=== PATIENT | female | born 1945 | race Caucasian/White ===

== ENCOUNTER → 2018-02-04 13:34 | Outpatient (CLI) | payer MEDICARE, SELFPAY ==
--- NOTE | 2018-02-04 13:30 | RAD_ITS ---
STUDY: X-RAY - LUMBAR SPINE REASON FOR EXAM: Female, 72 years old. Recent fall. Back and right hip pain. TECHNIQUE: 3 view(s) of the lumbar spine were obtained. COMPARISON: CT of the lumbar spine dated February 14, 2014. FINDINGS: There is generalized osteopenia. Normal lumbar lordosis. There is rotatory levoscoliosis of the mid lumbar spine. There is anterolisthesis of L3 on L2 of approximately 7 mm. There is posterior fusion at L4-5 unchanged from the prior comparison study. No complications are noted. There is substantial disc degeneration at L2-3 and L3-4 relatively unchanged from the prior study. There is diffuse facet sclerosis. The soft tissue structures are unremarkable. RAD/Lumbar Spine 2 or 3 Views IMPRESSION: Generalized osteopenia with lumbar spondylosis, relatively unchanged since the prior comparison CT study of February 14, 2014. Moderate lumbar spondylosis most marked at L2-3 and L3-4. Electronically Signed: Ga Valdez MD at 17:30 EDT , Service support ,
--- NOTE | 2018-02-04 13:34 | DT_ITS ---
This patient was seen during an EMR downtime February 04, 2018 - February 11, 2018. This patient may have a combination of paper and electronic documentation or all paper documentation. All documentation is viewable within the e-chart portion of [facility] for each patient visit.
== END ==
PROVIDERS: Family Provider Nurse Practitioner; PCP Nurse Practitioner; Visit Provider Anesthesiology Pain Medicine
DX: M85.80 Other specified disorders of bone density and structure, unspecified site (principal); M47.896 Other spondylosis, lumbar region; W19.XXXA Unspecified fall, initial encounter
CPT/HCPCS: 72100

== ENCOUNTER → 2018-03-05 09:33 | Outpatient (CLI) | payer MEDICARE, SELFPAY ==
--- NOTE | 2018-03-05 09:50 | RAD_ITS ---
STUDY: X-RAY - PELVIS AND RIGHT HIP REASON FOR EXAM: Female, 72 years old. Pain weeks after fall onto right hip. TECHNIQUE: Radiological exam, hip, unilateral, with pelvis when performed; 2 or 3 views. COMPARISON: None. FINDINGS: There is a non-specific bowel gas pattern. Normal visualized soft tissue structures. There are multilevel degenerative changes of the lumbar spine and a moderate levoscoliosis centered near L3. The patient has undergone prior bilateral posterior L4-5 fixation with bilateral transpedicular screws at those levels, connected on either side the longitudinal metal rods There is mild narrowing and/or cortical sclerosis of the lateral sacroiliac joints, consistent with degenerative osteoarthritic changes. Normal iliac wings and visualized sacrum. Normal bilateral superior and inferior pubic rami. There are degenerative changes of the pubic symphysis with articular narrowing and sclerosis. Normal bilateral ischial tuberosities. Normal visualized femoral head. Normal acetabulum. Normal hip joint. There is no demonstrated osseous destructive lesion or fracture. RAD/Hip 2-3 Views with Pelvis IMPRESSION: Degenerative changes of the spine and pelvis, as described. Unremarkable right hip. Electronically Signed: Nii Bower MD at 19:16 EDT , Service support ,
== END ==
PROVIDERS: Family Provider Nurse Practitioner; PCP Nurse Practitioner; Visit Provider Anesthesiology Pain Medicine
DX: M25.559 Pain in unspecified hip (principal)
CPT/HCPCS: 73502

== ENCOUNTER → 2018-04-30 15:57 | Outpatient (CLI) | payer MEDICARE, SELFPAY ==
[2018-04-30 17:18] LABS: Amphetamine Urine VISTA NEGATIVE (<1000 ng/mL); Barbiturate Urine VISTA NEGATIVE (< 200 ng/mL); Benzodiazepine Urine VISTA NEGATIVE (< 200 ng/mL); Cocaine Urine VISTA NEGATIVE (< 300 ng/mL); Ecstacy Urine VISTA NEGATIVE (< 500 ng/mL); Methadone Urine VISTA NEGATIVE (< 300 ng/mL); PCP Urine VISTA NEGATIVE (< 25 ng/mL); THC Urine VISTA NEGATIVE (< 50 ng/mL); Vista UDS pH Range 6
== END ==
PROVIDERS: Family Provider Nurse Practitioner; PCP Nurse Practitioner; Visit Provider Anesthesiology Pain Medicine
DX: F11.20 Opioid dependence, uncomplicated (principal)
CPT/HCPCS: 80307

== ENCOUNTER → 2018-10-04 11:44 | Outpatient (CLI) | payer MEDICARE, SELFPAY ==
[2018-08-23 08:24] VITALS: BMI 40.4
[2018-10-04 14:47] LABS: Erythrocyte Sedimentation Rate 21 mm/hr (0-30)
[2018-10-04 14:56] LABS: Absolute Lymphocyte Count 1.18 X10^3/ul (0.83-4.51); Absolute Neutrophil Count 3.9 X10^3/uL (2.0-7.7); Basophil# 0.04 X10^3/uL; Basophil% 0.7 % (0-1); Eosinophil# 0.12 X10^3/uL; Eosinophils% 2.2 % (0-5); Hematocrit 43.9 % (37-47); Lymphocyte # 1.18 X10^3/ul (4.0); Lymphocyte % 21.3 % (19-41); Mean Corp Hgb Conc 31.9 g/gl (32-36); Mean Corpuscular Hgb 29.5 pg (27.0-32.0); Mean Corpuscular Volume 92.4 fL (81-99); Mean Platelet Vol. 10.4 fl (6.2-12.0); Monocyte# 0.35 X10^3/uL; Monocyte% 6.3 % (0-10); Neutrophil # 3.85 X10^3/uL (2.7-7.7); Neutrophil % 69.3 % (47-70); POSITIVE COUNT NO; POSITIVE DIFFERENTIAL NO; POSITIVE MORPHOLOGY NO; Platelet Count 299 K/mm3 (150-450); RBC Distribution Width CV 13.8 % (11.6-14.6); RBC Distribution Width SD 46.3 fl (35.1-43.9); Red Blood Count 4.75 M/mm3 (4.2-5.4); White Blood Count 5.6 K/mm3 (4.4-11.0)
== END ==
PROVIDERS: Family Provider Nurse Practitioner; PCP Nurse Practitioner; Referring Provider Physician Assistant; Visit Provider Physician Assistant
DX: Z96.652 Presence of left artificial knee joint (principal)
CPT/HCPCS: 36415; 85025; 85652; 86140

== ENCOUNTER → 2018-10-10 15:44 | Outpatient (CLI) | payer MEDICARE, SELFPAY ==
[2018-08-23 08:24] VITALS: BMI 40.4
[2018-10-10 16:42] LABS: RBC /Synovial Fluid 0.039 10^6/uL (0); Synovial Fld Mononuclear WBC % 38.6 %; Synovial Fld Polynuclear WBC # 0.508 10^3/ul; Synovial Fld Polynuclear WBC % 61.4 %
[2018-10-10 19:32] LABS: AUTO B FLUID DILUENT BKGD CT WBC <0.1 RBC <0.01 (W<.1,R<.01); Appearance /Synovial Fluid Cloudy (CLEAR); Color / Synovial Fluid Red (Pale Yellow); Lymph 57 %; Monocyte /Synovial Fluid 10 %; Neutrophil 14 % (0-25)
[2018-10-10 19:33] LABS: Body Fluid QC Type(s) BF1; Other Cell /Synovial Fluid 18 %
[2018-10-11 13:40] LABS: Pathologist Comment Reviewed
== END ==
PROVIDERS: Family Provider Nurse Practitioner; PCP Nurse Practitioner; Referring Provider Specialist; Visit Provider Specialist
DX: Z96.652 Presence of left artificial knee joint (principal)
CPT/HCPCS: 87015; 87070; 87075; 87101; 87116; 87205; 87206; 89050; 89051

== ENCOUNTER → 2018-11-08 09:25 | Outpatient (CLI) | payer MEDICARE, SELFPAY ==
[2018-08-23 08:24] VITALS: BMI 40.4
--- NOTE | 2018-11-08 09:29 | US_ITS ---
STUDY: THYROID ULTRASOUND REASON FOR EXAM: Female, 73 years old. Abnormal TSH TECHNIQUE: Ultrasound evaluation of the thyroid was performed with real-time and static caban-scale imaging. COMPARISON: None. FINDINGS: RIGHT LOBE: The right lobe of the thyroid gland measures 4.2 x 1.5 x 1.9 cm. There is a homogeneous echotexture. There are 2 slightly complex cystic nodules are noted in the upper pole measuring up to 7 mm. LEFT LOBE: The left lobe of the thyroid gland measures 3.2 x 1.4 x 1.5 cm. There is a homogeneous echotexture. Complex cystic left thyroid nodule measuring 7 mm. ISTHMUS: The isthmus measures 3 mm . The regional lymph nodes are normal. US/Thyroid IMPRESSION: Complex cystic thyroid nodules are noted bilaterally. Electronically Signed: Rodolfo Cameron DO at 10:38 EST Tel [phone], Service support ,
== END ==
PROVIDERS: Family Provider Nurse Practitioner; PCP Nurse Practitioner; Referring Provider Nurse Practitioner; Visit Provider Nurse Practitioner
DX: R79.89 Other specified abnormal findings of blood chemistry (principal)
CPT/HCPCS: 76536

== ENCOUNTER 2018-11-13 10:00 | Outpatient (RCR) | payer MEDICARE, SELFPAY ==
[2018-08-23 08:24] VITALS: BMI 40.4
--- NOTE | 2018-10-15 11:04 | HP.PTEVAL_ITS ---
Patient's Visit Information DEON SAMAYOA is a 73 year old F referred to Physical Therapy by Glenroy Sol MD with a diagnosis of LBP, Artificial knee.. Date of Evaluation: 10/15/18 Physical Therapist: CONSTANCE Rodriguez - Visit Plan Frequency: 2x /Week Duration: 4 Weeks Plan: 2X/ week for 4 weeks for L knee strengthening exercises, gait training, functional activities with HEP - Subjective Findings: Pt reports that she turned 73 (Sep 30) and then next morning it hurt from her back to her toes (sharp pain from back to the toes). The pain stayed for about 2 days. She was in a knee brace and walker for 1.5 weeks. He took fluid from her knee and it was negative for infection. She has had 2 TKR and 3 revisions and has had spinal surgery on L3, 4 and 5 (fusion) as well. Pt reports that she wants water therapy. She has no N&T except for B feet numbess due to neuropathy. She has had no falls connected to this. She has a balance issue and poor vision. She uses a cane out in public. Pt reports that walking occ she feels that her knee will lock and not bend. They did an x-ray and an MRI. - Pain back pain Pain Intensity (Out of 10): 2 L knee Pain Intensity (Out of 10): 3 - Objective L AROM: 0 degrees extension and 100degrees L knee flexion. R knee AROM: 0 degrees and 112 degrees R knee flexion. L knee MMT: knee ext 2-/5, knee flexion 3+/5, hip abd 2- ( hard to lift due to heaviness of the lower 1/2 of the leg), L ankle DF 4-/5. R knee MMT: knee flex, knee ext, hip abd all 4/5. Unable to LAQ into extension on the L knee ( able to move approx 1/4 normal ROM from a sitting position). Therapist is able to PROM L knee into LAQ position but increase pain along the medial and inferior knee when passivly going back to 90 degrees flexion sitting on the edge of the mat table. Pt is not able to extend her knee in trying to do a SLR. Palpation: tenderness along the medial joint line L knee and infrapatella L knee. - Goals Goal 1:: I HEP Goal Time Frame: 2-4 Weeks Goal 2:: Increase L knee strength to be able to do a full L knee LAQ ROM Goal Time Frame: 2-4 Weeks Goal 3:: Decrease pain 2/10 L knee Goal Time Frame: 2-4 Weeks - Rehabilitation Potential Rehabilitation Potential: Good - Anticipated Interventions Patient/Client Instruction: Educate patient on: Condition, Plan of Care For the Purpose of:: To decrease pain, To improve nutrient delivery to tissue, To improve muscle performance and motor function, To improve ability to perform ADL's, To increase tolerance to activity/condition/position, To improve performance and independence with ADL's, To decrease level of supervision to perform tasks, To improve gait and locomotor functions, To improve health of tissue, To improve safety with gait Therapeutic Exercise to Include: Strength training, Passive ROM, Active ROM For the Purpose of:: To decrease pain, To increase ROM, To improve nutrient delivery to tissue, To improve muscle performance and motor function, To improve ability to perform ADL's, To increase tolerance to activity/condition/position, To improve performance and independence with ADL's, To improve gait and locomotor functions Thank you for the opportunity to evaluate your patient. For Medicare and Medicare HMO plans, please review the plan of care and approve it. It will need to be FAXED BACK to us at [phone] for Medicare purposes. For Medicare only, by signing this I certify the plan of care. Please let me know if there are questions or concerns regarding this plan of care. Physician Signature: Date:
--- NOTE | 2018-11-13 10:33 | HP.PTREVAL ---
Glenroy Sol MD, It has been my pleasure to treat DEON SAMAYOA over the last 9 visits for LBP, Artificial knee.. Please see the progress note below for an update on the physical therapy plan of care! Subjective: Pt feels that her back feels better but her L knee is not much better. She reports that she still can not lift her leg. The Dr thinks that her knee problem is a tendon and told her that it would be a year recovery. She is going to [place] the week after next for a test. SHe reports that her knee is no better. If it is not here knee then he will move up to her back. 70% improvement in back and 0% improvement in knee. Objective/Function: Pt is still unable to do a LAQ. Pt walks with cane with decreased stance time on the L and slightly increased L circumduction to get leg to clear floor. Plan Plan: Hold PT at this time until the Pt has this additional testing. Pt will call in a re-schedule to continue to increase strength. Goals Goal 1:: I HEP Goal Time Frame: 2-4 Weeks Goal Progress: Goal Met Goal 2:: Increase L knee strength to be able to do a full L knee LAQ ROM Goal Time Frame: 2-4 Weeks Goal Progress: Not Progressing Goal 3:: Decrease pain 2/10 L knee Goal Time Frame: 2-4 Weeks Goal Progress: Not Progressing Anticipated Interventions Patient/Client Instruction: Educate patient on: Condition, Plan of Care For the Purpose of:: To decrease pain, To improve nutrient delivery to tissue, To improve muscle performance and motor function, To improve ability to perform ADL's, To increase tolerance to activity/condition/position, To improve performance and independence with ADL's, To decrease level of supervision to perform tasks, To improve gait and locomotor functions, To improve health of tissue, To improve safety with gait Therapeutic Exercise to Include: Strength training, Passive ROM, Active ROM For the Purpose of:: To decrease pain, To increase ROM, To improve nutrient delivery to tissue, To improve muscle performance and motor function, To improve ability to perform ADL's, To increase tolerance to activity/condition/position, To improve performance and independence with ADL's, To improve gait and locomotor functions Please do not hesitate to contact me at [phone] by phone or if you have questions or concerns regarding this new plan of care! Sincerely, Nikia Noble, MPT
--- NOTE | 2019-03-11 15:03 | HP.PT.NRP ---
HP - Discharge Summary (1) - Patient Information DEON SAAMYOA was seen in my office for initial evaluation on 10/15/18. The following Plan of Care was established for this patient: Initial Frequency: 2x /Week Initial Duration: 4 Weeks - Anticipated Interventions Patient/Client Instruction: Educate patient on: Condition, Plan of Care For the Purpose of:: To decrease pain, To improve nutrient delivery to tissue, To improve muscle performance and motor function, To improve ability to perform ADL's, To increase tolerance to activity/condition/position, To improve performance and independence with ADL's, To decrease level of supervision to perform tasks, To improve gait and locomotor functions, To improve health of tissue, To improve safety with gait Therapeutic Exercise to Include: Strength training, Passive ROM, Active ROM For the Purpose of:: To decrease pain, To increase ROM, To improve nutrient delivery to tissue, To improve muscle performance and motor function, To improve ability to perform ADL's, To increase tolerance to activity/condition/position, To improve performance and independence with ADL's, To improve gait and locomotor functions This patient was last seen in our office 11/13/18. Pertinent comments regarding their Physical therapy will appear below: [facility] PT At this point I will be discontinuing this patient from physical therapy. I would be happy to see this patient again in the future if found appropriate by the physician. Thank you! Nikia Noble, CONSTANCE
== END 2018-11-13 19:00 | disposition home or self-care (01) ==
LOC: PT 10:00
PROVIDERS: Family Provider Nurse Practitioner; PCP Nurse Practitioner; Referring Provider Specialist; Visit Provider Specialist
DX: T84.84XD Pain due to internal orthopedic prosthetic devices, implants and grafts, subsequent encounter (principal); M54.5 Low back pain; Z96.652 Presence of left artificial knee joint
CPT/HCPCS: 97113; 97162; 97530

== ENCOUNTER → 2019-03-07 07:52 | Outpatient (CLI) | payer MEDICARE, SELFPAY ==
[2019-02-24 10:10] VITALS: BMI 37.7
--- NOTE | 2019-03-07 07:55 | CDU_ITS ---
Reason For Study: Vertigo Rt. Velocities/BP Lt. Velocities/BP Prox CCA 72.1/22.6 cm/sec. Prox CCA 109.7/22.5 cm/sec. Mid CCA 82.6/18.6 cm/sec. Mid CCA 81.4/20 cm/sec. Dist CCA 66.9/20 cm/sec. Dist CCA 79/16.3 cm/sec. Prox ICA 64.3/20 cm/sec. Prox ICA 67.9/15.1 cm/sec. Mid ICA 98.2/38.2 cm/sec. Mid ICA 82.7/33.5 cm/sec. Dist ICA 96.9/38.2 cm/sec. Dist ICA 108.4/42.1 cm/sec. Rt. ICA/CCA = 1.4. Lt. ICA/CCA = 1.3. Prox ECA 100.8/54.2 cm/sec. Prox ECA 79/10.2 cm/sec. Rt. Vert. 54.2/17.9 cm/sec. Lt. Vert. 43.9/18.6 cm/sec. Right Extracranial There is homogeneous, smooth atherosclerotic plaque noted in the right common carotid artery. There is homogeneous, irregular atherosclerotic plaque noted in the right internal carotid artery. There is intimal thickening but no significant atherosclerotic plaque noted in the right external carotid artery. Antegrade flow is noted in the right vertebral artery. Left Extracranial There is homogeneous, smooth atherosclerotic plaque noted in the left common carotid artery. There is heterogeneous, irregular atherosclerotic plaque noted in the left internal carotid artery. There is intimal thickening but no significant atherosclerotic plaque noted in the left external carotid artery. Antegrade flow is noted in the left vertebral artery. Procedure Carotid Duplex [id number]. Exam performed in department. Interpretation Summary Minimal plague at the proximal bilateral internal carotids with <50% stenosis bilaterally <50% stenosis bilateral external carotids Patent and antegrade vertebrals bilaterally Ordering Physician: Stephen Leiva Referring Physician: Niki Nayak Performed By: Katie Marshall RVT
== END ==
PROVIDERS: Family Provider Nurse Practitioner; PCP Nurse Practitioner; Referring Provider Nurse Practitioner Family; Visit Provider Nurse Practitioner Family
DX: I65.22 Occlusion and stenosis of left carotid artery (principal); R42 Dizziness and giddiness
CPT/HCPCS: 93880

== ENCOUNTER → 2019-03-31 11:04 | Outpatient (CLI) | payer MEDICARE, SELFPAY ==
[2019-02-24 10:10] VITALS: BMI 37.7
--- NOTE | 2019-03-31 11:09 | RAD_ITS ---
STUDY: X-RAY - RIGHT HAND REASON FOR EXAM: Female, 73 years old. Nontraumatic pain in the third digit. TECHNIQUE: 3 view(s) of the hand. COMPARISON: None. FINDINGS: There is generalized osteopenia. There is joint space narrowing of the radiocarpal articulation consistent with degenerative arthrosis. Normal distal radioulnar joint. Normal visualized carpal bones. Normal carpal articulations Normal carpometacarpal articulation of the thumb. Normal second through fifth carpometacarpal joints. Normal metacarpi. Normal metacarpophalangeal joint of the thumb. Normal interphalangeal joint of the thumb. Normal proximal and distal phalanges of the thumb. Normal metacarpophalangeal joints of the second through fifth fingers. Normal proximal and distal interphalangeal joints of the second through fifth fingers. Normal phalanges of the second through fifth fingers. The soft tissue structures are unremarkable. RAD/Hand Min 3 Views IMPRESSION: Osteopenia of the hand without fracture or dislocation. Electronically Signed: Jef Enriquez DO at 17:03 EDT Tel [phone], Service support ,
== END ==
PROVIDERS: Family Provider Nurse Practitioner; PCP Nurse Practitioner; Referring Provider Nurse Practitioner; Visit Provider Nurse Practitioner
DX: M79.646 Pain in unspecified finger(s) (principal)
CPT/HCPCS: 73130

== ENCOUNTER 2019-04-07 10:23 | Inpatient (IN) | payer MEDICARE, SELFPAY ==
[2019-02-24 10:10] VITALS: BMI 37.7
[2019-04-07] VITALS (17 sets, daily range): BP systolic 108–159; BP diastolic 68–107; PULSE 55–108; RESP 15–26; TEMP 36.6–37; O2SAT 93–97; BMI 37.5; BMI 40.6; BMI 40.7
--- NOTE | 2019-04-07 10:34 | EKG12_ITS ---
Test Reason : CP Blood Pressure : / mmHG Vent. Rate : 164 BPM Atrial Rate : 105 BPM P-R Int : 000 ms QRS Dur : 144 ms QT Int : 272 ms P-R-T Axes : 000 -53 147 degrees QTc Int : 449 ms Atrial fibrillation with rapid ventricular response Left bundle branch block Abnormal ECG Confirmed by YONNY GARCIA ([id number]), editorial clerk STANLEY ELLIS ([id number]) on 04/09/2019 3:25:39 PM Referred By: Niki Nayak Confirmed By:YONNY GARCIA
--- NOTE | 2019-04-07 10:38 | RAD_ITS ---
STUDY: X-RAY CHEST REASON FOR EXAM: Female, 73 years old. Chest pain. Shortness of breath. TECHNIQUE: Single AP portable view of the chest. COMPARISON: None. FINDINGS: EKG electrodes are seen. Scattered calcified granulomas. There is no demonstrated pleural abnormality. There is borderline cardiomegaly. Normal mediastinum and savage. Normal visualized pulmonary arteries. There is atherosclerotic tortuosity of the aortic arch and descending thoracic aorta. There are diffuse degenerative changes of the visualized thoracic spine. Normal visualized ribs, clavicles, and shoulders. There is no demonstrated abnormality of the visualized soft tissue structures of the upper abdomen. RAD/Chest 1 View (Portable) IMPRESSION: No acute abnormality is seen. Electronically Signed: Julio Rubio, at 11:22 EDT , Service support ,
[2019-04-07] MEDS: dilTIAZem 25 MG/5 ML Vial 20 MG IV BOLUS (10:42)
[2019-04-07] MEDS: Heparin Injection (Vial) 5,000 UNIT/ML VIAL 6000 UNIT IV (10:52)
[2019-04-07] MEDS: Nitroglycerin (INPATIENT USE) 0.4 MG TAB.SUBL SUBLINGUAL (10:52)
--- NOTE | 2019-04-07 10:53 | ED.VISSUMM ---
- ER Visit Summary Date of Service: 04/07/19 Chief Complaint: [Chest pain and shortness of breath] History of Present Illness: The patient is a 73 F [presents with symptoms for about 3 days. Patient describes exertional tightness in her chest and shortness of breath associated with diaphoresis. Patient states that if she feels like her heart's at times racing but does not feel like it skipping beats. Currently rates her discomfort as a 7 out of 10. Patient states that her symptoms tend to improve with rest. She denies recent travel or surgery. She has no heart history. She has had history of TIAs and history of hypertension. Recent illness. She denies recent travel or surgery.] Physical Examination: [HEENT-PERRLA, EOMI. Cranial nerves II through XII grossly intact. TMs clear. Mucous membranes moist. No adenopathy. Cardiovascular-irregularly irregular and tachycardic. No murmurs auscultated. Lungs-clear to auscultation, chest wall stable without crepitus or subcu emphysema Abdomen-normoactive bowel sounds, soft, nontender, no rebound or rigidity, no peritoneal signs. Extremities-intact ?4, normal range of motion, normal pulses, atraumatic. No edema.] Test Results: [EKG obtained on arrival showed atrial fibrillation with a rapid ventricular response with a heart rate of 164. Patient had left bundle branch block associated. CBC with differential 13.8, hemoglobin 13.7, hematocrit 42, placed 307. Chemistries unremarkable. BUN was 30 and creatinine 1.11. Troponin is less than 0.15. BNP was 495. Chest x-ray showed small granuloma in the right lower lobe otherwise nothing acute.] Emergency Department Course and Treatment: [Patient case was discussed with hardware developer on-call given the symptomatology the patient and the new left bundle branch block. I was asked to start patient on heparin. Patient already took Plavix today. Patient was given Cardizem 20 mg IV bolus which slowed her heart rate down into to the 90s however she started elevate again into the low 100s and was given another 25 mg bolus of Cardizem and started on a Cardizem drip and heart rate now in the 70s to 80s. Patient started on heparin drip.] Treatment Plan: [Admit for further treatment and evaluation of her chest pain as well as management of her A. fib RVR] Disposition: [Admit] Impression: [A. fib RVR Chest pain-rule out acute coronary syndrome] This note was generated with [employer] dictation software. It may contain incorrect words, spelling, and punctuation that were not noted in review of the chart prior to signing ED Disposition - Plan for ED Patient: Referrals: Niki Nayak, [facility] [Primary Care Provider] -
[2019-04-07 10:54] LABS: Absolute Lymphocyte Count 1.63 X10^3/uL (0.83-4.51); Absolute Neutrophil Count 11.1 X10^3/uL (2.0-7.7); Basophil# 0.09 X10^3/uL; Basophil% 0.7 % (0-1); Eosinophil# 0.24 X10^3/uL; Eosinophils% 1.7 % (0-5); Hematocrit 42.5 % (37-47); Hemoglobin 13.7 g/dL (12.0-15.0); Lymphocyte # 1.63 X10^3/ul (4.0); Lymphocyte % 11.8 % (19-41); Mean Corp Hgb Conc 32.2 g/dL (32-36); Mean Corpuscular Hgb 30.6 pg (27.0-32.0); Mean Corpuscular Volume 95.1 fL (81-99); Mean Platelet Vol. 9.9 fl (6.2-12.0); Monocyte# 0.69 X10^3/uL; NRBC Flagged by Analyzer 0 % (0-5); Neutrophil # 11.09 X10^3/uL (2.7-7.7); Neutrophil % 80.1 % (47-70); Platelet Count 307 K/mm3 (150-450); RBC Distribution Width CV 14.6 % (11.6-14.6); RBC Distribution Width SD 50.6 fl (35.1-43.9); Red Blood Count 4.47 M/mm3 (4.2-5.4); White Blood Count 13.8 K/mm3 (4.4-11.0)
[2019-04-07] MEDS: 0.9% Normal Saline 1,000 ML 150 ML IV (10:55)
[2019-04-07 11:18] LABS: Anion Gap 9 (5-15); BUN 30 mg/dL (7-18); Calcium,Total 9.2 mg/dL (8.5-10.1); Chloride 110 mmol/L (98-107); Creatinine, Serum 1.11 mg/dL (0.55-1.02); EST Glomerular Filtration Rate 51 mL/min (>60); Est Glom Filt Rate - Afr Amer 62 mL/min (>60); Estimated Creatinine Clearance 43.24 ml/min; Glucose 108 mg/dL (74-106); Potassium 4.4 mmol/L (3.5-5.1); Sodium Level 143 mmol/L (136-145)
[2019-04-07] MEDS: dilTIAZem 25 MG/5 ML Vial IV BOLUS (11:18)
[2019-04-07 11:24] LABS: BNP,B-Type NATRIURETIC PEPTIDE 495.9 pg/mL (0-100)
--- NOTE | 2019-04-07 12:47 | ECHOCS_ITS ---
Reason For Study: AFIB/FLUTTER Procedure This was a 2D Doppler, Color Flow transthoracic echocardiogram. The study was technically difficult. Contrast injection was performed. Exam performed portable in patient room. Left Ventricle Severely dilated left ventricle. The estimated ejection fraction is 15 %. Septal motion consistent with IVCD. There is severe global hypokinesis of the left ventricle. Right Ventricle Moderately dilated right ventricle. Mild global right ventricular systolic dysfunction. Atria The left atrium is moderately enlarged. The right atrium is moderately enlarged. Normal atrial septum. Mitral Valve Mild diffuse mitral valve thickening. Moderately severe (3+) mitral valve insufficiency. Tricuspid Valve Normal tricuspid valve. Moderate (2+) tricuspid valve insufficiency. Right ventricular systolic pressure estimated to be 53 mmHg. Moderate pulmonary hypertension. Aortic Valve Trisinus/trileaflet aortic valve. Pulmonic Valve Normal pulmonic valve. Mild (1+) pulmonic valve insufficiency. Great Vessels Normal aortic root. Normal arch. The inferior vena cava is dilated. Inferior vena cava collapse with sniff. Pericardium/Pleural No pericardial effusion. Medication Diluted definity 4ml given slow IV push to enhance endocardial definition. MMode/2D Measurements & Calculations LVIDd: 5.7 cm IVSd: 0.96 cm Ao root diam: 3.9 cm LVIDs: 5.0 cm LVPWd: 1.1 cm RVDd: 4.2 cm FS: 12.9 % LAV(MOD-bp): 80.7 ml EDV(MOD-sp4): 156.0 ml EDV(MOD-sp2): 181.5 ml LAV(MOD-bp) Indexed: 36.2 ml/m2 ESV(MOD-sp4): 126.5 ml EF(MOD-sp2): 37.9 % LAV(MOD-sp2): 85.4 ml EF(MOD-sp4): 18.9 % LAV(MOD-sp4): 76.5 ml SV(MOD-sp4): 29.5 ml SV(MOD-sp2): 68.7 ml LA A4 area: 23.9 cm2 LA dimension(2D): 3.9 cm RA A4 area: 24.9 cm2 Doppler Measurements & Calculations Ao V2 max: 108.9 cm/sec LV V1 max: 97.4 cm/sec PA V2 max: 78.1 cm/sec Ao max P.7 mmHg LV V1 max P.8 mmHg PI end-d edgar: 140.2 cm/sec TR max edgar: 294.4 cm/sec TR max P.7 mmHg Interpretation Summary The estimated ejection fraction is 15 %. There is severe global hypokinesis of the left ventricle. Septal motion consistent with IVCD. Moderately dilated right ventricle. The left atrium is moderately enlarged. The right atrium is moderately enlarged. Moderately severe (3+) mitral valve insufficiency. Moderate (2+) tricuspid valve insufficiency. Right ventricular systolic pressure estimated to be 53 mmHg. Moderate pulmonary hypertension. Mild (1+) pulmonic valve insufficiency. The inferior vena cava is dilated Compared with echo report dated 06/22/2017, LV function has worsened from 60% to 15%. Pt now appears to be in atrial fibrillation. MR has gone from mild to moderately/severe. Ordering Physician: Anthony Bonilla Referring Physician: MEG FITZPATRICK Performed By: Tiffanie Garcia RDCS, RVT
[2019-04-07 14:00] LABS: International Normalized Ratio 1.1; Prothrombin Time (Protime)PT. 13.9 SECONDS (11.7-14.9)
[2019-04-07 14:01] LABS: Partial Thromboplast Time 45.7 Seconds (24.1-36.2)
[2019-04-07] MEDS: HEPARIN/D5w 25,000 UNITS 25,000 UNITS/250 ML IV.SOLN. 15 UNITS IV (14:36)
--- NOTE | 2019-04-07 14:45 | HP.PCM_ITS ---
Problem List (1) Rheumatic tricuspid insufficiency Status: Chronic (2) Rheumatic mitral insufficiency Status: Chronic (3) Hypertension Status: Chronic Qualifiers: (4) Occlusion and stenosis of unspecified carotid artery Status: Chronic (5) Transient cerebral ischemic attack, unspecified Status: Chronic (6) Other secondary pulmonary hypertension Status: Chronic History of Present Illness Date of Admission: 04/07/19 Chief Complaint: Chest pain, shortness of breath. The patient is a 73 year old F who presents the emergency room due to shortness of breath and chest tightness. Patient reports she has had this intermittently since last Sunday. She states she thought she was out of shape and combined with the humidity, that the symptoms were not significant. She states that her symptoms improved with rest. She denies palpitations, dizziness or lightheadedness. She denies history of atrial fibrillation. She denies increased lower extremity swelling although reports she has a history of intermittent ankle swelling. Patient follows with Dr. Dorsey due to hypertension and monitoring of valvular disease. Her other past medical history includes TIA, pulmonary hypertension, hyperlipidemia, chronic back pain and obesity. Past Medical History Past Medical History (Chronic Problems): Chronic Problems (Last Reviewed 02/24/19 @ 10:09 by Payton Hamlin) Rheumatic tricuspid insufficiency (Chronic) Rheumatic mitral insufficiency (Chronic) Hypertension (Chronic) Occlusion and stenosis of unspecified carotid artery (Chronic) Transient cerebral ischemic attack, unspecified (Chronic) Other secondary pulmonary hypertension (Chronic) Medical History: Medical History (Last Reviewed 02/24/19 @ 10:09 by Payton Hamlin) Hypertension (Chronic) I10 Occlusion and stenosis of unspecified carotid artery (Chronic) I65.29 Glaucoma H40.9 History of hysterectomy Z98.890, Z90.710 Allergies iodine Allergy (Verified 04/07/19 10:23) Shortness of breath Penicillins Allergy (Verified 04/07/19 10:23) Diarrhea Sulfa (Sulfonamide Antibiotics) Adverse Reaction (Verified 04/07/19 10:23) Diarrhea SEAFOOD Allergy (Uncoded 04/07/19 10:23) Shortness of breath Home Medications: Ambulatory Orders Medication Instructions Recorded Clopidogrel Bisulfate [Plavix] 75 mg PO DAILY 06/16/14 Vits A,C,E/Lutein/Minerals 1 ea PO DAILY 06/16/14 [Ocuvite with Lutein Tablet] lisinopril 20 mg tablet 20 mg PO QDAY 09/26/17 furosemide 20 mg tablet 20 mg PO DAILY tab 08/23/18 Ergocalciferol [Vitamin D] 1 cap PO DAILY 04/07/19 Oxycodone HCl 1 tab PO PRN PRN 04/07/19 Oxycodone HCl 5 mg PO PRN PRN 04/07/19 Rosuvastatin Calcium 5 mg PO QHS 04/07/19 Tafluprost/Pf [Zioptan 0.0015% Eye 1 ea OP DAILY 04/07/19 Drops] Surgical History: Surgical History (Last Reviewed 04/07/19 @ 14:53 by TY Cortez) History of appendectomy Z98.890, Z90.49 History of bilateral knee replacement Z98.890, Z96.653 History of parathyroidectomy Z98.890 H/O foot surgery Z98.890 x4 Psychiatric History: No pertinent psych hx PHARMACOLOGY ASSOCIATE History: No pertinent PHARMACOLOGY ASSOCIATE history Lives: Spouse/ Significant Other Smoking Status: Never smoker Tobacco Use: Non-smoker Alcohol: Rare Drugs: None - *Family History Maternal Family History: Family History (Last Reviewed 04/07/19 @ 14:53 by TY Cortez) Father CVA (cerebral vascular accident) Brother CAD (coronary artery disease) CVA (cerebral vascular accident) Diabetes History Items: Hypertension, - - Brain tumor. Paternal Family History: Family History (Last Reviewed 04/07/19 @ 14:53 by TY Cortez) Father CVA (cerebral vascular accident) Brother CAD (coronary artery disease) CVA (cerebral vascular accident) Diabetes History Items: Diabetes, Hypertension Review of Systems Constitutional: Denies: Chills, Fever, Weight Change HEENT: Denies: Head Aches, Sinus Congestion, Sinus Drainage Cardiovascular: Reports: Chest Pressure. Denies: Edema, Light Headedness, Palpitations, Syncope Respiratory: Reports: Shortness of breath upon exertion. Denies: Cough, Shortness of breath at rest, Sputum production Gastrointestinal: Denies: Abdominal Pain, Nausea, Vomiting Genitourinary: Denies: Dysuria Musculoskeletal: Reports: Back Pain - Chronic. Denies: Joint Pain, Joint Tenderness Skin: Denies: Rash, Wounds Neurological: Denies: Numbness, Tingling, Focal weakness Psychiatric: Denies: Anxiety, Depression, Homicidal Ideations, Suicidal Ideations Hematologic/ Lymphatic: Denies: Easy Bruising, Easy Bleeding VTE Information - Inpt Only VTE Present on Admission: No VTE Mechan Device Prophylaxis: None VTE Pharm Prophylaxis ordered?: Yes - Physical Exam General: Alert, Oriented x3, Cooperative HEENT: Atraumatic, PERRLA, EOMI, Normocephalic Neck: Supple, No JVD, Negative Carotid Bruits Lungs: Clear to auscultation, Diminished Cardiovascular: - - Atrial fibrillation, rate controlled. No murmur. Abdomen: Bowel Sounds Present, Soft, Non Tender, Non-Distended, Obese Extremities: No clubbing, No cyanosis, No edema, Capillary Refill Less than 3 Seconds Skin: No rashes, No breakdown Musculoskeletal: No Tenderness to Palpation of Joints or Extremities Neurological: Cranial nerves II-XII grossly intact, Neuro grossly intact Psych/Mental Status: Normal Affect, Appropriate Vital Signs Temp Pulse Resp BP Pulse Ox 97.8 F 97 16 114/89 H 96 04/07/19 13:00 04/07/19 13:00 04/07/19 13:00 04/07/19 13:00 04/07/19 13:00 Oxygen Flow Rate (L/min) 2 Oxygen Delivery Method Room Air Weight: 252 lb Body Mass Index (BMI) 40.6 Laboratory Tests Past 24 Hrs 04/07/19 04/07/19 04/07/19 10:45 10:45 10:45 WBC 13.8 H RBC 4.47 Hgb 13.7 Hct 42.5 MCV 95.1 MCH 30.6 MCHC 32.2 RDW Std Deviation 50.6 H RDW Coeff of [place] 14.6 Plt Count 307 MPV 9.9 Immature Gran % (Auto) 0.700 Neut % (Auto) 80.1 H Lymph % (Auto) 11.8 L [place] % (Auto) 5.0 Eos % (Auto) 1.7 Baso % (Auto) 0.7 Absolute Neuts (auto) 11.1 H Absolute Lymphs (auto) 1.63 Nucleated RBC % 0 PT INR APTT Sodium 143 Potassium 4.4 Chloride 110 H Carbon Dioxide 24.0 Anion Gap 9 BUN 30 H Creatinine 1.11 H Estim Creat Clear Calc 43.24 Est GFR (MDRD) Af Amer 62 Est GFR (MDRD) Non-Af 51 L BUN/Creatinine Ratio 27.0 H Glucose 108 H Calcium 9.2 Troponin I < 0.015 B-Natriuretic Peptide 495.9 H 04/07/19 13:40 WBC RBC Hgb Hct MCV MCH MCHC RDW Std Deviation RDW Coeff of [place] Plt Count MPV Immature Gran % (Auto) Neut % (Auto) Lymph % (Auto) [place] % (Auto) Eos % (Auto) Baso % (Auto) Absolute Neuts (auto) Absolute Lymphs (auto) Nucleated RBC % PT 13.9 INR 1.1 APTT 45.7 H Sodium Potassium Chloride Carbon Dioxide Anion Gap BUN Creatinine Estim Creat Clear Calc Est GFR (MDRD) Af Amer Est GFR (MDRD) Non-Af BUN/Creatinine Ratio Glucose Calcium Troponin I B-Natriuretic Peptide Assessment/Plan 1. New onset atrial fibrillation with RVR-Cardizem drip initiated in ER. Rate controlled. Check a TSH, mag. Dr. Bonilla, cardiology consulted. Plan for heart cath. Heparin drip. PANCHO ordered. 2. New left bundle branch block-cardiology following as noted above. 3. Valvular heart disease-echocardiogram April 2015 demonstrated an EF of 60%, mild mitral valve insufficiency, mild to moderate tricuspid valve insufficiency, pulmonary artery systolic pressure 41 mmHg. Repeat echocardiogram as noted above. 4. Hypertension-stable, continue home Lasix, lisinopril regimen. 5. Hyperlipidemia-continue statin regimen. Lipid panel in a.m. 6. Obesity-encouraged diet lifestyle modifications. Nutrition consult. 7. Chronic back pain-follows with pain management, Dr. Madrid. Continue home PRN pain regimen. 8. Suspected chronic kidney disease stage [id number] appears at baseline. Trend BMP. DVT prophylaxis-heparin drip This patient was seen by Joyce Davis NP-C under the supervision of Dr. Smith.
--- NOTE | 2019-04-07 15:27 | CASEMGMT ---
According to the [facility] website, the following are in-network tertiary facilities: [facility], [place], [facility], [facility], [facility], [facility], and . Jeremy BISWAS CM
--- NOTE | 2019-04-07 16:25 | PCM.CONS.C ---
Problem List (1) Rheumatic mitral insufficiency Status: Chronic (2) Hypertension Status: Chronic Qualifiers: (3) Other secondary pulmonary hypertension Status: Chronic Reason for Consult Date of Consultation: 04/07/19 Reason for Consultation: Atrial fibrillation, pulmonary hypertension, mitral regurgitation, LV dysfunction History of Present Illness: The patient is a 73 year old F, borderline diabetic, morbidly obese female, previous TIA several years ago, with paroxysmal atrial fibrillation. Apparently her TIA was thought to be ischemic from carotid stenosis, and she has been on Plavix ever since. She is a patient of Dr. Abdi, and has been seen for mitral regurgitation and paroxysmal atrial fibrillation. Patient was doing well up until the last several weeks, culminating and dyspnea on exertion, palpitations, and fatigue noted on Sunday of last week. She denied any exertional chest pain or angina but did report feeling fatigued and tired. She denies any presyncope or syncope. When her symptoms did not improve, she sought medical attention at [facility] ER where she was found to be in rapid atrial fibrillation with a newly discovered left bundle branch block. Her previous EKG in December 19, 2010 showed normal sinus rhythm with PAC and narrow complex QRS. Her EKG this morning showed atrial fibrillation with rapid ventricular response and a left bundle branch block. Patient was treated with IV heparin and IV Cardizem drip, and her heart rate is been controlled. She has never been on anticoagulation therapy per the patient. Her most recent echocardiogram was in 2016 which reportedly showed an EF of 60%, and mild tricuspid regurgitation. Echocardiogram done today after admission showed severe LV dysfunction with an EF around 10 to 15%, with global hypokinesis, intraventricular conduction delay, severe biatrial enlargement, and an RVSP of at least 53 mmHg, and moderate to severe centrally directed mitral regurgitation. Her first troponin is negative, second 1 is pending, TSH is pending. [] Past Medical History Allergies/Adverse Reactions: Allergies iodine Allergy (Verified 04/07/19 10:23) Shortness of breath Penicillins Allergy (Verified 04/07/19 10:23) Diarrhea Sulfa (Sulfonamide Antibiotics) Adverse Reaction (Verified 04/07/19 10:23) Diarrhea SEAFOOD Allergy (Uncoded 04/07/19 10:23) Shortness of breath Home Medications: Ambulatory Orders Medication Instructions Recorded Clopidogrel Bisulfate [Plavix] 75 mg PO DAILY 06/16/14 Vits A,C,E/Lutein/Minerals 1 ea PO DAILY 06/16/14 [Ocuvite with Lutein Tablet] lisinopril 20 mg tablet 20 mg PO QDAY 09/26/17 furosemide 20 mg tablet 20 mg PO DAILY tab 08/23/18 Ergocalciferol [Vitamin D] 1 cap PO DAILY 04/07/19 Oxycodone HCl 1 tab PO PRN PRN 04/07/19 Oxycodone HCl 5 mg PO PRN PRN 04/07/19 Rosuvastatin Calcium 5 mg PO QHS 04/07/19 Tafluprost/Pf [Zioptan 0.0015% Eye 1 ea OP DAILY 04/07/19 Drops] Past Medical History (Chronic Problems): Chronic Problems (Last Reviewed 02/24/19 @ 10:09 by Payton Hamlin) Rheumatic tricuspid insufficiency (Chronic) Rheumatic mitral insufficiency (Chronic) Hypertension (Chronic) Occlusion and stenosis of unspecified carotid artery (Chronic) Transient cerebral ischemic attack, unspecified (Chronic) Other secondary pulmonary hypertension (Chronic) Psychiatric History: No pertinent psych hx VIDEO EDITING INTERN History: No pertinent VIDEO EDITING INTERN history - *Family History Maternal Family History: Family History (Last Reviewed 04/07/19 @ 14:53 by TY Cortez) Father CVA (cerebral vascular accident) Brother CAD (coronary artery disease) CVA (cerebral vascular accident) Diabetes History Items: Hypertension, - - Brain tumor. Paternal Family History: Family History (Last Reviewed 04/07/19 @ 14:53 by TY Cortez) Father CVA (cerebral vascular accident) Brother CAD (coronary artery disease) CVA (cerebral vascular accident) Diabetes History Items: Diabetes, Hypertension Lives: Spouse/ Significant Other Smoking Status: Never smoker Tobacco Use: Non-smoker Alcohol: Rare Drugs: None Review of Systems - Review of Systems General: Denies: Fever, Night Sweats, Fatigue Cardiovascular: Reports: Shortness of Breath, Shortness of Breath at Rest, Shortness of Breath with Exertion, Palpitations. Denies: Chest Discomfort, Orthopnea, PND, Peripheral Edema, Lightheadedness, Dizziness, Near Syncope, Syncope Respiratory: Denies: Cough, Sputum Production, Hemoptysis Gastrointestinal: Denies: Hematemesis, Hematochezia, Melena Genitourinary: Denies: Dysuria, Hematuria Skin: Denies: Rash Subjectve: Patient resting comfortably, Cardizem drip and heparin drip infusing. No acute distress. Objective: Vital Signs Temp Pulse Resp BP Pulse Ox 97.8 F 97 15 108/90 H 95 04/07/19 13:00 04/07/19 15:00 04/07/19 15:00 04/07/19 15:00 04/07/19 15:00 Oxygen Flow Rate (L/min) 2 Oxygen Delivery Method Room Air Weight: 252 lb Body Mass Index (BMI) 40.6 General: Awake, Alert, Oriented x 3 HEENT: PERRL, EOMI, Sclera Non Icteric Neck: Supple, Good ROM, No Lymph Node Enlargement Lungs: Clear to auscultation Cardiovascular: Irregular Rhythm, Normal S2, No Rubs, No Gallops Murmur Murmur: Grade 3/6, Holosystolic Vascular: No Carotid Bruits, Normal Femoral Pulses, Normal Radial Pulses, Normal Dorsalis Pedal Pulse, Normal Posterior Tibial Pulses Abdomen: Bowel Sounds Present, Soft, Non Tender, No HSM, No Organomegaly Extremities: No Cyanosis, No Clubbing, No edema Neurological: No Focal Motor or Sensory Deficit 04/07/19 10:45: WBC 13.8 H, RBC 4.47, Hgb 13.7, Hct 42.5, MCV 95.1, MCH 30.6, MCHC 32.2, Plt Count 307, MPV 9.9, Immature Gran % (Auto) 0.700, Neut % (Auto) 80.1 H, Lymph % (Auto) 11.8 L, [place] % (Auto) 5.0, Eos % (Auto) 1.7, Baso % (Auto) 0.7, Absolute Neuts (auto) 11.1 H, Nucleated RBC % 0 04/07/19 10:45: Sodium 143, Potassium 4.4, Chloride 110 H, Carbon Dioxide 24.0, Anion Gap 9, BUN 30 H, Creatinine 1.11 H, Est GFR (MDRD) Af Amer 62, Est GFR (MDRD) Non-Af 51 L, BUN/Creatinine Ratio 27.0 H, Glucose 108 H, Calcium 9.2, Troponin I < 0.015 04/07/19 10:45: B-Natriuretic Peptide 495.9 H 04/07/19 13:40: PT 13.9, INR 1.1, APTT 45.7 H Rhythm: EKG: As above ECHO: As above Stress Test: Cardiac Cath: PCI: CT Surgery: Holter monitor: EPS: PPM: CXR: Chest CT Scan: Assessment/Plan 1. Atrial fibrillation: The patient presents with recurrent atrial fibrillation with rapid ventricular response, new left bundle branch block, and no severe progression of her LV function from 60% to around 10 to 15%. In addition she appears to have moderate to severe central directed mitral regurgitation with severe biatrial enlargement, and at least moderate pulmonary hypertension by echocardiogram. At this point I recommend continuing IV heparin to keep her PTT between 50?70, and continuing her Cardizem drip to maintain her heart rate below 100. At some point I believe we can transition her from Cardizem drip to Coreg after we have completed her transesophageal echocardiogram, as well as her left and right heart catheterization to assess whether she requires mitral repair surgery and possibly tricuspid repair surgery as well. At this point I would start Lasix 40 mg IV daily in an attempt to unload her lungs, and improve her pulmonary hypertension, continue this until she reaches her dry weight. The patient may have preload dependency given her severe LV dysfunction. Depending upon the outcome of her PANCHO and left and right heart catheterization will determine what next steps we have going forward. If she has no significant coronary disease she may benefit from either mitral and/or tricuspid valve repair. In addition I recommend obtaining a TSH and T4 to determine if she has hypothyroidism and that may be contributing to her atrial fibrillation and LV dysfunction. Patient does not appear to be cortisone deficient at this time. In addition I believe the patient will require lifelong anticoagulation. If she requires surgery, we will need to discontinue her Plavix 5 days prior to her surgery. 2. LV dysfunction: The patient has newly diagnosed severe LV dysfunction. Recommend a 1500 cc fluid restriction. Again we will start Lasix 40 mg p.o. daily once she is achieved her dry weight. Would also recommend continuing her lisinopril at 20 mg p.o. daily as well as starting Coreg 3.125 mg p.o. twice daily and attempt to get her off her Cardizem drip. We will do this after she is completed her transesophageal echocardiogram and left and right heart catheterization. 3. Hyperlipidemia: Recommend obtaining a fasting lipid profile. Given her history of CVA/TIAs, she requires aggressive LDL reduction. 4. Thank you very much for the opportunity to participate in the cardiac care of your patient. Consultation time took place between 3 PM and 3:30 PM. This note was generated using a voice recognition system and there may be incorrect words, spelling or punctuation that were not noted when reviewing the office note prior to saving. Code Visit Inpatient E&M: 98715 Init Hosp L2
[2019-04-07 17:08] LABS: Cholesterol 173 mg/dL (200); High Density Lipoprotein 62 mg/dL; Magnesium 2.2 mg/dL (1.6-2.6); T4 Free Direct 1.19 ng/dL (0.76-1.46); Thyroid Stim Hormone (TSH) 0.43 uIU/mL (0.358-3.74); Triglycerides 96 mg/dL; Very Low Density Lipoprotein 19 mg/dL (5-40)
[2019-04-07] MEDS: oxyCODONE 5 MG Tablet PO ×2 (18:05→18:21)
[2019-04-07 21:05] LABS: Partial Thromboplast Time 68.6 Seconds (24.1-36.2)
[2019-04-07] MEDS: MELATONIN 3 MG TABLET PO (21:56)
[2019-04-07] MEDS: Atorvastatin Calcium 10 MG Tablet PO (21:56)
[2019-04-08] VITALS (38 sets, daily range): BP systolic 95–139; BP diastolic 58–103; PULSE 25–145; RESP 15–108; TEMP 36.5–37.2; O2SAT 91–100
[2019-04-08 03:38] LABS: Absolute Lymphocyte Count 1.47 X10^3/uL (0.83-4.51); Absolute Neutrophil Count 8.1 X10^3/uL (2.0-7.7); Basophil# 0.09 X10^3/uL; Basophil% 0.9 % (0-1); Eosinophil# 0.24 X10^3/uL; Eosinophils% 2.3 % (0-5); Hematocrit 40.9 % (37-47); Lymphocyte # 1.47 X10^3/ul (4.0); Lymphocyte % 14.1 % (19-41); Mean Corp Hgb Conc 31.8 g/dL (32-36); Mean Corpuscular Volume 94.5 fL (81-99); Mean Platelet Vol. 9.7 fl (6.2-12.0); Monocyte# 0.52 X10^3/uL; NRBC Flagged by Analyzer 0 % (0-5); Neutrophil # 8.08 X10^3/uL (2.7-7.7); Neutrophil % 77.3 % (47-70); Platelet Count 226 K/mm3 (150-450); RBC Distribution Width CV 14.5 % (11.6-14.6); RBC Distribution Width SD 50.4 fl (35.1-43.9); Red Blood Count 4.33 M/mm3 (4.2-5.4); White Blood Count 10.4 K/mm3 (4.4-11.0)
[2019-04-08 04:14] LABS: Anion Gap 8 (5-15); BUN 23 mg/dL (7-18); BUN/Creat Ratio 25.7 RATIO (10-20); Calcium,Total 8.3 mg/dL (8.5-10.1); Chloride 108 mmol/L (98-107); Cholesterol 154 mg/dL (200); EST Glomerular Filtration Rate 65 mL/min (>60); Est Glom Filt Rate - Afr Amer 79 mL/min (>60); Estimated Creatinine Clearance 51.34 ml/min; Glucose 106 mg/dL (74-106); High Density Lipoprotein 50 mg/dL; Sodium Level 139 mmol/L (136-145); Triglycerides 199 mg/dL; Very Low Density Lipoprotein 40 mg/dL (5-40)
[2019-04-08 04:31] LABS: Partial Thromboplast Time 44.1 Seconds (24.1-36.2)
--- NOTE | 2019-04-08 05:55 | EKG12_ITS ---
Test Reason : CP Blood Pressure : / mmHG Vent. Rate : 133 BPM Atrial Rate : 144 BPM P-R Int : 000 ms QRS Dur : 148 ms QT Int : 364 ms P-R-T Axes : 000 -44 112 degrees QTc Int : 541 ms Wide QRS tachycardia : consider sinus tachycardia Left axis deviation Left bundle branch block Abnormal ECG Confirmed by DARWIN AVILES, LUCINDA ([id number]), commissioning editor STANLEY ELLIS ([id number]) on 04/11/2019 9:16:34 AM Referred By: Niki Nayak Confirmed By:LUCINDA GRANADOS MD
[2019-04-08] MEDS: Clopidogrel Bisulfate 75 MG Tablet PO (05:56)
[2019-04-08] MEDS: Lisinopril 20 MG Tablet PO (05:57)
[2019-04-08] MEDS: oxyCODONE 5 MG Tablet PO ×3 (06:00→21:17)
[2019-04-08] MEDS: DiphenhydrAMINE 25 MG Capsule 50 MG PO (07:35)
--- NOTE | 2019-04-08 08:00 | NURSING ---
unable to complete VSA on time due to patient being off floor at procedure
[2019-04-08 08:04] LABS: Hemoglobin A1c 5.8 % (4.2-6.3)
[2019-04-08] MEDS: Famotidine 20mg IV Push Syringe Q24 300 MG IV (09:31)
--- NOTE | 2019-04-08 10:14 | CL.D_ITS ---
Patient Name: DEON SAMAYOA Study Date: 04/08/2019 Performing: Anthony Bonilla MD Ht: 66.14 inches 168 cm : 1945 Wt: 251.33 lbs 114 kg Age: 73 Gender: female BSA: 2.21 PROCEDURE(S) PERFORMED OB99-CTV/LHC/COR/LV CLINICAL PROFILE AND INDICATIONS Indications: Suspected CAD, Valvular Disease, Cardiac Arrythmia, LV Dysfunction Heart Failure: NYHA Class: 3, Newly Diagnosed: Yes, Heart Failure Type: Systolic Stress/Imaging Stress/Image Study Performed: No Angina Classification Anginal Classification w/in 2 Weeks: No symptoms CAD Presentations: Other: Severe dyspnea on exertion Comorbidities/Risk Factors: Hypertension Dyslipidemia CONCLUSIONS Triple vessel CAD of the LAD, DIAG and LCX Non obstructive coronary arteries Right heart pressures - mildly to moderately elevated Mitral Valve Insufficiency Moderate to severe RECOMMENDATIONS Risk factor modification ASA Indefinitely Management as per referring Reception Manager Surgery consult for coronary revascularization Surgery consult for valvular disease Manual sheath removal No evidence of IV contrast dye reaction Start IV amiodarone, po coreg. Start anti-coagulation on 04/09/19. D/c plavix D/w Dr Smith. DESCRIPTION OF PROCEDURE The patient arrived to the procedure lab. The risks and benefits of the procedure as well as a full d escription of our services here and current unavailability of surgical backup were fully explained to the patient and/or their significant other prior to the catheterization. The Timeout was completed, verifying the correct patient and procedure. The patient's procedural site was prepped and draped in the usual fashion. Local anesthetic was given subcutaneously to right groin region with Lidocaine 2%. Using a modified Seldinger technique, arterial access was obtained via the right femoral artery, a 4 Fr sheath was inserted Venous access was obtained via the right femoral vein, a 7Fr sheath was insert ed. A 7Fr thermal dilution catheter was inserted and right heart pressures were recorded, it was then advanced to PA position for cardiac outputs. O2 saturations were then obtained. Thermal dilution car diac outputs were then recorded. Left Ventriculography was performed in FORTE projection using a 4 Fr. Pigtail catheter. LV to AO pullback pressures were then recorded. Simultaneous pressure s were then recorded. The Thermal dilution catheter was then removed. Left Coronary Artery selective angiography was performed in multiple views using a 4 Fr. JL5 catheter. Right Coronary Artery selecti ve angiography was then performed in multiple views using a 4 Fr. 3DRC catheter.The arterial sheath w as pulled and manual compression applied until hemostasis is achieved. CORONARY ANGIOGRAPHY DOMINANCE: Right Dominant LEFT HEART ASSESSMENT Left Ventricular Ejection Fraction: by LV Gram 15-20 % Global Hypokinesis - Severe Depressed Left Ventricular systolic function LVEDP: 19 mmHg Elevated Left Ventricular End Diastolic Pressure RIGHT HEART ASSESSMENT Thermal CO: 4.99 Thermal CI: 2.26 Gennaro CO: 3.96 Gennaro CI: 1.79 PW: /37 27 PA: 47/21 31 RV: 40/1 9 RA: / 11 PVR: 64 Mitral Valve Area: 1.66 Mitral Valve index: 0.75 Mitral Valve Mean Gradient: 12.8 Right Heart pressures - elevated Pulmonary Hypertension Moderate LEFT MAIN: Angiographically normal LEFT ANTERIOR DESCENDING ARTERY: MID LAD: 75 % Stenosis DIAGONAL 1: Ostial - 75 % Stenosis, Proximal - 75 % Stenosis CIRCUMFLEX ARTERY: OSTIAL CIRC: 60 % Stenosis MID CIRC: 75 % Stenosis RIGHT CORONARY ARTERY: MID RCA: Mild luminal irregularities less than 30% COMPLICATIONS No Complications PROCEDURE MEDICATIONS Fentanyl 25 mcg IV Oxygen: 2 L/min via nasal cannula Oxygen: Off L/min via nasal cannula Oxygen: 2 L/min via nasal cannula Benadryl 50 mg IV, given in CVS during PANCHO 04/08/2019 09:09:56 Amiodarone 150mg / 100ml D5W @ 103 ml/hr IV started @ 04/08/2019 09:55:04 Cardizem 125mg / 100ml D5W @ 10 mg/hr, on arrival to [facility] 04/08/2019 09:08:54 Pepcid 20 mg IV, given in CVS during PANCHO 04/08/2019 09:31:06 Solu-cortef 100 mg IV, given in CVS during PANCHO 04/08/2019 09:10:08 SUMMARY OF HEMODYNAMIC DATA Time AIR REST ECG 09:04:30 RA / (11) SV 09:39:34 RV 40/1, 9 09:40:14 PA 47/21 (31) PA 09:41:07 PW /37 (27) PV 09:42:45 LV 121/0, 20 09:48:33 LV 122/1, 21 09:48:40 LV 114/0, 11 09:49:10 PW /26 (21) 09:49:10 LV 121/0, 14 09:49:16 PW /29 (22) 09:49:16 LV 118/1, 19 09:49:37 RV 45/2, 4 09:49:37 LV 105/2, 16 09:51:23 LVp 101/0, 17 09:51:28 AOp 106/73 (85) 09:51:33 Valve Area (c P-P/ms Time AIR REST Mitral 1.66 12.8 mn/225 ms10.0 pk/225 ms 09:49:10 Type SV CO (l/m) CI (l/m/ HR Time AIR REST Thermal 54.20 4.99 2.26 92 09:04:30 Gennaro 43.00 3.96 1.79 92 09:04:30 Label % O2 Pres/Loc Time AIR REST PA 49 PA 09:56:04 AO 91 PV 09:56:07 Signed By Anthony Bonilla MD On 04/08/2019 10:13:37 Anthony Bonilla MD
[2019-04-08 10:21] LABS: Blood Gas Specimen Type VEN; VBG BASE EXCESS 1 mmol/L (-1.0-3.5); VBG Bicarbonate 25 mmol/L (22-26); VBG Oxygen Content 26 mmol/L (23-33); VBG PO2 26 mmHg (25-40); VBG SO2 49 % (50-70); VBG pCO2 40.4 mmHg (41-51)
[2019-04-08 10:21] LABS: Base Excess -6 mmol/L (-2 to +2); Bicarbonate 20.1 mmol/L (22-26); Blood Gas Specimen Type ART; PO2 64 mmHG (75-100); SO2 91 % (95-99); Total Carbon Dioxide 21 mmol/L; pCO2 37.8 mmHg (35-45); pH 7.34 (7.35-7.45)
[2019-04-08 10:21] LABS: Blood Gas Specimen Type VEN; VBG BASE EXCESS -1 mmol/L (-1.0-3.5); VBG Bicarbonate 24 mmol/L (22-26); VBG Oxygen Content 25 mmol/L (23-33); VBG PO2 27 mmHg (25-40); VBG SO2 51 % (50-70); VBG pCO2 38.7 mmHg (41-51)
--- NOTE | 2019-04-08 11:31 | CASEMGMT ---
[place] assessment: Face to Face with patient for initial transition planning/care coordination assessment. [place] introduced self and role at [facility], pt voices understanding and consents to assessment at this time. Pt is sitting up in bed in no distress at this time. Pt is A/Ox4 at this time and answers all questions appropriately at this time. Care providers, pharmacy, and demographics verified at this time. PCP: Malini Specialists: Sunita, cardio; Glaucoma digital asset specialist in [place] Preferred Pharmacy: [facility] Insurance: [facility] Prescription Benefit: [employer] Living Will/HPOA: Pt states has a LW but not HPOA and is aware that the LW is not on file at [facility] at this time. LNOK: Juan Hunt, ; Kisha Thakkar, daughter Living Arrangements: Pt states lives with in 1 story home and states no concerns at home at this time. Pt states that there are steps to basement but pt states does not go down there. Pt states is independent with ADL's. Transportation: Pt states drives self(but not at nighttime) and states no transportation concerns at this time. DME/HHC: Pt states has a cane at home and states no need for any further DME. Pt states no hx of HHC but has been to [facility] in the past s/p bilat knee replacement. Pt states no concerns with going home at time of discharge. Pt is retired. Pt states does not smoke but does drink ETOH occasionally. Pt states no further concerns/needs at this time. CM to follow for any further discharge planning/needs. Advised pt to ask for CM if any further questions/concerns/needs arise, voices understanding. Pt Goal: Home Plan[place]
[2019-04-08] MEDS: Carvedilol 3.125 MG TABLET PO ×2 (11:35→21:17)
[2019-04-08] MEDS: Digoxin 250 MCG/ML Ampul IV ×2 (12:13→18:46)
[2019-04-08] MEDS: 0.9% NaCl Peripheral Flush Adult/Peds IV ×4 (12:15→18:47)
--- NOTE | 2019-04-08 14:27 | PCM.PROGNOTE ---
Patient Problems: Active and Suspected Problems (Last Updated 04/08/19 @ 14:15 by Rosita Hagan) Acute systolic (congestive) heart failure (Acute) Subjective: Patient seen and examined. Shortness of breath somewhat improved. Denies chest pain. Underwent cardiac catheterization this morning and was noted to have triple-vessel disease, moderate to severe mitral valve insufficiency. - Physical Exam General: Alert, Oriented x3, Cooperative HEENT: Atraumatic, PERRLA, EOMI, Normocephalic Neck: Supple, No JVD, Negative Carotid Bruits Lungs: Clear to auscultation, Diminished Cardiovascular: Murmur, - - Atrial fibrillation, tachycardic Abdomen: Bowel Sounds Present, Soft, Non Tender, Non-Distended, Obese Extremities: No clubbing, No cyanosis, No edema, Capillary Refill Less than 3 Seconds Skin: No rashes, No breakdown Musculoskeletal: No Tenderness to Palpation of Joints or Extremities Neurological: Cranial nerves II-XII grossly intact, Neuro grossly intact Psych/Mental Status: Normal Affect, Appropriate Vital Signs Temp Pulse Resp BP Pulse Ox 97.7 F L 95 22 H 134/70 H 93 04/08/19 10:40 04/08/19 14:00 04/08/19 14:00 04/08/19 14:00 04/08/19 14:00 Oxygen Flow Rate (L/min) 2 Oxygen Delivery Method Room Air Weight: 252 lb Body Mass Index (BMI) 40.6 Intake and Output for Last 24 Hours 04/06/19 04/07/19 04/08/19 23:59 23:59 23:59 Intake Total 822.3 / 822.3 444.3 / 444.3 Output Total 350 / 350 Balance 822.3 / 822.3 94.3 / 94.3 Laboratory Tests Past 24 Hrs 04/07/19 04/07/19 04/07/19 16:00 16:00 16:00 WBC RBC Hgb Hct MCV MCH MCHC RDW Std Deviation RDW Coeff of Jackson Plt Count MPV Immature Gran % (Auto) Neut % (Auto) Lymph % (Auto) [place] % (Auto) Eos % (Auto) Baso % (Auto) Absolute Neuts (auto) Absolute Lymphs (auto) Nucleated RBC % APTT Specimen Type pH Bicarbonate Actual POC Total CO2 Base Excess O2 Saturation ABG pCO2 ABG pO2 VBG pH VBG pO2 VBG O2 Sat (Calc) VBG O2 Content VBG Base Excess POC Mix VBG pCO2 Pt Tmp Sodium Potassium Chloride Carbon Dioxide Anion Gap BUN Creatinine Estim Creat Clear Calc Est GFR (MDRD) Af Amer Est GFR (MDRD) Non-Af BUN/Creatinine Ratio Glucose Hemoglobin A1c Calcium Magnesium 2.2 Troponin I 0.029 Triglycerides 96 Cholesterol 173 LDL Cholesterol 92 VLDL Cholesterol 19 HDL Cholesterol 62 TSH 0.43 Free T4 1.19 04/07/19 04/07/19 04/08/19 18:35 20:40 03:28 WBC RBC Hgb Hct MCV MCH MCHC RDW Std Deviation RDW Coeff of Jackson Plt Count MPV Immature Gran % (Auto) Neut % (Auto) Lymph % (Auto) [place] % (Auto) Eos % (Auto) Baso % (Auto) Absolute Neuts (auto) Absolute Lymphs (auto) Nucleated RBC % APTT 68.6 H Specimen Type pH Bicarbonate Actual POC Total CO2 Base Excess O2 Saturation ABG pCO2 ABG pO2 VBG pH VBG pO2 VBG O2 Sat (Calc) VBG O2 Content VBG Base Excess POC Mix VBG pCO2 Pt Tmp Sodium 139 Potassium 4.0 Chloride 108 H Carbon Dioxide 23.0 Anion Gap 8 BUN 23 H Creatinine 0.90 Estim Creat Clear Calc 51.34 Est GFR (MDRD) Af Amer 79 Est GFR (MDRD) Non-Af 65 BUN/Creatinine Ratio 25.7 H Glucose 106 Hemoglobin A1c Calcium 8.3 L Magnesium Troponin I 0.021 Triglycerides 199 Cholesterol 154 LDL Cholesterol 64 VLDL Cholesterol 40 HDL Cholesterol 50 TSH Free T4 04/08/19 04/08/19 04/08/19 03:28 03:28 07:35 WBC 10.4 RBC 4.33 Hgb 13.0 Hct 40.9 MCV 94.5 MCH 30.0 MCHC 31.8 L RDW Std Deviation 50.4 H RDW Coeff of Jackson 14.5 Plt Count 226 MPV 9.7 Immature Gran % (Auto) 0.400 Neut % (Auto) 77.3 H Lymph % (Auto) 14.1 L [place] % (Auto) 5.0 Eos % (Auto) 2.3 Baso % (Auto) 0.9 Absolute Neuts (auto) 8.1 H Absolute Lymphs (auto) 1.47 Nucleated RBC % 0 APTT 44.1 H Specimen Type pH Bicarbonate Actual POC Total CO2 Base Excess O2 Saturation ABG pCO2 ABG pO2 VBG pH VBG pO2 VBG O2 Sat (Calc) VBG O2 Content VBG Base Excess POC Mix VBG pCO2 Pt Tmp Sodium Potassium Chloride Carbon Dioxide Anion Gap BUN Creatinine Estim Creat Clear Calc Est GFR (MDRD) Af Amer Est GFR (MDRD) Non-Af BUN/Creatinine Ratio Glucose Hemoglobin A1c 5.8 Calcium Magnesium Troponin I Triglycerides Cholesterol LDL Cholesterol VLDL Cholesterol HDL Cholesterol TSH Free T4 04/08/19 04/08/19 04/08/19 09:45 09:48 09:54 WBC RBC Hgb Hct MCV MCH MCHC RDW Std Deviation RDW Coeff of Jackson Plt Count MPV Immature Gran % (Auto) Neut % (Auto) Lymph % (Auto) [place] % (Auto) Eos % (Auto) Baso % (Auto) Absolute Neuts (auto) Absolute Lymphs (auto) Nucleated RBC % APTT Specimen Type DENNYS DENNYS ART pH 7.34 L Bicarbonate Actual 20.1 L POC Total CO2 21 Base Excess -6 L O2 Saturation 91 L ABG pCO2 37.8 ABG pO2 64 L VBG pH 7.40 7.40 VBG pO2 27 26 VBG O2 Sat (Calc) 51 49 L VBG O2 Content 25 26 VBG Base Excess -1 1 POC Mix VBG pCO2 Pt Tmp 38.7 L 40.4 L Sodium Potassium Chloride Carbon Dioxide Anion Gap BUN Creatinine Estim Creat Clear Calc Est GFR (MDRD) Af Amer Est GFR (MDRD) Non-Af BUN/Creatinine Ratio Glucose Hemoglobin A1c Calcium Magnesium Troponin I Triglycerides Cholesterol LDL Cholesterol VLDL Cholesterol HDL Cholesterol TSH Free T4 Medical Necessity - Tobacco Use Smoking Status: Never smoker Tobacco Use: Non-smoker Assessment/Plan All Active Problems (Last Updated 04/08/19 @ 14:15 by Rosita Hagan) Acute systolic (congestive) heart failure (Acute) 1. New onset atrial fibrillation with RVR- Dr. Bonilla, cardiology consulted. PANCHO without thrombus. DC Cardizem drip. Begin amiodarone drip. Patient given x1 dose of digoxin with improvement in heart rate. Heparin drip 8 hours post hemostasis. Begin oral anticoagulation tomorrow. 2. New left bundle branch block-cardiology following as noted above. 3. Severe mitral valve insufficiency-echocardiogram April 2015 demonstrated an EF of 60%, mild mitral valve insufficiency, mild to moderate tricuspid valve insufficiency, pulmonary artery systolic pressure 41 mmHg. Repeat echocardiogram demonstrates an EF of 15%, moderately severe mitral valve insufficiency, moderate tricuspid valve insufficiency, RVSP estimated to be 53 mmHg, mild pulmonic valve insufficiency. Refer to surgery for valve replacement. 4. Severe ischemic cardiomyopathy-cardiac catheterization demonstrated triple-vessel CAD of the LAD, diagonal and LCx, nonobstructive coronary arteries. Plan to stabilize #1 and refer for surgery consult for coronary revascularization and valvular disease. Continue aspirin, statin, carvedilol, Lasix, lisinopril. 5. Hypertension-stable, continue home Lasix, lisinopril regimen. 6. Hyperlipidemia-continue statin regimen. 7. Obesity-encouraged diet lifestyle modifications. Nutrition consult. 8. Chronic back pain-follows with pain management, Dr. Madrid. Continue home PRN pain regimen. 9. Suspected chronic kidney disease stage [id number] appears at baseline. Trend BMP. DVT prophylaxis-heparin drip This patient was seen by TY Cortez under the supervision of Dr. Smith.
[2019-04-08] MEDS: Furosemide 40 MG/4 ML Vial IV (14:47)
[2019-04-08] MEDS: Nitroglycerin (INPATIENT USE) 0.4 MG TAB.SUBL SUBLINGUAL (15:57)
--- NOTE | 2019-04-08 15:59 | EKG12_ITS ---
Test Reason : AM Blood Pressure : / mmHG Vent. Rate : 098 BPM Atrial Rate : 110 BPM P-R Int : 000 ms QRS Dur : 146 ms QT Int : 400 ms P-R-T Axes : 000 -34 139 degrees QTc Int : 510 ms Atrial fibrillation with premature ventricular or aberrantly conducted complexes Left axis deviation Left bundle branch block Abnormal ECG Confirmed by DARWIN AVILES, LUCINDA ([id number]), editorial director STANLEY ELLIS ([id number]) on 04/11/2019 9:17:33 AM Referred By: Niki Nayak Confirmed By:LUCINDA GRANADOS MD
[2019-04-08] MEDS: HEPARIN/D5w 25,000 UNITS 25,000 UNITS/250 ML IV.SOLN. 15 UNITS IV (18:53)
[2019-04-08] MEDS: Acetaminophen 325 MG Tablet 650 MG PO (19:53)
--- NOTE | 2019-04-08 20:21 | EKG12_ITS ---
Test Reason : RHYTHM CHANGE Blood Pressure : / mmHG Vent. Rate : 070 BPM Atrial Rate : 070 BPM P-R Int : 176 ms QRS Dur : 160 ms QT Int : 452 ms P-R-T Axes : 070 -34 128 degrees QTc Int : 488 ms Normal sinus rhythm Left axis deviation Left bundle branch block Abnormal ECG Confirmed by DARWIN AVILES, LUCINDA ([id number]), features editor STANLEY ELLIS ([id number]) on 04/11/2019 9:15:08 AM Referred By: GARY Confirmed By:LUCINDA GRANADOS MD
[2019-04-08] MEDS: MELATONIN 3 MG TABLET PO (21:17)
[2019-04-08] MEDS: Atorvastatin Calcium 10 MG Tablet PO (21:17)
[2019-04-09] VITALS (22 sets, daily range): BP systolic 95–133; BP diastolic 50–83; PULSE 59–81; RESP 14–22; TEMP 36.6–37.1; O2SAT 92–97
[2019-04-09] MEDS: oxyCODONE 5 MG Tablet PO ×2 (09:03→16:17)
[2019-04-09] MEDS: 0.9% NaCl Peripheral Flush Adult/Peds IV ×2 (09:04→10:27)
[2019-04-09] MEDS: Furosemide 40 MG/4 ML Vial IV (09:04)
[2019-04-09] MEDS: Aspirin 81 MG TAB.CHEW PO (09:05)
[2019-04-09] MEDS: Carvedilol 3.125 MG TABLET PO ×2 (09:05→21:39)
[2019-04-09] MEDS: Lisinopril 20 MG Tablet PO (09:05)
[2019-04-09 09:15] LABS: Partial Thromboplast Time 80.7 Seconds (24.1-36.2)
--- NOTE | 2019-04-09 09:29 | PCM.PN.CARD ---
Subjectve: Patient doing very well this morning. Telemetry identified that she converted from atrial fibrillation with RVR to normal sinus rhythm. This occurred while on IV heparin, and IV amiodarone and switching to Coreg. IV amiodarone in place. Right groin is clean/dry/intact. No thrills or bruits. Objective: Vital Signs Temp Pulse Resp BP Pulse Ox 97.9 F 63 19 H 130/77 H 95 04/09/19 08:00 04/09/19 08:00 04/09/19 08:00 04/09/19 08:00 04/09/19 08:00 Oxygen Flow Rate (L/min) 2 Oxygen Delivery Method Room Air Weight: 252 lb Body Mass Index (BMI) 40.6 Intake and Output for Last 24 Hours 04/07/19 04/08/19 04/09/19 23:59 23:59 23:59 Intake Total 822.3 / 822.3 1175.3 / 1536.0 537.2 / 537.2 Output Total 2725 / 3025 300 / 300 Balance 822.3 / 822.3 -1549.7 / -1489.0 237.2 / 237.2 General: Awake, Alert, Oriented x 3 HEENT: PERRL, EOMI, Sclera Non Icteric Neck: Supple, Good ROM, No Lymph Node Enlargement Lungs: Clear to auscultation Cardiovascular: Regular Rhythm, Normal S2, No Rubs, No Gallops Murmur Murmur: Grade 3/6, Holosystolic Vascular: No Carotid Bruits, Normal Femoral Pulses, Normal Radial Pulses, Normal Dorsalis Pedal Pulse, Normal Posterior Tibial Pulses Abdomen: Bowel Sounds Present, Soft, Non Tender, No HSM, No Organomegaly Extremities: No Cyanosis, No Clubbing, No edema Neurological: No Focal Motor or Sensory Deficit 04/08/19 09:45: VBG pH 7.40, VBG pO2 27, VBG O2 Sat (Calc) 51, VBG O2 Content 25, VBG Base Excess -1 04/08/19 09:48: VBG pH 7.40, VBG pO2 26, VBG O2 Sat (Calc) 49 L, VBG O2 Content 26, VBG Base Excess 1 04/08/19 09:54: pH 7.34 L, Bicarbonate Actual 20.1 L, POC Total CO2 21, Base Excess -6 L, O2 Saturation 91 L, ABG pCO2 37.8, ABG pO2 64 L 04/09/19 01:00: APTT 83.0 H 04/09/19 08:08: APTT 80.7 H Rhythm: EKG: ECHO: Stress Test: Cardiac Cath: PCI: CT Surgery: Holter monitor: EPS: PPM: CXR: Chest CT Scan: Medical Necessity - Tobacco Use Smoking Status: Never smoker Tobacco Use: Non-smoker Assessment/Plan 1. Atrial fibrillation: The patient presents with recurrent atrial fibrillation with rapid ventricular response, new left bundle branch block, and severe progression of her LV function from 60% to around 10 to 15%. In addition she appears to have moderate to severe posteriorly directed mitral regurgitation with severe biatrial enlargement, and at least moderate pulmonary hypertension by echocardiogram. Patient underwent transesophageal echocardiogram which demonstrated moderate to severe posterior directed mitral regurgitation with severe left atrial enlargement and severe left ventricular enlargement and left ventricular dysfunction. She underwent left and right heart catheterization which demonstrated mild pulmonary hypertension, with 3-vessel coronary disease of her left circumflex, LAD and diagonal. Overnight the patient converted to normal sinus rhythm with the assistance of IV amiodarone and Coreg. Her Cardizem drip has been discontinued. At this point I would recommend switching her to p.o. amiodarone 400 mg p.o. twice daily for 5 days followed by 200 mg a day. In addition she will continue her Coreg. We will discontinue her heparin, and start her on Eliquis 5 mg p.o. twice daily for her paroxysmal atrial fibrillation and LV dysfunction. In addition we will discontinue her IV Lasix and switch her to Lasix 40 mill grams p.o. daily. We are awaiting the arrival of the patient's to determine which cardiovascular surgeon they would like to proceed with for mitral valve repair and multivessel bypass surgery. We will make arrangements with that surgeon at the [facility] once we get his name and contact number. The patient unfortunately cannot recall his name. I had a long thorough discussion yesterday with the patient's on the phone regarding the options for the patient including Medical management, PCI, mitral valve clip. We will defer to the surgeon for consultation to determine which direction to correct her coronary and mitral valve abnormalities. 2. LV dysfunction: The patient has newly diagnosed severe LV dysfunction. Recommend a 1500 cc fluid restriction. Again we will start Lasix 40 mg p.o. daily once she is achieved her dry weight. Recommend continuing her lisinopril. One option would be for the patient to be medically managed for some months to determine if her LV function improves prior to mitral valve repair surgery however it appears the mitral regurgitation has been going on for some time, and I doubt her LV function will improve much. 3. Hyperlipidemia: Recommend obtaining a fasting lipid profile. Given her history of CVA/TIAs, she requires aggressive LDL reduction. 4. Thank you very much for the opportunity to participate in the cardiac care of your patient. Would ambulate patient today, and if by tomorrow her rhythm has remained in sinus rhythm and she is tolerating medicines well, she may be considered for discharge home. Code Visit Inpatient E&M: 79213 Subs Hosp L2
[2019-04-09] MEDS: Amiodarone 200 MG Tablet 400 MG PO ×2 (10:26→21:39)
[2019-04-09] MEDS: APIXABAN 5 MG TABLET PO ×2 (10:27→21:39)
--- NOTE | 2019-04-09 13:08 | PN_ITS ---
<Jacek Davisssica - Last Filed: 04/09/19 13:21> Patient Problems: Active and Suspected Problems (Last Updated 04/08/19 @ 14:15 by Rosita Hagan) Acute systolic (congestive) heart failure (Acute) Subjective: Patient seen and examined. Feels well. Converted to sinus rhythm overnight. Patient's follows with [facility] senior hardware design engineer/surgeon and has been will provide that name to Dr. Bonilla so they can discuss outpatient follow-up. - Physical Exam General: Alert, Oriented x3, Cooperative HEENT: Atraumatic, PERRLA, EOMI, Normocephalic Neck: Supple, No JVD, Negative Carotid Bruits Lungs: Clear to auscultation, Normal air movement Cardiovascular: Regular rate, Regular Rhythm, Normal S1, Normal S2, No murmurs Abdomen: Bowel Sounds Present, Soft, Non Tender, Non-Distended, Obese Extremities: No clubbing, No cyanosis, No edema, Capillary Refill Less than 3 Seconds Skin: No rashes, No breakdown Musculoskeletal: No Tenderness to Palpation of Joints or Extremities Neurological: Cranial nerves II-XII grossly intact, Neuro grossly intact Psych/Mental Status: Normal Affect, Appropriate Vital Signs Temp Pulse Resp BP Pulse Ox 97.9 F 64 17 116/65 94 04/09/19 08:00 04/09/19 12:00 04/09/19 12:00 04/09/19 12:00 04/09/19 12:00 Oxygen Flow Rate (L/min) 2 Oxygen Delivery Method Room Air Weight: 251 lb 15.99 oz Body Mass Index (BMI) 40.6 Intake and Output for Last 24 Hours 04/07/19 04/08/19 04/09/19 23:59 23:59 23:59 Intake Total 822.3 / 822.3 1175.3 / 1536.0 1087.2 / 1087.2 Output Total 2725 / 3025 300 / 300 Balance 822.3 / 822.3 -1549.7 / -1489.0 787.2 / 787.2 Laboratory Tests Past 24 Hrs 04/09/19 04/09/19 01:00 08:08 APTT 83.0 H 80.7 H Medical Necessity - Tobacco Use Smoking Status: Never smoker Tobacco Use: Non-smoker Assessment/Plan All Active Problems (Last Updated 04/08/19 @ 14:15 by Rosita Hagan) Acute systolic (congestive) heart failure (Acute) 1. New onset atrial fibrillation with RVR- Dr. Bonilla, cardiology consulted. PANCHO without thrombus. Converted to sinus rhythm overnight. Amiodarone drip discontinued. Continue p.o. amiodarone 400 mg twice daily for 5 days and then 200 mg daily. Initiated on Eliquis 5 mg twice daily. 2. New left bundle branch block-cardiology following as noted above. 3. Severe mitral valve insufficiency-echocardiogram April 2015 demonstrated an EF of 60%, mild mitral valve insufficiency, mild to moderate tricuspid valve insufficiency, pulmonary artery systolic pressure 41 mmHg. Repeat echocardiogram demonstrates an EF of 15%, moderately severe mitral valve insufficiency, moderate tricuspid valve insufficiency, RVSP estimated to be 53 mmHg, mild pulmonic valve insufficiency. Refer to surgery for valve replacement. 4. Severe ischemic cardiomyopathy-cardiac catheterization demonstrated triple- vessel CAD of the LAD, diagonal and LCx, nonobstructive coronary arteries. Plan to refer for surgery consult for coronary revascularization and valvular disease. Continue aspirin, statin, carvedilol, Lasix, lisinopril. Patient did receive IV Lasix due to cardiomyopathy which has since been discontinued. She was not noted to be in acute CHF. Continue PO Lasix 40 mg daily. 5. Hypertension-stable, continue home Lasix, lisinopril regimen. 6. Hyperlipidemia-continue statin regimen. 7. Obesity-encouraged diet lifestyle modifications. Nutrition consult. 8. Chronic back pain-follows with pain management, Dr. Madrid. Continue home PRN pain regimen. 9. Suspected chronic kidney disease stage [id number] appears at baseline. Trend BMP. DVT prophylaxis-Eliquis Discharge planning: Anticipate discharge home tomorrow with medical management as noted above and close outpatient follow-up with cardiothoracic surgeon at [facility]. This patient was seen by TY Cortez under the supervision of Dr. Costa. <Marky Costa - Last Filed: 04/09/19 17:04> Subjective: Seen and examined. Patient converted to normal sinus rhythm. Patient on amiodarone drip. On anticoagulation. - Physical Exam General: Alert, Oriented x3, Cooperative HEENT: Atraumatic, PERRLA, EOMI, Normocephalic Neck: Supple, No JVD, Negative Carotid Bruits Lungs: Clear to auscultation, Normal air movement, No rhonchi, No wheeze, No rales Cardiovascular: Regular rate, Normal S2, Murmur - Systolic murmur present over mitral area and left lower sternal border Abdomen: Bowel Sounds Present, Soft, Non Tender, No Hepato-splenomegaly, Obese Extremities: Capillary Refill Less than 3 Seconds, Edema Skin: No rashes, No breakdown Musculoskeletal: No Tenderness to Palpation of Joints or Extremities, Arthritic Changes Neurological: Cranial nerves II-XII grossly intact Psych/Mental Status: Normal Affect, Appropriate Vital Signs Temp Pulse Resp BP Pulse Ox 98.2 F 67 20 H 97/50 L 93 04/09/19 14:00 04/09/19 16:00 04/09/19 14:00 04/09/19 14:00 04/09/19 14:00 Oxygen Flow Rate (L/min) 2 Oxygen Delivery Method Room Air Weight: 251 lb 15.99 oz Body Mass Index (BMI) 40.6 Intake and Output for Last 24 Hours 04/07/19 04/08/19 04/09/19 23:59 23:59 23:59 Intake Total 822.3 / 822.3 1175.3 / 1536.0 1087.2 / 1087.2 Output Total 2725 / 3025 300 / 300 Balance 822.3 / 822.3 -1549.7 / -1489.0 787.2 / 787.2 Laboratory Tests Past 24 Hrs 04/09/19 04/09/19 01:00 08:08 APTT 83.0 H 80.7 H Assessment/Plan This patient was seen in conjunction with QUILL PICKING MACHINE OPERATORJoyce. I have independently interviewed and examined the patient and reviewed pertinent history, examination findings, laboratory and plan of management. I have reviewed the note and agree with the documented findings with the few additional points. In brief, patient is admitted for new onset A. fib with RVR: Patient on amiodarone drip which is converted to amiodarone oral. On Eliquis 5 mg twice daily. Patient converted to normal sinus rhythm. T did not show any thrombus. Patient has significant valvular heart disease, severe mitral valve insufficiency, severe TR. Has multivessel coronary artery disease as per the cardiac cath with severe ischemic cardiomyopathy. Overall patient advised to follow-up with Dr. Bonilla in office and will be planned for referral to tertiary care for bypass surgery along with valve replacement surgery. Repeat echo shows EF 15%, moderately severe MR, moderately severe TR, RVSP 53 mmHg. Other comorbidities as mentioned above I have discussed my assessment with QUILL PICKING MACHINE OPERATORJoyce and orders have been reviewed. Code Visit Inpatient E&M: 98398 Subs Hosp L3
[2019-04-09] MEDS: MELATONIN 3 MG TABLET PO (21:39)
[2019-04-09] MEDS: Atorvastatin Calcium 10 MG Tablet PO (21:39)
[2019-04-09] MEDS: Acetaminophen 325 MG Tablet 650 MG PO (21:43)
[2019-04-10 02:18] VITALS: BP 141/79; PULSE 59; RESP 16; TEMP 36.6; O2SAT 94
[2019-04-10] MEDS: oxyCODONE 5 MG Tablet PO ×3 (02:19→08:45)
--- NOTE | 2019-04-10 02:24 | NURSING ---
PASSED 5 MG PO OXYIR FOR PATIENT BACK PAIN 03/12, WHILE TAKING PATIENT ASKED FOR FULL 10 MG DOSE, SO THIS RN PULLED A SECOND PILL
[2019-04-10 02:59] VITALS: PULSE 58
[2019-04-10 06:26] VITALS: BP 146/79; PULSE 62; RESP 18; TEMP 36.6; O2SAT 97
[2019-04-10 07:09] VITALS: PULSE 61
[2019-04-10] MEDS: Amiodarone 200 MG Tablet 400 MG PO (08:45)
[2019-04-10] MEDS: Aspirin 81 MG TAB.CHEW PO (08:45)
[2019-04-10] MEDS: Carvedilol 3.125 MG TABLET PO (08:45)
[2019-04-10] MEDS: Lisinopril 40 MG Tablet PO (08:45)
[2019-04-10] MEDS: Furosemide 40 MG Tablet PO (08:45)
[2019-04-10] MEDS: APIXABAN 5 MG TABLET PO (08:45)
--- NOTE | 2019-04-10 08:58 | PCM.PN.CARD ---
Subjectve: Patient feeling much better this morning. Telemetry showed normal sinus rhythm with left bundle branch block. No ventricular tachycardia. Objective: Vital Signs Temp Pulse Resp BP Pulse Ox 97.8 F 61 18 146/79 H 97 04/10/19 06:26 04/10/19 07:09 04/10/19 06:26 04/10/19 06:26 04/10/19 06:26 Oxygen Flow Rate (L/min) 2 Oxygen Delivery Method Room Air Weight: 251 lb 15.99 oz Body Mass Index (BMI) 40.6 Intake and Output for Last 24 Hours 04/08/19 04/09/19 04/10/19 23:59 23:59 23:59 Intake Total 1175.3 / 1536.0 1567.2 / 1567.2 Output Total 2725 / 3025 300 / 300 Balance -1549.7 / -1489.0 1267.2 / 1267.2 General: Awake, Alert, Oriented x 3 HEENT: PERRL, EOMI, Sclera Non Icteric Neck: Supple, Good ROM, No Lymph Node Enlargement Lungs: Clear to auscultation Cardiovascular: Regular Rhythm, Normal S1, Normal S2, No Murmurs, No Rubs, No Gallops Vascular: No Carotid Bruits, Normal Femoral Pulses, Normal Radial Pulses, Normal Dorsalis Pedal Pulse, Normal Posterior Tibial Pulses Abdomen: Bowel Sounds Present, Soft, Non Tender, No HSM, No Organomegaly Extremities: No Cyanosis, No Clubbing, No edema Neurological: No Focal Motor or Sensory Deficit 04/09/19 08:08: APTT 80.7 H Rhythm: EKG: ECHO: Stress Test: Cardiac Cath: PCI: CT Surgery: Holter monitor: EPS: PPM: CXR: Chest CT Scan: Medical Necessity - Tobacco Use Smoking Status: Never smoker Tobacco Use: Non-smoker Assessment/Plan 1. Atrial fibrillation: The patient presents with recurrent atrial fibrillation with rapid ventricular response, new left bundle branch block, and severe progression of her LV function from 60% to around 10 to 15%. In addition she appears to have moderate to severe posteriorly directed mitral regurgitation with severe biatrial enlargement, and at least moderate pulmonary hypertension by echocardiogram. Patient underwent transesophageal echocardiogram which demonstrated moderate to severe posterior directed mitral regurgitation with severe left atrial enlargement and severe left ventricular enlargement and left ventricular dysfunction. She underwent left and right heart catheterization which demonstrated mild pulmonary hypertension, with 3-vessel coronary disease of her left circumflex, LAD and diagonal. Overnight the patient converted to normal sinus rhythm with the assistance of IV amiodarone and Coreg. Her Cardizem drip has been discontinued. At this point I would recommend switching her to p.o. amiodarone 400 mg p.o. twice daily for 5 days followed by 200 mg a day. In addition she will continue her Coreg. We will discontinue her heparin, and start her on Eliquis 5 mg p.o. twice daily for her paroxysmal atrial fibrillation and LV dysfunction. In addition we will discontinue her IV Lasix and switch her to Lasix 40 mill grams p.o. daily. Patient's request consultation with Dr. Acevedo of the [facility] to coordinate surgical evaluation for mitral valve repair and multivessel bypass surgery. We will make arrangements with that surgeon at the [facility] downtown once we get his name and contact number. I had a long thorough discussion yesterday with the patient's on the phone regarding the options for the patient including Medical management, PCI, mitral valve clip. We will defer to the surgeon for consultation to determine which direction to correct her coronary and mitral valve abnormalities. 2. LV dysfunction: The patient has newly diagnosed severe LV dysfunction. Recommend a 1500 cc fluid restriction. Again we will start Lasix 40 mg p.o. daily once she is achieved her dry weight. Recommend continuing her lisinopril. One option would be for the patient to be medically managed for some months to determine if her LV function improves prior to mitral valve repair surgery however it appears the mitral regurgitation has been going on for some time, and I doubt her LV function will improve much. 3. Hyperlipidemia: Recommend obtaining a fasting lipid profile. Given her history of CVA/TIAs, she requires aggressive LDL reduction. 4. Thank you very much for the opportunity to participate in the cardiac care of your patient. Would ambulate patient today, and patient may be discharged home.
--- NOTE | 2019-04-10 10:47 | CASEMGMT ---
Pt does not have POA, as per CM, pt is aware that LW is not on file at the hospital. SAIDA Waller
--- NOTE | 2019-04-10 11:03 | PCM.DC ---
- Discharge Diagnoses Current Active Problems: Current Active and Chronic Problems (Last Updated 04/08/19 @ 14:15 by Rosita Hagan) Acute systolic (congestive) heart failure (Acute) Secondary pulmonary arterial hypertension (Chronic) Paroxysmal atrial fibrillation (Chronic) Atherosclerosis of coronary artery of [place] heart without angina pectoris (Chronic) Ischemic cardiomyopathy (Chronic) Essential (primary) hypertension (Chronic) You will use the following diet at home:: Cardiac Your food should be the consistency of: Regular Discharge Activity: May Not Drive Call your doctor if you observe: Fever of 101 or Higher, Change in Color, Inability to urinate, Inability to have a bowel movement, Shortness of breath, Dizziness, Fainting spells, Swelling in the ankles, Chest pain, Increased palpitations (irregular heartbeat) Allergies/Adverse Reactions: Allergies iodine Allergy (Verified 04/07/19 10:23) Shortness of breath Penicillins Allergy (Verified 04/07/19 10:23) Diarrhea Sulfa (Sulfonamide Antibiotics) Adverse Reaction (Verified 04/07/19 10:23) Diarrhea SEAFOOD Allergy (Uncoded 04/07/19 10:23) Shortness of breath Medications to take at Discharge Clopidogrel Bisulfate [Plavix] 75 mg PO DAILY 06/16/14 Vits A,C,E/Lutein/Minerals [Ocuvite with Lutein Tablet] 1 ea PO DAILY 06/16/14 Ergocalciferol [Vitamin D] 1 cap PO DAILY 04/07/19 Oxycodone HCl 1 tab PO PRN PRN 04/07/19 Oxycodone HCl 5 mg PO PRN PRN 04/07/19 Tafluprost/Pf [Zioptan 0.0015% Eye Drops] 1 ea OP DAILY 04/07/19 Amiodarone HCl [Cordarone] 400 mg PO DAILY #60 tab 04/10/19 Apixaban [Eliquis] 5 mg PO BID #60 tab 04/10/19 Aspirin [Aspirin, Baby] 81 mg PO DAILY@0800 #30 tab.chew 04/10/19 Carvedilol [Coreg (Beta Karla)] 3.125 mg PO BID #60 tab 04/10/19 Furosemide [Lasix] 40 mg PO DAILY #30 tab 04/10/19 Lisinopril [Zestril] 40 mg PO DAILY #30 tab 08/08/19 Nitroglycerin (INPATIENT USE) [Nitrostat] 0.4 mg SUBLINGUAL Q5M PRN #30 tab.subl 04/10/19 Rosuvastatin Calcium 10 mg PO QHS #30 tab 04/10/19 The following prescriptions were given: Aspirin [Aspirin, Baby] 81 mg PO DAILY@0800 #30 tab.chew Transmission Status: Pending to [facility] Amiodarone HCl [Cordarone] 400 mg PO DAILY #60 tab Transmission Status: Pending to [facility] Carvedilol [Coreg (Beta Karla)] 3.125 mg PO BID #60 tab Transmission Status: Pending to [facility] Apixaban [Eliquis] 5 mg PO BID #60 tab Transmission Status: Pending to [facility] Furosemide [Lasix] 40 mg PO DAILY #30 tab Transmission Status: Pending to [facility] Nitroglycerin (INPATIENT USE) [Nitrostat] 0.4 mg SUBLINGUAL Q5M PRN #30 tab.subl PRN Reason: Cardiac/Chest Pain Transmission Status: Pending to [facility] Rosuvastatin Calcium 10 mg PO QHS #30 tab Transmission Status: Pending to [facility] Lisinopril [Zestril] 40 mg PO DAILY #30 tab Transmission Status: Pending to [facility] Primary Care Physician: Niki Nayak NP-C [Primary Care Provider] - Please follow up with your Primary Care Physician in: in 2 weeks Test Results: Test results from this visit will be discussed in further detail at your follow-up appointment, if applicable. Please Follow Up With: Anthony Bonilla MD When: in 2-3 weeks for referral to CTS surgeon, [facility]
--- NOTE | 2019-04-10 11:04 | DS.PCM_ITS ---
Discharge Date and Diagnosis - Problem List Patient Problems: Active and Suspected Problems (Last Updated 04/08/19 @ 14:15 by Rosita Hagan) Acute systolic (congestive) heart failure (Acute) Date of Admission: 04/07/19 Date of Discharge: 04/10/19 - Primary Discharge Diagnosis Active and Suspected Problems (Last Updated 04/08/19 @ 14:15 by Rosita Hagan) Acute systolic (congestive) heart failure (Acute) - Secondary Discharge Diagnosis Chronic Problems (Last Updated 04/08/19 @ 14:15 by Rosita Hagan) Secondary pulmonary arterial hypertension (Chronic) Paroxysmal atrial fibrillation (Chronic) Atherosclerosis of coronary artery of [place] heart without angina pectoris (Chronic) Ischemic cardiomyopathy (Chronic) Essential (primary) hypertension (Chronic) 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 fib with RVR. She was admitted on PCU. Cyber Systems Administrator Dr. Bonilla consulted. Patient had PANCHO which reported no thrombus. Patient on amiodarone drip which is converted to amiodarone oral. On Eliquis 5 mg twice daily. Patient converted to normal sinus rhythm. Patient has significant valvular heart disease, severe mitral valve insufficiency, severe TR. Has multivessel coronary artery disease as per the cardiac cath with severe ischemic cardiomyopathy. Overall patient advised to follow-up with Dr. Bonilla in office and will be planned for referral to tertiary care for bypass surgery along with valve replacement surgery to [facility]. Patient's requested consultation with Dr. Acevedo of [facility]. Repeat echo shows EF 15%, moderately severe MR, moderately severe TR, RVSP 53 mmHg. Further hospital course in detail as mentioned below 1. New onset atrial fibrillation with RVR-patient was transitioned from amiodarone IV drip to amiodarone oral 400 mg twice daily which is changed on discharge to 40 mg once daily for 5 days and then 200 mg daily. Initiated on Eliquis 5 mg twice daily. 2. New left bundle branch block-cardiology following as noted above. 3. Severe mitral valve insufficiency-echocardiogram April 2015 demonstrated an EF of 60%, mild mitral valve insufficiency, mild to moderate tricuspid valve insufficiency, pulmonary artery systolic pressure 41 mmHg. Repeat echocardiogram demonstrates an EF of 15%, moderately severe mitral valve insufficiency, moderate tricuspid valve insufficiency, RVSP estimated to be 53 mmHg, mild pulmonic valve insufficiency. Refer to surgery for valve replacement. 4. Severe ischemic cardiomyopathy-cardiac catheterization demonstrated triple- vessel CAD of the LAD, diagonal and LCx, nonobstructive coronary arteries. EF 15%. Patient needs bypass surgery along with valve replacement surgery. Continue aspirin, statin, carvedilol, Lasix, lisinopril. Patient did receive IV Lasix due to cardiomyopathy which has since been discontinued. She was not noted to be in acute CHF. Continue PO Lasix 40 mg daily. 5. Hypertension-stable, continue home Lasix, lisinopril regimen. On lisinopril 40 mg daily 6. Hyperlipidemia-continue statin regimen. 7. Obesity-encouraged diet lifestyle modifications. Nutrition consult. 8. Chronic back pain-follows with pain management, Dr. Madrid. Continue home PRN pain regimen. 9. Suspected chronic kidney disease stage ZK-HKV-nzoacazyle appears at baseline. Trend BMP. DVT prophylaxis-Eliquis Discharge medication reconciliation done. Discharge follow-up instructions completed. Discharge process discussed with the patient and all questions were answered to patient's satisfaction. Prescription for baby aspirin, Eliquis, Coreg, amiodarone, Lasix, Crestor, lisinopril and nitro sublingual sent to the pharmacy. Medications discussed with the patient Total time spent, exact 35 minutes on discharge meds reconciliation, examination, review of imaging and blood test and discussion with the patient on follow-up instructions. Patient Problems: Active and Suspected Problems (Last Updated 04/08/19 @ 14:15 by Rosita Hagan) Acute systolic (congestive) heart failure (Acute) Subjective: Patient feels much better and is well diuresed. Toes are well controlled on medications. Heart rate in 60s. Blood pressure average about 130/81. Hypoxia. Leg swellings have much improved. The patient is ready for discharge. - Physical Exam General: Alert, Oriented x3, Cooperative HEENT: Atraumatic, PERRLA, EOMI, Normocephalic Neck: Supple, No JVD, Negative Carotid Bruits Lungs: Clear to auscultation, Normal air movement, No rhonchi, No wheeze, No rales Cardiovascular: Regular rate, Regular Rhythm, Normal S1, Normal S2, Murmur - Systolic murmur, pansystolic in mitral area with radiation to axilla. Pansystolic murmur present over left lower sternal border. Abdomen: Bowel Sounds Present, Soft, Non Tender, Non-Distended Extremities: No edema, Capillary Refill Less than 3 Seconds, Edema Skin: No rashes, No breakdown Musculoskeletal: No Tenderness to Palpation of Joints or Extremities, Arthritic Changes Neurological: Cranial nerves II-XII grossly intact, Deep Tendon Reflexes 2+/4 and Symmetrical, Neuro grossly intact Psych/Mental Status: Normal Affect, Appropriate Vital Signs Temp Pulse Resp BP Pulse Ox 97.8 F 61 18 146/79 H 97 04/10/19 06:26 04/10/19 07:09 04/10/19 06:26 04/10/19 06:26 04/10/19 06:26 Oxygen Flow Rate (L/min) 2 Oxygen Delivery Method Room Air Weight: 251 lb 15.99 oz Body Mass Index (BMI) 40.6 Intake and Output for Last 24 Hours 04/08/19 04/09/19 04/10/19 23:59 23:59 23:59 Intake Total 1175.3 / 1536.0 1567.2 / 1567.2 Output Total 2725 / 3025 300 / 300 Balance -1549.7 / -1489.0 1267.2 / 1267.2 Discharge Activity: May Not Drive Call your doctor if you observe: Fever of 101 or Higher, Change in Color, Inability to urinate, Inability to have a bowel movement, Shortness of breath, Dizziness, Fainting spells, Swelling in the ankles, Chest pain, Increased palpitations (irregular heartbeat) Home Medications: Medications to take at Discharge Clopidogrel Bisulfate [Plavix] 75 mg PO DAILY 06/16/14 Vits A,C,E/Lutein/Minerals [Ocuvite with Lutein Tablet] 1 ea PO DAILY 06/16/14 Ergocalciferol [Vitamin D] 1 cap PO DAILY 04/07/19 Oxycodone HCl 1 tab PO PRN PRN 04/07/19 Oxycodone HCl 5 mg PO PRN PRN 04/07/19 Tafluprost/Pf [Zioptan 0.0015% Eye Drops] 1 ea OP DAILY 04/07/19 Amiodarone HCl [Cordarone] 400 mg PO DAILY #60 tab 04/10/19 Apixaban [Eliquis] 5 mg PO BID #60 tab 04/10/19 Aspirin [Aspirin, Baby] 81 mg PO DAILY@0800 #30 tab.chew 04/10/19 Carvedilol [Coreg (Beta Karla)] 3.125 mg PO BID #60 tab 04/10/19 Furosemide [Lasix] 40 mg PO DAILY #30 tab 04/10/19 Lisinopril [Zestril] 40 mg PO DAILY #30 tab 04/10/19 Nitroglycerin (INPATIENT USE) [Nitrostat] 0.4 mg SUBLINGUAL Q5M PRN #30 tab.subl 04/10/19 Rosuvastatin Calcium 10 mg PO QHS #30 tab 04/10/19 Following Prescrptions Were Given to Patient: Aspirin [Aspirin, Baby] 81 mg PO DAILY@0800 #30 tab.chew Transmission Status: Received by [id number] Amiodarone HCl [Cordarone] 400 mg PO DAILY #60 tab Transmission Status: Received by [id number] Carvedilol [Coreg (Beta Karla)] 3.125 mg PO BID #60 tab Transmission Status: Received by [id number] Apixaban [Eliquis] 5 mg PO BID #60 tab Transmission Status: Received by [id number] Furosemide [Lasix] 40 mg PO DAILY #30 tab Transmission Status: Received by [facility] Nitroglycerin (INPATIENT USE) [Nitrostat] 0.4 mg SUBLINGUAL Q5M PRN #30 tab.subl PRN Reason: Cardiac/Chest Pain Transmission Status: Received by [facility] Rosuvastatin Calcium 10 mg PO QHS #30 tab Transmission Status: Received by [facility] Lisinopril [Zestril] 40 mg PO DAILY #30 tab Transmission Status: Received by [facility] Primary Care Physician: Niki Nayak NP-C [Primary Care Provider] - Please follow up with your Primary Care Physician in: in 2 weeks Please Follow Up With: Anthony Bonilla MD When: in 2-3 weeks for referral to CTS surgeon, [facility] Medical Necessity - Tobacco Use Smoking Status: Never smoker Tobacco Use: Non-smoker Meaningful Use Info Meaningful Use Diagnoses (Choose all that apply): None applicable Code Visit Inpatient E&M: 20624 Disch Hosp
[2019-04-10 11:20] VITALS: BP 146/65; PULSE 60; RESP 16; TEMP 36.8; O2SAT 95
--- NOTE | 2019-04-10 11:57 | CASEMGMT ---
this RN CM to room to discuss discharge plan with pt at this time and pt was up in room finishing getting dressed at this time. Pt states no concerns with going home at time of discharge. Pt states no further concerns/needs at this time. SStaten RN CM
--- NOTE | 2019-04-11 16:02 | CASEMGMT ---
TRUE CM Discharge Follow-up Phone Call: JOHNNY: 12 Strata: 4 Call Date: 04/11/19 Discharge Date: 04/10/19 Time of Call: 1540 Duration: 8 minutes with patient plus call to [facility] ? Admitting Diagnosis: Afib RVR, Severe ischemic cardiomyopathy Discharge follow-up call made to pt. Pt states she is doing ok but states she has been unable to stay up for long periods of time. Described her day as being up for an hour, getting short of breath, lying down for another couple of hours and then repeating this sequence. Pt denies any palpitations or other complaints. Pt states she did not understand her follow-up appointments with cardiology. States she was told to follow-up in a week but her appointment is not until May. Call placed to the [facility]. Appointment times were confirmed as being on 04/25 at 1000 with Stephen Leiva and then on 05/[address] Dorsey. It was relayed that they plan to keep a close eye on her as they attempt to set the pt up for evaluation at the [facility]. Relayed pt's c/o inability to stay up and c/o shortness of breath. Stephen Leiva notified and will contact pt prior to the end of the day to check on her. Relayed all of the above to the pt. Pt states she feels that she may just need to adjust to her to higher dose medications and recover from her inactivity while in the hospital. Pt denied any further questions or concerns.
== END 2019-04-10 12:34 | disposition home or self-care (01) | DRG 287 ==
LOC: ED 10:56 → PCU 12:00
PROVIDERS: Hospitalist; Internal Medicine Cardiovascular Disease; Nurse Practitioner Family; Admitting Provider Internal Medicine; Emergency Provider Emergency Medicine; Family Provider Nurse Practitioner; PCP Nurse Practitioner; Visit Provider Internal Medicine
DX: I48.0 Paroxysmal atrial fibrillation (principal); Z68.41 Body mass index [BMI] 40.0-44.9, adult; I50.22 Chronic systolic (congestive) heart failure; I13.10 Hypertensive heart and chronic kidney disease without heart failure, with stage 1 through stage 4 chronic kidney disease, or unspecified chronic kidney disease; N18.3 Chronic kidney disease, stage 3 (moderate); I44.7 Left bundle-branch block, unspecified; E78.5 Hyperlipidemia, unspecified; I10 Essential (primary) hypertension; E66.01 Morbid (severe) obesity due to excess calories; I25.5 Ischemic cardiomyopathy; I25.10 Atherosclerotic heart disease of native coronary artery without angina pectoris; G89.29 Other chronic pain; M54.9 Dorsalgia, unspecified; I37.1 Nonrheumatic pulmonary valve insufficiency; I08.1 Rheumatic disorders of both mitral and tricuspid valves; I27.21 Secondary pulmonary arterial hypertension; Z86.73 Personal history of transient ischemic attack (TIA), and cerebral infarction without residual deficits
CPT/HCPCS: 36415; 71045; 80048; 80061; 82803; 83036; 83735; 83880; 84439; 84443; 84484; 85025; 85610; 85730; 93005; 93306; 93460; 99152; 99285; J7030; Q9957; Q9967; A4216; C1751; C1769; C1894; C8929; J1940; J3490

== ENCOUNTER 2019-04-16 10:47 | Emergency (ER) | payer MEDICARE, SELFPAY ==
[2019-04-07 12:41] VITALS: BMI 40.6
[2019-04-16 10:49] VITALS: BP 130/104; PULSE 67; RESP 16; TEMP 36.8; O2SAT 97; BMI 36.6
--- NOTE | 2019-04-16 11:00 | EKG12_ITS ---
Test Reason : Blood Pressure : / mmHG Vent. Rate : 070 BPM Atrial Rate : 070 BPM P-R Int : 200 ms QRS Dur : 160 ms QT Int : 456 ms P-R-T Axes : 083 -51 114 degrees QTc Int : 492 ms Normal sinus rhythm Left axis deviation Left bundle branch block Abnormal ECG Confirmed by YONNY GARCIA ([id number]), sound editor REKHA PITT ([id number]) on 04/17/2019 2:22:51 PM Referred By: WESLEY/ANITHA Confirmed By:YONNY GARCIA
[2019-04-16 11:05] VITALS: O2SAT 97
[2019-04-16] MEDS: Aspirin 81 MG TAB.CHEW 324 MG PO (11:08)
--- NOTE | 2019-04-16 11:10 | RAD_ITS ---
STUDY: X-RAY CHEST REASON FOR EXAM: Female, 73 years old. Chest pain. Shortness of breath. TECHNIQUE: Single AP portable view of the chest. COMPARISON: Comparison is made with prior study dated April 07, 2019. FINDINGS: EKG liquids are seen. The lungs are clear and expanded. Scattered calcified granuloma. There is no demonstrated pleural abnormality. Normal size heart. Normal mediastinum and savage. Normal visualized pulmonary arteries. There is atherosclerotic tortuosity of the aortic arch and descending thoracic aorta. There are diffuse degenerative changes of the visualized thoracic spine. Normal visualized ribs, clavicles, and shoulders. There is no demonstrated abnormality of the visualized soft tissue structures of the upper abdomen. RAD/Chest 1 View (Portable) IMPRESSION: No acute abnormality is present. Electronically Signed: Julio Rubio, at 12:09 EDT , Service support ,
[2019-04-16 11:12] LABS: Absolute Lymphocyte Count 1.07 X10^3/uL (0.83-4.51); Absolute Neutrophil Count 4.7 X10^3/uL (2.0-7.7); Basophil# 0.06 X10^3/uL; Basophil% 0.9 % (0-1); Eosinophil# 0.14 X10^3/uL; Eosinophils% 2.2 % (0-5); Hematocrit 44.8 % (37-47); Hemoglobin 14.8 g/dL (12.0-15.0); Lymphocyte # 1.07 X10^3/ul (4.0); Lymphocyte % 16.4 % (19-41); Mean Corpuscular Hgb 30.6 pg (27.0-32.0); Mean Corpuscular Volume 92.6 fL (81-99); Mean Platelet Vol. 9.7 fl (6.2-12.0); Monocyte# 0.52 X10^3/uL; NRBC Flagged by Analyzer 0 % (0-5); Neutrophil # 4.69 X10^3/uL (2.7-7.7); Platelet Count 276 K/mm3 (150-450); RBC Distribution Width CV 13.5 % (11.6-14.6); RBC Distribution Width SD 45.4 fl (35.1-43.9); Red Blood Count 4.84 M/mm3 (4.2-5.4); White Blood Count 6.5 K/mm3 (4.4-11.0)
[2019-04-16 11:21] LABS: International Normalized Ratio 1.6; Prothrombin Time (Protime)PT. 18.6 SECONDS (11.7-14.9)
[2019-04-16 11:22] LABS: Partial Thromboplast Time 36.8 Seconds (24.1-36.2)
[2019-04-16 11:30] LABS: Anion Gap 5 (5-15); BUN 27 mg/dL (7-18); BUN/Creat Ratio 23.1 RATIO (10-20); Calcium,Total 9.5 mg/dL (8.5-10.1); Chloride 101 mmol/L (98-107); Creatinine, Serum 1.17 mg/dL (0.55-1.02); EST Glomerular Filtration Rate 48 mL/min (>60); Est Glom Filt Rate - Afr Amer 58 mL/min (>60); Estimated Creatinine Clearance 44.09 ml/min; Glucose 95 mg/dL (74-106); Potassium 4.3 mmol/L (3.5-5.1); Sodium Level 138 mmol/L (136-145)
[2019-04-16 12:00] VITALS: PULSE 65; RESP 20; O2SAT 94
--- NOTE | 2019-04-16 12:56 | ED.RN ---
PATIENT ACCEPTED AT [facility], WAITING FOR A ROOM.
[2019-04-16 13:10] VITALS: BP 165/36; PULSE 61; RESP 16; O2SAT 97
[2019-04-16 13:45] VITALS: BP 135/83; PULSE 70; RESP 18; O2SAT 95
--- NOTE | 2019-04-26 12:51 | ED.VISSUMM ---
- ER Visit Summary Date of Service: 04/26/19 Chief Complaint: Shortness of breath History of Present Illness: The patient is a 73 F who was recently admitted to this facility for shortness of breath. She has mitral valve disease and multivessel coronary disease. She had outpatient follow up today, and was found to be short of breath, diaphoretic, and she complains of back pain. She was advised to follow up as an outpatient with Dr. Acevedo at the [facility], but her PCPs office referred her to the ED today because of her continued symptoms. Physical Examination: AFVSS. Nontoxic. Alert and oriented. Lungs clear. Heart regular. Skin normal. Test Results: LBBB on EKG, no acute ischemia or infarction. CBC, BMP, Troponin, and CXR unremarkable. Emergency Department Course and Treatment: Patient treated with aspirin. She is stable. She was placed on the monitor. Workup was stable and/or unremarkable. Due to continued symptoms and failed outpatient care, patient will be admitted. Dr. Bonilla was contacted by her PCPs office this morning, and he advised transfer to [facility]. I paged Dr. Bonilla and left a message with his nurse. Will transfer given that the patient will likely need bypass. She and her family requested [facility]. Dr. Franco accepted. Treatment Plan: As above Disposition: Transfer to [facility] Impression: 1. Coronary artery disease This note was generated with [employer] dictation software. It may contain incorrect words, spelling, and punctuation that were not noted in review of the chart prior to signing ED Disposition - Plan for ED Patient: Disposition: [facility] - Main Referrals: Niki Nayak, KIRSTEN-C [Primary Care Provider] -
== END 2019-04-16 14:25 | disposition short-term general hospital (02) ==
LOC: ED 12:05
PROVIDERS: Emergency Provider Emergency Medicine; Family Provider Nurse Practitioner; PCP Nurse Practitioner
DX: I25.10 Atherosclerotic heart disease of native coronary artery without angina pectoris (principal); I44.7 Left bundle-branch block, unspecified; I05.9 Rheumatic mitral valve disease, unspecified; I10 Essential (primary) hypertension; I50.9 Heart failure, unspecified; Z86.73 Personal history of transient ischemic attack (TIA), and cerebral infarction without residual deficits
CPT/HCPCS: 71045; 80048; 84484; 85025; 85610; 85730; 93005; 99285; J7030; A4216

== ENCOUNTER → 2019-05-14 15:25 | Outpatient (CLI) | payer MEDICARE, SELFPAY ==
[2019-04-16 10:49] VITALS: BMI 36.6
--- NOTE | 2019-05-14 15:29 | RAD_ITS ---
STUDY: X-RAY CHEST REASON FOR EXAM: Female, 73 years old. Right-sided pneumothorax. Prior CABG. TECHNIQUE: PA and lateral views of the chest. COMPARISON: Comparison is made with prior study dated April 16, 2019. FINDINGS: Small right apical pneumothorax. Blunting of both costophrenic angles with atelectasis at the lung bases. Sternal cerclage wires are present from a prior sternotomy. Mitral valve replacement. Normal mediastinum and savage. Normal visualized pulmonary arteries. There is atherosclerotic tortuosity of the aortic arch and descending thoracic aorta. There is a dextroscoliosis of the thoracic spine. Normal visualized ribs, clavicles, and shoulders. There is no demonstrated abnormality of the visualized soft tissue structures of the upper abdomen. RAD/Chest PA and Lateral IMPRESSION: Small right apical pneumothorax. Small bilateral effusions with bibasilar atelectasis. The patient is status post mitral valve replacement. Electronically Signed: Julio Rubio, at 15:49 EDT , Service support ,
== END ==
PROVIDERS: Family Provider Nurse Practitioner; PCP Nurse Practitioner; Referring Provider Nurse Practitioner; Visit Provider Nurse Practitioner
DX: J93.9 Pneumothorax, unspecified (principal)
CPT/HCPCS: 71046

== ENCOUNTER → 2019-05-19 15:48 | Outpatient (CLI) | payer MEDICARE, SELFPAY ==
--- NOTE | 2019-05-19 15:50 | RAD_ITS ---
STUDY: X-RAY CHEST REASON FOR EXAM: Female, 73 years old. Recent open heart surgery, difficulty breathing , recent pneumothorax TECHNIQUE: Frontal and lateral views of the chest were performed COMPARISON: None. FINDINGS: Both lungs are fully inflated without pneumothorax. There are no regional opacities. There are no pleural effusions, pulmonary edema cardia megaly. There is a benign appearing dense calcification lower in the right lower lung. Cardiac size is normal. Sternotomy wires are present and mitral annular repair ring. Osseous structures are unremarkable. RAD/Chest PA and Lateral IMPRESSION: 1. No pneumothorax. 2. No acute findings. Electronically Signed: Jasen Day, at 16:36 EDT Tel , Service support ,
== END ==
PROVIDERS: Family Provider Nurse Practitioner; PCP Nurse Practitioner; Referring Provider Nurse Practitioner; Visit Provider Nurse Practitioner
DX: J93.9 Pneumothorax, unspecified (principal)
CPT/HCPCS: 71046

== ENCOUNTER → 2019-06-17 11:49 | Outpatient (CLI) | payer MEDICARE, SELFPAY ==
--- NOTE | 2019-06-17 12:19 | PCM.CR.ITP ---
General Information - General Information Admitting Diagnosis: CABG, VALVE REPAIR ON 05/02/2019 - Education/Goals Barriers to Learning: Vision Impairment Individual Counseling: Initial Assessment: Abnormal Cholesterol Levels, High Blood Pressure, Overweight/Obesity - Cardiac Rehabilitation Goals: 1. Maintain the individual as the primary focus of care. 2. To improve the patient's quality of life. 3. Identification of cardiac risk factors and provide cardiac risk factor management. 4. Enhance the psychosocial status of the patient. 5. Reconditioning enough to allow the patient to resume customary activities. 6. Control symptoms of cardiac disease Scale for measuring improvement of personal goals: Enter appropriate number in Comments. 2 = Unchanged. 3 = Slightly Better. 4 = Moderate Improvement. 5 = Met my Goal Personal Goals: Initial Assessment: Improve energy level, Participate in home exercise program, Get back to work, or to resume activities faster, Improve knowledge of cardiac disease, Improve muscle strength and endurance, Improve diet and eating habits (eat healthier), Control risk factors (learn risk factor modification) Exercise - Initial Assessment - Visit Date of Eval: 06/17/19 Session #:: 0 - EVALUATION & ORIENTATION - Stages of Change Stages of Change:: Action - Physician Prescribed Exercise Modalities: Treadmill - QUESTIONABLE DUE TO BILATERAL KNEE ISSUES, Airdyne, NuStep, SciFit Frequency (days/week): 3x/week for 12 weeks [36 sessions] Duration (Minutes):: 30-45 Intensity: 60-80% age predicted maximum heart rate reserve METs - Progression: 0.5-1.0 MET, RPE 11-14 WEEK: 2.5 Target Heart Rate:: 95-115 - Hypertension Do any of the following apply?: Yes, Medication Resting Blood Pressure:: 110/66 - Intervention Home Exercise/Activity Goal:: Sitting Time <3 hrs/day - Education Goals:: Warm-up, RPE NIMA Scale, S/S, Safe Exercise, Self-Monitoring - Exercise Program Goals Exercise Program Goals: Aerobic Activity >30 min Nutrition - Initial Assessment - Program Goals Nutrition Program Goals: LDL <70. Total Cholesterol <200. HDL >45. Triglycerides <150. HgbA1C <7%. BMI <25 - Visit Date of Assessment:: 06/17/19 - Stages of Change Stages of Change:: Action - Lipids Total Cholesterol (mg/dL) Goal = less than 200 mg/dL: 132 - 05/22/2019 HDL Cholesterol (mg/dL) Goal = less than 45 mg/dL: 47 LDL Cholesterol (mg/dL) Goal = less than 70 mg/dL: 68 Triglycerides (mg/dL) Goal = less than 150 mg/dL: 87 - Diabetes Diabetes:: No Insulin: No Non-Insulin Dependent?: No Do you monitor your blood sugar at home?: No - Weight Management Height: 5 ft 6 in Weight:: 233 lb Body Fat %:: 37.61 - Intervention Referral to dietitian:: Yes - PATIENT COULD BENEFIT FROM CARDIAC DIET AND WHY WEIGHT PROGRAMS Referral to Diabetic Clinic:: No Will attend diet classes:: Yes - Education Gave educational materials for:: Healthy eating Tobacco - Initial Assessment - Program Goals Tobacco Program Goals: Complete smoking cessation. Attend education classes. Improve Knowledge Test score - Stage of Change Stages of Change:: Action - Learning Barriers Learning Barriers: Ready to Learn - Family Support Do you have family support?: Yes - Tobacco Use Tobacco Use: Non-smoker Do you use smokeless tobacco?: No - Intervention Smoking Cessation Referral:: No Individual Education/Counseling:: No Education Schedule Given:: Yes - Education Attended class for:: Treating Heart Disease, How The Heart Works, What it means to have Heart Disease, How Coronary Artery Disease is Diagnosed, Heart Procedures, What Heart Medications Do, Risk Factors & Modifications, Living an Active Life, Nutrition, Emotions & Heart Disease, Stress Management & Relaxation, Sleep Disorders & Heart Disease Psychosocial - Initial Assess - Target Goals Target Goals: Assess presence or absence of depression. Using a valid screening tool, maximizes coping skills. Positive support system - Stages of Change Stages of Change:: Action - Psychosocial Test Tool Used:: HANDS Depression Questionnaire - Intervention PS - Interventions: Yes Attend Stress Management Classes, No Referral to Mental Health, No Referral to [facility] Case Management, No Referral to Physician, No Uses Stress Management Skills - Education Gave educational materials for:: Coping techniques, Signs & symptoms of depression, Stress management, Relaxation techniques - Patient/Program Goal Preventative Medication(s):: Aspirin, HEMANT inhibitor, Clopidogrel, Beta maria isabel, Statin/lipid - Assistive Devices Assistive Devices:: Walker - SPINAL LUMBAR STENOSIS, BILATERAL KNEE REPLACEMENTS, RIGHT FOOT SURGERY Fall Risk Assessed:: Yes Patient Health Questionnaire Initial Assessment 1. Little interest or pleasure in doing things: Several days 2. Feeling down, depressed, or hopeless: Not at all 3. Trouble falling or staying asleep, or sleeping too much: Not at all 4. Feeling tired or having little energy: More than half the days 5. Poor appetite or overeating: Several days 6. Feeling bad about yourself -- or that you are a failure or have let yourself or your family down: Not at all 7. Trouble concentrating on things, such as reading the newspaper or watching television: Not at all 8. Moving or speaking so slowly that other people could have noticed. Or the opposite - being so fidgety or restless that you have been moving around a lot more than usual: Not at all 9. Thoughts that you would be better off , or of hurting yourself in some way: Not at all Total Score: 4 JADE-Q SV Test - Statements CAD is a disease of the arteries in the heart: False Examples of risk factors for heart disease: True Angina is chest pain or discomfort: True The benefits of resistance training include: True Eating more meat and dairy products: I Don't Know Anti-platelet medications such as aspirin are important: True The only effective way to manage stress: I Don't Know An exercise warm-up slowly increases heart rate: True Prepared, processed foods usually have high sodium: True Depression is common after a heart attack: True The statin medications lower cholesterol: True To control blood pressure, lower the amount of sodium: True If someone gets chest discomfort during walking: False Transfats are partially hydrogenated vegetable oils: I Don't Know Sleep apnea that is not treated increases the risk: False To control cholesterol, one should become a vegetarian: True Someone knows if he/she is exercising at the right level: False Diabetes cannot be prevented with exercise & health eating: True Stress is a large risk for heart attack: True A diet that can help lower blood pressure is rich in: True - Total Score Total Correct Responses: 14 Self-Efficacy Initial Assessment We would like to know how confident you are in doing certain activities. Please select your confidence level for:: Select your confidence level for the following using the scale 1-10 where 1 is not at all confident and 10 is totally confident. Your score is the average of all 6 responses. Fatigue: How confident are you that you can keep the fatigue caused by your disease from interfering with the things you want to do? Select Number: 5 Physical Discomfort or Pain: How confident are you that you can keep the physical discomfort or pain of your disease from interfering with the things you want to do? Select Number: 9 Emotional Distress: How confident are you that you can keep the emotional distress caused by your disease from interfering with the things you want to do? Select Number: 9 Other Symptoms or Health Problems: How confident are you that you can keep other symptoms or health problems from interfering with the things you want to do? Select Number: 8 Different Tasks and Activities: How confident are you that you can do the different tasks and activities needed to manage your health condition so as to reduce your need to see a doctor? Select Number: 8 Medication: How confident are you that you can do things other than just taking medication to reduce how much your illness affects your everyday life? Select Number: 8 Total Score:: 7 Nutrition Survey - Nutrition Survey Instructions Scoring Instructions: Scoring is as follows: Yes = 1 points. No = 0 point. Patient score that is >/=12 is considered to be at potential nutritional risk and could benefit from a referral to a registered dietitian. - Nutrition Survey Initial Have you lost >10 lbs over the past 2 months without trying?: Yes Are you following a special diet at home for diabetes, low fat, or low salt?: Yes Are you interested in meeting with a dietitian for help understanding your diet?: Yes Do you eat less than 3 meals a day?: No Do you eat fatty meats (thomas, sausage, ribs, etc), fried foods, desserts, large amounts of salad dressings, margarine, butter, or cheese most days?: No Do you have food allergies? [Enter types in comment field]: Yes - SEAFOOD POULTRY Do you eat in restaurants more than 3 times a week?: No Do you season food with salt, seasoning salt, or garlic salt?: No Do you used canned, boxed, frozen meals, or soups, seasoning packets?: No Total Score:: 4
--- NOTE | 2019-06-17 12:25 | CR.HP_ITS ---
CR - History & Physical - General Arrival date:: 06/17/19 Arrival time:: 11:45 Date of Referral:: 06/05/19 Date of CR Evaluation:: 06/17/19 Referring Physician: DR. TIERRA LOZOYA @ [facility] Primary Diagnosis: CABG MITRAL VALVE REPAIR - History of Present Cardiac Event Onset Date: Enter Onset Date of cardiac illnesses in Comment field below Coronary Artery Bypass Graft:: Yes - 05/02/2019 Heart valve replacement or repair:: Yes - 05/02/2019 Type of Symptoms:: PROGRESSION OF SHORTNESS OF BREATH AD PROFUSELY SWEATING Interventions with present event:: CABG AND MITRAL VALVE REPAIR Were there any complications?: ATRIAL FIBRILLATION, HFrEF<35%, BILATERAL PLEURAL EFFUSION POST OP - Medications Home Medications: Ambulatory Orders Medication Instructions Recorded Clopidogrel Bisulfate [Plavix] 75 mg PO DAILY 06/16/14 Vits A,C,E/Lutein/Minerals 1 ea PO DAILY 06/16/14 [Ocuvite with Lutein Tablet] Ergocalciferol [Vitamin D] 1 cap PO TUTH 04/07/19 Oxycodone HCl 10 mg PO TID 04/07/19 Tafluprost/Pf [Zioptan 0.0015% Eye 1 ea OP DAILY 04/07/19 Drops] Apixaban [Eliquis] 5 mg PO BID #60 tab 04/10/19 Aspirin [Aspirin, Baby] 81 mg PO DAILY@0800 #30 tab.chew 04/10/19 Carvedilol [Coreg (Beta Karla)] 3.125 mg PO BID #60 tab 04/10/19 Furosemide [Lasix] 40 mg PO DAILY #30 tab 04/10/19 Nitroglycerin (INPATIENT USE) 0.4 mg SUBLINGUAL Q5M PRN #30 04/10/19 [Nitrostat] tab.subl Rosuvastatin Calcium 10 mg PO QHS #30 tab 04/10/19 Albuterol Sulfate [Proventil Hfa] 2 puff IH TID PRN PRN 04/16/19 Lisinopril [Zestril] 20 mg PO DAILY 04/16/19 Mometasone/Formoterol [Dulera 100 2 puff IH BID 04/16/19 Mcg/5 Mcg Inhaler] Acetaminophen [Tylenol] 650 mg PO Q4H PRN PRN 06/17/19 Albuterol Sulfate [Albuterol 8.5 gm IH 06/17/19 Sulfate Hfa] Amiodarone HCl [Cordarone] 100 mg PO BID 06/17/19 Fexofenadine HCl [Bethany Allergy] 60 mg PO 06/17/19 Metoprolol(XL)Succ [Toprol Xl 50 mg PO BID 06/17/19 (Beta Karla)] Mometasone Furoate [Asmanex 220 220 mcg INHALATION BID 06/17/19 mcg Twisthaler] Pantoprazole Sodium [Protonix] 20 mg PO DAILY 06/17/19 Triamcinolone Acetonide [Nasacort 1 spray NASAL DAILY 06/17/19 Aq Nasal Strong] - Allergies Allergies/Adverse Reactions: Allergies iodine Allergy (Verified 04/16/19 11:37) Shortness of breath Penicillins Allergy (Verified 04/16/19 11:37) Diarrhea Poultry Allergy (Verified 06/17/19 12:38) Diarrhea Sulfa (Sulfonamide Antibiotics) Adverse Reaction (Verified 04/16/19 11:37) Diarrhea SEAFOOD Allergy (Uncoded 04/16/19 11:37) Shortness of breath - Sleep Disorder Evaluation Hx of Sleep Apnea: Yes Do you snore loudly (louder than talking or can be heard through closed doors)?: Yes - SOMETIMES IF FIND LAYING ON MY BACK Do you often feel tired/ fatigued/ sleepy during daytime?: Yes Has anyone observed you stop breathing during sleep?: No History of Hypertension (for STOP score): Yes STOP Results: Positive Advanced Directives - Advanced Directives Power of Manager Sql: Yes Living Will: Yes Advance Directives Information Provided: No Advance Directives on File: Yes - PATIENT BELIEVES THEY SHOULD BE ON FILE DNR Order?:: No - MOLST See MOLST form: No Past Medical History - Past Medical Illness Medical History: Past Medical History (Last Updated 06/17/19 @ 12:36 by Ramsey Mendoza, QUALITY ASSURANCE PROJECT MANAGER, STEAM CLEAN MACHINE OPERATOR, BS) Acute systolic (congestive) heart failure (Acute) I50.21 Secondary pulmonary arterial hypertension (Chronic) I27.21 Paroxysmal atrial fibrillation (Chronic) I48.0 Atherosclerosis of coronary artery of [place] heart without angina pectoris (Chronic) I25.10 Ischemic cardiomyopathy (Chronic) I25.5 Essential (primary) hypertension (Chronic) I10 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) I05.1 Occlusion and stenosis of unspecified carotid artery (Chronic) I65.29 Transient cerebral ischemic attack, unspecified (Chronic) G45.9 History of revision of total replacement of right knee joint Z96.651 Skin cancer (melanoma) C43.9 Glaucoma H40.9 Obesity E66.9 History of hysterectomy Z98.890, Z90.710 - Past Surgical History Surgical History: Past Surgical History (Last Updated 06/17/19 @ 12:35 by Ramsey Mendoza, QUALITY ASSURANCE PROJECT MANAGER, STEAM CLEAN MACHINE OPERATOR, BS) History of mitral valve repair Z98.890 Hx of CABG Z95.1 H/O foot surgery Z98.890 x4 History of appendectomy Z98.890, Z90.49 History of bilateral knee replacement Z98.890, Z96.653 History of parathyroidectomy Z98.890 - Family History Summary Family History: Family History (Last Reviewed 04/07/19 @ 14:53 by Joyce Davis NP-C) Father CVA (cerebral vascular accident) Brother CAD (coronary artery disease) CVA (cerebral vascular accident) Diabetes Social History - Smoking History Smoking Status: Never smoker Hx Tobacco Use: No Hx Smoking Exposure: No - Alcohol Use Alcohol Usage: No - Substance Abuse Hx Substance Use: No - Occupation 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 Left click = Reports (Walsh) Review of Present Symptoms: Reports: Shortness of Breath with Exertion, Fatigue, Heart Arrhythmia/Irregularities - ATRIAL FIBRILLATION ON AMIODARONE, Appetite - Normal, Appetite - Special Diet - DIET: NO SODIUM, NO FAT, Sleep - Normal. Denies: Operative Discomfort, Angina, Dizziness/Lightheadedness, Sexual Changes - Pain Is Patient Pain Free?: No Pain Location: back Pain Level: 3/10 - CHRONIC LOWER BACK PAIN LUMBAR 3,4 AND 5 STENOSIS. BILATERAL KNEE: HAVE HAD TWO REPLACEMENTS AND 3 REVISIONS. Risk Factor Assessment - Chief Complaint Chief Complaint: PATIENT IS A VERY PLEASANT [address] TIERRA LOZOYA IN [place] WHO WAS REFERRED TO [facility] CARD[facility] FOLLWOING RECENT CABG AND MITRAL VALVE REPAIR AT [facility]. - Vital Signs Temperature: 97.8 F Respiratory Rate: 14 Pulse Ox: 95 Blood Pressure: 110/66 Nailbeds:: PINK - Pulse Pulse Rate: 68 Pulse Rhythm: Regular - Hypertension How long have you been treated?: OVER TWENTY YEARS AND HAVE CHANGED OVER THE TIME Blood Pressure Sitting - Right Arm: 110/66 - Blood Cholesterol/Lipids Total Cholesterol (mg/dL) Goal = less than 200 mg/dL: 132 HDL Cholesterol (mg/dL) Goal = less than 40 mg/dL: 47 LDL Cholesterol (mg/dL) Goal = less than 70 mg/dL: 68 Triglycerides (mg/dL) Goal = less than 150 mg/dL: 87 - Diabetes Nutrition Referral for Diabetes: No - Obesity Height: 5 ft 6 in Weight:: 233 lb Weight in Pounds: 233.0 lbs Weight Source: [facility] Body Mass Index (BMI): 37.5 Nutritional Referral for Obesity: Yes - Patient is very interested in weight loss and healthier eating - Physical Inactivity Physical Inactivity: None - Risk Stratification Risk Guidelines: Lowest Risk: Risk Factor for Smoking, Risk Factor for Dyslipidemia, Risk Factor for Diabetes, Risk Factor for Hypertension, Risk Factor for Depression, Highest Risk: Risk Factor for Obesity, Risk Factor for Sedentary Lifestyle - For Smoking Smoking Risk Guidelines: Smoking Low Risk: None or quit greater than 6 months ago. Smoking Moderate Risk: Smoker or quit 6 months or less ago. Smoking High Risk: Smoker - For Dyslipidemia Dyslipidemia Risk Guidelines: Low Risk: Moderate Risk: High Risk: 15-25% fat 25.1-29% fat >/= 30% fat. <7% sat fat 7-9% sat fat >9% sat fat. <150 mg chol 150-299 mg chol >/= 300 mg chol. LDL <100 LDL 100-129 LDL >/= 130. Chol/HDL ratio <5.0 Chol/HDL ratio 5.0-6.0 Chol/HDL ratio >6.0. Triglycerides <100 Triglycerides 100-149 Triglycerides >/= 150 - For Diabetes Mellitus Diabetes Risk Guidelines: Diabetes Low Risk: HgA1c <6.5% and/or FBG <120. Diabetes Moderate Risk: HgA1c 6.6-7.9% and/or FBG 120-180. Diabetes High Risk: HgA1c >/= 8% and/or FBG >180 - For Obesity/Overweight Obesity/Overweight Risk Guidelines: Obesity Low Risk: BMI <25.0. Obesity Moderate Risk: BMI 25-29.9. Obesity High Risk: BMI >/= 30.0 - For Hypertension Hypertension Risk Guidelines: Hypertension Low Risk: Systolic <120 and Diastolic <80. Hypertension Moderate Risk: Systolic 120-139 and Diastolic 80-89. Hypertension High Risk: Systolic >/= 140 and Diastolic >/= 90 - For Sedentary Lifestyle Sedentary Lifestyle Risk Guidelines: Sedentary Lifestyle Low Risk: >/= 1,500 kcal/week. Sedentary Lifestyle Moderate Risk: 700-1,499 kcal/week. Sedentary Lifestyle High Risk: < 700 kcal/week - For Depression Depression Risk Guidelines: Depression Low Risk: Not clinically depressed. Depression Moderate Risk: Mildly depressed. Depression High Risk: Clinically depressed - Family History Family History: Family History (Last Reviewed 04/07/19 @ 14:53 by TY Cortez) Father CVA (cerebral vascular accident) Brother CAD (coronary artery disease) CVA (cerebral vascular accident) Diabetes Motivation - Motivation to Participate On a scale of 1 to 10, how prepared are you to commit to attending program?: 9 What do you see as barriers to successfully being able to complete the program?: (fatigue) tired, chronic back and knee pain. What do you see as the benefits of succesfully completing the program? In other words, what do you hope to get out of participating in the program?: increased strength , energy and ability to go again. Are there issues you are dealing with that will interfere with completing the program?: none outside of the physical limitations. Do you have a spouse or signficant other, family or friends who will help support you to complete the program?: yes.
[2019-06-17 12:55] VITALS: BP 110/66; PULSE 68; RESP 14; TEMP 36.6; O2SAT 95; BMI 37.5
[2019-06-17 12:56] VITALS: BP 110/66
== END ==
PROVIDERS: Family Provider Nurse Practitioner; PCP Nurse Practitioner
DX: I11.0 Hypertensive heart disease with heart failure (principal); I25.5 Ischemic cardiomyopathy; E66.9 Obesity, unspecified; I27.21 Secondary pulmonary arterial hypertension; I50.21 Acute systolic (congestive) heart failure; I65.29 Occlusion and stenosis of unspecified carotid artery

== ENCOUNTER 2019-07-02 10:15 | Outpatient (RCR) | payer MEDICARE, SELFPAY ==
[2019-06-17 12:55] VITALS: BMI 37.5
== END 2019-07-03 23:59 ==
LOC: CR 10:15
PROVIDERS: Family Provider Nurse Practitioner; PCP Nurse Practitioner
DX: Z95.1 Presence of aortocoronary bypass graft (principal); I25.10 Atherosclerotic heart disease of native coronary artery without angina pectoris
CPT/HCPCS: 93798

== ENCOUNTER → 2019-07-04 11:19 | Outpatient (CLI) | payer MEDICARE, SELFPAY ==
[2019-06-17 12:55] VITALS: BMI 37.5
--- NOTE | 2019-07-04 11:22 | US_ITS ---
STUDY: THYROID ULTRASOUND REASON FOR EXAM: Female, 73 years old. Nodules TECHNIQUE: Ultrasound evaluation of the thyroid was performed with real-time and static caban-scale imaging. COMPARISON: November 18, 2018 thyroid ultrasound FINDINGS: RIGHT LOBE: The right lobe of the thyroid gland measures 2.9 x 1.7 x 2.0 cm. There is a heterogeneous echotexture. There is a 7 x 7 x 5 mm nodule in the upper pole. There is a 8 x 6 x 4 mm nodule in the upper pole. LEFT LOBE: The left lobe of the thyroid gland measures 3.8 x 1.4 x 1.6 cm. There is a heterogeneous echotexture. There is a 9 x 8 x 5 mm nodule. There is a 6 x 6 x 3 mm nodule. The aforementioned areas of nodularity show mixed echogenicity with cystic and solid components stable since the prior studies. ISTHMUS: The isthmus measures 3 mm. . The regional lymph nodes are normal. US/Thyroid IMPRESSION: Stable thyroid ultrasound. Recommend follow-up in 12 months to ensure stability. Electronically Signed: Fina Mendoza MD at 11:27 EST Tel , Service support ,
== END ==
PROVIDERS: Family Provider Nurse Practitioner; PCP Nurse Practitioner; Referring Provider Nurse Practitioner; Visit Provider Nurse Practitioner
DX: E04.2 Nontoxic multinodular goiter (principal)
CPT/HCPCS: 76536; 93798

== ENCOUNTER → 2019-07-29 10:11 | Outpatient (CLI) | payer MEDICARE, SELFPAY ==
[2019-06-17 12:55] VITALS: BMI 37.5
[2019-07-29 11:38] LABS: Amphetamine Urine VISTA NEGATIVE (<1000 ng/mL); Barbiturate Urine VISTA NEGATIVE (< 200 ng/mL); Benzodiazepine Urine VISTA NEGATIVE (< 200 ng/mL); Cocaine Urine VISTA NEGATIVE (< 300 ng/mL); Ecstacy Urine VISTA NEGATIVE (< 500 ng/mL); Methadone Urine VISTA NEGATIVE (< 300 ng/mL); PCP Urine VISTA NEGATIVE (< 25 ng/mL); THC Urine VISTA NEGATIVE (< 50 ng/mL); Vista UDS pH Range 6
== END ==
PROVIDERS: Family Provider Nurse Practitioner; PCP Nurse Practitioner; Referring Provider Anesthesiology Pain Medicine; Visit Provider Anesthesiology Pain Medicine
DX: F11.20 Opioid dependence, uncomplicated (principal)
CPT/HCPCS: 80307

== ENCOUNTER 2019-07-30 10:15 | Outpatient (RCR) | payer MEDICARE, SELFPAY ==
[2019-06-17 12:55] VITALS: BMI 37.5
--- NOTE | 2019-07-16 06:49 | CR.ITP_ITS ---
Exercise - 30-day Assessment - Visit Date of Eval: 07/16/19 Session #:: 9 - PATIENT HAS MISSED ONE SCHEDULED SESSION - Stages of Change Stages of Change:: Action - Physician Prescribed Exercise Modalities: NuStep, SciFit Frequency (days/week): 3 Duration (Minutes):: 30-45 Intensity: 60-80% age predicted maximum heart rate reserve METs - Progression: 0.5-1.0 MET, RPE 11-14 WEEK: 3.5 RPE 12-13 INCREASE FROM 2.5 METs Target Heart Rate:: 95-115 W/MAX HR 92 - Hypertension Resting Blood Pressure:: 110/68 Peak Exercise Blood Pressure:: 122/80 Medication Changes:: No - Intervention Home Exercise/Activity Goal:: Moderate Exercise 30 min/day x 5 days/wk - Education Goals:: Warm-up, RPE NIMA Scale, S/S, Safe Exercise, Self-Monitoring - Exercise Program Goals Exercise Program Goals: Aerobic Activity >30 min Nutrition - Initial Assessment - Program Goals Nutrition Program Goals: LDL <70. Total Cholesterol <200. HDL >45. Triglycerides <150. HgbA1C <7%. BMI <25 - Diabetes Do you monitor your blood sugar at home?: No Nutrition - 30-Day Assessment - Program Goals Nutrition Program Goals: LDL <70. Total Cholesterol <200. HDL >45. Triglycerides <150. HgbA1C <7%. BMI <25 - Visit Date of Eval: 07/16/19 - Stages of Change Stages of Change:: Action - Lipids Has the patient seen the dietitian?: No - PATIENT DECLINED - Diabetes Diabetes:: No - Weight Management Weight:: 225 lb 8 oz - UNCHANGED - Intervention Referral to dietitian:: No Referral to Diabetic Clinic:: No Will attend diet classes:: Yes - Education Attended class for:: Healthy eating Tobacco - Initial Assessment - Program Goals Tobacco Program Goals: Complete smoking cessation. Attend education classes. Improve Knowledge Test score - Learning Barriers Learning Barriers: Ready to Learn Tobacco - 30-Day Assessment - Program Goals Tobacco Program Goals: Complete smoking cessation. Attend education classes. Improve Knowledge Test score - Stage of Change Stages of Change:: Action - Learning Barriers Learning Barriers: Participates in education - Family Support Do you have family support?: No - Tobacco Use Do you use smokeless tobacco?: No - Intervention Smoking Cessation Referral:: No Individual Education/Counseling:: No Education Schedule Given:: Yes - Education Attended class for:: Treating Heart Disease, How The Heart Works, Stress Management & Relaxation, Sleep Disorders & Heart Disease Psychosocial - Initial Assess - Target Goals Target Goals: Assess presence or absence of depression. Using a valid screening tool, maximizes coping skills. Positive support system - Psychosocial Test Tool Used:: HANDS Depression Questionnaire - Assistive Devices Fall Risk Assessed:: Yes Psychosocial - 30-Day Assess - Target Goals Target Goals: Assess presence or absence of depression. Using a valid screening tool, maximizes coping skills. Positive support system - Stages of Change Stages of Change:: Action - Psychosocial Test Tool Used:: HANDS Depression Questionnaire - Intervention PS - Interventions: Yes Attend Stress Management Classes, Yes Uses Stress Management Skills, No Referral to Mental Health, No Referral to [facility] Case Management, No Referral to Physician - Education Attended classes for:: Coping techniques, Signs & symptoms of depression, Stress management, Relaxation techniques - Patient/Program Goal Preventative Medication(s):: Aspirin, HEMANT inhibitor, Clopidogrel, Beta maria isabel, Statin/lipid - Assistive Devices Assistive Devices:: Walker Fall Risk Assessed:: Yes Patient Health Questionnaire 30-Day Re-eval Assessment 1. Little interest or pleasure in doing things: Several days 2. Feeling down, depressed, or hopeless: Not at all 3. Trouble falling or staying asleep, or sleeping too much: Not at all 4. Feeling tired or having little energy: More than half the days 5. Poor appetite or overeating: Several days 6. Feeling bad about yourself -- or that you are a failure or have let yourself or your family down: Not at all 7. Trouble concentrating on things, such as reading the newspaper or watching television: Not at all 8. Moving or speaking so slowly that other people could have noticed. Or the opposite - being so fidgety or restless that you have been moving around a lot more than usual: Not at all 9. Thoughts that you would be better off , or of hurting yourself in some way: Not at all Total Score: 4 Self-Efficacy 30-Day Re-eval Assessment We would like to know how confident you are in doing certain activities. Please select your confidence level for:: Select your confidence level for the following using the scale 1-10 where 1 is not at all confident and 10 is totally confident. Your score is the average of all 6 responses. Fatigue: How confident are you that you can keep the fatigue caused by your disease from interfering with the things you want to do? Select Number: 6 Physical Discomfort or Pain: How confident are you that you can keep the physical discomfort or pain of your disease from interfering with the things you want to do? Select Number: 9 Emotional Distress: How confident are you that you can keep the emotional distress caused by your disease from interfering with the things you want to do? Select Number: 9 Other Symptoms or Health Problems: How confident are you that you can keep other symptoms or health problems from interfering with the things you want to do? Select Number: 8 Different Tasks and Activities: How confident are you that you can do the different tasks and activities needed to manage your health condition so as to reduce your need to see a doctor? Select Number: 8 Medication: How confident are you that you can do things other than just taking medication to reduce how much your illness affects your everyday life? Select Number: 8 Total Score:: 8
[2019-07-16 06:53] VITALS: BP 110/68; BP 122/80
== END 2019-08-02 23:59 ==
LOC: CR 10:15
PROVIDERS: Family Provider Nurse Practitioner; PCP Nurse Practitioner
DX: Z95.1 Presence of aortocoronary bypass graft (principal); I25.10 Atherosclerotic heart disease of native coronary artery without angina pectoris
CPT/HCPCS: 93798

== ENCOUNTER 2019-09-01 10:15 | Outpatient (RCR) | payer MEDICARE, SELFPAY ==
[2019-06-17 12:55] VITALS: BMI 37.5
[2019-08-03 01:04] VITALS: BP 110/68; BP 122/80
--- NOTE | 2019-08-15 08:26 | CR.ITP_ITS ---
General Information - General Information Admitting Diagnosis: S/P valve repair-replacement - Education/Goals Barriers to Learning: None Cardiac Rehabilitation Goals: 1. Maintain the individual as the primary focus of care. 2. To improve the patient's quality of life. 3. Identification of cardiac risk factors and provide cardiac risk factor management. 4. Enhance the psychosocial status of the patient. 5. Reconditioning enough to allow the patient to resume customary activities. 6. Control symptoms of cardiac disease Scale for measuring improvement of personal goals: Enter appropriate number in Comments. 2 = Unchanged. 3 = Slightly Better. 4 = Moderate Improvement. 5 = Met my Goal Exercise - 60-Day Assessment - Visit Date of Eval: 08/15/19 Session #:: 21 - Stages of Change Stages of Change:: Action - Physician Prescribed Exercise Modalities: Treadmill, NuStep Frequency (days/week): 3 Duration (Minutes):: 30-45 Intensity: 60-80% age predicted maximum heart rate reserve METs - Progression: 0.5-1.0 MET, RPE 11-14 WEEK: 3.5 - Hypertension Resting Blood Pressure:: 138/80 Peak Exercise Blood Pressure:: 142/80 - Intervention Home Exercise/Activity Goal:: Moderate Exercise 30 min/day x 5 days/wk - Education Goals:: Warm-up, RPE NIMA Scale, S/S, Safe Exercise, Self-Monitoring - Exercise Program Goals Exercise Program Goals: Aerobic Activity >30 min, B/P <130/80 Nutrition - Initial Assessment - Program Goals Nutrition Program Goals: LDL <70. Total Cholesterol <200. HDL >45. Triglycerides <150. HgbA1C <7%. BMI <25 - Diabetes Do you monitor your blood sugar at home?: No Nutrition - 60-Day Assessment - Program Goals Nutrition Program Goals: LDL <70. Total Cholesterol <200. HDL >45. Triglycerides <150. HgbA1C <7%. BMI <25 - Visit Date of Eval: 08/15/19 - Stages of Change Stages of Change:: Action - Weight Management Weight:: 100.698 kg - Intervention Referral to dietitian:: Yes Referral to Diabetic Clinic:: No Will attend diet classes:: Yes - Education Attended class for:: Signs & symptoms of hypoglycemia, Signs & symptoms of hyperglycemia, Relate diabetes to coronary artery disease, Healthy eating Tobacco - Initial Assessment - Program Goals Tobacco Program Goals: Complete smoking cessation. Attend education classes. Improve Knowledge Test score - Learning Barriers Learning Barriers: Ready to Learn Tobacco - 60-Day Assessment - Program Goals Tobacco Program Goals: Complete smoking cessation. Attend education classes. Improve Knowledge Test score - Stage of Change Stages of Change:: Action - Learning Barriers Learning Barriers: Participates in education - Family Support Do you have family support?: Yes - Tobacco Use Tobacco Use: Non-smoker - Intervention Smoking Cessation Referral:: No Individual Education/Counseling:: No Education Schedule Given:: Yes - Education Attended class for:: Treating Heart Disease, How The Heart Works, What it means to have Heart Disease, How Coronary Artery Disease is Diagnosed Psychosocial - Initial Assess - Target Goals Target Goals: Assess presence or absence of depression. Using a valid screening tool, maximizes coping skills. Positive support system - Psychosocial Test Tool Used:: HANDS Depression Questionnaire - Assistive Devices Fall Risk Assessed:: Yes Psychosocial - 60-Day Assess - Target Goals Target Goals: Assess presence or absence of depression. Using a valid screening tool, maximizes coping skills. Positive support system - Stages of Change Stages of Change:: Action - Psychosocial Test Tool Used:: HANDS Depression Questionnaire - Intervention PS - Interventions: Yes Attend Stress Management Classes, Yes Uses Stress Management Skills, No Referral to Mental Health, No Referral to [facility] Case Management, No Referral to Physician - Education Attended classes for:: Coping techniques, Signs & symptoms of depression, Stress management, Relaxation techniques - Assistive Devices Assistive Devices:: None Fall Risk Assessed:: Yes Patient Health Questionnaire 60-Day Re-eval Assessment 1. Little interest or pleasure in doing things: Several days 2. Feeling down, depressed, or hopeless: Not at all 3. Trouble falling or staying asleep, or sleeping too much: Not at all 4. Feeling tired or having little energy: More than half the days 5. Poor appetite or overeating: Several days 6. Feeling bad about yourself -- or that you are a failure or have let yourself or your family down: Not at all 7. Trouble concentrating on things, such as reading the newspaper or watching television: Not at all 8. Moving or speaking so slowly that other people could have noticed. Or the opposite - being so fidgety or restless that you have been moving around a lot more than usual: Not at all 9. Thoughts that you would be better off , or of hurting yourself in some way: Not at all How difficult have these problems made it for you to do your work, take care of things at home, or get along with other people?: Not difficult at all Total Score: 4 Self-Efficacy 60-Day Re-eval Assessment We would like to know how confident you are in doing certain activities. Please select your confidence level for:: Select your confidence level for the following using the scale 1-10 where 1 is not at all confident and 10 is totally confident. Your score is the average of all 6 responses. Fatigue: How confident are you that you can keep the fatigue caused by your disease from interfering with the things you want to do? Select Number: 9 Physical Discomfort or Pain: How confident are you that you can keep the physical discomfort or pain of your disease from interfering with the things you want to do? Select Number: 9 Emotional Distress: How confident are you that you can keep the emotional distress caused by your disease from interfering with the things you want to do? Select Number: 8 Other Symptoms or Health Problems: How confident are you that you can keep other symptoms or health problems from interfering with the things you want to do? Select Number: 8 Different Tasks and Activities: How confident are you that you can do the different tasks and activities needed to manage your health condition so as to reduce your need to see a doctor? Select Number: 8 Medication: How confident are you that you can do things other than just taking medication to reduce how much your illness affects your everyday life? Select Number: 8 Total Score:: 8
[2019-08-15 08:36] VITALS: BP 138/80; BP 142/80
== END 2019-09-02 23:59 ==
LOC: CR 10:15
PROVIDERS: Family Provider Nurse Practitioner; PCP Nurse Practitioner
DX: I25.10 Atherosclerotic heart disease of native coronary artery without angina pectoris (principal); Z95.1 Presence of aortocoronary bypass graft
CPT/HCPCS: 93798

== ENCOUNTER → 2020-12-09 15:46 | Outpatient (CLI) | payer MEDICARE, SELFPAY ==
[2019-06-17 12:55] VITALS: BMI 37.5
[2020-12-09 18:14] LABS: Amphetamine Urine VISTA NEGATIVE (<1000 ng/mL); Barbiturate Urine VISTA NEGATIVE (< 200 ng/mL); Benzodiazepine Urine VISTA NEGATIVE (< 200 ng/mL); Cocaine Urine VISTA NEGATIVE (< 300 ng/mL); Ecstacy Urine VISTA NEGATIVE (< 500 ng/mL); Methadone Urine VISTA NEGATIVE (< 300 ng/mL); PCP Urine VISTA NEGATIVE (< 25 ng/mL); THC Urine VISTA NEGATIVE (< 50 ng/mL); Vista UDS pH Range 6
== END ==
PROVIDERS: PCP Nurse Practitioner; Referring Provider Anesthesiology Pain Medicine; Visit Provider Anesthesiology Pain Medicine
DX: F11.20 Opioid dependence, uncomplicated (principal)
CPT/HCPCS: 80307

== ENCOUNTER → 2021-01-05 08:48 | Outpatient (CLI) | payer MEDICARE, SELFPAY ==
[2019-06-17 12:55] VITALS: BMI 37.5
--- NOTE | 2021-01-05 08:53 | US_ITS ---
STUDY: ULTRASOUND BREAST - LEFT REASON FOR EXAM: Female, 75 years old. Abnormal screening mammogram. TECHNIQUE: Axial and longitudinal images of the LEFT breast were performed with a high resolution ultrasound transducer. # OF IMAGES: 46 COMPARISON: Comparison is made with prior mammogram done earlier in the day. FINDINGS: LEFT Breast: The upper outer quadrant of the left breast was examined by ultrasound. Dense breast tissue is seen. There is a 1 cm x 0.8 cm x 0.3 cm well-defined hypoechoic nodule at the 1 o''clock position of the breast at 3 cm from the nipple. This may represent a small fibroadenoma. A follow-up sonogram in 4 months is recommended. US/Breast Limited Unilateral IMPRESSION: 1 cm x 0.8 cm x 0.3 cm well-defined hypoechoic nodule at the 1 o''clock position of the breast at 3 cm from the nipple. A 4 month follow-up sonographic evaluation is recommended. ASSESSMENT CATEGORY: BIRADS Category 3: Probably Benign - Short-Interval Follow-up Suggested. A letter regarding these results will be sent to the patient by the facility within 30 days. Electronically Signed: Julio Rubio MD at 10:55 EDT , Service support ,
--- NOTE | 2021-01-05 08:53 | BI_ITS ---
MAMMOGRAPHY - BILATERAL DIAGNOSTIC REASON FOR EXAM: Female, 75 years old. Left breast lump. PERTINENT HISTORY: Non-contributory. TECHNIQUE: Digital bilateral breast jessica (3D mammographic acquisition) in the CC and MLO projections. 2-D mediolateral oblique (MLO) and craniocaudad (CC) views of both breasts were obtained. CAD: Full Field Digital Mammography with Computer Added Detection was performed. COMPARISON: Comparison is made with prior study dated 05/04/2017. FINDINGS: Breast Composition: The breasts are heterogeneously dense, which may obscure small masses. New asymmetrical density in the deep upper lateral portion of the left breast. Correlation with ultrasound is recommended. The battery pack of a pacemaker is seen in the left axilla. No other significant abnormalities are identified. BI/DIAG MAMM W/CAD, BILAT IMPRESSION: New asymmetrical density in the deep upper lateral portion of the left breast. Correlation with ultrasound is recommended. ASSESSMENT CATEGORY: BIRADS Category 0: Incomplete. Need additional imaging evaluation. A letter regarding these results will be sent to the patient by the facility within 30 days. Approximately 10% of breast cancers are not detected by mammography. A normal mammogram should not delay biopsy of a clinically suspicious abnormality. Electronically Signed: Julio Rubio MD at 9:48 EDT , Service support ,
== END ==
PROVIDERS: PCP Nurse Practitioner; Referring Provider Nurse Practitioner; Visit Provider Nurse Practitioner
DX: N64.4 Mastodynia (principal)
CPT/HCPCS: 76642; 77062; 77066; G0279

== ENCOUNTER 2021-02-24 09:30 | Outpatient (RCR) | payer MEDICARE, SELFPAY ==
[2019-06-17 12:55] VITALS: BMI 37.5
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
--- NOTE | 2021-02-24 09:54 | HP.PTDCSUM ---
It has been my pleasure to treat DEON SAMAYOA referred by Dr. Laura Madrid MD, with the diagnosis of IVDD lumbosacral and radiculopathy Lumbar region for a total of 9 visit(s). Discharge Date: 02/24/21 Please see the following information for a summary of their discharge status. Subjective: Pt. reports being 92-95% better. I am walking better, I am much stronger. She reports having na injection last week, which has helped alot. pt. back pain Pain Intensity (Out of 10): 3 % Improvement: 92 Objective/Function: Pt. reports being I with her HEP without issues. She is walking unlimited distances with 0-2/10 pain. Pt. is getting up and down, better. LE MMT: B hip flex 4/5, Knee ext R 4/5 and L 4-/5, Knee flex B 4+/5, B hip abd 4/5. GAIT: Pt. is able to walk without Ad with minimal hip translation. Pt. is overall doing well. Uses cane in community, no issues. ROM: Pt. has good ROM of lumbar spine. Overall she is doing much better. She has an independent home program which she plans to continue with. Goal 1:: I HEP Goal Progress: Goal Met Goal 2:: Decrease LBP to 2/10 with ADL's and walking Goal Progress: Goal Met Goal 3:: Increase LE strength by 1/2 muscle grade (at time of eval: LE MMT: B hip flex 3-/5, Knee ext R 4-/5 and L 3-/5, Knee flex B 4-/5, B hip abd 3-/5) Goal Progress: Goal Met Goal 4:: Increase Core stability to be able to do PT with small hip march without pain Goal Progress: Goal Met Plan: Pt. will be DC to HEP at this point in time. She has met all goals. Discharge Comments: Pt. was seen for her DDD of lumbar spine. pt. was seen in aquatic setting and progressed very well. Pt. has been given HEP to complete on her own. She is walking better, has increased strength and reduced overall pain. Pt. will be DC from PT at this point in time. If there are questions or concerns regarding this patient's physical therapy, please feel free to call me at [phone]. Thank you for the referral of this patient. Sincerely, Dario Rose DPT
== END 2021-02-24 19:00 | disposition home or self-care (01) ==
LOC: PT 09:30
PROVIDERS: PCP Nurse Practitioner; Referring Provider Anesthesiology Pain Medicine; Visit Provider Anesthesiology Pain Medicine
DX: M51.37 Other intervertebral disc degeneration, lumbosacral region (principal); M54.16 Radiculopathy, lumbar region
CPT/HCPCS: 97113; 97161; 97164

== ENCOUNTER → 2021-06-01 14:51 | Outpatient (CLI) | payer MEDICARE, SELFPAY ==
--- NOTE | 2021-06-01 15:02 | RAD_ITS ---
STUDY: X-RAY - LEFT WRIST REASON FOR EXAM: Female, 75 years old. woke up with pain in the anterior wrist up to the thumb, no injury TECHNIQUE: 3 view(s) of the wrist were obtained. COMPARISON: None. FINDINGS: Normal visualized distal radius and ulna. There is degenerative arthrosis of the radiocarpal articulation. Normal distal radioulnar articulation. Normal carpal bones. There is degenerative arthrosis of the carpal articulations. There is degenerative arthrosis of the carpometacarpal articulation of the thumb. Normal second through fifth carpometacarpal articulations. Normal visualized metacarpal bones. The soft tissue structures are unremarkable. RAD/Wrist min 3 Views IMPRESSION: No demonstrated fracture or malalignment. Degenerative arthrosis. Electronically Signed: Stew Blackmon MD ([place]) at 15:20 EDT , Service support ,
== END ==
PROVIDERS: PCP Nurse Practitioner; Referring Provider Nurse Practitioner; Visit Provider Nurse Practitioner
DX: M25.532 Pain in left wrist (principal)
CPT/HCPCS: 73110

== ENCOUNTER → 2021-07-21 15:10 | Outpatient (CLI) | payer MEDICARE, SELFPAY ==
[2021-07-21 16:06] LABS: Amphetamine Urine VISTA NEGATIVE (<1000 ng/mL); Barbiturate Urine VISTA NEGATIVE (< 200 ng/mL); Benzodiazepine Urine VISTA NEGATIVE (< 200 ng/mL); Cocaine Urine VISTA NEGATIVE (< 300 ng/mL); Ecstacy Urine VISTA NEGATIVE (< 500 ng/mL); Methadone Urine VISTA NEGATIVE (< 300 ng/mL); PCP Urine VISTA NEGATIVE (< 25 ng/mL); THC Urine VISTA NEGATIVE (< 50 ng/mL); Vista UDS pH Range 6
== END ==
PROVIDERS: PCP Nurse Practitioner; Visit Provider Anesthesiology Pain Medicine
DX: F11.20 Opioid dependence, uncomplicated (principal)
CPT/HCPCS: 36415; 80307

== ENCOUNTER 2021-11-22 10:48 | Outpatient (CLI) | payer MEDICARE, SELFPAY ==
--- NOTE | 2021-11-22 10:52 | RAD_ITS ---
STUDY: X-RAY - LUMBAR SPINE REASON FOR EXAM: Female, 76 years old. PAIN TECHNIQUE: 5 view(s) of the lumbar spine were obtained. COMPARISON: 02/04/2018 FINDINGS: Normal lumbar lordosis. Moderate levoscoliosis centered at L3. Status post transpedicular fixation at L4/L5 with anatomic alignment. There is multilevel endplate spondylosis of the lumbar vertebrae. There is multi-level degenerative disc disease with multi-level disc space narrowing. The soft tissue structures are unremarkable. RAD/L/S Spine Min 4 Views IMPRESSION: Moderate levoscoliosis with degenerative disc disease. Transpedicular fixation at L4/L5. MRI may be useful. Electronically Signed: Juan Delong MD at 11:43 EDT ,
== END 2021-11-22 23:59 | disposition home or self-care (01) ==
LOC: MTRAD 10:50
PROVIDERS: PCP Nurse Practitioner; Referring Provider Nurse Practitioner Family; Visit Provider Nurse Practitioner Family
DX: M96.1 Postlaminectomy syndrome, not elsewhere classified (principal)
CPT/HCPCS: 72110

== ENCOUNTER 2021-12-09 14:26 | Outpatient (CLI) | payer MEDICARE, SELFPAY ==
--- NOTE | 2021-12-09 14:29 | RAD_ITS ---
STUDY: X-RAY - CERVICAL SPINE REASON FOR EXAM: Female, 76 years old. CERVICAL PAIN TECHNIQUE: 5 view(s) of the cervical spine were obtained. COMPARISON: None FINDINGS: Normal anterior atlantoaxial articulation. Normal odontoid process. Normal cervical lordosis. There is multi-level endplate spondylosis. There is multi-level degenerative disc disease with multilevel disc space narrowing. Facet arthropathy multiple levels. Slight anterolisthesis of C4-C5 measuring 2 mm. There is foraminal narrowing of left C4-C5 and C5-C6. The soft tissue structures are unremarkable. RAD/Cerv Spine 4 or 5 Views IMPRESSION: 1. Degenerative disc disease and facet arthropathy with left-sided foraminal narrowing. Electronically Signed: Stew Blackmon MD ([place]) at 17:58 EDT ,
== END 2021-12-09 23:59 | disposition home or self-care (01) ==
LOC: MTRAD 14:27
PROVIDERS: PCP Nurse Practitioner; Referring Provider Nurse Practitioner Family; Visit Provider Nurse Practitioner Family
DX: M54.2 Cervicalgia (principal)
CPT/HCPCS: 72050

== ENCOUNTER → 2022-03-31 | Outpatient (CLI) | payer MEDICARE, SELFPAY ==
--- NOTE | 2022-03-31 12:53 | BI_ITS ---
MAMMOGRAPHY - BILATERAL SCREENING REASON FOR EXAM: Female, 76 years old. Routine annual screening examination. PERTINENT HISTORY: Grandmother with breast cancer. TECHNIQUE: Digital bilateral breast anisa (3D mammographic acquisition) in the CC and MLO projections. 2-D mediolateral oblique (MLO) and craniocaudad (CC) views of both breasts were obtained. CAD: Full Field Digital Mammography with Computer Added Detection was performed. COMPARISON: Comparison is made with prior study dated 05/04/2017 and 01/05/2021. FINDINGS: Breast Composition: The breasts are heterogeneously dense, which may obscure small masses. There are no dominant masses or suspicious calcifications. Stable small benign-appearing bilateral axillary lymph nodes. A battery pack is seen in the left axilla. No other significant abnormalities are identified. There has been no significant change since the prior study. BI/SCRN MAMM (CAD)W/ANISA BILAT IMPRESSION: Stable bilateral screening mammogram. Yearly follow-up mammogram recommended. (A) ASSESSMENT CATEGORY: BIRADS Category 2: Benign. A letter regarding these results will be sent to the patient by the facility within 30 days. Approximately 10% of breast cancers are not detected by mammography. A normal mammogram should not delay biopsy of a clinically suspicious abnormality. [id number] Electronically Signed: Julio Rubio MD at 13:56 EDT ,
== END | disposition home or self-care (01) ==
LOC: OPBI 12:51
PROVIDERS: PCP Nurse Practitioner; Visit Provider Nurse Practitioner Family
DX: Z12.31 Encounter for screening mammogram for malignant neoplasm of breast (principal)
CPT/HCPCS: 77063; 77067

== ENCOUNTER 2022-05-26 17:41 | Inpatient (IN) | payer MEDICARE, SELFPAY ==
[2022-05-26] VITALS (11 sets, daily range): BP systolic 109–135; BP diastolic 70–107; PULSE 63–82; RESP 12–20; TEMP 36.6–36.7; O2SAT 91–98; BMI 33.4; BMI 36.7
--- NOTE | 2022-05-26 17:47 | EKG12_ITS ---
Test Reason : CP Blood Pressure : / mmHG Vent. Rate : 064 BPM Atrial Rate : 214 BPM P-R Int : 000 ms QRS Dur : 138 ms QT Int : 512 ms P-R-T Axes : 085 113 098 degrees QTc Int : 528 ms Ventricular-paced rhythm Abnormal ECG Confirmed by MARIA VICTORIA AVILES, MARY ELLEN ([id number]), deputy editor in chief REKHA PITT ([id number]) on 05/29/2022 9:36:15 AM Referred By: MAURISIO/SHAUNA Confirmed By:MARY ELLEN IRENE MD
[2022-05-26 18:01] LABS: Absolute Lymphocyte Count 1.11 X10^3/uL (0.83-4.51); Basophil# 0.04 X10^3/uL; Basophil% 0.5 % (0-1); Eosinophils% 1.3 % (0-5); Hematocrit 39.2 % (37-47); Hemoglobin 12.6 g/dL (12.0-15.0); Lymphocyte # 1.11 X10^3/ul (0.83-4.51); Lymphocyte % 14.6 % (19-41); Mean Corp Hgb Conc 32.1 g/dL (32-36); Mean Corpuscular Hgb 30.3 pg (27.0-32.0); Mean Corpuscular Volume 94.2 fL (81-99); Mean Platelet Vol. 9.3 fl (6.2-12.0); Monocyte# 0.29 X10^3/uL; Monocyte% 3.8 % (0-10); NRBC Flagged by Analyzer 0 % (0-5); Neutrophil # 6.02 X10^3/uL (2.7-7.7); Neutrophil % 79.5 % (47-70); Platelet Count 266 K/mm3 (150-450); RBC Distribution Width CV 14.2 % (11.6-14.6); RBC Distribution Width SD 49.1 fl (35.1-43.9); Red Blood Count 4.16 M/mm3 (4.2-5.4); White Blood Count 7.6 K/mm3 (4.4-11.0)
[2022-05-26 18:04] LABS: International Normalized Ratio 1.5; Prothrombin Time (Protime)PT. 17.7 SECONDS (11.7-14.9)
--- NOTE | 2022-05-26 18:06 | RAD_ITS ---
STUDY: X-RAY CHEST REASON FOR EXAM: Female, 76 years old. chest pain TECHNIQUE: Single AP portable view of the chest. COMPARISON: 05/19/2019 FINDINGS: Interval placement off a multilead left subclavian approached pacer. Stable calcified nodule right base. Stable areas of hyperinflation. There is no demonstrated pleural abnormality. Sternal cerclage wires are present from a prior sternotomy and valve replacement. Normal mediastinum and savage. Normal visualized pulmonary arteries. Normal visualized aortic arch and descending thoracic aorta. Normal visualized thoracic spine. Normal visualized ribs, clavicles, and shoulders. There is no demonstrated abnormality of the visualized soft tissue structures of the upper abdomen. RAD/Chest 1 View (Portable) IMPRESSION: Findings as above. No acute cardiopulmonary disease. No significant interval change. Electronically Signed: Soumya Douglas MD at 18:22 EDT Reading Location ID and State: , Service support ,
[2022-05-26 18:14] LABS: Anion Gap 8 (5-15); BUN 19 mg/dL (7-18); BUN/Creat Ratio 17.1 RATIO (10-20); Chloride 101 mmol/L (98-107); Creatinine, Serum 1.11 mg/dL (0.55-1.02); EST Glomerular Filtration Rate 51 mL/min (>60); Est Glom Filt Rate - Afr Amer 61 mL/min (>60); Estimated Creatinine Clearance 42.82 ml/min; Glucose 126 mg/dL (74-106); Potassium 3.1 mmol/L (3.5-5.1); Sodium Level 142 mmol/L (136-145); Troponin-I HS 7 pg/mL (3.0-54.0)
--- NOTE | 2022-05-26 18:16 | EDS_ITS ---
HPI History of Present Illness Chief Complaint: Chest Pain Informant: patient Onset/Context/Timing Onset: Hours (1, prior to arrival) Activity at onset: sudden, activity on onset and rest (Sitting at a table and playing a game) Timing: Continuous Quality: Positive for Pain and Pressure Location: Substernal (Some radiation straight through to back, nonpleuritic) Current Severity: 8/10 Maximum Severity: 10/10 Worsened By: Nothing Relieved By: NTG (May be after the second 1 she took but it was old) Associated Symptoms: Positive for Nausea, Diaphoresis and Dyspnea; Negative for Vomiting, Cough, Fever, Lightheadedness or Palpitations Narrative Narrative: Patient has a history of heart disease she had a CABG 3 years ago as well as a valve replacement, she has a defibrillator/pacemaker, which has not fired today but she was at rest and started developing chest discomfort that has been persistent. She is anticoagulated for paroxysmal atrial fibrillation. She does have a history of heart failure but is not felt orthopnea or peripheral edema lately although she states for the past 3 years she has had dyspnea with exertion along with diaphoresis, she saw her high lift mule operator recently and has an outpatient echocardiogram coming up. 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 Secondary pulmonary arterial hypertension Skin cancer (melanoma) Transient cerebral ischemic attack, unspecified Home Medications clopidogrel 75 mg tablet 75 mg PO DAILY anti platelet 06/16/14 [History Last Taken Unknown] vit A 300 mcg-C 200 mg-E 27 mg-lutein 2 mg and minerals tablet 1 ea PO DAILY vitamin 06/16/14 [History Last Taken Unknown] oxycodone 5 mg tablet 10 mg PO TID PRN breakthru pain 04/07/19 [History Last Taken Unknown] carvedilol 3.125 mg tablet 3.125 mg PO BID #60 tabs 04/10/19 [Rx Last Taken Unknown] furosemide 20 mg tablet 40 mg PO DAILY Check with primary doctor #30 tabs 04/10/19 [Rx Last Taken Unknown] nitroglycerin 0.4 mg sublingual tablet 0.4 mg sublingual Q5M PRN Cardiac/Chest Pain ##30 04/10/19 [Rx Last Taken Unknown] lisinopril 40 mg tablet 20 mg PO DAILY 04/16/19 [History Last Taken Unknown] acetaminophen 325 mg capsule 650 mg PO Q4H PRN PRN Pain Score 1-06/1206/17/19 [History Last Taken Unknown] amiodarone 200 mg tablet 100 mg PO BID 06/17/19 [History Last Taken Unknown] metoprolol succinate 50 mg tablet,extended release 24 hr 100 mg PO DAILY 06/17/19 [History Last Taken Unknown] pantoprazole 20 mg tablet,delayed release 20 mg PO DAILY 06/17/19 [History Last Taken Unknown] aspirin 81 mg chewable tablet 162 mg PO QHS 05/26/22 [History Last Taken Unknown] atorvastatin 40 mg tablet 40 mg PO QHS 05/26/22 [History Last Taken Unknown] oxycodone myristate 9 mg capsule sprinkle extended release 12 hr(DON'T CRUSH) (Xtampza ER) 9 mg PO BID 05/26/22 [History Last Taken Unknown] sacubitril 49 mg-valsartan 51 mg tablet (Entresto) 1 tab PO BID 05/26/22 [History Last Taken Unknown] Allergy/AdvReac Type Severity Reaction Status Date / Time iodine Allergy Shortness Verified 05/26/22 17:42 of breath Penicillins Allergy Diarrhea Verified 05/26/22 17:42 Poultry Allergy Diarrhea Verified 05/26/22 17:42 Sulfa (Sulfonamide AdvReac Diarrhea Verified 05/26/22 17:42 Antibiotics) SEAFOOD Allergy Shortness Uncoded 05/26/22 17:42 of breath Family History Father CVA (cerebral vascular accident) Brother CAD (coronary artery disease) CVA (cerebral vascular accident) Diabetes Surgical History (Updated 06/17/19 @ 12:35 by Ramsey Mendoza, ASSET AVAILABILITY LEADER, WINE CONSULTANT, BS) H/O foot surgery History of appendectomy History of bilateral knee replacement History of hysterectomy History of mitral valve repair History of parathyroidectomy Hx of CABG Social History Smoking Status: Never smoker alcohol intake: never substance use type: does not use caffeine: Yes Type: carbonated beverages Number of servings: 3 what type of physical activity do you participate in: walking frequency: daily duration: 60-90 minutes/day seatbelt use: always do you feel safe at home: Yes ROS ROS ED Constitutional Constitutional ED: Reports sweats; Denies chills or fever(s) Eyes Eyes: Denies change in vision or diplopia ENT ENT ED: Denies rhinorrhea or sore throat Cardiovascular Cardiovascular: Reports chest pain; Denies palpitations Respiratory/Chest Respiratory/Chest: Reports dyspnea and dyspnea on exertion; Denies cough Gastrointestinal Gastrointestinal: Denies abdominal pain, diarrhea, nausea or vomiting Genitourinary Genitourinary ED: Denies dysuria or hematuria Musculoskeletal Musculoskeletal: Reports back pain; Denies neck pain Integumentary Denies abscess or rash Neurologic Neurologic: Denies headache(s), paresthesias or weakness Psychiatric Psychiatric: Denies anxiety or suicidal thoughts EXAM Physical Exam Const Vital Signs: 05/26/22 17:43 05/26/22 17:48 05/26/22 18:00 Temperature 97.8 F Temperature Source Temporal Pulse Rate 63 Respiratory Rate 14 Respiratory Effort Normal Non-Labored Blood Pressure 135/85 H Blood Pressure Mean 101 Pulse Ox 98 Oxygen Delivery Method Room Air Room Air 05/26/22 18:30 05/26/22 18:42 05/26/22 20:00 Temperature Temperature Source Pulse Rate 70 64 75 Respiratory Rate 16 17 Respiratory Effort Blood Pressure 134/88 H 134/88 H 109/76 Blood Pressure Mean 103 87 Pulse Ox 95 96 Oxygen Delivery Method Room Air Room Air 05/26/22 20:58 Temperature Temperature Source Pulse Rate 79 Respiratory Rate 20 H Respiratory Effort Blood Pressure 109/76 Blood Pressure Mean 87 Pulse Ox 91 Oxygen Delivery Method Room Air Positive well nourished, well developed and obese General Appearance ED: well developed and NAD Nutritional Appearance: obese HEENT Reports moist mucous membranes normocephalic and atraumatic Eyes PERRL and EOMs intact bilaterally Neck full ROM and supple Resp normal respiratory effort and clear to auscultation bilaterally Cardio regular rate, regular rhythm and no murmurs GI non-distended GI Narrative: Tender epigastrium. No guarding or rebound. No other areas of tenderness. No pulsatile mass. Auscultation: normoactive bowel sounds Palpation: soft Back/Spine no CVA tenderness General Back: other FROM Extremity normal to inspection Extremity Narrative: No calf tenderness bilaterally. General Extremety ED: Negative for edema, pulses abnormal or tenderness General Extremity: Negative for edema or pulses abnormal Neuro oriented x3, CN's II-XII intact bilaterally and no sensory deficits noted Sensorium / Orientation: awake and alert Motor Exam: strength 5/5 throughout Skin no rashes or lesions noted and no wounds Heart Score History: Highly Suspicious ECG: Nonspecific Repolarization Age: >/= 65 years Risk Factors: >/= 3 Risk Factors or History of CAD Score: 7 MDM MDM MDM Narrative Medical decision making narrative: EKG shows repolarization abnormalities, but serial troponins are negative. She continues after nitroglycerin because it is taking her pain away. Given her cardiac history, I think she should be admitted for observation and further bryant luation. Her 1 view chest x-ray is negative on my interpretation for any acute, radiology in agreement. Lab Data Attestation: I reviewed the patient's lab results. Labs: Laboratory Results - last 24 hr 05/26/22 05/26/22 05/26/22 17:44 17:44 17:44 WBC 7.6 RBC 4.16 L Hgb 12.6 Hct 39.2 MCV 94.2 MCH 30.3 MCHC 32.1 RDW Std Deviation 49.1 H RDW Coeff of Jackson 14.2 Plt Count 266 MPV 9.3 Immature Gran % (Auto) 0.300 Neut % (Auto) 79.5 H Lymph % (Auto) 14.6 L Gregory % (Auto) 3.8 Eos % (Auto) 1.3 Baso % (Auto) 0.5 Absolute Neuts (auto) 6.0 Absolute Lymphs (auto) 1.11 Nucleated RBC % 0 PT 17.7 H INR 1.5 Sodium 142 Potassium 3.1 L Chloride 101 Carbon Dioxide 33.0 H Anion Gap 8 BUN 19 H Creatinine 1.11 H Estim Creat Clear Calc 42.82 Est GFR (MDRD) Af Amer 61 Est GFR (MDRD) Non-Af 51 L BUN/Creatinine Ratio 17.1 Glucose 126 H Calcium 9.0 Troponin I High Sens 7 05/26/22 20:01 WBC RBC Hgb Hct MCV MCH MCHC RDW Std Deviation RDW Coeff of Jackson Plt Count MPV Immature Gran % (Auto) Neut % (Auto) Lymph % (Auto) Gregory % (Auto) Eos % (Auto) Baso % (Auto) Absolute Neuts (auto) Absolute Lymphs (auto) Nucleated RBC % PT INR Sodium Potassium Chloride Carbon Dioxide Anion Gap BUN Creatinine Estim Creat Clear Calc Est GFR (MDRD) Af Amer Est GFR (MDRD) Non-Af BUN/Creatinine Ratio Glucose Calcium Troponin I High Sens 5 Radiography Diagnostic Testing: Clinical Impression(s) from Imaging Studies Chest X-Ray 05/26/22 18:06 IMPRESSION: Findings as above. No acute cardiopulmonary disease. No significant interval change. Electronically Signed: Soumya Douglas MD at 18:22 EDT Reading Location ID and State: , Service support , Rhythm Strip Rhythm Strip: paced Rate: 65 Ectopy: None EKG Initial EKG: Attestation: I personally reviewed and interpreted this EKG as follows: Interpretation: No Acute Injury Pattern, Paced and Inverted T-Waves (Anteroseptal) Prior EKG tracings: available for review Prior: Changed Discharge Plan Dx/Rx/DC Orders Clinical Impression: Chest pain, Acute electrocardiogram changes, History of coronary artery disease Disposition Disposition: Acute Care Hospital [facility]
[2022-05-26] MEDS: Aspirin 81 MG TAB.CHEW 162 MG PO (18:25)
[2022-05-26] MEDS: Ondansetron 4 MG/2 ML Vial IV (18:25)
[2022-05-26] MEDS: Nitroglycerin SL (ED/IMG/CATH) 0.4 MG TABLET SL (18:30)
[2022-05-26 20:29] LABS: Troponin-I HS 5 pg/mL (3.0-54.0)
--- NOTE | 2022-05-26 22:22 | PCM.HP.STD ---
HPI - General General Date of Admission: 05/26/22 Date of Service: 05/26/22 Chief Complaint: Chest pain HPI Narrative The patient is a 76 y/o F w/ PMHx: Obesity, CKD stage III unclear subtype, Systolic CHF/Ischemic cardiomyopathy, Carotid disease, CAD s/p CABG, HTN, HLD, PAF on coumadin, Valvular heart disease s/p MV repair, Hx TIA, Asthma w/ Allergic rhinitis, Chronic pain syndrome w/ chronic back pain on chronic longacting and shortacting narcotic therapies with routine back injections x ~ 11 years reporting that she recently had her plavix as well as coumadin held for planned injection this upcoming Sunday with continued ASA only of which her Office Support Clerk is aware who presents to the [facility] ED on 05/26/22 with history of onset while sitting at a table playing a game approximately 1 hour prior to arrival of chest discomfort initially starting in the sternal region with radiation into her shoulder blades and into the back with self administration of nitroglycerin without improvement described as a tightness, pressure and pain reported initially 10 out of 10 in severity and 8 out of 10 upon initial ED presentation with associated nausea, diaphoresis and dyspnea ongoing since its onset prompting ED evaluation. Patient does report that she does have chronic exertional dyspnea for the last 3 years. She recently saw a ski patrol officer and there was a plan to have an outpatient echocardiogram of note. Upon evaluation for admission she notes continued improvement of her chest discomfort to 4/10 in severity. She notes the pain is still in her sternal region with radiation to between her shoulder blades and also into her RUE but more mild with currently no dyspnea, diaphoresis or nausea associated. She has NG paste now in place. Work-up in the ED included T97.8, heart rate 63, BP 135/85, respiratory rate 14, 98% on room air, CBC with WC 7.6, hemoglobin 12.6, platelet 266 without marked shift, coags with INR 1.5, PT 17.7, BMP with potassium 3.1, carbon dioxide 33, BUN/creatinine 19/1.11, glucose 126, troponin 7 with repeat delta 5, chest x-ray with no acute cardiopulmonary findings, EKG paced with T wave inversions which were new from prior. In the ED patient ministered Zofran, SL nitroglycerin as well as aspirin 162 mg p.o. x1 followed by GI cocktail, lidocaine, Mylanta and eventual NG paste placement. [facility] Medical History (Updated 05/27/22 @ 00:[address] 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 Secondary pulmonary arterial hypertension Skin cancer (melanoma) Systolic CHF Transient cerebral ischemic attack, unspecified Home Medications clopidogrel 75 mg tablet 75 mg PO DAILY anti platelet 06/16/14 [History Last Taken Unknown] vit A 300 mcg-C 200 mg-E 27 mg-lutein 2 mg and minerals tablet 1 ea PO DAILY vitamin 06/16/14 [History Last Taken Unknown] oxycodone 5 mg tablet 10 mg PO TID PRN breakthru pain 04/07/19 [History Last Taken Unknown] furosemide 20 mg tablet 40 mg PO DAILY Check with primary doctor #30 tabs 04/10/19 [Rx Last Taken Unknown] nitroglycerin 0.4 mg sublingual tablet 0.4 mg sublingual Q5M PRN Cardiac/Chest Pain ##30 04/10/19 [Rx Last Taken Unknown] lisinopril 40 mg tablet 20 mg PO DAILY 04/16/19 [History Last Taken Unknown] acetaminophen 325 mg capsule 650 mg PO Q4H PRN PRN Pain Score 1-06/1206/17/19 [History Last Taken Unknown] amiodarone 200 mg tablet 100 mg PO BID 06/17/19 [History Last Taken Unknown] metoprolol succinate 50 mg tablet,extended release 24 hr 100 mg PO DAILY 06/17/19 [History Last Taken Unknown] pantoprazole 20 mg tablet,delayed release 20 mg PO DAILY 06/17/19 [History Last Taken Unknown] aspirin 81 mg chewable tablet 162 mg PO QHS 05/26/22 [History Last Taken Unknown] atorvastatin 40 mg tablet 40 mg PO QHS 05/26/22 [History Last Taken Unknown] oxycodone myristate 9 mg capsule sprinkle extended release 12 hr(DON'T CRUSH) (Xtampza ER) 9 mg PO BID 05/26/22 [History Last Taken Unknown] sacubitril 49 mg-valsartan 51 mg tablet (Entresto) 1 tab PO BID 05/26/22 [History Last Taken Unknown] tafluprost (PF) 0.0015 % eye drops in a dropperette (Zioptan (PF)) 1 drp EACH EYE QHS 05/26/22 [History Last Taken Unknown] warfarin 2 mg tablet 4 mg PO DAILY 05/26/22 [History Last Taken Unknown] Allergy/AdvReac Type Severity Reaction Status Date / Time iodine Allergy Shortness Verified 05/26/22 17:42 of breath Penicillins Allergy Diarrhea Verified 05/26/22 17:42 Poultry Allergy Diarrhea Verified 05/26/22 17:42 Sulfa (Sulfonamide AdvReac Diarrhea Verified 05/26/22 17:42 Antibiotics) SEAFOOD Allergy Shortness Uncoded 05/26/22 17:42 of breath Family History (Updated 05/27/22 @ 00:[address] Melissa San MD) Father CVA (cerebral vascular accident) Brother CAD (coronary artery disease) CVA (cerebral vascular accident) Diabetes Mother Cancer History of Brain tumor, unclear type. Surgical History H/O foot surgery History of appendectomy History of bilateral knee replacement History of hysterectomy History of mitral valve repair History of parathyroidectomy Hx of CABG Social History (Updated 05/27/22 @ 00:[address] Melissa San MD) household members: spouse Smoking Status: Never smoker alcohol intake: never substance use type: does not use caffeine: Yes Type: carbonated beverages Number of servings: 3 what type of physical activity do you participate in: walking frequency: daily duration: 60-90 minutes/day seatbelt use: always do you feel safe at home: Yes ROS ROS Narrative Admission Review of Systems: CONSTITUTIONAL: No weight loss, fever, chills, + weakness or fatigue. HEENT: Eyes: No visual loss, blurred vision, double vision or yellow sclerae. Ears, Nose, Throat: No hearing loss, sneezing, congestion, runny nose or sore throat. SKIN: No rash or itching, lesions, wounds. CARDIOVASCULAR: + chest pain, chest pressure or chest discomfort, No palpitations, edema, orthopnea, syncopal events. RESPIRATORY: + shortness of breath, No cough or sputum, wheezing, hemoptysis. GASTROINTESTINAL: + anorexia, nausea, No vomiting or diarrhea, abdominal pain, melena, BRBPR. GENITOURINARY: No dysuria, frequency, urgency or retention. NEUROLOGICAL: No headache, dizziness, syncope, paralysis, ataxia, numbness or tingling in the extremities, focal weakness, change in bowel or bladder control, seizure. MUSCULOSKELETAL: + muscle, back pain, joint pain or stiffness. HEMATOLOGIC: + anemia, bleeding or bruising. LYMPHATICS: No enlarged nodes. No history of splenectomy. PSYCHIATRIC: No history of depression or anxiety. ENDOCRINOLOGIC: + reports of sweating. No cold or heat intolerance. No polyuria or polydipsia. ALLERGIES: No history of asthma, hives, eczema or rhinitis. Vital Signs Vital Signs Vital Signs: 05/26/22 17:43 05/26/22 17:48 05/26/22 18:00 Temperature 97.8 F Temperature Source Temporal Pulse Rate 63 Respiratory Rate 14 Respiratory Effort Normal Non-Labored Blood Pressure 135/85 H Blood Pressure Mean 101 Pulse Ox 98 Oxygen Delivery Method Room Air Room Air 05/26/22 18:30 05/26/22 18:42 05/26/22 20:00 Temperature Temperature Source Pulse Rate 70 64 75 Respiratory Rate 16 17 Respiratory Effort Blood Pressure 134/88 H 134/88 H 109/76 Blood Pressure Mean 103 87 Pulse Ox 95 96 Oxygen Delivery Method Room Air Room Air 05/26/22 20:58 Temperature Temperature Source Pulse Rate 79 Respiratory Rate 20 H Respiratory Effort Blood Pressure 109/76 Blood Pressure Mean 87 Pulse Ox 91 Oxygen Delivery Method Room Air Weight Weight: 220 lb Body Mass Index (BMI) 33.4 Physical Exam Narrative Physical Examination: General: Awake, alert, oriented x 3 and cooperative, seated upright in the ED bed in no apparent distress, notes chest discomfort is improving, currently rated 4 out of 10 but does note body aches as she is due for her chronic twice daily long-acting pain regimen. Skin: Normal color, normal turgor, no icterus, no cyanosis. HEENT: AT/NC, EOMI, PERRLA, MMM, no carotid bruits or JVD noted. Lungs: Mildly diminished, greater bases, appropriate effort, no rales, ronchi or wheezing. Heart: Currently regular rate and rhythm; no gallop, rub audible. Abdomen: Soft, obese, NTTP, ND, distant normal BS, no HSM. Extremities: No cyanosis, no clubbing, mild not markedly pitting pedal edema. Neurological: Patient awake, alert, oriented as noted, cognitive function intact; pupils equally reactive to light and accommodation, cranial nerves II-XII grossly normal, moving all 4 extremities, no focal deficits, strength mildly to moderately global decreased secondary to acute complaints, improving. Psychiatric: Affect appears mildly uncomfortable, no acute evidence of depressive or anxiety feelings. Results Lab / Micro Data Result Diagrams: 05/26/22 17:44 05/26/22 17:44 Labs: Laboratory Results - last 24 hr 05/26/22 17:44: WBC 7.6, RBC 4.16 L, Hgb 12.6, Hct 39.2, MCV 94.2, MCH 30.3, MCHC 32.1, RDW Std Deviation 49.1 H, RDW Coeff of Jackson 14.2, Plt Count 266, MPV 9.3, Immature Gran % (Auto) 0.300, Neut % (Auto) 79.5 H, Lymph % (Auto) 14.6 L, Mcclain % (Auto) 3.8, Eos % (Auto) 1.3, Baso % (Auto) 0.5, Absolute Neuts (auto) 6.0, Absolute Lymphs (auto) 1.11, Nucleated RBC % 0 05/26/22 17:44: PT 17.7 H, INR 1.5 05/26/22 17:44: Sodium 142, Potassium 3.1 L, Chloride 101, Carbon Dioxide 33.0 H, Anion Gap 8, BUN 19 H, Creatinine 1.11 H, Estim Creat Clear Calc 42.82, Est GFR (MDRD) Af Amer 61, Est GFR (MDRD) Non-Af 51 L, BUN/Creatinine Ratio 17.1, Glucose 126 H, Calcium 9.0, Troponin I High Sens 7 05/26/22 20:01: Troponin I High Sens 5 Rhythm Strip Rhythm Strip: paced Rate: 65 Ectopy: None Radiology Impression Chest X-Ray 05/26/22 18:06 IMPRESSION: Findings as above. No acute cardiopulmonary disease. No significant interval change. Electronically Signed: Soumya Douglas MD at 18:22 EDT Reading Location ID and State: , Service support , Assessment & Plan Assessment/Plan (1) Chest pain: PLAN: Plan The patient is a 76 y/o F w/ PMHx: Obesity, CKD stage III unclear subtype, Systolic CHF/Ischemic cardiomyopathy, Carotid disease, CAD s/p CABG, HTN, HLD, PAF on coumadin, Valvular heart disease s/p MV repair, Hx TIA, Asthma w/ Allergic rhinitis, Chronic pain syndrome w/ chronic back pain on chronic longacting and shortacting narcotic therapies with routine back injections x ~ 11 years reporting that she recently had her plavix as well as coumadin held for planned injection this upcoming Sunday with continued ASA only of which her Office Support Clerk is aware who presents to the [facility] ED on 05/26/22 with history of onset while sitting at a table playing a game approximately 1 hour prior to arrival of chest discomfort initially starting in the sternal region with radiation into her shoulder blades and into the back with self administration of nitroglycerin without improvement described as a tightness, pressure and pain reported initially 10 out of 10 in severity and 8 out of 10 upon initial ED presentation with associated nausea, diaphoresis and dyspnea ongoing since its onset prompting ED evaluation. #1. Chest Pain: EKG in ED paced with no acute evidence of ischemia, CXR w/ no acute cardiopulmonary finding, initial trop 7 with repeat 5. Will admit to PCU, place on a monitored bed to assure no acute myocardial infarction with serial cardiac enzymes and EKGs. If repeat serial cardiac enzymes and EKGs remain unremarkable will pursue a.m. cardiac stress testing. We will also request echocardiogram. Device interrogation also requested. Magnesium level requested. FLP in AM. ASA, NG paste, morphine. Patient normally on coumadin and plavix also; however, these recently held for planned back infection this coming Sunday. Did discuss with patient if enzymes rise or concerning cardiac findings on stress testing may require restart of these agents and deferral of injection. #2. Hypokalemia: Admission K+ 3.1, magnesium level request, supplementation given, repeat level in AM. #3. PAF: We will continue patient home metoprolol, amiodarone as well as apixaban regimen. #4. CAD: Status post CABG, continue apixaban, aspirin, Plavix, statin therapy, BB, Entresto regimen. #5. Valvular heart disease: Last noted echocardiogram in the system 04/07/2019 with EF at that time 15%, severe global hypokinesis LV, moderately large LA and RA, moderately severe MVI, moderate TVI, RVSP 53 mmHg, moderate pulmonary hypertension, mild PVI performed while in A. fib with MR significantly worsened to moderately/severe from prior. Patient has had repair since then and most recent echocardiogram is not in the system. #6. Chronic systolic CHF/ischemic cardiomyopathy: Patient status post AICD/pacemaker placement, we will continue patient home aspirin, apixaban, Plavix, statin, Entresto, BB regimen, Lasix. We will request device interrogation. #7. Hypertension: Continue home regimen including Entresto, BB, Lasix with hold parameters as needed, PRN hydralazine. #8. Hyperlipidemia: Continue home statin regimen. AM FLP. #9. Chronic asthma with allergic rhinitis: We will hold home inhalers and transition in the interim to budesonide, as needed albuterol, continue patient home fexofenadine hydrochloride. #10. Chronic Kidney Disease Stage III, unclear subtype: Admission BUN/Cr 19/1.11, baseline renal function similar noted to be primarily 0.9-1.1 repeat BMP in AM. #11. History TIA: We will continue aspirin, Plavix, Eliquis, statin therapy, hypertensive regimen as noted. No diabetic history. #12. Obesity: Weight loss and lifestyle changes encouraged. #13. Chronic pain syndrome, Chronic back pain: We will continue patient home long-acting as well as short acting narcotic therapies with breakthrough morphine given acute presentation number 1 as noted, frequent positional changes, will continue to hold Coumadin and Plavix given planned upcoming back injection which her ski patrol officer is aware however discussed with patient low threshold to resume if enzymes rise or any concerning cardiac findings on studies. #14. DVT prophylaxis: SCDs, holding home Eliquis regimen given planned upcoming back injection. #15. CODE status: Patient MEENA is her and her daughter is secondary and living will is currently in place. Discussed CODE status at length including difference between FULL code, DNR-CCA and DNR-CC status. Following discussions about the differences in these status, requested Full Code status. Advanced Care Planning Face to Face Time: 16 minutes. Charges/Coding Visit Charges OBSV E&M: 20602 Initial observation care L3 Procedures Hospitalists Procedures: 86430 Advncd Care Plan 30 Min
[2022-05-26] MEDS: Nitroglycerin Oint 1 INCH PACKET TD (22:32)
[2022-05-26 22:46] LABS: Magnesium 1.9 mg/dL (1.6-2.6)
--- NOTE | 2022-05-26 23:09 | EKG12_ITS ---
Test Reason : CP ADMIT Blood Pressure : / mmHG Vent. Rate : 076 BPM Atrial Rate : 076 BPM P-R Int : 000 ms QRS Dur : 162 ms QT Int : 452 ms P-R-T Axes : 074 117 086 degrees QTc Int : 508 ms Ventricular-paced rhythm Biventricular pacemaker detected Abnormal ECG When compared with ECG of 26-MAY-2022 17:44, MANUAL COMPARISON REQUIRED, DATA IS UNCONFIRMED Confirmed by MARIA VICTORIA AVILES, MARY ELLEN ([id number]), market editor REKHA PITT ([id number]) on 05/30/2022 1:05:53 PM Referred By: Confirmed By:MARY ELLEN IRENE MD
[2022-05-27] VITALS (16 sets, daily range): BP systolic 64–105; BP diastolic 46–64; PULSE 63–75; RESP 16–20; TEMP 36.6–37; O2SAT 94–98; BMI 36.6
[2022-05-27] MEDS: oxyCODONE HCl Cr 10 MG Tablet PO ×2 (00:30→23:44)
[2022-05-27] MEDS: Morphine 2 MG/ML Syringe 4 MG IV (00:30)
[2022-05-27] MEDS: Atorvastatin Calcium 40 MG Tablet PO (00:32)
[2022-05-27] MEDS: Amiodarone 200 MG Tablet 100 MG PO ×3 (00:32→22:10)
[2022-05-27] MEDS: Latanoprost 0.005% 1 Bottle 1 DRP EACH EYE ×2 (00:33→22:09)
[2022-05-27] MEDS: SACUBITRIL/VALSARTAN 49-51 MG TABLET 1 EACH PO (00:33)
[2022-05-27] MEDS: 0.9% Normal Saline 1,000 ML 75 ML IV (00:34)
[2022-05-27] MEDS: 0.9% Saline Lock 10 ML Syringe IV ×4 (00:41→23:45)
[2022-05-27 01:43] LABS: Troponin-I HS 20 pg/mL (3.0-54.0)
[2022-05-27] MEDS: Potassium Chloride Oral Tablet 20 MEQ 40 MEQ PO (03:21)
[2022-05-27] MEDS: 0.9% Normal Saline 1,000 ML 999 ML IV (05:40)
--- NOTE | 2022-05-27 05:42 | PCM.HOSP.N ---
Hospitalist Note Patient with hypotension, asymptomatic, reported to be similar on both UE checks. Holding on any further NG which has been d/c and will administer cautiously NS bolus and increase MIVFs.
--- NOTE | 2022-05-27 05:55 | ECHOD_ITS ---
Reason For Study: DYSPNEA/SOB Procedure This was a 2D Doppler, Color Flow transthoracic echocardiogram. The study was technically limited. Contrast injection was performed. Exam performed in department. Left Ventricle Normal LV size. The estimated ejection fraction is 53 %. Mild segmental systolic dysfunction (see wall motion). Infero-Basal: Hypokinetic. Right Ventricle Normal RV size. ICD or pacer leads identified within the right ventricle. Mild global right ventricular systolic dysfunction. Atria The left atrium is moderately enlarged. The right atrium is moderately enlarged. ICD or pacer leads identified within the right atrium. Mitral Valve Status post mitral valve repair with annuloplasty ring. Tricuspid Valve Mild diffuse thickening of the tricuspid valve. Moderate (2+) tricuspid valve insufficiency. Pulmonary artery systolic pressure is 30 mmHg. Aortic Valve Trisinus/trileaflet aortic valve. Pulmonic Valve Normal pulmonic valve. Great Vessels Normal aortic root. The pulmonary artery is normal size. Normal inferior vena cava. Pericardium/Pleural No pericardial effusion. Medication Diluted definity 1ml given slow IV push to enhance endocardial definition. MMode/2D Measurements & Calculations LVIDd: 5.0 cm IVSd: 0.64 cm Ao root diam: 3.8 cm LVIDs: 3.8 cm LVPWd: 0.89 cm RVDd: 5.1 cm FS: 22.9 % LAV(MOD-sp4): 112.3 ml LVAd ap4: 33.6 cm2 SV(MOD-sp4): 66.0 ml LVLd ap4: 8.5 cm EDV(MOD-sp4): 112.0 ml EDV(sp4-el): 113.3 ml LVAs ap4: 19.7 cm2 LVLs ap4: 7.8 cm ESV(MOD-sp4): 46.0 ml ESV(sp4-el): 42.4 ml EF(MOD-sp4): 59.0 % EF(sp4-el): 62.6 % SV(sp4-el): 71.0 ml LA A4 area: 30.1 cm2 LA dimension(2D): 4.8 cm RA A4 area: 24.5 cm2 Time Measurements MV dec time: 0.35 sec Doppler Measurements & Calculations MV E max edgar: 137.2 cm/sec MV V2 max: 143.6 cm/sec MV dec slope: 391.6 cm/sec2 MV A max edgar: 100.6 cm/sec MV max P.2 mmHg MV E/A: 1.4 MV V2 mean: 74.9 cm/sec MV mean P.8 mmHg MV V2 VTI: 56.2 cm Ao V2 max: 150.5 cm/sec LV V1 max: 119.7 cm/sec PA V2 max: 61.0 cm/sec Ao max P.1 mmHg LV V1 max P.7 mmHg PA V2 mean: 35.7 cm/sec Ao V2 mean: 102.1 cm/sec LV V1 mean P.5 mmHg Ao mean P.8 mmHg LV V1 mean: 88.3 cm/sec Ao V2 VTI: 34.5 cm LV V1 VTI: 26.3 cm TR max edgar: 259.9 cm/sec TR max P.0 mmHg ECHO/Echo Complete W/ Contrast Interpretation Summary Normal LV size. The estimated ejection fraction is 53 %. Mild segmental systolic dysfunction (see wall motion). Infero-Basal: Hypokinetic Status post mitral valve repair with annuloplasty ring. Contrast injection was performed. Ordering Physician: Melissa San Performed By: Jessica Moore RCS
[2022-05-27 06:56] LABS: Absolute Lymphocyte Count 0.37 X10^3/uL (0.83-4.51); Absolute Neutrophil Count 6.9 X10^3/uL (2.0-7.7); Basophil# 0.02 X10^3/uL; Basophil% 0.3 % (0-1); Hematocrit 36.9 % (37-47); Hemoglobin 11.7 g/dL (12.0-15.0); Lymphocyte # 0.37 X10^3/ul (0.83-4.51); Lymphocyte % 4.8 % (19-41); Mean Corp Hgb Conc 31.7 g/dL (32-36); Mean Corpuscular Volume 94.6 fL (81-99); Mean Platelet Vol. 9.5 fl (6.2-12.0); Monocyte% 3.9 % (0-10); NRBC Flagged by Analyzer 0 % (0-5); Neutrophil # 6.93 X10^3/uL (2.7-7.7); Neutrophil % 90.5 % (47-70); POSITIVE DIFFERENTIAL YES; Platelet Count 196 K/mm3 (150-450); RBC Distribution Width CV 14.4 % (11.6-14.6); RBC Distribution Width SD 50.4 fl (35.1-43.9); White Blood Count 7.7 K/mm3 (4.4-11.0)
[2022-05-27 07:01] LABS: Differential Indicated SCAN CRITERIA MET
[2022-05-27 07:24] LABS: Differential Comment SCANNED
[2022-05-27 07:30] LABS: ALB/GLOB Ratio 1.1 RATIO (0.9-2.4); AST(SGOT) 987 U/L (15-37); Alanine Aminotransfer ALT/SGPT 806 U/L (13-56); Albumin, Serum 2.9 g/dL (3.2-5.0); Alkaline Phosphatase 442 U/L (45-117); Anion Gap 7 (5-15); BUN 22 mg/dL (7-18); BUN/Creat Ratio 17.2 RATIO (10-20); Chloride 105 mmol/L (98-107); Cholesterol 106 mg/dL (200); Creatinine, Serum 1.28 mg/dL (0.55-1.02); EST Glomerular Filtration Rate 43 mL/min (>60); Est Glom Filt Rate - Afr Amer 52 mL/min (>60); Estimated Creatinine Clearance 34.46 ml/min; Globulin 2.7 g/dL (2.2-4.2); Glucose 128 mg/dL (74-106); High Density Lipoprotein 52 mg/dL; Potassium 3.6 mmol/L (3.5-5.1); Protein, Total 5.6 g/dL (6.4-8.2); Sodium Level 139 mmol/L (136-145); Triglycerides 50 mg/dL; Very Low Density Lipoprotein 10 mg/dL (5-40)
[2022-05-27] MEDS: Lactated Ringers 1,000 ML 999 ML IV (08:03)
--- NOTE | 2022-05-27 10:15 | US_ITS ---
STUDY: ABDOMINAL ULTRASOUND - RIGHT UPPER QUADRANT REASON FOR VISIT: Female, 76 years old Elevated LFT, alk phos, bilirubin with atypical chest pain TECHNIQUE: Ultrasound evaluation of the right upper quadrant was performed with real-time and static caban-scale imaging. TECHNICAL QUALITY: Adequate. COMPARISON: None. FINDINGS: Liver: The liver measures 15 cm. There is normal echogenicity of the liver. The bile ducts are within normal limits. There is hepatic color flow. The direction of portal flow is hepatopetal. There is a hypoechoic nodule in the inferior aspect of the right lobe of the liver measuring about 9 mm difficult to characterize and may represent small hemangioma. Gallbladder: There is a markedly distended gallbladder. The gallbladder wall measures 2 mm. There is a negative sonographic Murcia''s sign. There is mild pericholecystic fluid. There is a small echogenic shadow in the posterior wall of the gallbladder measuring by 7 mm and may be attached gallbladder wall consistent with gallbladder polyp. Common Bile Duct (C.B.D.): The common bile duct measures 9 mm. Pancreas: Normal size of the head, body and tail of the pancreas. There is normal echogenicity of the pancreas. There is a 1.1 cm nodular enhancement of the pancreas adjacent to the distal common bile duct. Right Kidney: Normal size of the right kidney. The right kidney measures 10 cm. Normal renal cortex. The right cortex measures 1.3 cm. There is no demonstrated renal mass or cyst. There is no right hydronephrosis. US/Gallbladder IMPRESSION: 1. Small hyperechoic nodule in the right lobe of the liver likely representing hemangioma. 2. Distended gallbladder with mild pericholecystic fluid and probable gallbladder polyp. 3. Dilated common bile duct. 4. Small nodule in the head of the pancreas difficult to characterize at this time. 5. Further evaluation with MRI/MRCP is recommended. Electronically Signed: Enoch Asif MD at 13:22 EDT ,
--- NOTE | 2022-05-27 10:44 | PN.HOSP_ITS ---
Documented by User: Joyce Davis NP, HEMATOLOGY ONCOLOGY CONSULTANT-C 05/27/22 12:03 Subjective Subjective Patient seen and examined. Underwent stress test and echocardiogram this morning. She denies further chest pain. Reports episode of nausea with emesis following stress test. Patient noted to be hypotensive this morning and she does report dizziness upon standing. She denies abdominal pain. Objective Data Objective Data Vital Signs: Vital Signs Temp Pulse Resp BP Pulse Ox O2 Del Method O2 Flow Rate 97.8 F 65 20 H 84/52 L 98 Room Air 2 05/27/22 07:33 05/27/22 07:33 05/27/22 07:33 05/27/22 07:54 05/27/22 07:33 05/27/22 07:33 05/27/22 07:05 Oxygen Flow Rate (L/min) 2 Oxygen Delivery Method Room Air Weight: 227 lb 4.745 oz Body Mass Index (BMI) 36.6 Intake & Output: Intake and Output for Last 24 Hours 05/25/22 05/26/22 05/27/22 23:59 23:59 23:59 Intake Total 500 / 500 1857.5 / 1857.5 Balance 500 / 500 1857.5 / 1857.5 Lab / Micro Data Result Diagrams: 05/27/22 06:42 05/27/22 06:42 Labs: Laboratory Results - last 24 hr 05/26/22 17:44: WBC 7.6, RBC 4.16 L, Hgb 12.6, Hct 39.2, MCV 94.2, MCH 30.3, MCHC 32.1, RDW Std Deviation 49.1 H, RDW Coeff of Jackson 14.2, Plt Count 266, MPV 9.3, Immature Gran % (Auto) 0.300, Neut % (Auto) 79.5 H, Lymph % (Auto) 14.6 L, [place] % (Auto) 3.8, Eos % (Auto) 1.3, Baso % (Auto) 0.5, Absolute Neuts (auto) 6.0, Absolute Lymphs (auto) 1.11, Nucleated RBC % 0 05/26/22 17:44: PT 17.7 H, INR 1.5 05/26/22 17:44: Sodium 142, Potassium 3.1 L, Chloride 101, Carbon Dioxide 33.0 H , Anion Gap 8, BUN 19 H, Creatinine 1.11 H, Estim Creat Clear Calc 42.82, Est GFR (MDRD) Af Amer 61, Est GFR (MDRD) Non-Af 51 L, BUN/Creatinine Ratio 17.1, Glucose 126 H, Calcium 9.0, Troponin I High Sens 7 05/26/22 20:01: Troponin I High Sens 5 05/26/22 20:01: Magnesium 1.9 05/27/22 01:15: Troponin I High Sens 20 05/27/22 06:42: WBC 7.7, RBC 3.90 L, Hgb 11.7 L, Hct 36.9 L, MCV 94.6, MCH 30.0, MCHC 31.7 L, RDW Std Deviation 50.4 H, RDW Coeff of Jackson 14.4, Plt Count 196, MPV 9.5, Immature Gran % (Auto) 0.500, Neut % (Auto) 90.5 H, Lymph % (Auto) 4.8 L, [place] % (Auto) 3.9, Eos % (Auto) 0.0, Baso % (Auto) 0.3, Absolute Neuts (auto) 6.9, Absolute Lymphs (auto) 0.37 L, Nucleated RBC % 0, Differential Comment SCANNED 05/27/22 06:42: Sodium 139, Potassium 3.6, Chloride 105, Carbon Dioxide 27.0, Anion Gap 7, BUN 22 H, Creatinine 1.28 H, Estim Creat Clear Calc 34.46, Est GFR (MDRD) Af Amer 52 L, Est GFR (MDRD) Non-Af 43 L, BUN/Creatinine Ratio 17.2, Glucose 128 H, Calcium 8.0 L, Total Bilirubin 3.10 H, AST 987 H, ALT 806 H, Alkaline Phosphatase 442 H, Total Protein 5.6 L, Albumin 2.9 L, Globulin 2.7, Albumin/Globulin Ratio 1.1, Triglycerides 50, Cholesterol 106, LDL Cholesterol 44, VLDL Cholesterol 10, HDL Cholesterol 52 Radiography Diagnostic Testing: Radiology Impression Chest X-Ray 05/26/22 18:06 IMPRESSION: Findings as above. No acute cardiopulmonary disease. No significant interval change. Electronically Signed: Soumya Douglas MD at 18:22 EDT Reading Location ID and State: , Service support , Rhythm Strip Rhythm Strip: paced Rate: 65 Ectopy: None Physical Exam Const alert and oriented x3 HEENT normocephalic and moist oral mucous membranes Eyes PERRL, EOMs intact bilaterally and conjunctivae normal Neck no lymphadenopathy Resp clear to auscultation bilaterally Auscultation: diminished lung sounds Cardio regular rate and regular rhythm Peripheral Pulses: pulses 2+ throughout GI normal to inspection, nondistended, normoactive bowel sounds, non-tender and non-distended Extremity normal to inspection Skin no rashes or lesions noted Lesions: no lesions Rashes: no rashes Trauma: no lacerations or abrasions Neuro CN's II-XII intact bilaterally, no focal motor deficits, no sensory deficits noted and deep tendon reflexes 2+ bilaterally Psych mental status grossly normal and affect normal Assessment & Plan Assessment/Plan (1) Chest pain: PLAN: Plan 1. Chest pain-troponin negative. EKG without ST-T changes. Stress test negat julia for ischemia. Echo with EF 53%. 2. Hypotension-patient reports this has been ongoing as outpatient and medications have been adjusted. BP hold parameters in place. Status post fluid bolus. Continue monitoring. 3. Elevated LFT/ALK phos/Bili- afebrile, no leukocytosis. Ischemic related to hy potension? Gallbladder ultrasound ordered for further evaluation. 4. History of ischemic cardiomyopathy/CAD-status post AICD. History of CABG. Stable. Continue medical management. Prior echo in 2019 with EF 19%. Repeat echo with EF 53%, mild systolic dysfunction. 5. Paroxysmal atrial fibrillation-continue amiodarone, metoprolol, Coumadin. 6. Hypertension-continue home regimen with hold parameters in place. 7. Hyperlipidemia-continue statin. 8. Severe mitral valve insufficiency-history of mitral valve repair. Echo ordered. 9. Chronic asthma-as needed albuterol aerosol. 10. Chronic kidney disease stage IIIa-appears at baseline 11. History of TIA-on aspirin, Plavix, statin. 12. Chronic pain syndrome-upcoming back injection. On long-acting narcotic regimen. Follows with pain management. DVT prophylaxis- Lizz This patient was seen by TY Cortez under the supervision of Dr. Costa. Time spent examining patient, reviewing data and subsequent management of care: 18 minutes Documented by User: Dr. Marky Costa MD 05/27/22 14:29 Subjective Subjective Patient seen and examined. Underwent stress test and echocardiogram this morning. She denies further chest pain. Reports episode of nausea with emesis following stress test. Patient noted to be hypotensive this morning and she does report dizziness upon standing. She denies abdominal pain. Seen and examined. Follow-up for lower chest pain/epigastric pain, hypotension Patient was hypotensive in the morning resuscitated with IV fluid Ringer lactate. She was admitted with lower chest pain. Liver chemistry shows el evated transaminases total bilirubin and alkaline phosphatase. In the morning she denies chest pain but she has more epigastric pain with radiation to interscapular area and right upper back. No fever. Stress and echo was done in the morning. Never had hepatobiliary issues in the past. Objective Data Lab / Micro Data Result Diagrams: 05/27/22 06:42 05/27/22 06:42 Labs: Laboratory Results - last 24 hr 05/26/22 17:44: WBC 7.6, RBC 4.16 L, Hgb 12.6, Hct 39.2, MCV 94.2, MCH 30.3, M CHC 32.1, RDW Std Deviation 49.1 H, RDW Coeff of [place] 14.2, Plt Count 266, MPV 9.3, Immature Gran % (Auto) 0.300, Neut % (Auto) 79.5 H, Lymph % (Auto) 14.6 L, [place] % (Auto) 3.8, Eos % (Auto) 1.3, Baso % (Auto) 0.5, Absolute Neuts (auto) 6.0, Absolute Lymphs (auto) 1.11, Nucleated RBC % 0 05/26/22 17:44: PT 17.7 H, INR 1.5 05/26/22 17:44: Sodium 142, Potassium 3.1 L, Chloride 101, Carbon Dioxide 33.0 H , Anion Gap 8, BUN 19 H, Creatinine 1.11 H, Estim Creat Clear Calc 42.82, Est GFR (MDRD) Af Amer 61, Est GFR (MDRD) Non-Af 51 L, BUN/Creatinine Ratio 17.1, Glucose 126 H, Calcium 9.0, Troponin I High Sens 7 05/26/22 20:01: Troponin I High Sens 5 05/26/22 20:01: Magnesium 1.9 05/27/22 01:15: Troponin I High Sens 20 05/27/22 06:42: WBC 7.7, RBC 3.90 L, Hgb 11.7 L, Hct 36.9 L, MCV 94.6, MCH 30.0, MCHC 31.7 L, RDW Std Deviation 50.4 H, RDW Coeff of [place] 14.4, Plt Count 196, MPV 9.5, Immature Gran % (Auto) 0.500, Neut % (Auto) 90.5 H, Lymph % (Auto) 4.8 L, [place] % (Auto) 3.9, Eos % (Auto) 0.0, Baso % (Auto) 0.3, Absolute Neuts (auto) 6.9, Absolute Lymphs (auto) 0.37 L, Nucleated RBC % 0, Differential Comment SCANNED 05/27/22 06:42: Sodium 139, Potassium 3.6, Chloride 105, Carbon Dioxide 27.0, Anion Gap 7, BUN 22 H, Creatinine 1.28 H, Estim Creat Clear Calc 34.46, Est GFR (MDRD) Af Amer 52 L, Est GFR (MDRD) Non-Af 43 L, BUN/Creatinine Ratio 17.2, Glucose 128 H, Calcium 8.0 L, Total Bilirubin 3.10 H, AST 987 H, ALT 806 H, Alkaline Phosphatase 442 H, Total Protein 5.6 L, Albumin 2.9 L, Globulin 2.7, Albumin/Globulin Ratio 1.1, Triglycerides 50, Cholesterol 106, LDL Cholesterol 44, VLDL Cholesterol 10, HDL Cholesterol 52 Physical Exam Narrative Seen and examined in patient's room with the patient's daughter near the bedside. Physical exam General: Alert, Oriented x3, Cooperative HEENT: Atraumatic, PERRLA, EOMI, Normocephalic Oral: No oral ulcers. No Gingival or Mucosal Lesions/ Ulcerations Neck: Supple, No JVD, Negative Carotid Bruits Lungs: Air entry diminished in bilateral lung bases. No crepitation/rhonchi Cardiovascular: Paced rhythm. Left upper AICD. Status post CABG and MVR. S1- S2 regular, systolic murmur over cardiac apex, artificial valve sound. Abdomen: Soft, tenderness present over epigastrium. Liver not enlarged. No palpable mass. Bowel Sounds Present, Non-Distended : No renal angle tenderness. No suprapubic tenderness. Extremities: Mild chronic bilateral pitting ankle edema, Capillary Refill Less than 3 Seconds Skin: No rashes, No breakdown Musculoskeletal: No Tenderness to Palpation of Joints or Extremities. ROM intact. Neurological: Cranial nerves II-XII grossly intact, DTR 2+/4, muscle strength 5/5 at major joints. Psych/Mental Status: Normal Affect, Appropriate. Assessment & Plan Assessment/Plan (1) Chest pain: PLAN: Plan 1. Chest pain-troponin negative. EKG without ST-T changes. Stress test negative for ischemia. Echo with EF 53%. 2. Hypotension-patient reports this has been ongoing as outpatient and medications have been adjusted. BP hold parameters in place. Status post fluid bolus. Continue monitoring. 3. Elevated LFT/ALK phos/Bili- afebrile, no leukocytosis. Ischemic related to hypotension? Gallbladder ultrasound ordered for further evaluation. 4. History of ischemic cardiomyopathy/CAD-status post AICD. History of CABG. Stable. Continue medical management. Prior echo in 2019 with EF 19%. Repeat echo with EF 53%, mild systolic dysfunction. 5. Paroxysmal atrial fibrillation-continue amiodarone, metoprolol, Coumadin. 6. Hypertension-continue home regimen with hold parameters in place. 7. Hyperlipidemia-continue statin. 8. Severe mitral valve insufficiency-history of mitral valve repair. Echo ordered. 9. Chronic asthma-as needed albuterol aerosol. 10. Chronic kidney disease stage IIIa-appears at baseline 11. History of TIA-on aspirin, Plavix, statin. 12. Chronic pain syndrome-upcoming back injection. On long-acting narcotic regimen. Follows with pain management. DVT prophylaxis- Lizz This patient was seen by TY Cortez under the supervision of Dr. Costa. Time spent examining patient, reviewing data and subsequent management of care: 20 minutes This patient was seen in conjunction with Joyce CURTIS. I have independently interviewed and examined the patient and reviewed pertinent history, examination findings, laboratory and plan of management. I have reviewed the note and agree with the documented findings with the few additional points. In brief, patient is 76-year-old female with history of coronary artery disease status post CABG, MV repair in 2018 and AICD in 2019 was admitted for atypical chest pain. She stated it was sudden onset about an hour prior to arrival to ED, 8/10 intensity lower chest/epigastrium with radiation to intrascapular area and right upper back. 1. Atypical chest pain status post CABG, mitral valve repair and chronic systolic heart failure status post AICD: Patient has chronic exertional dyspnea but denies any acute shortness of breath. EKG does shows paced rhythm chronic inverted T waves anteroseptal but no acute changes suggestive of ischemia. Serial troponins negative. Patient had pharmacological nuclear stress test which was negative for acute ischemia. 2D echo shows improvement of EF 53% from her baseline 15% in 2018. At that time she she had cardiac cath found triple- vessel disease and severe mitral regurgitation and referred for CABG with mitral valve repair. Status post mitral valve repair with annuloplasty ring. After 1 year she had AICD. ACS ruled out. Patient had chronic systolic heart failure. 2. Hypotension: She states she is not as aerobic exercise most of the days of the week, she did not feel dizziness or lightheadedness. 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 3. Cholestatic liver chemistry probably due to acute cholecystitis and dilated CBD: Liver chemistry reviewed. Her liver chemistry was normal in 04/2017. No liver test since then. She admitted with total bili 3.1, direct 2.19, ALT 800s, AST 900s alkaline phosphatase 442. Most probably due to either CBD stone/stricture or other causes of obstructive jaundice. Right upper quadrant sonogram shows distended GB with mild pericholecystic fluid probable GB polyp. Dilated CBD. Small nodule in head of pancreas. MRCP ordered. Surgery co nsulted 4. Paroxysmal A. fib, hypertension on amiodarone, metoprolol and warfarin. Other multiple comorbidities include dyslipidemia, chronic MR status post mitral valve repair, chronic stable asthma, CKD stage III and chronic pain syndrome: Home medication reconciliation done I have discussed my assessment with HEMATOLOGY ONCOLOGY CONSULTANTJoyce and orders have been reviewed. Total time of the visit including total time spent in counseling or coordination of care, (more than 50% of the total time, spent in obtaining medical information from nurses and other ancillary care providers,explaining to the patient about labs, imaging, diagnosis and management of active complex medical conditions), discussion with the campus ambassador Dr. Dorsey and surgery, previous medical record, review of labs and imaging is 45 minutes. Joyce HEMATOLOGY ONCOLOGY CONSULTANT spent 20 minutes I spent 25 minutes. Clinical Impression(s) from Imaging Studies Chest X-Ray 05/26/22 18:06 IMPRESSION: Findings as above. No acute cardiopulmonary disease. No significant interval change. Echocardiogram 05/27/22 05:55 Interpretation Summary Normal LV size. The estimated ejection fraction is 53 %. Mild segmental systolic dysfunction (see wall motion). Infero-Basal: Hypokinetic Status post mitral valve repair with annuloplasty ring. Contrast injection was performed. Gallbladder Ultrasound 05/27/22 10:15 IMPRESSION: 1. Small hyperechoic nodule in the right lobe of the liver likely representing hemangioma. 2. Distended gallbladder with mild pericholecystic fluid and probable gallbladder polyp. 3. Dilated common bile duct. 4. Small nodule in the head of the pancreas difficult to characterize at this time. 5. Further evaluation with MRI/MRCP is recommended. Laboratory Results 05/26/22 17:44: WBC 7.6, RBC 4.16 L, Hgb 12.6, Hct 39.2, MCV 94.2, MCH 30.3, MCHC 32.1, RDW Std Deviation 49.1 H, RDW Coeff of [place] 14.2, Plt Count 266, MPV 9.3, Immature Gran % (Auto) 0.300, Neut % (Auto) 79.5 H, Lymph % (Auto) 14.6 L, [place] % (Auto) 3.8, Eos % (Auto) 1.3, Baso % (Auto) 0.5, Absolute Neuts (auto) 6.0, Absolute Lymphs (auto) 1.11, Nucleated RBC % 0 05/26/22 17:44: PT 17.7 H, INR 1.5 05/26/22 17:44: Sodium 142, Potassium 3.1 L, Chloride 101, Carbon Dioxide 33.0 H , Anion Gap 8, BUN 19 H, Creatinine 1.11 H, Estim Creat Clear Calc 42.82, Est GFR (MDRD) Af Amer 61, Est GFR (MDRD) Non-Af 51 L, BUN/Creatinine Ratio 17.1, Glucose 126 H, Calcium 9.0, Troponin I High Sens 7 05/26/22 20:01: Troponin I High Sens 5 05/26/22 20:01: Magnesium 1.9 05/27/22 01:15: Troponin I High Sens 20 05/27/22 06:42: WBC 7.7, RBC 3.90 L, Hgb 11.7 L, Hct 36.9 L, MCV 94.6, MCH 30.0, MCHC 31.7 L, RDW Std Deviation 50.4 H, RDW Coeff of [place] 14.4, Plt Count 196, MPV 9.5, Immature Gran % (Auto) 0.500, Neut % (Auto) 90.5 H, Lymph % (Auto) 4.8 L, [place] % (Auto) 3.9, Eos % (Auto) 0.0, Baso % (Auto) 0.3, Absolute Neuts (auto) 6.9, Absolute Lymphs (auto) 0.37 L, Nucleated RBC % 0, Differential Comment SCANNED 05/27/22 06:42: Sodium 139, Potassium 3.6, Chloride 105, Carbon Dioxide 27.0, Anion Gap 7, BUN 22 H, Creatinine 1.28 H, Estim Creat Clear Calc 34.46, Est GFR (MDRD) Af Amer 52 L, Est GFR (MDRD) Non-Af 43 L, BUN/Creatinine Ratio 17.2, Glucose 128 H, Calcium 8.0 L, Total Bilirubin 3.10 H, AST 987 H, ALT 806 H, Alkaline Phosphatase 442 H, Total Protein 5.6 L, Albumin 2.9 L, Globulin 2.7, Albumin/Globulin Ratio 1.1, Triglycerides 50, Cholesterol 106, LDL Cholesterol 44, VLDL Cholesterol 10, HDL Cholesterol 52 05/27/22 06:42: Lipase Pending 05/27/22 13:10: PT 20.1 H, INR 1.8 05/27/22 13:10: Hepatitis A IgM Ab Pending, Hep Bs Antigen Pending, Hep B Core IgM Ab Pending, Hepatitis C Ab (EIA) Pending 05/27/22 : Direct Bilirubin 2.19 H Charges/Coding Visit Charges Inpatient E&M: 47963 Subs Hosp L3
--- NOTE | 2022-05-27 11:21 | STRESSREP ---
Stress Test Report Myocardial perfusion stress test. 76-year-old lady with a history of chest pain. Stress protocol: Resting EKG demonstrates sinus bradycardia with a rate of 65 bpm normal intervals are noted resting blood pressure is 82/60 mmHg. 0.4 mg of regadenoson was infused per usual protocol followed by wrap intravenous saline flush injection continuous EKG monitoring was performed. The maximum heart rate attained was 89 bpm which was 62% of max impacted heart rate the maximum workload was 1 metabolic equivalent. At rest there were no ST or T wave changes noted to suggest abnormal flow reserve and at peak infusion nonspecific ST changes were noted with did not meet the criteria for ischemia. No clinical angina was noted. Myocardial perfusion protocol. 14.4 mCi of technetium 99m sestamibi was injected at rest. 0.4 mg of regadenoson was infused per usual protocol. At peak infusion 44.1 mCi of technetium 99m sestamibi was injected stress images were obtained stress and rest images were reconstructed in comparing the short axis vertical long and horizontal long axis. Gated images were also obtained. Perfusion SPECT analysis: Review of the stress images demonstrate normal uptake of tracer noted in all areas of the myocardium. The resting images similarly demonstrate normal uptake of tracer noted in all areas of the myocardium. No areas of reversibility are noted suggest ischemia no previous infarct is noted. Gated SPECT analysis: The gated ejection fraction is 76%. Conclusion: Normal pharmacologic myocardial perfusion stress test. Preserved ejection fraction.
--- NOTE | 2022-05-27 11:56 | NURSING ---
AM medications not given on time due NPO for stress test and then gallbladder ultrasound. Medications will be given when testing is complete.
[2022-05-27 13:34] LABS: International Normalized Ratio 1.8; Prothrombin Time (Protime)PT. 20.1 SECONDS (11.7-14.9)
[2022-05-27 14:13] LABS: Bilirubin, Direct 2.19 mg/dL (0.00-0.30)
[2022-05-27 14:20] LABS: Lipase 104 U/L (73-393)
[2022-05-27] MEDS: Pantoprazole Sodium 20 MG Tablet PO (14:51)
[2022-05-27] MEDS: Furosemide 40 MG Tablet PO (14:51)
[2022-05-27] MEDS: Metoprolol(XL)Succ 100 MG Tablet PO (14:51)
--- NOTE | 2022-05-27 15:02 | NURSING ---
This RN taking over care at this time
[2022-05-27] MEDS: FLU VACC QS2022-23(6MOS UP)/PF 60 MCG/0.5 ML SYRINGE IM (15:58)
--- NOTE | 2022-05-27 18:04 | CON.PCM.SX_ITS ---
Assessment & Plan Assessment/Plan (1) Transaminitis: (2) Common bile duct dilatation: (3) Abnormal gallbladder ultrasound: PLAN: Plan This is a 76-year-old female with a complex medical history?owing to a extensive cardiac history?who presents with acute onset upper abdominal pain and associated vomiting. Patient initially believed this was cardiac pain, but has passed extensive cardiac work-up without significant findings. In contrast, her laboratories today show transaminitis and hyperbilirubinemia while a right upper quadrant ultrasound showed a distended gallbladder and dilated common bile duct. Mention was also made of a posterior echogenic gallbladder polyp and nodular density in the pancreas. No definite evidence of cholelithiasis was visualized. Patient does have a family history of pancreatic cancer in her son, who is now after an extensive arnett with this disease. On exam, patient does have a positive Murcia sign. Taken together, this picture is suggestive for cholecystitis with choledocholithiasis. However, with patient's history and imaging results there is a possibility she has extrinsic compression of her common bile duct due to mass-effect. This question should be better answered with MRCP which has already been ordered. Additionally, I discussed involving gastroenterology and a consultation has been made to Dr. Phelps. He is currently tentatively planning on ERCP tomorrow to assess patient's common bile duct. Further complicating this issue is the fact that the patient is on concurrent warfarin and Plavix therapies. Actually she states her warfarin has been held for just over a week (last INR 1.8), but states she has never gone off her Plavix. Dr. Costa has reviewed patient's history and believes the Plavix can be safely held. Still this would require us to wait 5 to 7 days before she could be safely taken to the operating room without the antiplatelet effect. I have counseled patient and advised the hospitalist service that we would ideally want to intervene for cholecystectomy within the first 72 hours of presentation. Therefore consideration is being made as to whether patient should be transferred to a tertiary facility where blood products would be readily available and the procedure could go forward without an obligatory waiting period. In the interim, I would also recommend initiation of empiric antibiotic therapy for suspicion of an obstructed common duct and to mitigate patient's risk for cholangitis. HPI Consult Data Date of Consult: 05/27/22 HPI Narrative Reason for Consultation: Nominal pain with abnormal LFTs and abnormal imaging HPI Narrative: DEON SAMAYOA, is a 76 F who presented to [facility] 05/26/2022 with what she described as chest pain radiating to her back. She states this pain occurred suddenly at about 1630 and was associated with some vomiting. Thinking about her extensive cardiac history, she wasted no time and presenting to the emergency department around 1700. She reports that the pain seemed responsive to nitroglycerin but was otherwise very severe. Given her primary complaint of chest pain, her work-up centered around this complaint. Although her cardiac enzymes and EKG were normal, she was admitted given the ongoing chest pain. Today she underwent a echocardiogram that was stable to improved for her cardiac function demonstrating ejection fraction of 53%. Additionally she completed a nuclear medicine stress test without any findings of ischemia. It was at this point that her team shifted their focus to her abdomen on noting her laboratories had demonstrated transaminitis and hyperbilirubinemia. A right upper quadrant ultrasound was obtained and showed a distended gallbladder with a echogenic lesion along the posterior aspect of the gallbladder potentially representing a polyp. Additionally noted a normal gallbladder wall thickness, dilated common bile duct, and a nodular density of the pancreas adjacent to the common bile duct. MRCP was recommended for further characterization. Mrs. Montilla does admit she is experienced pain like this before. She states that 20 to 25 years ago she was told she was having gallbladder attacks and was advised to avoid eating fatty meats. Her pain yesterday, however, followed ingestion of a fruit smoothie. As above, patient has a history of coronary artery disease and is status post CABG 3 years ago with a mitral valve replacement (porcine) at [facility]. More recently she underwent a pacemaker/ICD implantation. She states that she maintains a very regimented schedule exercising with an aerobic program 3-4 times weekly. She also maintains a strict weight balance that has been ?3 pounds since her surgery 3 years ago. She states that she has taken Plavix daily since these procedures 3 years ago and also is on warfarin for a history of paroxysmal atrial fibrillation. She confirms that the warfarin has been on hold for just over a week in anticipation of a injection for chronic back pain, however, she has never held her Plavix. Patient's prior abdominal surgical history includes open appendectomy for ruptured appendicitis and hysterectomy. Patient initially denies any family history of pancreatitis, GI diagnoses, or significant malignancies. She notes that both of her parents and her brother had cardiovascular diagnoses. Yet rather incidentally during the latter part of our conversation she stated her son was diagnosed with pancreatic cancer at 53. He reportedly was treated with a Whipple procedure, but succumbed to complications from this procedure at the age of 57. Patient overall reports improvement in her discomfort, but there is a persistent right upper quadrant ache. She also notes some diffuse itchiness since her admission. [facility] Medical History (Updated 05/27/22 @ 18:[address] 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 Secondary pulmonary arterial hypertension Skin cancer (melanoma) Systolic CHF Transient cerebral ischemic attack, unspecified Home Medications clopidogrel 75 mg tablet 75 mg PO DAILY anti platelet 06/16/14 [History Last Taken Unknown] vit A 300 mcg-C 200 mg-E 27 mg-lutein 2 mg and minerals tablet 1 ea PO DAILY vitamin 06/16/14 [History Last Taken Unknown] oxycodone 5 mg tablet 10 mg PO TID PRN breakthru pain 04/07/19 [History Last Taken Unknown] furosemide 20 mg tablet 40 mg PO DAILY Check with primary doctor #30 tabs 04/10/19 [Rx Last Taken Unknown] nitroglycerin 0.4 mg sublingual tablet 0.4 mg sublingual Q5M PRN Cardiac/Chest Pain ##30 04/10/19 [Rx Last Taken Unknown] lisinopril 40 mg tablet 20 mg PO DAILY 04/16/19 [History Last Taken Unknown] acetaminophen 325 mg capsule 650 mg PO Q4H PRN PRN Pain Score 1-06/1206/17/19 [History Last Taken Unknown] amiodarone 200 mg tablet 100 mg PO BID 06/17/19 [History Last Taken Unknown] metoprolol succinate 50 mg tablet,extended release 24 hr 100 mg PO DAILY 06/17/19 [History Last Taken Unknown] pantoprazole 20 mg tablet,delayed release 20 mg PO DAILY 06/17/19 [History Last Taken Unknown] aspirin 81 mg chewable tablet 162 mg PO QHS 05/26/22 [History Last Taken Unknown] atorvastatin 40 mg tablet 40 mg PO QHS 05/26/22 [History Last Taken Unknown] oxycodone myristate 9 mg capsule sprinkle extended release 12 hr(DON'T CRUSH) (Xtampza ER) 9 mg PO BID 05/26/22 [History Last Taken Unknown] sacubitril 49 mg-valsartan 51 mg tablet (Entresto) 1 tab PO BID 05/26/22 [History Last Taken Unknown] tafluprost (PF) 0.0015 % eye drops in a dropperette (Zioptan (PF)) 1 drp EACH EYE QHS 05/26/22 [History Last Taken Unknown] warfarin 2 mg tablet 4 mg PO DAILY 05/26/22 [History Last Taken Unknown] Allergy/AdvReac Type Severity Reaction Status Date / Time iodine Allergy Shortness Verified 05/26/22 17:42 of breath Penicillins Allergy Diarrhea Verified 05/26/22 17:42 Poultry Allergy Diarrhea Verified 05/26/22 17:42 Sulfa (Sulfonamide AdvReac Diarrhea Verified 05/26/22 17:42 Antibiotics) SEAFOOD Allergy Shortness Uncoded 05/26/22 17:42 of breath Family History (Updated 05/27/22 @ 00:[address] Melissa San MD) Father CVA (cerebral vascular accident) Brother CAD (coronary artery disease) CVA (cerebral vascular accident) Diabetes Mother Cancer History of Brain tumor, unclear type. Surgical History H/O foot surgery History of appendectomy History of bilateral knee replacement History of hysterectomy History of mitral valve repair History of parathyroidectomy Hx of CABG Social History (Updated 05/27/22 @ 00:[address] Melissa San MD) household members: spouse Smoking Status: Never smoker alcohol intake: never substance use type: does not use caffeine: Yes Type: carbonated beverages Number of servings: 3 what type of physical activity do you participate in: walking frequency: daily duration: 60-90 minutes/day seatbelt use: always do you feel safe at home: Yes Physical Exam Const alert, oriented x3 and no apparent distress General Appearance: cooperative, well kempt and well developed Eyes no scleral icterus Resp normal respiratory effort GI GI Narrative: Nondistended, well-healed McBurney incision in right lower quadrant, soft, tender to palpation right upper quadrant with positive Murcia sign Skin no jaundice Lab / Micro Data Result Diagrams: 05/27/22 06:42 05/27/22 06:42 Labs: Laboratory Results - last 24 hr 05/26/22 17:44: PT 17.7 H, INR 1.5 05/26/22 17:44: Sodium 142, Potassium 3.1 L, Chloride 101, Carbon Dioxide 33.0 H , Anion Gap 8, BUN 19 H, Creatinine 1.11 H, Estim Creat Clear Calc 42.82, Est GFR (MDRD) Af Amer 61, Est GFR (MDRD) Non-Af 51 L, BUN/Creatinine Ratio 17.1, Glucose 126 H, Calcium 9.0, Troponin I High Sens 7 05/26/22 20:01: Troponin I High Sens 5 05/26/22 20:01: Magnesium 1.9 05/27/22 01:15: Troponin I High Sens 20 05/27/22 06:42: WBC 7.7, RBC 3.90 L, Hgb 11.7 L, Hct 36.9 L, MCV 94.6, MCH 30.0, MCHC 31.7 L, RDW Std Deviation 50.4 H, RDW Coeff of Jackson 14.4, Plt Count 196, MPV 9.5, Immature Gran % (Auto) 0.500, Neut % (Auto) 90.5 H, Lymph % (Auto) 4.8 L, Gordon % (Auto) 3.9, Eos % (Auto) 0.0, Baso % (Auto) 0.3, Absolute Neuts (auto) 6.9, Absolute Lymphs (auto) 0.37 L, Nucleated RBC % 0, Differential Comment SCANNED 05/27/22 06:42: Sodium 139, Potassium 3.6, Chloride 105, Carbon Dioxide 27.0, Anion Gap 7, BUN 22 H, Creatinine 1.28 H, Estim Creat Clear Calc 34.46, Est GFR (MDRD) Af Amer 52 L, Est GFR (MDRD) Non-Af 43 L, BUN/Creatinine Ratio 17.2, Glucose 128 H, Calcium 8.0 L, Total Bilirubin 3.10 H, AST 987 H, ALT 806 H, Alkaline Phosphatase 442 H, Total Protein 5.6 L, Albumin 2.9 L, Globulin 2.7, Albumin/Globulin Ratio 1.1, Triglycerides 50, Cholesterol 106, LDL Cholesterol 44, VLDL Cholesterol 10, HDL Cholesterol 52 05/27/22 06:42: Lipase 104 05/27/22 13:10: PT 20.1 H, INR 1.8 05/27/22 : Direct Bilirubin 2.19 H Rhythm Strip Rhythm Strip: paced Rate: 65 Ectopy: None Radiology Impression Chest X-Ray 05/26/22 18:06 IMPRESSION: Findings as above. No acute cardiopulmonary disease. No significant interval change. Electronically Signed: Soumya Douglas MD at 18:22 EDT , Echocardiogram 05/27/22 05:55 Interpretation Summary Normal LV size. The estimated ejection fraction is 53 %. Mild segmental systolic dysfunction (see wall motion). Infero-Basal: Hypokinetic Status post mitral valve repair with annuloplasty ring. Contrast injection was performed. Ordering Physician: Melissa San Performed By: Jessica Moore RCS Gallbladder Ultrasound 05/27/22 10:15 IMPRESSION: 1. Small hyperechoic nodule in the right lobe of the liver likely representing hemangioma. 2. Distended gallbladder with mild pericholecystic fluid and probable gallbladder polyp. 3. Dilated common bile duct. 4. Small nodule in the head of the pancreas difficult to characterize at this time. 5. Further evaluation with MRI/MRCP is recommended. Electronically Signed: Enoch Asif MD at 13:22 EDT ,
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
[2022-05-27] MEDS: oxyCODONE 5 MG Tablet 10 MG PO (20:32)
[2022-05-27] MEDS: Aspirin 81 MG TAB.CHEW PO (22:09)
[2022-05-27] MEDS: DiphenhydrAMINE 50 MG/ML Syringe 25 MG IV (23:44)
[2022-05-28] VITALS (11 sets, daily range): BP systolic 95–140; BP diastolic 51–84; PULSE 60–86; RESP 16–18; TEMP 36.8–37.3; O2SAT 93–96
[2022-05-28] MEDS: 0.9% Saline Lock 10 ML Syringe IV ×2 (00:06→11:30)
[2022-05-28 05:52] LABS: Absolute Lymphocyte Count 0.44 X10^3/uL (0.83-4.51); Absolute Neutrophil Count 2.9 X10^3/uL (2.0-7.7); Basophil# 0.02 X10^3/uL; Basophil% 0.6 % (0-1); Eosinophil# 0.06 X10^3/uL; Eosinophils% 1.7 % (0-5); Hematocrit 31.1 % (37-47); Hemoglobin 10.2 g/dL (12.0-15.0); Lymphocyte # 0.44 X10^3/ul (0.83-4.51); Lymphocyte % 12.2 % (19-41); Mean Corp Hgb Conc 32.8 g/dL (32-36); Mean Corpuscular Hgb 30.9 pg (27.0-32.0); Mean Corpuscular Volume 94.2 fL (81-99); Monocyte% 5.5 % (0-10); NRBC Flagged by Analyzer 0 % (0-5); Neutrophil # 2.89 X10^3/uL (2.7-7.7); Neutrophil % 79.7 % (47-70); POSITIVE DIFFERENTIAL YES; Platelet Count 148 K/mm3 (150-450); RBC Distribution Width CV 14.9 % (11.6-14.6); RBC Distribution Width SD 51.8 fl (35.1-43.9); White Blood Count 3.6 K/mm3 (4.4-11.0)
[2022-05-28 06:22] LABS: Differential Indicated SCAN CRITERIA MET
[2022-05-28 06:41] LABS: AST(SGOT) 344 U/L (15-37); Alanine Aminotransfer ALT/SGPT 466 U/L (13-56); Albumin, Serum 2.5 g/dL (3.2-5.0); Alkaline Phosphatase 326 U/L (45-117); Anion Gap 8 (5-15); BUN 16 mg/dL (7-18); BUN/Creat Ratio 16.1 RATIO (10-20); Calcium,Total 8.1 mg/dL (8.5-10.1); Chloride 105 mmol/L (98-107); EST Glomerular Filtration Rate 57 mL/min (>60); Est Glom Filt Rate - Afr Amer 69 mL/min (>60); Globulin 2.6 g/dL (2.2-4.2); Glucose 87 mg/dL (74-106); Potassium 3.3 mmol/L (3.5-5.1); Protein, Total 5.1 g/dL (6.4-8.2); Sodium Level 141 mmol/L (136-145)
[2022-05-28 06:50] LABS: Differential Comment SCANNED
[2022-05-28 09:31] LABS: Bilirubin, Direct 1.13 mg/dL (0.00-0.30)
[2022-05-28] MEDS: Furosemide 40 MG Tablet PO (09:32)
[2022-05-28] MEDS: oxyCODONE HCl Cr 10 MG Tablet PO ×2 (09:32→20:31)
[2022-05-28] MEDS: Pantoprazole Sodium 20 MG Tablet PO (09:32)
[2022-05-28] MEDS: Amiodarone 200 MG Tablet 100 MG PO ×2 (09:32→20:21)
[2022-05-28] MEDS: Metoprolol(XL)Succ 100 MG Tablet PO (09:32)
--- NOTE | 2022-05-28 09:35 | PN.SURG_ITS ---
Subjective Subjective Patient seen and examined during AM rounds. She is sitting upright in bed and is in better spirits. She states that her pain is much improved. She questions whether the initiation of antibiotics may have allowed a stone to pass. She reports that her presented her valve card to the hospital for compatibi lity check with MRI so she is just awaiting this verification. Lastly after I queried her about her specific antiplatelet/anticoagulation regimen, she states she believes she has been off the Plavix for over a year and on warfarin only, but confirms that this has been held for just over a week now in anticipation of injections for her chronic back pain. Objective Data Objective Data Vital Signs: Vital Signs Temp Pulse Resp BP Pulse Ox O2 Del Method O2 Flow Rate 99.1 F 64 16 140/84 H 94 Room Air 2 05/28/22 09:05/28/22 09:32 05/28/22 09:05/28/22 09:05/28/22 09:05/28/22 09:05/28/22 06:00 Oxygen Flow Rate (L/min) 2 Oxygen Delivery Method Room Air Weight: 228 lb 2.855 oz Body Mass Index (BMI) 36.6 Intake & Output: Intake and Output for Last 24 Hours 05/26/22 05/27/22 05/28/22 23:59 23:59 23:59 Intake Total 500 / 500 2907.5 / 2907.5 Balance 500 / 500 2907.5 / 2907.5 Lab / Micro Data Result Diagrams: 05/28/22 04:36 05/28/22 04:36 Labs: Laboratory Results - last 24 hr 05/27/22 06:42: Lipase 104 05/27/22 13:10: PT 20.1 H, INR 1.8 05/27/22 : Direct Bilirubin 2.19 H 05/28/22 04:36: WBC 3.6 L, RBC 3.30 L, Hgb 10.2 L, Hct 31.1 L, MCV 94.2, MCH 30.9, MCHC 32.8, RDW Std Deviation 51.8 H, RDW Coeff of Jackson 14.9 H, Plt Count 148 L, MPV 10.0, Immature Gran % (Auto) 0.300, Neut % (Auto) 79.7 H, Lymph % (Auto) 12.2 L, [place] % (Auto) 5.5, Eos % (Auto) 1.7, Baso % (Auto) 0.6, Absolute Neuts (auto) 2.9, Absolute Lymphs (auto) 0.44 L, Nucleated RBC % 0, Differential Comment SCANNED, Diff Path Review May foll 05/28/22 04:36: Sodium 141, Potassium 3.3 L, Chloride 105, Carbon Dioxide 28.0, Anion Gap 8, BUN 16, Creatinine 1.00, Estim Creat Clear Calc 44.10, Est GFR (MDRD) Af Amer 69, Est GFR (MDRD) Non-Af 57 L, BUN/Creatinine Ratio 16.1, G lucose 87, Calcium 8.1 L, Total Bilirubin 1.90 H, AST 344 H, ALT 466 H, Alkaline Phosphatase 326 H, Total Protein 5.1 L, Albumin 2.5 L, Globulin 2.6, Albumin/Globulin Ratio 1.0 05/28/22 04:36: Direct Bilirubin 1.13 H Radiography Diagnostic Testing: Radiology Impression Echocardiogram 05/27/22 05:55 Interpretation Summary Normal LV size. The estimated ejection fraction is 53 %. Mild segmental systolic dysfunction (see wall motion). Infero-Basal: Hypokinetic Status post mitral valve repair with annuloplasty ring. Contrast injection was performed. Ordering Physician: Melissa San Performed By: Jessica Moore RCS Gallbladder Ultrasound 05/27/22 10:15 IMPRESSION: 1. Small hyperechoic nodule in the right lobe of the liver likely representing hemangioma. 2. Distended gallbladder with mild pericholecystic fluid and probable gallbladder polyp. 3. Dilated common bile duct. 4. Small nodule in the head of the pancreas difficult to characterize at this time. 5. Further evaluation with MRI/MRCP is recommended. Electronically Signed: Enoch Asif MD at 13:22 EDT , Rhythm Strip Rhythm Strip: paced Rate: 65 Ectopy: None Physical Exam Const oriented x3 and no apparent distress Eyes no scleral icterus Resp normal respiratory effort GI GI Narrative: Nondistended, soft, tender to palpation in the right upper quadrant with pos itive [place] sign laterally. Patient does have excoriations across her abdominal wall from itching. Skin no jaundice Assessment & Plan Assessment/Plan (1) Transaminitis: (2) Common bile duct dilatation: (3) Abnormal gallbladder ultrasound: PLAN: Plan This is a 76-year-old female with a complex medical history?owing to a extensive cardiac history?who presents with acute onset upper abdominal pain and associated vomiting. Patient initially believed this was cardiac pain, but has passed extensive cardiac work-up without significant findings. In contrast, her laboratories and right upper quadrant ultrasound yesterday suggest probable gallbladder pathology. Yet, given cholestatic pattern, a vague nodular density of the pancreas, and a family history of pancreatic cancer a neoplastic process remains in the differential. She is awaiting MRCP to better investigate these differential possibilities. Encouragingly, patient has had spontaneous improvement of her symptoms and this coincides with an improvement in her laboratories. With the spontaneous improvement, is more suggestive of a biliary obstruction that may now be relieved. She also reports that she should be at a significantly decreased bleeding risk having held her warfarin for the last week and now denies any recent Plavix use. With these updates I am suspicious for resolving choledocholithiasis with persistent cholecystitis. Therefore, I have informed her of this impression and we will tentatively plan for laparoscopic cholecystectomy with intraoperative cholangiogram tomorrow. However, we will wait for formal MRCP results before proceeding. I have discussed this also with patient's primary team and requested the patient's INR be less than 1.5 to mitigate her risk of serious bleeding during any intervention. I also have noted patient to be relatively thrombocytopenic and raise this issue with the hospitalist service. At this time they do not have a cause for this finding, b ut will continue to look into it.
[2022-05-28] MEDS: DiphenhydrAMINE 25 MG Capsule PO ×2 (09:52→19:55)
[2022-05-28] MEDS: Famotidine 20 MG Tablet PO ×2 (09:52→20:25)
[2022-05-28] MEDS: Loratadine 10 MG Tablet PO (09:52)
[2022-05-28] MEDS: Potassium Chloride Oral Tablet 20 MEQ 40 MEQ PO (09:52)
--- NOTE | 2022-05-28 09:55 | NURSING ---
Patient ICD pacemaker card faxed to MRI as well as patient's hotel receptionist's name Dr Steve Bernal.
--- NOTE | 2022-05-28 10:21 | PCM.PN.HOSP ---
Documented by User: Joyce Davis NP, CLINICAL CYTOGENETICS DIRECTOR-C 05/28/22 10:57 Subjective Subjective Patient seen and examined. Denies chest pain or abdominal pain. Denies nausea, vomiting. Reports generalized itching, no rash. Objective Data Objective Data Vital Signs: Vital Signs Temp Pulse Resp BP Pulse Ox O2 Del Method O2 Flow Rate 99.1 F 64 16 140/84 H 94 Room Air 2 05/28/22 09:05/28/22 09:32 05/28/22 09:05/28/22 09:05/28/22 09:05/28/22 09:05/28/22 06:00 Oxygen Flow Rate (L/min) 2 Oxygen Delivery Method Room Air Weight: 228 lb 2.855 oz Body Mass Index (BMI) 36.6 Intake & Output: Intake and Output for Last 24 Hours 05/26/22 05/27/22 05/28/22 23:59 23:59 23:59 Intake Total 500 / 500 2907.5 / 2907.5 Balance 500 / 500 2907.5 / 2907.5 Lab / Micro Data Result Diagrams: 05/28/22 04:36 05/28/22 04:36 Labs: Laboratory Results - last 24 hr 05/27/22 06:42: Lipase 104 05/27/22 13:10: PT 20.1 H, INR 1.8 05/27/22 : Direct Bilirubin 2.19 H 05/28/22 04:36: WBC 3.6 L, RBC 3.30 L, Hgb 10.2 L, Hct 31.1 L, MCV 94.2, MCH 30.9, MCHC 32.8, RDW Std Deviation 51.8 H, RDW Coeff of [place] 14.9 H, Plt Count 148 L, MPV 10.0, Immature Gran % (Auto) 0.300, Neut % (Auto) 79.7 H, Lymph % (Auto) 12.2 L, [place] % (Auto) 5.5, Eos % (Auto) 1.7, Baso % (Auto) 0.6, Absolute Neuts (auto) 2.9, Absolute Lymphs (auto) 0.44 L, Nucleated RBC % 0, Differential Comment SCANNED, Diff Path Review January05/28/22 04:36: Sodium 141, Potassium 3.3 L, Chloride 105, Carbon Dioxide 28.0, Anion Gap 8, BUN 16, Creatinine 1.00, Estim Creat Clear Calc 44.10, Est GFR (MDRD) Af Amer 69, Est GFR (MDRD) Non-Af 57 L, BUN/Creatinine Ratio 16.1, Glucose 87, Calcium 8.1 L, Total Bilirubin 1.90 H, AST 344 H, ALT 466 H, Alkaline Phosphatase 326 H, Total Protein 5.1 L, Albumin 2.5 L, Globulin 2.6, Albumin/Globulin Ratio 1.0 05/28/22 04:36: Direct Bilirubin 1.13 H Radiography Diagnostic Testing: Radiology Impression Echocardiogram 05/27/22 05:55 Interpretation Summary Normal LV size. The estimated ejection fraction is 53 %. Mild segmental systolic dysfunction (see wall motion). Infero-Basal: Hypokinetic Status post mitral valve repair with annuloplasty ring. Contrast injection was performed. Ordering Physician: Melissa San Performed By: Jessica Moore RCS Gallbladder Ultrasound 05/27/22 10:15 IMPRESSION: 1. Small hyperechoic nodule in the right lobe of the liver likely representing hemangioma. 2. Distended gallbladder with mild pericholecystic fluid and probable gallbladder polyp. 3. Dilated common bile duct. 4. Small nodule in the head of the pancreas difficult to characterize at this time. 5. Further evaluation with MRI/MRCP is recommended. Electronically Signed: Enoch Asif MD at 13:22 EDT , Rhythm Strip Rhythm Strip: paced Rate: 65 Ectopy: None Physical Exam Const alert and oriented x3 HEENT normocephalic and moist oral mucous membranes Eyes PERRL, EOMs intact bilaterally and conjunctivae normal Neck no lymphadenopathy Resp normal respiratory effort and clear to auscultation bilaterally Cardio regular rate, regular rhythm and no murmurs Peripheral Pulses: pulses 2+ throughout GI normal to inspection, nondistended, normoactive bowel sounds, non-tender and non-distended Extremity normal to inspection Skin no rashes or lesions noted Lesions: no lesions Rashes: no rashes Trauma: no lacerations or abrasions Neuro CN's II-XII intact bilaterally, no focal motor deficits, no sensory deficits noted and deep tendon reflexes 2+ bilaterally Psych mental status grossly normal and affect normal Assessment & Plan Assessment/Plan (1) Common bile duct dilatation: (2) Abnormal gallbladder ultrasound: PLAN: Plan 1. Abnormal gallbladder ultrasound-IV Rocephin empirically. Gallbladder ultrasound with distended gallbladder and dilated common bile duct as well as small nodule in the head of the pancreas. General surgery and GI consulted. Awaiting MRCP. Tentatively plan for laparoscopic cholecystectomy with intraoperative cholangiogram pending MRCP. Patient's Coumadin has been on hold for a week and she has been off of Plavix for 1 year. Aspirin on hold. INR 1.7. Vit K X1. 2. Hypotension-patient reports this has been ongoing as outpatient and medications have been adjusted.? BP hold parameters in place.? Status post fluid bolus.? Now improved/stable. 3. Chest pain-troponin negative.? EKG without ST-T changes.? Stress test negative for ischemia.? Echo with EF 53%. 4.? History of ischemic cardiomyopathy/CAD-status post AICD.? History of CABG.? Stable.? Continue medical management. Prior echo in 2019 with EF 19%. Repeat echo with EF 53%, mild systolic dysfunction. 5. Paroxysmal atrial fibrillation-continue amiodarone, metoprolol. Coumadin on hold. 6. Hypertension-continue home regimen with hold parameters in place. 7. Hyperlipidemia-continue statin. 8. Severe mitral valve insufficiency-history of mitral valve repair.? 9. Chronic asthma-as needed albuterol aerosol. 10. Chronic kidney disease stage IIIa-appears at baseline 11. History of TIA-on aspirin, statin. 12. Chronic pain syndrome-upcoming back injection.? On long-acting narcotic regimen.? Follows with pain management. DVT prophylaxis- Coumadin on hold, SCDs This patient was seen by Joyce Ryan, CLINICAL CYTOGENETICS DIRECTOR-C under the supervision of Dr. Costa. Time spent examining patient, reviewing data and subsequent management of care: 14 minutes Documented by User: Dr. Marky Costa MD 05/28/22 13:05 Subjective Subjective Patient seen and examined. Denies chest pain or abdominal pain. Denies nausea, vomiting. Reports generalized itching, no rash. Seen and examined. Follow-up for acute cholecystitis with cholestatic pattern of hepatitis. Patient does not have abdominal pain but has tenderness. No fever. Total bilirubin decreasing. Was started on IV ceftriaxone empirically as suggested by the surgeon for concern of acute infectious cholecystitis/probably cholangitis but patient does not have fever Objective Data Lab / Micro Data Result Diagrams: 05/28/22 04:36 05/28/22 04:36 Labs: Laboratory Results - last 24 hr 05/27/22 06:42: Lipase 104 05/27/22 13:10: PT 20.1 H, INR 1.8 05/27/22 : Direct Bilirubin 2.19 H 05/28/22 04:36: WBC 3.6 L, RBC 3.30 L, Hgb 10.2 L, Hct 31.1 L, MCV 94.2, MCH 30.9, MCHC 32.8, RDW Std Deviation 51.8 H, RDW Coeff of [place] 14.9 H, Plt Count 148 L, MPV 10.0, Immature Gran % (Auto) 0.300, Neut % (Auto) 79.7 H, Lymph % (Auto) 12.2 L, [place] % (Auto) 5.5, Eos % (Auto) 1.7, Baso % (Auto) 0.6, Absolute Neuts (auto) 2.9, Absolute Lymphs (auto) 0.44 L, Nucleated RBC % 0, Differential Comment SCANNED, Diff Path Review January05/28/22 04:36: Sodium 141, Potassium 3.3 L, Chloride 105, Carbon Dioxide 28.0, Anion Gap 8, BUN 16, Creatinine 1.00, Estim Creat Clear Calc 44.10, Est GFR (MDRD) Af Amer 69, Est GFR (MDRD) Non-Af 57 L, BUN/Creatinine Ratio 16.1, Glucose 87, Calcium 8.1 L, Total Bilirubin 1.90 H, AST 344 H, ALT 466 H, Alkaline Phosphatase 326 H, Total Protein 5.1 L, Albumin 2.5 L, Globulin 2.6, Albumin/Globulin Ratio 1.0 05/28/22 04:36: Direct Bilirubin 1.13 H Radiography Diagnostic Testing: Radiology Impression Echocardiogram 05/27/22 05:55 Interpretation Summary Normal LV size. The estimated ejection fraction is 53 %. Mild segmental systolic dysfunction (see wall motion). Infero-Basal: Hypokinetic Status post mitral valve repair with annuloplasty ring. Contrast injection was performed. ectronically signed by: John Dorsey MD on 05/27/2022 11:48 AM Gallbladder Ultrasound 05/27/22 10:15 IMPRESSION: 1. Small hyperechoic nodule in the right lobe of the liver likely representing hemangioma. 2. Distended gallbladder with mild pericholecystic fluid and probable gallbladder polyp. 3. Dilated common bile duct. 4. Small nodule in the head of the pancreas difficult to characterize at this time. 5. Further evaluation with MRI/MRCP is recommended. Physical Exam Narrative Seen and examined in patient's room Physical exam General: Alert, Oriented x3, Cooperative HEENT: Atraumatic, PERRLA, EOMI, Normocephalic Oral: No oral ulcers. No Gingival or Mucosal Lesions/ Ulcerations Neck: Supple, No JVD, Negative Carotid Bruits Lungs: Air entry diminished in bilateral lung bases. No crepitation/rhonchi Cardiovascular: Paced rhythm. Left upper AICD. Status post CABG and MVR. S1-S2 regular, systolic murmur over cardiac apex, artificial valve sound. Abdomen: Soft, tenderness present over epigastrium and RUQ. Liver not enlarged. No palpable mass. Bowel Sounds Present, Non-Distended : No renal angle tenderness. No suprapubic tenderness. Extremities: Mild chronic bilateral pitting ankle edema, Capillary Refill Less than 3 Seconds Skin: No rashes, No breakdown Musculoskeletal: No Tenderness to Palpation of Joints or Extremities. ROM intact. Neurological: Cranial nerves II-XII grossly intact, DTR 2+/4, muscle strength 5/5 at major joints. Psych/Mental Status: Normal Affect, Appropriate. Assessment & Plan Assessment/Plan (1) Common bile duct dilatation: (2) Abnormal gallbladder ultrasound: PLAN: Plan 1. Abnormal gallbladder ultrasound-IV Rocephin empirically. Gallbladder ultrasound with distended gallbladder and dilated common bile duct as well as small nodule in the head of the pancreas. General surgery and GI consulted. Awaiting MRCP. Tentatively plan for laparoscopic cholecystectomy with intraoperative cholangiogram pending MRCP. Patient's Coumadin has been on hold for a week and she has been off of Plavix for 1 year. Aspirin on hold. INR 1.7. Vit K X1. 2. Hypotension-patient reports this has been ongoing as outpatient and medications have been adjusted.? BP hold parameters in place.? Status post fluid bolus.? Now improved/stable. 3. Chest pain-troponin negative.? EKG without ST-T changes.? Stress test negative for ischemia.? Echo with EF 53%. 4.? History of ischemic cardiomyopathy/CAD-status post AICD.? History of CABG.? Stable.? Continue medical management. Prior echo in 2019 with EF 19%. Repeat echo with EF 53%, mild systolic dysfunction. 5. Paroxysmal atrial fibrillation-continue amiodarone, metoprolol. Coumadin on hold. 6. Hypertension-continue home regimen with hold parameters in place. 7. Hyperlipidemia-continue statin. 8. Severe mitral valve insufficiency-history of mitral valve repair.? 9. Chronic asthma-as needed albuterol aerosol. 10. Chronic kidney disease stage IIIa-appears at baseline 11. History of TIA-on aspirin, statin. 12. Chronic pain syndrome-upcoming back injection.? On long-acting narcotic regimen.? Follows with pain management. DVT prophylaxis- Coumadin on hold, SCDs This patient was seen by TY Cortez under the supervision of Dr. Costa. Time spent examining patient, reviewing data and subsequent management of care: 15 minutes This patient was seen in conjunction with Jocye CURTIS.? I have independently interviewed and examined the patient and reviewed pertinent history, examination findings, laboratory and plan of management.? I have? reviewed the note and agree with the documented findings with the few? additional points. In brief, patient is 76-year-old female with history of coronary artery disease status post CABG, MV repair in 2019 and AICD in 2019 was admitted for atypical chest pain.? She stated it was sudden onset about an hour prior to arrival to ED, 8/10 intensity lower chest/epigastrium with radiation to intrascapular area and right upper back. 1.? Atypical chest pain status post CABG, mitral valve repair and chronic systolic heart failure status post AICD: Patient has chronic exertional dyspnea but denies any acute shortness of breath.? EKG does shows paced rhythm chronic inverted T waves anteroseptal but no acute changes suggestive of ischemia.? Serial troponins negative.? Patient had pharmacological nuclear stress test which was negative for acute ischemia.? 2D echo shows improvement of EF 53% from her baseline 15% in 2019.? At that time she she had cardiac cath found triple-vessel disease and severe mitral regurgitation and referred for CABG with mitral valve repair.? Status post mitral valve repair with annuloplasty ring.? After 1 year she had AICD.? ACS ruled out.? Patient had chronic systolic heart failure. 05/28: ACS ruled out. Patient does not have chest. 2.? Hypotension: She states she is not as aerobic exercise most of the days of the week, she did not feel dizziness or lightheadedness.? In triage her blood pressure was normal 135/85 but decreased to 109/76 about 8?9 PM and then on systolic 80s and immigration specialist today.Patient was resuscitated with IV fluid Ringer lactate bolus.Most recent blood pressure 102/64. 05/28: Patient blood pressure is 140/84. Hypotension resolved. Patient might be hypotensive from hepatobiliary infection. Patient does not meet criteria for sepsis therefore sepsis ruled out. 3.? Acute cholecystitis and dilated CBD probably choledocholithiasis concern of acute cholangitis: Liver chemistry reviewed.? Her liver chemistry was normal in 04/2017.? No liver test since then.? She admitted with total bili 3.1, direct 2.19, ALT 800s, AST 900s alkaline phosphatase 442.? Most probably due to either CBD stone/stricture or other causes of obstructive jaundice.? Right upper quadrant sonogram shows distended GB with mild pericholecystic fluid probable GB polyp.? Dilated CBD.? Small nodule in head of pancreas.? MRCP ordered.? Surgery consulted 05/28: Discussed with surgeon in detail. Patient total bilirubin and direct bilirubin decreasing but is still seems mainly direct hyperbilirubinemia. GI consulted yesterday. Discussed with both of them and plan for MRCP. Patient has thrombocytopenia, platelet count decreased from 266K - 148K, exact etiology unclear. Patient did not hold for SBP less than 130 mmHg but she is chronically on aspirin. The tentative plan is for lap juvenal tomorrow a.m. unless MRCP shows biliary abnormality. Gastrorenal also waiting for MRCP to decide further course whether she needs ERCP. Vitamin K 5 mg IV given as INR was 1.7. Surgeon comfortable with doing INR less than 1.5 and this platelet count. Patient on IV ceftriaxone. 4.? Paroxysmal A. fib, hypertension on amiodarone, metoprolol and warfarin. 05/28: Patient did not had warfarin for 1 week since she was anticipating back injection. She is not taking Plavix. Warfarin is on hold. Continue baby aspirin. Other multiple comorbidities include dyslipidemia, chronic MR status post mitral valve repair, chronic stable asthma, CKD stage III and chronic pain syndrome: Home medication reconciliation done I have discussed my assessment with CLINICAL CYTOGENETICS DIRECTORJoyce and orders have been reviewed. Total time of the visit including total time spent in counseling or coordination of care, (more than 50% of the total time, spent in obtaining medical information from nurses and other ancillary care providers,explaining to the patient about labs, imaging, diagnosis and management of active complex medical conditions), discussion with the last marker Dr. Dorsey and surgery, previous medical record, review of labs and imaging is 45 minutes.? Joyce CLINICAL CYTOGENETICS DIRECTOR spent 15 minutes I spent 25 minutes. Charges/Coding Visit Charges Inpatient E&M: 58455 Subs Hosp L3
[2022-05-28 10:26] LABS: International Normalized Ratio 1.7; Prothrombin Time (Protime)PT. 19.5 SECONDS (11.7-14.9)
--- NOTE | 2022-05-28 12:11 | PN_ITS ---
Subjective Subjective Patient feels better without any abdominal pain or nausea. She denies any chest pain or shortness of breath. Objective Data Objective Data Vital Signs: Vital Signs Temp Pulse Resp BP Pulse Ox O2 Del Method O2 Flow Rate 97.0 F L 65 18 138/89 H 94 Room Air 2 05/29/22 11:12 05/29/22 11:12 05/29/22 11:12 05/29/22 11:12 05/29/22 11:12 05/29/22 11:12 05/29/22 05:43 Oxygen Flow Rate (L/min) 2 Oxygen Delivery Method Room Air Weight: 228 lb 9.91 oz Body Mass Index (BMI) 36.6 Intake & Output: Intake and Output for Last 24 Hours 05/27/22 05/28/22 05/29/22 23:59 23:59 23:59 Intake Total 2907.5 / 2907.5 1000.5 / 1000.5 1242.50 / 1242.50 Balance 2907.5 / 2907.5 1000.5 / 1000.5 1242.50 / 1242.50 Lab / Micro Data Result Diagrams: 05/29/22 04:10 05/29/22 04:10 Labs: Laboratory Results - last 24 hr 05/29/22 04:10: WBC 3.3 L, RBC 3.46 L, Hgb 10.4 L, Hct 32.4 L, MCV 93.6, MCH 30.1, MCHC 32.1, RDW Std Deviation 48.8 H, RDW Coeff of [place] 14.4, Plt Count 143 L, MPV 9.6, Immature Gran % (Auto) 0.300, Neut % (Auto) 72.7 H, Lymph % (Auto) 16.8 L, [place] % (Auto) 6.6, Eos % (Auto) 2.7, Baso % (Auto) 0.9, Absolute Neuts (auto) 2.4, Absolute Lymphs (auto) 0.56 L, Nucleated RBC % 0, Diff Path Review January britney, Platelet Estimate SLT 05/29/22 04:10: PT 14.7, INR 1.2 05/29/22 04:10: Sodium 142, Potassium 3.3 L, Chloride 105, Carbon Dioxide 29.0, Anion Gap 8, BUN 15, Creatinine 0.90, Estim Creat Clear Calc 49.00, Est GFR (MDRD) Af Amer 77, Est GFR (MDRD) Non-Af 64, BUN/Creatinine Ratio 16.6, Glucose 91, Calcium 8.1 L, Total Bilirubin 0.70, Direct Bilirubin 0.45 H, AST 128 H, ALT 317 H, Alkaline Phosphatase 305 H, Total Protein 5.3 L, Albumin 2.5 L, Globulin 2.8 Rhythm Strip Rhythm Strip: paced Rate: 65 Ectopy: None Physical Exam Const oriented x3 and no apparent distress Resp normal respiratory effort GI GI Narrative: Nondistended, soft, tender to palpation right upper quadrant Assessment & Plan Assessment/Plan (1) Abnormal gallbladder ultrasound: PLAN: Acute cholecystitis. Patient will be scheduled for cholecystectomy to moro. She is on antibiotic therapy. She continues to be afebrile. The plan is to do an intraoperative cholangiogram during the cholecystectomy to see if there are any filling defects. (2) Common bile duct dilatation: PLAN: Patient has a pacemaker in she is not able to get a MRCP today. We will wait till tomorrow to get the MRCP to evaluate the hepatobiliary system. She like we will get that Intra-Op cholangiogram that hopefully be able to see if she there is any filling defects in the common bile duct. (3) Transaminitis: PLAN: Her LFTs continue to improve. I think this was more obstructive physiology secondary to choledocholithiasis from cholecystitis. Also in the differential diagnosis would be Mirizzi syndrome causing extrinsic compression of the common bile duct leading to cholestatic hepatitis with jaundice. Charges/Coding Visit Charges Inpatient E&M: 78942 Subs Hosp L2
[2022-05-28] MEDS: Lactated Ringers 1,000 ML 75 ML IV (18:12)
[2022-05-28] MEDS: Aspirin 81 MG TAB.CHEW PO (20:21)
[2022-05-28] MEDS: SACUBITRIL/VALSARTAN 24/26 MG TABLET 1 EACH PO (20:24)
[2022-05-28] MEDS: Latanoprost 0.005% 1 Bottle 1 DRP EACH EYE (20:25)
[2022-05-29] VITALS (17 sets, daily range): BP systolic 101–138; BP diastolic 68–89; PULSE 60–69; RESP 12–18; TEMP 36.1–36.8; O2SAT 93–100
[2022-05-29] MEDS: oxyCODONE 5 MG Tablet 10 MG PO ×2 (03:59→16:44)
[2022-05-29] MEDS: Acetaminophen 325 MG Tablet 650 MG PO (03:59)
[2022-05-29] MEDS: DiphenhydrAMINE 25 MG Capsule PO ×2 (04:00→21:17)
[2022-05-29] MEDS: Lactated Ringers 1,000 ML 75 ML IV (04:03)
[2022-05-29 04:18] LABS: Absolute Lymphocyte Count 0.56 X10^3/uL (0.83-4.51); Absolute Neutrophil Count 2.4 X10^3/uL (2.0-7.7); Basophil# 0.03 X10^3/uL; Basophil% 0.9 % (0-1); Eosinophil# 0.09 X10^3/uL; Eosinophils% 2.7 % (0-5); Hematocrit 32.4 % (37-47); Hemoglobin 10.4 g/dL (12.0-15.0); Lymphocyte # 0.56 X10^3/ul (0.83-4.51); Lymphocyte % 16.8 % (19-41); Mean Corp Hgb Conc 32.1 g/dL (32-36); Mean Corpuscular Hgb 30.1 pg (27.0-32.0); Mean Corpuscular Volume 93.6 fL (81-99); Mean Platelet Vol. 9.6 fl (6.2-12.0); Monocyte# 0.22 X10^3/uL; Monocyte% 6.6 % (0-10); NRBC Flagged by Analyzer 0 % (0-5); Neutrophil # 2.42 X10^3/uL (2.7-7.7); Neutrophil % 72.7 % (47-70); POSITIVE DIFFERENTIAL YES; Platelet Count 143 K/mm3 (150-450); RBC Distribution Width CV 14.4 % (11.6-14.6); RBC Distribution Width SD 48.8 fl (35.1-43.9); Red Blood Count 3.46 M/mm3 (4.2-5.4); White Blood Count 3.3 K/mm3 (4.4-11.0)
[2022-05-29 04:19] LABS: Differential Indicated SCAN CRITERIA MET
[2022-05-29 04:40] LABS: AST(SGOT) 128 U/L (15-37); Alanine Aminotransfer ALT/SGPT 317 U/L (13-56); Albumin, Serum 2.5 g/dL (3.2-5.0); Alkaline Phosphatase 305 U/L (45-117); Anion Gap 8 (5-15); BUN 15 mg/dL (7-18); BUN/Creat Ratio 16.6 RATIO (10-20); Bilirubin, Direct 0.45 mg/dL (0.00-0.30); Calcium,Total 8.1 mg/dL (8.5-10.1); Chloride 105 mmol/L (98-107); EST Glomerular Filtration Rate 64 mL/min (>60); Est Glom Filt Rate - Afr Amer 77 mL/min (>60); Globulin 2.8 g/dL (2.2-4.2); Glucose 91 mg/dL (74-106); Potassium 3.3 mmol/L (3.5-5.1); Protein, Total 5.3 g/dL (6.4-8.2); Sodium Level 142 mmol/L (136-145)
[2022-05-29 04:42] LABS: International Normalized Ratio 1.2; Prothrombin Time (Protime)PT. 14.7 SECONDS (11.7-14.9)
[2022-05-29 06:13] LABS: Platelet Estimate SLT DEC (ADEQ)
--- NOTE | 2022-05-29 07:35 | RAD_ITS ---
STUDY: INTRAOPERATIVE CHOLANGIOGRAM. REASON FOR EXAM: Female, 76 years old. LAP HÉCTOR, elevated LFT, atypical chest pain FLUOROSCOPY TIME (if supplied): ( 1 minute and 43 seconds ) minutes/seconds. A cine loop of 107 images was submitted. TECHNIQUE: An intraoperative cholangiogram was performed by the surgeon. Imaging was submitted. COMPARISON: None. FINDINGS: There is dilatation of the common bile duct. There is narrowing in the distal portion of the duct. Small amount of contrast is seen entering the duodenum. A neoplastic process should be ruled out. RAD/Cholangiogram/ O R,Initial IMPRESSION: Dilatation of the common bile duct with narrowing in its most distal portion with a small amount of contrast entering the duodenum. A neoplastic process should be ruled out. Electronically Signed: Julio Rubio MD at 8:38 EDT ,
[2022-05-29] MEDS: Famotidine 20 MG Tablet PO ×2 (08:39→21:12)
[2022-05-29] MEDS: Loratadine 10 MG Tablet PO (08:39)
[2022-05-29] MEDS: Amiodarone 200 MG Tablet 100 MG PO ×2 (08:40→21:10)
[2022-05-29] MEDS: Furosemide 40 MG Tablet PO (08:40)
[2022-05-29] MEDS: Metoprolol(XL)Succ 100 MG Tablet PO (08:40)
--- NOTE | 2022-05-29 08:40 | PN.SURG_ITS ---
Subjective Subjective Patient was seen and examined during AM rounds. She reports continued improvement with her discomfort. She also reports ongoing itchiness for which she has required Benadryl. Objective Data Objective Data Vital Signs: Vital Signs Temp Pulse Resp BP Pulse Ox O2 Del Method O2 Flow Rate 97.8 F 60 15 132/68 H 94 Room Air 2 05/29/22 08:28 05/29/22 08:28 05/29/22 08:28 05/29/22 08:28 05/29/22 08:28 05/29/22 08:28 05/29/22 05:43 Oxygen Flow Rate (L/min) 2 Oxygen Delivery Method Room Air Weight: 228 lb 9.91 oz Body Mass Index (BMI) 36.6 Intake & Output: Intake and Output for Last 24 Hours 05/27/22 05/28/22 05/29/22 23:59 23:59 23:59 Intake Total 2907.5 / 2907.5 1000.5 / 1000.5 738.75 / 738.75 Balance 2907.5 / 2907.5 1000.5 / 1000.5 738.75 / 738.75 Lab / Micro Data Result Diagrams: 05/29/22 04:10 05/29/22 04:10 Labs: Laboratory Results - last 24 hr 05/28/22 04:36: Direct Bilirubin 1.13 H 05/28/22 10:00: PT 19.5 H, INR 1.7 05/29/22 04:10: WBC 3.3 L, RBC 3.46 L, Hgb 10.4 L, Hct 32.4 L, MCV 93.6, MCH 30.1, MCHC 32.1, RDW Std Deviation 48.8 H, RDW Coeff of Jackson 14.4, Plt Count 143 L, MPV 9.6, Immature Gran % (Auto) 0.300, Neut % (Auto) 72.7 H, Lymph % (Auto) 16.8 L, [place] % (Auto) 6.6, Eos % (Auto) 2.7, Baso % (Auto) 0.9, Absolute Neuts (auto) 2.4, Absolute Lymphs (auto) 0.56 L, Nucleated RBC % 0, Diff Path Review January, Platelet Estimate SLT 05/29/22 04:10: PT 14.7, INR 1.2 05/29/22 04:10: Sodium 142, Potassium 3.3 L, Chloride 105, Carbon Dioxide 29.0, Anion Gap 8, BUN 15, Creatinine 0.90, Estim Creat Clear Calc 49.00, Est GFR (MDRD) Af Amer 77, Est GFR (MDRD) Non-Af 64, BUN/Creatinine Ratio 16.6, Glucose 91, Calcium 8.1 L, Total Bilirubin 0.70, Direct Bilirubin 0.45 H, AST 128 H, ALT 317 H, Alkaline Phosphatase 305 H, Total Protein 5.3 L, Albumin 2.5 L, Globulin 2.8 Rhythm Strip Rhythm Strip: paced Rate: 65 Ectopy: None Physical Exam Const oriented x3 and no apparent distress Resp normal respiratory effort GI GI Narrative: Nondistended, soft, tender to palpation right upper quadrant Assessment & Plan Assessment/Plan (1) Transaminitis: (2) Common bile duct dilatation: (3) Abnormal gallbladder ultrasound: PLAN: Plan This is a 76-year-old female with a complex medical history?owing to a extensive cardiac history?who presents with acute onset upper abdominal pain and asso ciated vomiting. Patient initially believed this was cardiac pain, but has passed extensive cardiac work-up without significant findings. In contrast, her laboratories and right upper quadrant ultrasound yesterday suggest probable gallbladder pathology. Yet, given cholestatic pattern, a vague nodular density of the pancreas, and a family history of pancreatic cancer a neoplastic process remains in the differential. She is awaiting MRCP to better investigate these differential possibilities. At this time it is still a little unclear as to when patient will be able to obtain the MRCP is this is contingent on a device rep being able to present for deactivation of patient's ICD. Given the patient's ongoing right upper quadrant discomfort and laboratory trend, I remain highly suspicious for stone disease with resolving choledocholithiasis and persistent cholecystitis. Therefore, I have counseled patient that I recommend proceeding to the operating room for cholecystectomy. If patient is able to go for an MRCP prior to the procedure and this will only add to the information we have to work with in her case. While patient does have a significant reaction to iodine, we are dependent on this contrast for obtaining a cholangiogram, and as such I have asked medicine to begin pretreatment for this contrast with steroids and Benadryl. I have shared with patient that we will look to use dilute iodinated contrast media and that she will be intubated with this pretreatment on board before she receives contrast. Furthermore, this contrast will not be administered intravenously but into the biliary system. I see this is a necessary step given the risk of a retained stone since patient's laboratories are not normalized just yet.
[2022-05-29] MEDS: SACUBITRIL/VALSARTAN 24/26 MG TABLET 1 EACH PO ×2 (08:43→21:11)
[2022-05-29] MEDS: oxyCODONE HCl Cr 10 MG Tablet PO ×2 (08:47→21:11)
--- NOTE | 2022-05-29 10:33 | NURSING ---
Report jerrica Quick in ac gave report and instructions and importance of benadryl and solumedrol with contrast allergy
[2022-05-29] MEDS: DiphenhydrAMINE 50 MG/ML Syringe IV (11:23)
--- NOTE | 2022-05-29 12:00 | GALL_PTH ---
PATIENT: DEON SAMAYOA LOC: [facility] U#:[id number] AGE/SX: 76/F ROOM: [facility] RE05/27/[address]: Dr. Tono Murrell MD : [id number] BED: 1 DIS: 05/30/2022 SPEC #: [id number] RECD: 05/30/22 09:31 STATUS: KATHRINE BARAHONA #: [id number] REID: 05/29/22 12:[address]: Steve Norman DEPT: SURGICAL PATHOLOGY RECD BY: Zahida Garcia ENTERED: 05/30/22 09:54 SP TYPE: GALLBLADDE OTHR DR: MD Dr. Steve Hernández MD Dr. Nicholas F Kotsonis, MD Dr. Prakash Chand, MD Carolyn Graham, MUSHROOM GROWER-C Tissues: Gallbladder, NOS Procedures: Surgery Specimen Level III Comments: @ Ordering doctor for SUIII edited from to @ by CHECO at 05/30/22 1355 @ Submitting doctor edited from to @ by CHECO at 05/30/22 1358 HEADER OPERATION: Laparoscopic cholecystectomy with IOC PRE-OP DIAGNOSIS: Transaminitis, common bile duct dilation, abnormal gallbladder ultrasound TISSUE SUBMITTED: Gallbladder MICROSCOPIC DIAGNOSIS Gallbladder, cholecystectomy: Chronic cholecystitis. AM:priti 05/31/2022 MICROSCOPIC DESCRIPTION Slides are reviewed. GROSS DESCRIPTION Received is one container labeled with the patient's name and designated gallbladder. The specimen consists of a gallbladder measuring 12 cm in length and up to 5.5 cm in diameter. The external surface is pink-rea, smooth and glistening for the most part. Focally it is granular, hemorrhagic and contains cautery artifact. The gallbladder contains green-yellow mucoid bile. No stones are identified in the container or in the gallbladder. The mucosa is bile-stained and without any mass lesions. The gallbladder wall measures up to 0.2 cm in thickness. Information Systems Coordinator sections from the gallbladder and the cystic duct are submitted in one cassette. / JOSE LUIS:priti 05/30/2022 TC:3 CPT: 38081
--- NOTE | 2022-05-29 12:20 | SUR.PREOP ---
Spoke with Stephen from [employer] who states magnet is needed for cautery. If a fixed rate of 60 or above is required, then progamming from the rep would be required.
[2022-05-29] MEDS: Cefazolin 2 GM in 0.9% Normal Saline 100 ML IV (12:27)
[2022-05-29 12:42] LABS: Pathologist Review Reviewed
[2022-05-29 12:46] LABS: Pathologist Review Reviewed
--- NOTE | 2022-05-29 12:46 | PCM.PN.HOSP ---
Documented by User: Joyce Davis NP, REVENUE RESEARCH ANALYST-C 05/29/22 12:55 Subjective Subjective Patient seen and examined. Reports improvement in generalized itching. Denies rash. Denies abdominal pain. To undergo cholecystectomy. Objective Data Objective Data Vital Signs: Vital Signs Temp Pulse Resp BP Pulse Ox O2 Del Method O2 Flow Rate 97.0 F L 65 18 138/89 H 94 Room Air 2 05/29/22 11:12 05/29/22 11:12 05/29/22 11:12 05/29/22 11:12 05/29/22 11:12 05/29/22 11:12 05/29/22 05:43 Oxygen Flow Rate (L/min) 2 Oxygen Delivery Method Room Air Weight: 228 lb 9.91 oz Body Mass Index (BMI) 36.6 Intake & Output: Intake and Output for Last 24 Hours 05/27/22 05/28/22 05/29/22 23:59 23:59 23:59 Intake Total 2907.5 / 2907.5 1000.5 / 1000.5 1242.50 / 1242.50 Balance 2907.5 / 2907.5 1000.5 / 1000.5 1242.50 / 1242.50 Lab / Micro Data Result Diagrams: 05/29/22 04:10 05/29/22 04:10 Labs: Laboratory Results - last 24 hr 05/28/22 04:36: Diff Path Review Reviewed 05/29/22 04:10: WBC 3.3 L, RBC 3.46 L, Hgb 10.4 L, Hct 32.4 L, MCV 93.6, MCH 30.1, MCHC 32.1, RDW Std Deviation 48.8 H, RDW Coeff of Jackson 14.4, Plt Count 143 L, MPV 9.6, Immature Gran % (Auto) 0.300, Neut % (Auto) 72.7 H, Lymph % (Auto) 16.8 L, [place] % (Auto) 6.6, Eos % (Auto) 2.7, Baso % (Auto) 0.9, Absolute Neuts (auto) 2.4, Absolute Lymphs (auto) 0.56 L, Nucleated RBC % 0, Diff Path Review Reviewed, Platelet Estimate SLT 05/29/22 04:10: PT 14.7, INR 1.2 09/26/22 04:10: Sodium 142, Potassium 3.3 L, Chloride 105, Carbon Dioxide 29.0, Anion Gap 8, BUN 15, Creatinine 0.90, Estim Creat Clear Calc 49.00, Est GFR (MDRD) Af Amer 77, Est GFR (MDRD) Non-Af 64, BUN/Creatinine Ratio 16.6, Glucose 91, Calcium 8.1 L, Total Bilirubin 0.70, Direct Bilirubin 0.45 H, AST 128 H, ALT 317 H, Alkaline Phosphatase 305 H, Total Protein 5.3 L, Albumin 2.5 L, Globulin 2.8 Rhythm Strip Rhythm Strip: paced Rate: 65 Ectopy: None Physical Exam Const alert, oriented x3 and no apparent distress HEENT normocephalic and moist oral mucous membranes Eyes PERRL, EOMs intact bilaterally and conjunctivae normal Neck no lymphadenopathy Resp normal respiratory effort and clear to auscultation bilaterally Cardio regular rate, regular rhythm and no murmurs Peripheral Pulses: pulses 2+ throughout GI normal to inspection, nondistended, normoactive bowel sounds, non-tender and non-distended Extremity normal to inspection Skin no rashes or lesions noted Lesions: no lesions Rashes: no rashes Trauma: no lacerations or abrasions Neuro CN's II-XII intact bilaterally, no focal motor deficits, no sensory deficits noted and deep tendon reflexes 2+ bilaterally Psych mental status grossly normal and affect normal Assessment & Plan Assessment/Plan (1) Abnormal gallbladder ultrasound: (2) Common bile duct dilatation: PLAN: Plan 1.?Acute Cholecystitis with suspected choledocholithiasis-IV Rocephin.? Gallbladder ultrasound with distended gallbladder and dilated common bile duct as well as small nodule in the head of the pancreas.? General surgery and GI consulted.? Plan for laparoscopic cholecystectomy with intraoperative cholangiogram. Coumadin on hold. 2. Hypotension-patient reports this has been ongoing as outpatient and medications have been adjusted.? BP hold parameters in place.? Hypotension resolved. 3. Chest pain-troponin negative.? EKG without ST-T changes.? Stress test negative for ischemia.? Echo with EF 53%. 4.? History of ischemic cardiomyopathy/CAD-status post AICD.? History of CABG.? Stable.? Continue medical management. Prior echo in 2019 with EF 19%. Repeat echo with EF 53%, mild systolic dysfunction. 5. Paroxysmal atrial fibrillation-continue amiodarone, metoprolol.? Coumadin on hold. 6. Hypertension-continue home regimen with hold parameters in place. 7. Hyperlipidemia-continue statin. 8. Severe mitral valve insufficiency-history of mitral valve repair.? 9. Chronic asthma-as needed albuterol aerosol. 10. Chronic kidney disease stage IIIa-appears at baseline 11. History of TIA-on aspirin, statin. 12. Chronic pain syndrome-upcoming back injection.? On long-acting narcotic regimen.? Follows with pain management. DVT prophylaxis- Coumadin on hold, SCDs This patient was seen by TY Cortez under the supervision of Dr. Murrell. Time spent examining patient, reviewing data and subsequent management of care: 13 minutes Documented by User: Dr. Tono Murrell MD 05/29/22 13:33 Objective Data Lab / Micro Data Result Diagrams: 05/29/22 04:10 05/29/22 04:10 Assessment & Plan Assessment/Plan (1) Abnormal gallbladder ultrasound: (2) Common bile duct dilatation: Charges/Coding Addendum Addendum: Addendum: Dr. Murrell I personally examined the patient and reviewed the chart. I agree with the above. 76-year-old female presents to the hospital with abdominal pain. She is found to have acute cholecystitis she was also having some chest pain so she did have a cardiac work-up which demonstrated an EF of 53% on echo with mild systolic dysfunction, this was better than the EF in 2019 which was 19%. She does have an anaphylactic reaction to contrast dye, and we are going to do a cholangiogram today therefore we will give her dose of IV steroids as well as a dose of IV Benadryl prior to surgery. Clinical time spent in all aspects of patient care: 20 minutes Visit Charges Inpatient E&M: 34397 Subs Hosp L2
--- NOTE | 2022-05-29 14:29 | PCM.OPRPT ---
Report of Operation Date of Procedure: 05/29/22 Pre-Operative Diagnosis: Acute cholecystitis with abnormal liver function testing Post-Operative Diagnosis: Acute cholecystitis with dilated common bile duct but no distal filling defects visible Surgery/Procedure Performed:: Laparoscopic cholecystectomy with intraoperative cholangiogram Description of Surgical Findings:: ? Cholangiogram showing delayed filling of the duodenum, but no obvious filling defects. There is dilation of the common bile duct and initial difficulty in visualizing retrograde flow into the common hepatic and right and left hepatic ducts, however, this was facilitated with positioning the patient in Trendelenburg ? Superficial course of the right hepatic artery Surgeon: Steve Norman respiratory clinician: Chandni Terrazas Type of Anesthesia: General/Supplemental Anesthesiologist: Dalton Massey Special Medications: *Omnipaque contrast administered for the cholangiogram was diluted one-to-one given patient's allergy. *Note: Patient was pretreated with steroids and Benadryl given history of anaphylaxis to iodinated contrast Specimen's removed: Gallbladder Drains: None Estimated Blood Loss (mL): 20 Description of Procedure: After proper identification in the preoperative holding area the patient was brought to the operating room where positioned supine on the operating room table. Preoperatively SCDs were placed and antibiotics were administered (an interval dose of cefazolin was given since patient was receiving only ceftriaxone once every 24 hours). General anesthesia was then induced. Patient's abdomen was prepped and draped in usual sterile fashion. A magnet was placed over the patient's pacemaker as directed by the device rep for her AICD/pacemaker by anesthesia. A formal timeout was conducted to confirm both patient and the procedure. Procedure was begun with a supraumbilical incision which was extended deeply down to the level of the fascia. The fascia was elevated and incised, as well as the peritoneum. A finger sweep was performed to ensure there were no underlying adhesions and a 12 mm balloon trocar was inserted. Pneumoperitoneum was established at 15 mmHg. 3 additional trocars were placed in the epigastrium and in the right upper quadrant (3 x 5 mm). Inspection of the peritoneum revealed no inadvertent injury to the viscera below. The gallbladder was visualized with significant distention and mild to moderate inflammation. The gallbladder could not initially be grasped due to its distention, so an aspiration needle was attached to the suction-surgical elastic knitter hand frame device and the gallbladder was punctured so that a significant volume of its bile could be drained. The fundus was then grasped and elevated cephalad. Then, using careful dissection, the peritoneum was opened and the structures of the hepatocystic triangle were delineated. There appeared to be a diverticular outpouching of the cystic duct distally so I dissected more proximally until the cystic duct narrowed. Additionally, the cystic artery was not immediately visible despite dissecting almost to the cystic plate. In order to confirm our anatomy as it was, I elected to perform a cholangiogram at this time. A single clip was placed distally along the cystic duct and a ductotomy was created resulting in immediate backflow of bile. I then milked the cystic duct back to this ductotomy to ensure there were no obstructing stones. Using an Burgos Manuel clamp, a cholangiocatheter was fed into the proximal segment of the cystic duct and clamped into place. This proved somewhat challenging as the catheter continued to find the diverticular outpouching of the cystic duct, but ultimately we were able to provide near complete occlusion and a flush test showed relatively low resistance. Under fluoroscopy a cholangiogram was then obtained showing a standard length cystic duct flowing into a dilated common bile duct with delayed antegrade flow of contrast into the duodenum. I initially believed there were a few small filling defects distally, but these resolved with subsequent imaging. Initially, there was also no retrograde flow through the common hepatic duct into the right and left hepatic ducts and this portion of the image was somewhat obscured by the extravasation we are experiencing at the catheter insertion site. Therefore I interrupted the procedure to suction free the contrast about the cystic duct and irrigate as much of the extravasated contrast as possible. Patient was also placed in Trendelenburg and I repeated the injection of contrast under cine. This time I was able to see at least partial opacification of the right and left hepatic ducts. With this result, this portion of the procedure was terminated and the cholangiocatheter was withdrawn. The cystic duct was triply clipped and sharply divided. A diminutive structure that did not appear to have a patent lumen anymore was doubly clipped proximally and cauterized. I then performed some more meticulous blunt dissection approaching the cystic plate and found a artery a centimeter from the gallbladder fossa making a right angle turn along the gallbladder surface. This was clearly entering the gallbladder and not the liver. A window was made on the other side of the artery and it was clipped and divided. The gallbladder was then removed from the gallbladder fossa with the use of electrocautery. As I did there was a very small bleeding vessel projecting directly out from the liver with pulsatile flow. This appeared to be an arterial coming off of a much larger vessel just beneath the parenchymal surface. I was concerned this was a very superficial course of the right hepatic artery so I placed this small arterial on traction and singly clipped it. This resulted in hemostasis without impinging upon the lumen of the main vessel and the gallbladder fossa was reinspected after irrigating. There appeared to be complete hemostasis along the fossa as well. The gallbladder was placed in an Endo Catch bag and removed from the peritoneum. Morison's pouch was irrigated and the effluent was suctioned free of the peritoneum. Hemostasis was again confirmed. Pneumoperitoneum was evacuated and the fascia of the 12 mm port site was closed with #1Vicryl in a [id number] fashion. A total of 30 mL of anesthetic was injected at the port sites for postoperative pain control. The skin of each port site was then closed in subcuticular fashion using 4-0 Monocryl. Steri-Strips and bandages were applied as dressings. Patient tolerated the procedure well without any apparent complications. On emergence from their anesthetic the patient was taken to PACU for ongoing recovery. Complications None Admit VTE Documentation VTE Mechan Device Prophylaxis: SCD's Procedures Digestive [id number]-49xxx: [id number] Laparo cholecystectomy/graph
--- NOTE | 2022-05-29 15:06 | EKG12_ITS ---
Test Reason : Blood Pressure : / mmHG Vent. Rate : 060 BPM Atrial Rate : 234 BPM P-R Int : 000 ms QRS Dur : 148 ms QT Int : 510 ms P-R-T Axes : 000 124 096 degrees QTc Int : 510 ms Ventricular-paced rhythm Abnormal ECG Confirmed by DARWIN AVILES, LUCINDA ([id number]), features editor REKHA PITT ([id number]) on 05/31/2022 9:11:47 AM Referred By: Confirmed By:LUCINDA GRANADOS MD
--- NOTE | 2022-05-29 15:07 | CASEMGMT ---
RN CM attempted several times to complete assessment. Patient is out of room for procedure. RN CM will attempt assessment again at later time.
--- NOTE | 2022-05-29 15:08 | SUR.PHASEI ---
Spoke with Stephen from [employer] regarding twitching in patient's chest after magnet was removed post operatively. Stephen states patient's device is biventricular and that a nerve could have been stimulated. Stephen states this is not an uncommon occurance and will come see the patient in PCU tomorrow to check device. Device continues to pace at this time. EKG obtained per Dr. Massey
--- NOTE | 2022-05-29 15:39 | SUR.PHASEI ---
med rep, Stephen, going to come in to see pt kia. pt states pain where pacer is pacing. very uncomfortable rates 04/12
--- NOTE | 2022-05-29 16:25 | EKG12_ITS ---
Test Reason : POST OP Blood Pressure : / mmHG Vent. Rate : 064 BPM Atrial Rate : 250 BPM P-R Int : 000 ms QRS Dur : 158 ms QT Int : 494 ms P-R-T Axes : 000 143 076 degrees QTc Int : 509 ms Ventricular-paced rhythm with occasional AV dual-paced complexes Biventricular pacemaker detected Abnormal ECG Confirmed by DARWIN AVILES, LUCINDA ([id number]), publishing editor REKHA PITT ([id number]) on 05/31/2022 9:22:43 AM Referred By: ROMARIO Confirmed By:LUCINDA GRANADOS MD
[2022-05-29] MEDS: Potassium Chloride Oral Tablet 20 MEQ 40 MEQ PO (16:43)
[2022-05-29] MEDS: Aspirin 81 MG TAB.CHEW PO (21:10)
[2022-05-29] MEDS: Latanoprost 0.005% 1 Bottle 1 DRP EACH EYE (21:12)
[2022-05-30] VITALS (10 sets, daily range): BP systolic 110–123; BP diastolic 59–61; PULSE 58–66; RESP 15–18; TEMP 36.5–36.6; O2SAT 91–95
[2022-05-30] MEDS: Acetaminophen 325 MG Tablet 650 MG PO (05:19)
[2022-05-30] MEDS: DiphenhydrAMINE 25 MG Capsule PO (05:19)
[2022-05-30] MEDS: oxyCODONE 5 MG Tablet 10 MG PO (05:20)
--- NOTE | 2022-05-30 05:22 | NURSING ---
patient requesting to have SCDs off
[2022-05-30 05:44] LABS: Absolute Lymphocyte Count 0.49 X10^3/uL (0.83-4.51); Absolute Neutrophil Count 5.4 X10^3/uL (2.0-7.7); Basophil# 0.01 X10^3/uL; Basophil% 0.2 % (0-1); Hematocrit 32.8 % (37-47); Hemoglobin 10.7 g/dL (12.0-15.0); Lymphocyte # 0.49 X10^3/ul (0.83-4.51); Lymphocyte % 7.9 % (19-41); Mean Corp Hgb Conc 32.6 g/dL (32-36); Mean Corpuscular Hgb 30.4 pg (27.0-32.0); Mean Corpuscular Volume 93.2 fL (81-99); Mean Platelet Vol. 9.8 fl (6.2-12.0); Monocyte# 0.26 X10^3/uL; Monocyte% 4.2 % (0-10); NRBC Flagged by Analyzer 0 % (0-5); Neutrophil # 5.44 X10^3/uL (2.7-7.7); Neutrophil % 87.4 % (47-70); POSITIVE DIFFERENTIAL YES; Platelet Count 202 K/mm3 (150-450); RBC Distribution Width CV 14.2 % (11.6-14.6); RBC Distribution Width SD 47.8 fl (35.1-43.9); Red Blood Count 3.52 M/mm3 (4.2-5.4); White Blood Count 6.2 K/mm3 (4.4-11.0)
[2022-05-30 05:47] LABS: Differential Indicated SCAN CRITERIA MET
[2022-05-30 05:58] LABS: Differential Comment SCANNED
[2022-05-30 06:10] LABS: ALB/GLOB Ratio 0.8 RATIO (0.9-2.4); AST(SGOT) 51 U/L (15-37); Alanine Aminotransfer ALT/SGPT 210 U/L (13-56); Albumin, Serum 2.6 g/dL (3.2-5.0); Alkaline Phosphatase 278 U/L (45-117); Anion Gap 8 (5-15); BUN 14 mg/dL (7-18); BUN/Creat Ratio 14.9 RATIO (10-20); Bilirubin, Direct 0.33 mg/dL (0.00-0.30); Calcium,Total 8.4 mg/dL (8.5-10.1); Chloride 104 mmol/L (98-107); Creatinine, Serum 0.94 mg/dL (0.55-1.02); EST Glomerular Filtration Rate 61 mL/min (>60); Est Glom Filt Rate - Afr Amer 74 mL/min (>60); Estimated Creatinine Clearance 46.92 ml/min; Globulin 3.1 g/dL (2.2-4.2); Glucose 133 mg/dL (74-106); Potassium 3.6 mmol/L (3.5-5.1); Protein, Total 5.7 g/dL (6.4-8.2); Sodium Level 142 mmol/L (136-145)
[2022-05-30 07:08] LABS: HEPATITIS B SURFACE AG Negative (Negative); Hep C Antibodies <0.1 s/co ratio (0.0-0.9); Hepatitis A IgM Antibody Negative (Negative); Hepatitis B Core AB IgM Negative (Negative)
--- NOTE | 2022-05-30 07:32 | PN.SURG_ITS ---
Subjective Subjective Patient seen and examined during AM rounds. She is found resting comfortably in bed. She states she has some postoperative soreness from moving about, but has confirmed resolution of the right upper quadrant abdominal pain with what she initially presented. She is eager to advance her diet. Objective Data Objective Data Vital Signs: Vital Signs Temp Pulse Resp BP Pulse Ox O2 Del Method O2 Flow Rate 97.7 F L 64 16 123/61 H 92 Room Air 2 05/30/22 05:00 05/30/22 05:00 05/30/22 05:00 05/30/22 05:00 05/30/22 05:00 05/30/22 05:00 05/30/22 05:00 Oxygen Flow Rate (L/min) 2 Oxygen Delivery Method Room Air Weight: 228 lb 9.91 oz Body Mass Index (BMI) 36.6 Intake & Output: Intake and Output for Last 24 Hours 05/28/22 05/29/22 05/30/22 23:59 23:59 23:59 Intake Total 1000.5 / 1000.5 Balance 1000.5 / 1000.5 Lab / Micro Data Result Diagrams: 05/30/22 05:20 05/30/22 05:20 Labs: Laboratory Results - last 24 hr 05/28/22 04:36: Diff Path Review Reviewed 05/29/22 04:10: Diff Path Review Reviewed 05/30/22 05:20: Sodium 142, Potassium 3.6, Chloride 104, Carbon Dioxide 30.0, Anion Gap 8, BUN 14, Creatinine 0.94, Estim Creat Clear Calc 46.92, Est GFR (MDRD) Af Amer 74, Est GFR (MDRD) Non-Af 61, BUN/Creatinine Ratio 14.9, Glucose 133 H, Calcium 8.4 L, Total Bilirubin 0.70, Direct Bilirubin 0.33 H, AST 51 H, ALT 210 H, Alkaline Phosphatase 278 H, Total Protein 5.7 L, Albumin 2.6 L, Globulin 3.1, Albumin/Globulin Ratio 0.8 L 05/30/22 05:20: WBC 6.2, RBC 3.52 L, Hgb 10.7 L, Hct 32.8 L, MCV 93.2, MCH 30.4, MCHC 32.6, RDW Std Deviation 47.8 H, RDW Coeff of Jackson 14.2, Plt Count 202, MPV 9.8, Immature Gran % (Auto) 0.300, Neut % (Auto) 87.4 H, Lymph % (Auto) 7.9 L, Carl[place] % (Auto) 4.2, Eos % (Auto) 0.0, Baso % (Auto) 0.2, Absolute Neuts (auto) 5.4, Absolute Lymphs (auto) 0.49 L, Nucleated RBC % 0, Differential Comment SCANNED Rhythm Strip Rhythm Strip: paced Rate: 65 Ectopy: None Physical Exam Const oriented x3 and no apparent distress Resp normal respiratory effort GI GI Narrative: Nondistended, soft, operative dressings remain intact without strikethrough. Patient is minimally tender to palpation right about her incisions and otherwise exam is unremarkable Assessment & Plan Assessment/Plan (1) Transaminitis: (2) Common bile duct dilatation: (3) Abnormal gallbladder ultrasound: PLAN: Plan This is a 76-year-old female with a complex medical history?owing to a extensive cardiac history?who presents with acute onset upper abdominal pain and associa alvaro vomiting. Patient initially believed this was cardiac pain, but has passed extensive cardiac work-up without significant findings. In contrast, her laboratories and right upper quadrant ultrasound yesterday suggest probable gallbladder pathology. Yet, given cholestatic pattern, a vague nodular density of the pancreas, and a family history of pancreatic cancer a neoplastic process remains in the differential. We initially waited an MRCP to help better investigate those differential possibilities, however there was a delay and getting this imaging done due to her coexisting pacer/AICD. Not wanting to delay her treatment further and obtain answers I chose to take her for laparoscopic cholecystectomy with intraoperative cholangiogram yesterday 05/29/2022 Patient is postoperative day 1 and feeling well following her procedure. She has some expected soreness, otherwise her exam is unremarkable. Her labs show further downtrend and her near normal. Cholangiogram did show a dilated common duct, but at the completion film I did not see any filling defects. This seems to further confirm her suspicion for passage of a stone. From a surgical standpoint patient can be advanced to a regular diet. If she tolerates that she would be eligible for discharge as long as primary team and gastroenterology have no further treatment plans for this admission. Should patient discharge, I would request outpatient follow-up in 7 to 10 days. Charges/Coding Visit Charges Inpatient E&M: 99419 Subs Hosp L2
[2022-05-30] MEDS: Famotidine 20 MG Tablet PO (08:31)
[2022-05-30] MEDS: Furosemide 40 MG Tablet PO (08:31)
[2022-05-30] MEDS: Loratadine 10 MG Tablet PO (08:32)
[2022-05-30] MEDS: Amiodarone 200 MG Tablet 100 MG PO (08:32)
[2022-05-30] MEDS: SACUBITRIL/VALSARTAN 24/26 MG TABLET 1 EACH PO (08:33)
[2022-05-30] MEDS: Metoprolol(XL)Succ 100 MG Tablet PO (08:34)
[2022-05-30] MEDS: oxyCODONE HCl Cr 10 MG Tablet PO (08:39)
--- NOTE | 2022-05-30 10:05 | CASEMGMT ---
RN CM Face to Face with patient for initial transition planning/care coordination assessment. RN CM introduced self and role at [facility]. Patient sitting in chair, alert and oriented. Patient willing to participate in assessment and is able to answer all questions appropriately. Care providers, pharmacy, and demographics verified. Patient wishes to discharge home, denies need for home health at this time. Patient states she has no further needs or concerns at this time. CM to follow for discharge planning needs that may arise. PCP: Roxy Bergman [employer] Specialists: Dolores spice fumigator [facility] Preferred Pharmacy:[facility]; [facility] retail at discharge. Insurance: [employer] [facility] Prescription Benefit: yes Living Will/HPOA: yes, Juan Hunt HPOA LNOK: , daughter Living Arrangements: patient lives with in a single story home with 1 step and grab bar to enter. Patient states she is independent at home. Transportation: self, DME/HHC: Patient states she has cane at home. Patient has had [facility]HC in the past. Disposition Plan: Patient to discharge home with family support and follow-up plans in place. Katie WOODS, RN, CM
--- NOTE | 2022-05-30 10:49 | DCINST_ITS ---
Discharge Instructions Diet Discharge Diet: Light diet - advance as tolerated Activity Discharge Activity: Return to Normal Activity Dressing / Incision Call your doctor if your incision/area has: Continuous Slow Oozing, Sudden Increased Bleeding, Increased Pain/ Swelling, Increased Redness, Foul Smelling Discharge and Swelling at the incision site Call your doctor if you observe: Fever of 101 or Higher, Shortness of breath and Uncontrolled pain Follow Up Care Test Results: Test results from this visit will be discussed in further detail at your follow- up appointment, if applicable. Discharge Plan Admission Admit Date/Time: 05/27/22 13:11 Primary Reason for Your Visit: Cholecystitis Attending Provider: Tono Murrell Primary Care Provider: Roxy Bergman Consulting Providers: Melissa San ; Steve Norman ; Marky Costa Instructions Additional Instructions / Restrictions: Hold Coumadin for 48 hrs following surgery. You will need to return for outpatient MRCP to evaluate common bile duct abnormality. Dr. Norman office will call you when they arrange outpatient appt. Discharge Orders/Prescriptions Prescriptions: Continued vit A,C and I-[id number]-vqqjeqhu 1 EACH tablet 1 ea PO DAILY Label Comments: eye health oxycodone 5 MG tablet 10 mg PO TID PRN (Reason: breakthru pain) nitroglycerin 0.4 MG tablet, sublingual 0.4 mg sublingual Q5M PRN (Reason: Cardiac/Chest Pain) Qty: 30 0RF furosemide 20 mg tablet 40 mg PO DAILY Qty: 30 0RF metoprolol succinate 50 MG tablet 100 mg PO DAILY pantoprazole 20 MG tablet 20 mg PO DAILY acetaminophen 325 MG capsule 650 mg PO Q4H PRN PRN (Reason: Pain Score 1-10/10) atorvastatin 40 mg tablet 40 mg PO QHS Entresto 49-51 mg tablet 1 tab PO BID Xtampza ER 9 mg cap,sprinkl,ER12hr(DONT CRUSH) 9 mg PO BID aspirin 81 MG tablet,chewable 162 mg PO QHS Zioptan (PF) 0.0015 % dropperette 1 drp EACH EYE QHS Label Comments: 1 drop in both eyes nightly Changed amiodarone 200 MG tablet 100 mg PO DAILY Qty: 1 0RF Rx Instructions: Patient now takes 200mg daily Held warfarin 2 mg tablet 4 mg PO DAILY Hold Instructions: Resume on 06/01/22. Label Comments: TAKE 2 TABLETS BY MOUTH ONCE DAILY Rx Instructions: has not omid taking for 5 days for surgery Discontinued clopidogrel 75 MG tablet 75 mg PO DAILY Label Comments: blood thinner (start after finished with xarelto Rx) Rx Instructions: having spinal surgery and needs to be off this med 5 days prior-not taking since last sunday lisinopril 40 MG tablet 20 mg PO DAILY Referrals / Follow Up: Steve Norman MD [Med Staff - Active Staff] - 06/06/22 9:15 am Roxy Bergman NP-C [Primary Care Provider] - In 1 Week Disposition Disposition (needs filled in before D/C Order can be placed): Home, Self Care
--- NOTE | 2022-05-30 11:15 | DS.PCM_ITS ---
Documented by User: Joyce Davis NP, BI ANALYST-C 05/30/22 11:21 Providers Date of Admission: 05/27/22 Date of Discharge: 05/30/22 Primary Care Physician: TY Silvestre Consultations 05/27/22 13:44 Consult: General Surgery Routine Consulting Provider: Steve Norman Reason for Consult: distended GB/Dilated CBD EMERGENT Consult: No MD Notified: Yes Date Notified: 05/27/22 Time Notified: 13:44 Method of Notification: Text Reason For Visit: CHEST PAIN / EXERTIONAL DYSPNEA Diagnosis Discharge Diagnosis (1) Transaminitis: Status: Acute Code(s): R74.01 - Elevation of levels of liver transaminase levels (2) Common bile duct dilatation: Status: Acute Code(s): K83.8 - Other specified diseases of biliary tract (3) Abnormal gallbladder ultrasound: Status: Acute Code(s): R93.2 - Abnormal findings on diagnostic imaging of liver and biliary tract Medications at Discharge Home Medications vit A 300 mcg-C 200 mg-E 27 mg-lutein 2 mg and minerals tablet 1 ea PO DAILY vitamin 06/16/14 oxycodone 5 mg tablet 10 mg PO TID PRN breakthru pain 04/07/19 furosemide 20 mg tablet 40 mg PO DAILY Check with primary doctor #30 tabs 04/10/19 nitroglycerin 0.4 mg sublingual tablet 0.4 mg sublingual Q5M PRN Cardiac/Chest Pain ##30 04/10/19 acetaminophen 325 mg capsule 650 mg PO Q4H PRN PRN Pain Score 1-06/1206/17/19 metoprolol succinate 50 mg tablet,extended release 24 hr 100 mg PO DAILY blood pressure 06/17/19 pantoprazole 20 mg tablet,delayed release 20 mg PO DAILY reflux 06/17/19 aspirin 81 mg chewable tablet 162 mg PO QHS heart health 05/26/22 atorvastatin 40 mg tablet 40 mg PO QHS cholesterol 05/26/22 oxycodone myristate 9 mg capsule sprinkle extended release 12 hr(DON'T CRUSH) (Xtampza ER) 9 mg PO BID pain 05/26/22 sacubitril 49 mg-valsartan 51 mg tablet (Entresto) 1 tab PO BID [facility] 05/26/22 tafluprost (PF) 0.0015 % eye drops in a dropperette (Zioptan (PF)) 1 drp EACH EYE [facility] eye health 05/26/22 warfarin 2 mg tablet 4 mg PO DAILY blood thinner 05/26/22 amiodarone 200 mg tablet 100 mg PO DAILY #1 TAB 05/30/22 Hospital Course Operations cholecystecomy Procedures 2-D Echocardiogram and Stress test Summary of Care Provided Hospital Course: Patient is a 76-year-old female admitted 05/26/2022 due to chest pain. 1.?Acute Cholecystitis with suspected choledocholithiasis-Gallbladder ultrasound with distended gallbladder and dilated common bile duct as well as small nodule in the head of the pancreas.? General surgery and GI consulted during admission. Patient underwent laparoscopic cholecystectomy with intraoperative cholangiogram 05/29/2022. Cholangiogram with no obvious filling defects. Likely confirms passage of stone. Tolerating advance diet. Follow-up with general surgery in 1 week. Follow-up with PCP in 1 week as well. 2. Hypotension-patient reports this has been ongoing as outpatient and medications have been adjusted.? Hypotension resolved shortly after admission and has remained stable. Patient states she has been taking half a tab of her Entresto at home. Continue outpatient follow-up for blood pressure monitoring and medication adjustment. 3. Chest pain-troponin negative.? EKG without ST-T changes.? Stress test negative for ischemia.? Echo with EF 53%. 4.? History of ischemic cardiomyopathy/CAD-status post AICD.? History of CABG.? Stable.? Continue medical management. Prior echo in 2019 with EF 19%. Repeat echo with EF 53%, mild systolic dysfunction. 5. Paroxysmal atrial fibrillation-continue amiodarone, metoprolol, Coumadin. 6. Hypertension-continue home regimen. Continue outpatient monitoring. States her medications were recently adjusted. 7. Hyperlipidemia-continue statin. 8. Severe mitral valve insufficiency-history of mitral valve repair.? 9. Chronic asthma-not on regimen. 10. Chronic kidney disease stage IIIa-appears at baseline. 11. History of TIA-on aspirin, statin. 12. Chronic pain syndrome-upcoming back injection postponed.? On long-acting narcotic regimen.? Follows with pain management. Physical Exam Const alert, oriented x3 and no apparent distress HEENT normocephalic and moist oral mucous membranes Eyes PERRL, EOMs intact bilaterally and conjunctivae normal Neck no lymphadenopathy Resp normal respiratory effort and clear to auscultation bilaterally Cardio regular rate, regular rhythm and no murmurs Peripheral Pulses: pulses 2+ throughout GI normal to inspection, nondistended, normoactive bowel sounds, non-tender and non-distended Extremity normal to inspection Skin no rashes or lesions noted Lesions: no lesions Rashes: no rashes Trauma: no lacerations or abrasions Neuro CN's II-XII intact bilaterally, no focal motor deficits, no sensory deficits noted and deep tendon reflexes 2+ bilaterally Psych mental status grossly normal and affect normal Patient seen and examined prior to discharge. Physical assessment as noted above. Patient is stable for discharge with follow up recommendations as noted above. This patient was seen by TY Cortez under the supervision of Dr. Murrell. Time spent examining patient, reviewing data and subsequent management of care: 25 minutes Weight / BMI Weight Weight: 228 lb 9.91 oz Body Mass Index (BMI) 36.6 ABG / Lab / Microbiology Data Result Diagrams: 05/30/22 05:20 05/30/22 05:20 Laboratory: Laboratory Results - last 24 hr 05/27/22 13:10: Hepatitis A IgM Ab Negative, Hep Bs Antigen Negative, Hep B Core IgM Ab Negative, Hepatitis C Ab (EIA) <0.1, Hep C Ab Comment Comment 05/28/22 04:36: Diff Path Review Reviewed 05/29/22 04:10: Diff Path Review Reviewed 05/30/22 05:20: Sodium 142, Potassium 3.6, Chloride 104, Carbon Dioxide 30.0, Anion Gap 8, BUN 14, Creatinine 0.94, Estim Creat Clear Calc 46.92, Est GFR (MDRD) Af Amer 74, Est GFR (MDRD) Non-Af 61, BUN/Creatinine Ratio 14.9, Glucose 133 H, Calcium 8.4 L, Total Bilirubin 0.70, Direct Bilirubin 0.33 H, AST 51 H, ALT 210 H, Alkaline Phosphatase 278 H, Total Protein 5.7 L, Albumin 2.6 L, Globulin 3.1, Albumin/Globulin Ratio 0.8 L 05/30/22 05:20: WBC 6.2, RBC 3.52 L, Hgb 10.7 L, Hct 32.8 L, MCV 93.2, MCH 30.4, MCHC 32.6, RDW Std Deviation 47.8 H, RDW Coeff of Jackson 14.2, Plt Count 202, MPV 9.8, Immature Gran % (Auto) 0.300, Neut % (Auto) 87.4 H, Lymph % (Auto) 7.9 L, Ector % (Auto) 4.2, Eos % (Auto) 0.0, Baso % (Auto) 0.2, Absolute Neuts (auto) 5.4, Absolute Lymphs (auto) 0.49 L, Nucleated RBC % 0, Differential Comment SCANNED Radiography Diagnostic Testing: Radiology Impression Cholangiogram 05/29/22 07:35 IMPRESSION: Dilatation of the common bile duct with narrowing in its most distal portion with a small amount of contrast entering the duodenum. A neoplastic process should be ruled out. Electronically Signed: Julio Rubio MD at 8:38 EDT , D/C Instructions Discharge Diet: Light diet - advance as tolerated Call your doctor if your incision/area has: Continuous Slow Oozing, Sudden Increased Bleeding, Increased Pain/ Swelling, Increased Redness, Foul Smelling Discharge and Swelling at the incision site Call your doctor if you observe: Fever of 101 or Higher, Shortness of breath and Uncontrolled pain Meaningful Use Info Meaningful Use Diagnoses (Choose all that apply): None applicable Discharge Plan Admission Admit Date/Time: 05/27/22 13:11 Primary Reason for Your Visit: Cholecystitis Attending Provider: Tono Murrell Primary Care Provider: Roxy Bergman Consulting Providers: Melissa San ; Steve Norman ; Marky Costa Discharge Orders/Prescriptions Prescriptions: Continued vit A,C and [id number] 1 EACH tablet 1 ea PO DAILY Label Comments: eye health oxycodone 5 MG tablet 10 mg PO TID PRN (Reason: breakthru pain) nitroglycerin 0.4 MG tablet, sublingual 0.4 mg sublingual Q5M PRN (Reason: Cardiac/Chest Pain) Qty: 30 0RF furosemide 20 mg tablet 40 mg PO DAILY Qty: 30 0RF metoprolol succinate 50 MG tablet 100 mg PO DAILY pantoprazole 20 MG tablet 20 mg PO DAILY acetaminophen 325 MG capsule 650 mg PO Q4H PRN PRN (Reason: Pain Score 1-10/10) atorvastatin 40 mg tablet 40 mg PO QHS Entresto 49-51 mg tablet 1 tab PO BID Xtampza ER 9 mg cap,sprinkl,ER12hr(DONT CRUSH) 9 mg PO BID aspirin 81 MG tablet,chewable 162 mg PO QHS warfarin 2 mg tablet 4 mg PO DAILY Label Comments: TAKE 2 TABLETS BY MOUTH ONCE DAILY Rx Instructions: has not omid taking for 5 days for surgery Zioptan (PF) 0.0015 % dropperette 1 drp EACH EYE QHS Label Comments: 1 drop in both eyes nightly Changed amiodarone 200 MG tablet 100 mg PO DAILY Qty: 1 0RF Rx Instructions: Patient now takes 200mg daily Discontinued clopidogrel 75 MG tablet 75 mg PO DAILY Label Comments: blood thinner (start after finished with xarelto Rx) Rx Instructions: having spinal surgery and needs to be off this med 5 days prior-not taking since last sunday lisinopril 40 MG tablet 20 mg PO DAILY Referrals / Follow Up: Steve Norman MD [Med Staff - Active Staff] - In 1 Week Roxy Bergman NP-C [Primary Care Provider] - In 1 Week Disposition Disposition (needs filled in before D/C Order can be placed): Home, Self Care Documented by User: Dr. Tono Murrell MD 05/30/22 12:00 Providers Date of Admission: 05/27/22 Reason For Visit: CHEST PAIN / EXERTIONAL DYSPNEA Diagnosis Discharge Diagnosis (1) Transaminitis: Status: Acute Code(s): R74.01 - Elevation of levels of liver transaminase levels (2) Common bile duct dilatation: Status: Acute Code(s): K83.8 - Other specified diseases of biliary tract (3) Abnormal gallbladder ultrasound: Status: Acute Code(s): R93.2 - Abnormal findings on diagnostic imaging of liver and biliary tract Medications at Discharge Home Medications vit A 300 mcg-C 200 mg-E 27 mg-lutein 2 mg and minerals tablet 1 ea PO DAILY vitamin 06/16/14 oxycodone 5 mg tablet 10 mg PO TID PRN breakthru pain 04/07/19 furosemide 20 mg tablet 40 mg PO DAILY Check with primary doctor #30 tabs 04/10/19 nitroglycerin 0.4 mg sublingual tablet 0.4 mg sublingual Q5M PRN Cardiac/Chest Pain ##30 04/10/19 acetaminophen 325 mg capsule 650 mg PO Q4H PRN PRN Pain Score 1-06/1206/17/19 metoprolol succinate 50 mg tablet,extended release 24 hr 100 mg PO DAILY blood pressure 06/17/19 pantoprazole 20 mg tablet,delayed release 20 mg PO DAILY reflux 06/17/19 aspirin 81 mg chewable tablet 162 mg PO QHS heart health 05/26/22 atorvastatin 40 mg tablet 40 mg PO QHS cholesterol 05/26/22 oxycodone myristate 9 mg capsule sprinkle extended release 12 hr(DON'T CRUSH) (Xtampza ER) 9 mg PO BID pain 05/26/22 sacubitril 49 mg-valsartan 51 mg tablet (Entresto) 1 tab PO BID heart health 05/26/22 tafluprost (PF) 0.0015 % eye drops in a dropperette (Zioptan (PF)) 1 drp EACH EYE [facility] eye health 05/26/22 warfarin 2 mg tablet 4 mg PO DAILY blood thinner 05/26/22 amiodarone 200 mg tablet 100 mg PO DAILY #1 TAB 05/30/22 ABG / Lab / Microbiology Data Result Diagrams: 05/30/22 05:20 05/30/22 05:20 Discharge Plan Admission Admit Date/Time: 05/27/22 13:11 Primary Reason for Your Visit: Cholecystitis Attending Provider: Tono Murrell Primary Care Provider: Roxy Bergman Consulting Providers: Melissa San ; Steve Norman ; Marky Costa Discharge Orders/Prescriptions Prescriptions: Continued vit A,C and [id number] 1 EACH tablet 1 ea PO DAILY Label Comments: eye health oxycodone 5 MG tablet 10 mg PO TID PRN (Reason: breakthru pain) nitroglycerin 0.4 MG tablet, sublingual 0.4 mg sublingual Q5M PRN (Reason: Cardiac/Chest Pain) Qty: 30 0RF furosemide 20 mg tablet 40 mg PO DAILY Qty: 30 0RF metoprolol succinate 50 MG tablet 100 mg PO DAILY pantoprazole 20 MG tablet 20 mg PO DAILY acetaminophen 325 MG capsule 650 mg PO Q4H PRN PRN (Reason: Pain Score 1-10/10) atorvastatin 40 mg tablet 40 mg PO QHS Entresto 49-51 mg tablet 1 tab PO BID Xtampza ER 9 mg cap,sprinkl,ER12hr(DONT CRUSH) 9 mg PO BID aspirin 81 MG tablet,chewable 162 mg PO QHS warfarin 2 mg tablet 4 mg PO DAILY Label Comments: TAKE 2 TABLETS BY MOUTH ONCE DAILY Rx Instructions: has not omid taking for 5 days for surgery Zioptan (PF) 0.0015 % dropperette 1 drp EACH EYE QHS Label Comments: 1 drop in both eyes nightly Changed amiodarone 200 MG tablet 100 mg PO DAILY Qty: 1 0RF Rx Instructions: Patient now takes 200mg daily Discontinued clopidogrel 75 MG tablet 75 mg PO DAILY Label Comments: blood thinner (start after finished with xarelto Rx) Rx Instructions: having spinal surgery and needs to be off this med 5 days prior-not taking since last sunday lisinopril 40 MG tablet 20 mg PO DAILY Referrals / Follow Up: Steve Norman MD [Med Staff - Active Staff] - In 1 Week Roxy Bergman NP-C [Primary Care Provider] - In 1 Week Disposition Disposition (needs filled in before D/C Order can be placed): Home, Self Care Charges/Coding Addendum Addendum: Dr. Murrell I personally examined the patient and reviewed the chart. I agree with the above.? 76-year-old female presents to the hospital with abdominal pain.? She is found to have acute cholecystitis she was also having some chest pain so she did have a cardiac work-up which demonstrated an EF of 53% on echo with mild systolic dysfunction, this was better than the EF in 2019 which was 19%.? She does have an anaphylactic reaction to contrast dye, and we are going to do a cholangiogram today therefore we will give her dose of IV steroids as well as a dose of IV Benadryl prior to surgery.? Clinical time spent in all aspects of patient care: 20 minutes 05/30/2022: Doing well today, she is tolerating a regular diet without any significant abdominal pain. She is status postcholecystectomy with cholangiogram which did not show any filling defects yesterday. These are improving and given the fact that she was able to tolerate breakfast, I discussed with her the possibility of discharge today. She expressed understanding Pollo of is going home and would like to go home today. I discussed with her that if she has any worsening abdominal pain she is to come back to the hospital. She will need to follow-up with surgery as an outpatient as well as her PCP. Can resume all of her home medications on discharge. Clinical time spent in all aspects of patient care including discharge plannin minutes Visit Charges Inpatient E&M: 68664 Disch Hosp
[2022-05-30 15:07] LABS: AFP, Tumor Marker 3.9 ng/mL (0.0-9.2); Carbohydrate AG 19-9 35 U/mL (0-35)
--- NOTE | 2022-05-30 15:18 | PHA.DC.MR ---
Pharmacy Service has performed discharge medication reconciliation for this patient. The patient's discharge medication list was reviewed for discrepancies and discrepancies were resolved. This [facility] spoke to AUTO BODY PAINTER Clinton Davis, discharge list included both lisinopril and Entresto. Clinton Davis will D/C lisinopril. Warfarin will be held. Home Medications vit A 300 mcg-C 200 mg-E 27 mg-lutein 2 mg and minerals tablet 1 ea PO DAILY vitamin 06/16/14 oxycodone 5 mg tablet 10 mg PO TID PRN breakthru pain 04/07/19 furosemide 20 mg tablet 40 mg PO DAILY Check with primary doctor #30 tabs 04/10/19 nitroglycerin 0.4 mg sublingual tablet 0.4 mg sublingual Q5M PRN Cardiac/Chest Pain ##30 04/10/19 acetaminophen 325 mg capsule 650 mg PO Q4H PRN PRN Pain Score 1-06/1206/17/19 metoprolol succinate 50 mg tablet,extended release 24 hr 100 mg PO DAILY blood pressure 06/17/19 pantoprazole 20 mg tablet,delayed release 20 mg PO DAILY reflux 06/17/19 aspirin 81 mg chewable tablet 162 mg PO QHS heart health 05/26/22 atorvastatin 40 mg tablet 40 mg PO QHS cholesterol 05/26/22 oxycodone myristate 9 mg capsule sprinkle extended release 12 hr(DON'T CRUSH) (Xtampza ER) 9 mg PO BID pain 05/26/22 sacubitril 49 mg-valsartan 51 mg tablet (Entresto) 1 tab PO BID heart health 05/26/22 tafluprost (PF) 0.0015 % eye drops in a dropperette (Zioptan (PF)) 1 drp EACH EYE Q eye health 05/26/22 warfarin 2 mg tablet 4 mg PO DAILY blood thinner 05/26/22 amiodarone 200 mg tablet 100 mg PO DAILY #1 TAB 05/30/22
== END 2022-05-30 16:11 | disposition home or self-care (01) | DRG 419 ==
LOC: ED 22:08 → PCU 22:44
PROVIDERS: Internal Medicine; Internal Medicine Gastroenterology; Nurse Practitioner Family; Surgery; Admitting Provider Family Medicine; Emergency Provider Emergency Medicine; PCP Nurse Practitioner Family; Visit Provider Family Medicine
PROC: 0FT44ZZ Resection of Gallbladder, Percutaneous Endoscopic Approach (ICD-10-PCS; CPT 47610; principal; 2022-05-29 11:40)
DX: K80.42 Calculus of bile duct with acute cholecystitis without obstruction (principal); I27.20 Pulmonary hypertension, unspecified; I48.0 Paroxysmal atrial fibrillation; N18.31 Chronic kidney disease, stage 3a; K83.8 Other specified diseases of biliary tract; K82.8 Other specified diseases of gallbladder; I25.10 Atherosclerotic heart disease of native coronary artery without angina pectoris; I25.5 Ischemic cardiomyopathy; E87.6 Hypokalemia; J45.909 Unspecified asthma, uncomplicated; E78.5 Hyperlipidemia, unspecified; I34.0 Nonrheumatic mitral (valve) insufficiency; Z23 Encounter for immunization; Z80.0 Family history of malignant neoplasm of digestive organs; Z95.0 Presence of cardiac pacemaker; Z79.02 Long term (current) use of antithrombotics/antiplatelets; R74.01 Elevation of levels of liver transaminase levels; Z79.82 Long term (current) use of aspirin; Z79.01 Long term (current) use of anticoagulants; G89.4 Chronic pain syndrome; Z95.1 Presence of aortocoronary bypass graft; Z86.73 Personal history of transient ischemic attack (TIA), and cerebral infarction without residual deficits; E66.9 Obesity, unspecified; Z68.36 Body mass index [BMI] 36.0-36.9, adult; R07.9 Chest pain, unspecified
CPT/HCPCS: 36415; 71045; 74300; 76000; 76705; 78452; 80048; 80053; 80061; 80074; 80076; 82105; 82248; 83690; 83735; 84484; 85025; 85610; 86301; 88304; 93005; 93017; 93306; 99285; A9500; G0008; J7030; J7040; J7120; Q9957; 90686; A4216; C8929; J0696; J2405; J2785; J3490

== ENCOUNTER → 2022-06-14 | Outpatient (CLI) | payer MEDICARE, SELFPAY ==
--- NOTE | 2022-06-14 10:06 | MRI_ITS ---
EXAM: MR ABDOMEN WITHOUT INTRAVENOUS CONTRAST, MRCP PROTOCOL CLINICAL INDICATION: Abnormal cholangiogram. Pancreatic nodule. TECHNIQUE: Multiplanar and multisequence MR images of the abdomen without intravenous contrast obtained with MRCP sequence. Three-dimensional post-processing reconstructions were performed. This report was created using [employer] report generation technology. COMPARISON: us 05.27.22 FINDINGS: LOWER THORAX: Unremarkable. No pleural effusion. LIVER: Unremarkable. Normal morphology. GALLBLADDER AND BILE DUCTS: There is dilation of the common bile duct. A common bile duct stone is not seen. The CBD diameter is 8 mm. There are multiple metallic clips in the right upper quadrant. This is consistent for a cholecystectomy. PANCREAS: There is enlargement and inflammation around the pancreas. There is minimal fluid around the pancreas. This is consistent for acute pancreatitis. No focal cystic mass. No pancreatic duct dilation. SPLEEN: Unremarkable. Non-enlarged. ADRENALS: Unremarkable. No nodules. KIDNEYS AND URETERS: There is T2 hyperintensities of the left kidney. These are consistent for cysts. No follow up required. Normal renal size and position. No hydronephrosis. INTRAPERITONEAL SPACE: Unremarkable. No ascites or other fluid collection. BONES/JOINTS: L4-5 spinal fusion hardware. Degenerative findings in the lumbar spine. VASCULATURE: Unremarkable. Abdominal aorta is non-dilated. LYMPH NODES: No enlarged lymph nodes. MRI/MRCP Abdomen without Contrast IMPRESSION: 1. There is dilation of the common bile duct. A common bile duct stone is not seen. The CBD diameter is 8 mm. 2. There is enlargement and inflammation around the pancreas. There is minimal fluid around the pancreas. This is consistent for acute pancreatitis. Electronically Signed: Chacho Jacome MD at 16:04 EDT ,
[2022-06-14 10:40] VITALS: BP 136/80; PULSE 84; O2SAT 98
[2022-06-14 10:55] VITALS: BP 134/85; PULSE 85; O2SAT 97
[2022-06-14 11:10] VITALS: BP 149/76; PULSE 65; RESP 18; O2SAT 96
== END | disposition home or self-care (01) ==
LOC: MRI 10:06
PROVIDERS: PCP Nurse Practitioner Family; Visit Provider Physician Assistant
DX: K86.2 Cyst of pancreas (principal)
CPT/HCPCS: 74181

== ENCOUNTER → 2022-06-16 | Outpatient (CLI) | payer MEDICARE, SELFPAY ==
[2022-06-16 11:32] LABS: AST(SGOT) 13 U/L (15-37); Alanine Aminotransfer ALT/SGPT 22 U/L (13-56); Albumin, Serum 3.2 g/dL (3.2-5.0); Alkaline Phosphatase 150 U/L (45-117); Anion Gap 8 (5-15); BUN 10 mg/dL (7-18); BUN/Creat Ratio 11.8 RATIO (10-20); Calcium,Total 8.6 mg/dL (8.5-10.1); Chloride 105 mmol/L (98-107); Creatinine, Serum 0.84 mg/dL (0.55-1.02); EST Glomerular Filtration Rate 69 mL/min (>60); Est Glom Filt Rate - Afr Amer 84 mL/min (>60); Globulin 3.1 g/dL (2.2-4.2); Glucose 103 mg/dL (74-106); Lipase 157 U/L (73-393); Potassium 3.2 mmol/L (3.5-5.1); Protein, Total 6.3 g/dL (6.4-8.2); Sodium Level 146 mmol/L (136-145)
== END | disposition home or self-care (01) ==
LOC: LAB 09:36
PROVIDERS: PCP Nurse Practitioner Family; Visit Provider Surgery
DX: R93.5 Abnormal findings on diagnostic imaging of other abdominal regions, including retroperitoneum (principal); K83.8 Other specified diseases of biliary tract
CPT/HCPCS: 36415; 80053; 83690

== ENCOUNTER → 2022-10-13 | Outpatient (CLI) | payer MEDICARE, SELFPAY ==
--- NOTE | 2022-10-13 13:59 | ECHOD_ITS ---
Reason For Study: CAD/ASHD Procedure This was a 2D Doppler, Color Flow transthoracic echocardiogram. Exam performed in department. Left Ventricle Normal LV size. Left ventricular systolic function is lower limits of normal. The estimated ejection fraction is 53 %. No regional wall motion abnormalities noted. Right Ventricle Normal RV size. ICD or pacer leads identified within the right ventricle. Normal systolic function. Atria The left atrium is moderately enlarged. The right atrium is mildly enlarged. ICD or pacer leads identified within the right atrium. Mitral Valve Status post mitral valve repair with annuloplasty ring. Tricuspid Valve Normal tricuspid valve. Mild (1+) tricuspid valve insufficiency. Pulmonary artery systolic pressure is 40 mmHg. Aortic Valve Trisinus/trileaflet aortic valve. Pulmonic Valve Normal pulmonic valve. Great Vessels Normal aortic root. The pulmonary artery is normal size. Normal inferior vena cava. Pericardium/Pleural No pericardial effusion. MMode/2D Measurements & Calculations LVIDd: 6.3 cm IVSd: 0.90 cm Ao root diam: 3.8 cm LVIDs: 4.1 cm LVPWd: 1.1 cm FS: 34.6 % LAV(MOD-sp4): 92.8 ml LVAd ap2: 28.5 cm2 SV(MOD-sp2): 51.6 ml LVLd ap2: 7.2 cm EDV(MOD-sp2): 98.4 ml EDV(sp2-el): 95.8 ml LVAs ap2: 18.6 cm2 LVLs ap2: 6.4 cm ESV(MOD-sp2): 46.7 ml ESV(sp2-el): 46.0 ml EF(MOD-sp2): 52.5 % LA A4 area: 27.1 cm2 LA dimension(2D): 5.2 cm RA A4 area: 27.1 cm2 Time Measurements MV dec time: 0.42 sec Doppler Measurements & Calculations MV E max zen: 127.4 cm/sec Lat Peak E' Zen: 8.9 cm/sec Med Peak E' Zen: 6.6 cm/sec MV A max zen: 85.6 cm/sec E/E' lat: 14.3 E/E' med: 19.2 MV E/A: 1.5 MV V2 max: 153.1 cm/sec Ao V2 max: 127.3 cm/sec MV max P.4 mmHg MV dec slope: 307.9 cm/sec2 Ao max P.5 mmHg MV V2 mean: 87.4 cm/sec Ao V2 mean: 84.4 cm/sec MV mean P.6 mmHg Ao mean P.4 mmHg MV V2 VTI: 57.5 cm Ao V2 VTI: 28.8 cm AV (velocity ratio): 0.84 LV V1 max: 111.2 cm/sec PA V2 max: 84.8 cm/sec TR max zen: 301.6 cm/sec LV V1 max P.9 mmHg PA V2 mean: 64.8 cm/sec TR max P.4 mmHg LV V1 mean P.5 mmHg LV V1 mean: 73.7 cm/sec LV V1 VTI: 24.1 cm ECHO/Echo Complete Interpretation Summary Normal LV size. Left ventricular systolic function is lower limits of normal. The estimated ejection fraction is 53 %. Status post mitral valve repair with annuloplasty ring. The left atrium is moderately enlarged. Pulmonary artery systolic pressure is 40 mmHg. Ordering Physician: TIERRA LOZOYA Referring Physician: TIERRA LOZOYA Performed By: Jessica Moore RCS
== END | disposition home or self-care (01) ==
LOC: CVS 13:57
PROVIDERS: PCP Nurse Practitioner Family
DX: I50.22 Chronic systolic (congestive) heart failure (principal); I48.0 Paroxysmal atrial fibrillation; I25.10 Atherosclerotic heart disease of native coronary artery without angina pectoris; Z95.1 Presence of aortocoronary bypass graft; Z98.890 Other specified postprocedural states; I10 Essential (primary) hypertension; E78.2 Mixed hyperlipidemia; I25.5 Ischemic cardiomyopathy; R06.09 Other forms of dyspnea
CPT/HCPCS: 93306

== ENCOUNTER → 2023-01-10 | Outpatient (CLI) | payer MEDICARE, SELFPAY ==
--- NOTE | 2023-01-10 13:06 | US_ITS ---
HISTORY: Palpable lump, left patella. TECHNIQUE: Routine and color duplex imaging of the left knee. 17 images. Comparison radiograph 07/01/2014. FINDINGS: 4 x 4 x 6 mm irregular hypoechoic nodule adjacent to the incision site near the left patella. US/Ext Non Vasc Limited/Soft Tiss IMPRESSION: Nonspecific 4 x 6 mm irregular hypoechoic nodule adjacent to the incision site of the left knee. Recommend follow-up or correlative cross-sectional imaging. Electronically Signed: Ladan Welch MD at 14:36 EDT ,
[2023-01-10 14:41] LABS: Erythrocyte Sedimentation Rate 2 mm/hr (0-30)
[2023-01-10 14:43] LABS: Absolute Lymphocyte Count 1.37 X10^3/uL (0.83-4.51); Absolute Neutrophil Count 2.8 X10^3/uL (2.0-7.7); Basophil# 0.05 X10^3/uL; Basophil% 1.1 % (0-1); Eosinophil# 0.14 X10^3/uL; Hematocrit 40.6 % (37-47); Hemoglobin 12.9 g/dL (12.0-15.0); Lymphocyte # 1.37 X10^3/ul (0.83-4.51); Lymphocyte % 29.3 % (19-41); Mean Corp Hgb Conc 31.8 g/dL (32-36); Mean Corpuscular Hgb 28.9 pg (27.0-32.0); Mean Corpuscular Volume 90.8 fL (81-99); Mean Platelet Vol. 9.7 fl (6.2-12.0); Monocyte# 0.27 X10^3/uL; Monocyte% 5.8 % (0-10); NRBC Flagged by Analyzer 0 % (0-5); Neutrophil # 2.83 X10^3/uL (2.7-7.7); Neutrophil % 60.6 % (47-70); Platelet Count 247 K/mm3 (150-450); RBC Distribution Width CV 16.7 % (11.6-14.6); RBC Distribution Width SD 56.5 fl (35.1-43.9); Red Blood Count 4.47 M/mm3 (4.2-5.4); White Blood Count 4.7 K/mm3 (4.4-11.0)
[2023-01-10 14:46] LABS: CRP < 2.90 mg/L (0.0-3.0)
== END | disposition home or self-care (01) ==
LOC: US 12:56
PROVIDERS: PCP Nurse Practitioner Family; Referring Provider Orthopaedic Surgery; Visit Provider Orthopaedic Surgery
DX: Z96.652 Presence of left artificial knee joint (principal)
CPT/HCPCS: 36415; 76882; 85025; 85652; 86140

== ENCOUNTER → 2023-01-16 | Outpatient (CLI) | payer MEDICARE, SELFPAY ==
--- NOTE | 2023-01-16 08:29 | CT_ITS ---
STUDY: CT BRAIN WITHOUT CONTRAST REASON FOR EXAM: Female, 77 years old. Hallucination, visual RADIATION DOSAGE (If Supplied By Facility): CTDIvol = ( 44.99 ) mGy, DLP = ( 796.11 ) mGycm TECHNIQUE: Transaxial CT imaging of the brain was performed without administration of intravenous contrast material. Individualized dose optimization techniques were used for this CT. COMPARISON: No relevant priors. FINDINGS: Normal soft tissue structures. Normal calvarium. There is mild cerebral atrophy with widening of the extra-axial spaces and ventricular dilatation. There are areas of decreased attenuation within the white matter tracts of the supratentorial brain, consistent with microvascular disease changes. There are small punctate calcifications of the basal ganglia which are seen in the aging brain as a normal variant. Normal brainstem. Normal cerebellum. There is no intracranial hemorrhage. There are no findings of an acute ischemic infarction. Atherosclerotic calcification of the cavernous portions of the internal carotid arteries bilaterally. Normal visualized paranasal sinuses. CT/Brain/Head without Contrast IMPRESSION: Chronic involutional changes of the brain. Electronically Signed: Julio Rubio MD at 15:20 EDT ,
== END | disposition home or self-care (01) ==
PROVIDERS: PCP Nurse Practitioner Family; Referring Provider Nurse Practitioner Family; Visit Provider Nurse Practitioner Family
DX: R44.1 Visual hallucinations (principal)
CPT/HCPCS: 70450

== ENCOUNTER 2023-04-09 08:48 | Emergency (ER) | payer MEDICARE, SELFPAY ==
[2023-04-09 08:49] VITALS: BP 129/71; PULSE 71; RESP 15; TEMP 35.3; O2SAT 95; BMI 35.6
--- NOTE | 2023-04-09 09:04 | CT_ITS ---
We are attempting to reach an attending provider to discuss findings. An addendum with communication details will be sent when the communication is complete. STUDY: CT HEAD STROKE PROTOCOL W/O CONTRAST INJECTION REASON FOR EXAM: Female, 77 years old. Neuro deficit, acute, stroke suspected RADIATION DOSAGE (If Supplied By Facility): CTDIvol = ( 44.99 ) mGy, DLP = ( 796.11 ) mGycm TECHNIQUE: Transaxial CT imaging of the brain was performed without administration of intravenous contrast material. Individualized dose optimization techniques were used for this CT. COMPARISON: No relevant priors. FINDINGS: Normal soft tissue structures. Normal calvarium. There is mild cerebral atrophy with widening of the extra-axial spaces and ventricular dilatation. There are areas of decreased attenuation within the white matter tracts of the supratentorial brain, consistent with microvascular disease changes. There are small punctate calcifications of the basal ganglia which are seen in the aging brain as a normal variant. Normal brainstem. Normal cerebellum. There is no intracranial hemorrhage. There are no findings of an acute ischemic infarction. Calcific plaques are seen at the level of the cavernous portions of the internal carotid arteries bilaterally. Normal visualized paranasal sinuses. ASPECT score: 10 CT/STROKE Brain/Head without Cont IMPRESSION: Chronic involutional changes of the brain. Electronically Signed: Julio Rubio MD at 9:35 EDT ,
--- NOTE | 2023-04-09 09:04 | RAD_ITS ---
STUDY: X-RAY CHEST REASON FOR EXAM: Female, 77 years old. Neuro deficit, acute, stroke suspected TECHNIQUE: Single AP portable view of the chest. COMPARISON: Comparison is made with prior study dated May 26, 2022. FINDINGS: EKG electrodes are seen. Stable calcified granuloma at the right lung base as well as the right hilar lymph nodes. There is no demonstrated pleural abnormality. Sternal cerclage wires are present from a prior sternotomy. Status post mitral valve replacement. A left-sided dual-chamber pacemaker is seen. Normal mediastinum and savage. Normal visualized pulmonary arteries. There is atherosclerotic tortuosity of the aortic arch and descending thoracic aorta. Normal visualized thoracic spine. Normal visualized ribs, clavicles, and shoulders. There is no demonstrated abnormality of the visualized soft tissue structures of the upper abdomen. RAD/Chest 1 View IMPRESSION: Stable examination. No acute abnormality is seen. Electronically Signed: Julio Rubio MD at 9:43 EDT ,
--- NOTE | 2023-04-09 09:04 | EKG12_ITS ---
Test Reason : Blood Pressure : / mmHG Vent. Rate : 062 BPM Atrial Rate : 062 BPM P-R Int : 166 ms QRS Dur : 172 ms QT Int : 526 ms P-R-T Axes : 000 123 087 degrees QTc Int : 533 ms AV dual-paced rhythm Abnormal ECG Confirmed by MARIA VICTORIA AVILES, MARY ELLEN ([id number]), social media editor REKHA PITT ([id number]) on 04/10/2023 9:37:00 AM Referred By: CHRISTIAN Confirmed By:MARY ELLEN IRENE MD
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
[2023-04-09 09:37] VITALS: BP 119/85; PULSE 63; RESP 12; O2SAT 95; BMI 35.6
[2023-04-09 09:45] LABS: Bedside Glucose 129 mg/dL (74-106)
[2023-04-09 09:52] LABS: Absolute Lymphocyte Count 0.84 X10^3/uL (0.83-4.51); Absolute Neutrophil Count 3.4 X10^3/uL (2.0-7.7); Basophil# 0.04 X10^3/uL; Basophil% 0.9 % (0-1); Eosinophil# 0.07 X10^3/uL; Eosinophils% 1.5 % (0-5); Hematocrit 40.3 % (37-47); Lymphocyte # 0.84 X10^3/ul (0.83-4.51); Lymphocyte % 18.3 % (19-41); Mean Corp Hgb Conc 32.3 g/dL (32-36); Mean Corpuscular Hgb 30.1 pg (27.0-32.0); Mean Corpuscular Volume 93.3 fL (81-99); Monocyte# 0.24 X10^3/uL; Monocyte% 5.2 % (0-10); NRBC Flagged by Analyzer 0 % (0-5); Neutrophil # 3.38 X10^3/uL (2.7-7.7); Neutrophil % 73.9 % (47-70); Platelet Count 204 K/mm3 (150-450); RBC Distribution Width CV 13.7 % (11.6-14.6); RBC Distribution Width SD 47.2 fl (35.1-43.9); Red Blood Count 4.32 M/mm3 (4.2-5.4); White Blood Count 4.6 K/mm3 (4.4-11.0)
[2023-04-09 09:59] LABS: International Normalized Ratio 1.6; Partial Thromboplast Time 33.6 Seconds (24.1-36.2); Prothrombin Time (Protime)PT. 19.3 SECONDS (11.7-14.9)
[2023-04-09 10:07] VITALS: BP 93/79; PULSE 63; RESP 14; O2SAT 96
[2023-04-09 10:10] LABS: Anion Gap 6 (5-15); BUN 13 mg/dL (7-18); BUN/Creat Ratio 13.6 RATIO (10-20); Calcium,Total 8.8 mg/dL (8.5-10.1); Chloride 102 mmol/L (98-107); Creatinine, Serum 0.95 mg/dL (0.55-1.02); EST Glomerular Filtration Rate 60 mL/min (>60); Est Glom Filt Rate - Afr Amer 73 mL/min (>60); Estimated Creatinine Clearance 45.69 ml/min; Glucose 109 mg/dL (74-106); Potassium 2.8 mmol/L (3.5-5.1); Sodium Level 142 mmol/L (136-145); Troponin-I HS 6 pg/mL (3.0-54.0)
[2023-04-09] MEDS: Potassium Chloride Oral Tablet 20 MEQ 40 MEQ PO (10:17)
[2023-04-09 10:24] LABS: Magnesium 1.9 mg/dL (1.6-2.6)
--- NOTE | 2023-04-09 11:06 | CM.ED ---
Social Work SW performed chart review, AD not on file. SW met with patient and introduced herself and role as [facility] SW. Patient lying in hospital bed and agreeable to speak with SW. SW inquired about completion of AD. Patient verified having LW and HCPOA documents completed; patient's is her HCPOA. SW encouraged patient to bring in those documents to be added to patient's chart. Patient voiced understanding. Miri JOSEPH, ANSELMO
--- NOTE | 2023-04-09 11:10 | CM.ED ---
Social Work Patient inquiring about transportation assistance as her vehicle is currently at [facility]. SW verified patient is able to get in and out of vehicles independently. SW contacted [facility] transportation and arranged transport from [facility] ED to [facility], ETA 10 minutes. Care team updated Miri JOSEPH, ANSELMO
[2023-04-09 11:13] VITALS: BP 115/87; PULSE 69; RESP 20; O2SAT 96
== END 2023-04-09 11:21 | disposition home or self-care (01) ==
PROVIDERS: Emergency Provider Emergency Medicine; PCP Nurse Practitioner Family; Visit Provider Emergency Medicine
DX: R42 Dizziness and giddiness (principal); I11.0 Hypertensive heart disease with heart failure; I50.22 Chronic systolic (congestive) heart failure; I48.0 Paroxysmal atrial fibrillation; I25.5 Ischemic cardiomyopathy; E87.6 Hypokalemia; I25.10 Atherosclerotic heart disease of native coronary artery without angina pectoris; Z95.1 Presence of aortocoronary bypass graft; Z79.01 Long term (current) use of anticoagulants; Z79.82 Long term (current) use of aspirin; Z79.899 Other long term (current) drug therapy; Z86.73 Personal history of transient ischemic attack (TIA), and cerebral infarction without residual deficits
CPT/HCPCS: 70450; 71045; 80048; 82962; 83735; 84484; 85025; 85610; 85730; 93005; 99285; A4216

== ENCOUNTER → 2023-05-29 | Outpatient (CLI) | payer MEDICARE, SELFPAY ==
[2023-05-29 10:52] LABS: Vitamin B12 643 pg/mL (211-911)
[2023-05-29 11:39] LABS: ALB/GLOB Ratio 1.2 RATIO (0.9-2.4); AST(SGOT) 12 U/L (15-37); Alanine Aminotransfer ALT/SGPT 21 U/L (13-56); Albumin, Serum 3.5 g/dL (3.2-5.0); Alkaline Phosphatase 138 U/L (45-117); Anion Gap 5 (5-15); BUN 14 mg/dL (7-18); BUN/Creat Ratio 14.4 RATIO (10-20); Calcium,Total 8.7 mg/dL (8.5-10.1); Chloride 104 mmol/L (98-107); Creatinine, Serum 0.97 mg/dL (0.55-1.02); EST Glomerular Filtration Rate 59 mL/min (>60); Est Glom Filt Rate - Afr Amer 71 mL/min (>60); Globulin 2.9 g/dL (2.2-4.2); Glucose 93 mg/dL (74-106); Potassium 4.3 mmol/L (3.5-5.1); Protein, Total 6.4 g/dL (6.4-8.2); Sodium Level 140 mmol/L (136-145); Thyroid Stim Hormone (TSH) 1.74 uIU/mL (0.358-3.74)
[2023-06-01 12:09] LABS: Free Kappa Light Chains 20.1 mg/L (3.3-19.4); Free Lambda Light Chains 22.8 mg/L (5.7-26.3); Vitamin B1, Thiamine 165.4 nmol/L (66.5-200.0); Vitamin D 1,25-Dihydroxy 43.5 pg/mL (24.8-81.5)
== END | disposition home or self-care (01) ==
LOC: MTLAB 08:35
PROVIDERS: PCP Nurse Practitioner Family; Referring Provider Psychiatry & Neurology Neurology; Visit Provider Psychiatry & Neurology Neurology
DX: G62.9 Polyneuropathy, unspecified (principal); I10 Essential (primary) hypertension; M19.90 Unspecified osteoarthritis, unspecified site
CPT/HCPCS: 36415; 80053; 82607; 82652; 82746; 83883; 84425; 84443

== ENCOUNTER 2023-08-07 09:50 | Outpatient (RCR) | payer MEDICARE, SELFPAY | END 2023-08-07 19:00 | disposition home or self-care (01) | LOC: PT 09:50 | PROVIDERS: PCP Nurse Practitioner Family; Visit Provider Orthopaedic Surgery | DX: Z96.652 Presence of left artificial knee joint (principal) | CPT/HCPCS: 97161 ==

== ENCOUNTER → 2023-09-19 | Outpatient (CLI) | payer MEDICARE, SELFPAY ==
--- NOTE | 2023-09-19 12:27 | NEURO ---
NCS and/or EMG Patient Report Ordering Doctor: Rojelio Carmona DATE OF SERVICE: 09/19/23 Paulette presents for electrodiagnostic testing due to weakness and unsteady gait. Patient states her problem is solely due to weakness in the left leg and she refuses testing of the right lower limb. Electrodiagnostic Testing: Left peroneal motor nerve demonstrates normal distal latency with normal amplitude and reduced conduction velocity. Left tibial motor nerve demonstrates prolonged distal latency with reduced amplitude. Sensory responses could not be obtained, though this study may be compromised by the patient's body habitus. Needle EMG testing was performed in the left lower limb. All muscles tested showed no evidence of denervation with normal motor unit action potentials. Electrodiagnostic impression this is an abnormal study in the left lower limb. 1. 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 However, an accurate assessment regarding this cannot be obtained as it patient refused testing of the right lower limb. 2. No electrodiagnostic evidence noted for lumbar radiculopathy. Multi Select Codes Neurology Neurology Interp Codes: 83305-71 Musc test done w/n test comp (interp) and 55805-58 Nrv cndj test 7-8 studies (interp)
== END | disposition home or self-care (01) ==
LOC: PSN 09:18
PROVIDERS: PCP Nurse Practitioner Family; Referring Provider Psychiatry & Neurology Neurology; Visit Provider Psychiatry & Neurology Neurology
DX: R20.0 Anesthesia of skin (principal); G62.9 Polyneuropathy, unspecified; R26.9 Unspecified abnormalities of gait and mobility; Z98.890 Other specified postprocedural states; M54.50 Low back pain, unspecified
CPT/HCPCS: 95886; 95909

== ENCOUNTER → 2023-10-12 | Outpatient (CLI) | payer MEDICARE, SELFPAY ==
[2023-10-12 12:23] LABS: Erythrocyte Sedimentation Rate 2 mm/hr (0-30)
[2023-10-12 12:26] LABS: Absolute Lymphocyte Count 0.99 X10^3/uL (0.83-4.51); Absolute Neutrophil Count 3.1 X10^3/uL (2.0-7.7); Basophil# 0.06 X10^3/uL; Basophil% 1.3 % (0-1); Eosinophils% 2.2 % (0-5); Hematocrit 41.8 % (37-47); Hemoglobin 13.1 g/dL (12.0-15.0); Lymphocyte # 0.99 X10^3/ul (0.83-4.51); Mean Corp Hgb Conc 31.3 g/dL (32-36); Mean Corpuscular Volume 89.3 fL (81-99); Mean Platelet Vol. 9.4 fl (6.2-12.0); Monocyte# 0.25 X10^3/uL; Monocyte% 5.6 % (0-10); NRBC Flagged by Analyzer 0 % (0-5); Neutrophil # 3.07 X10^3/uL (2.7-7.7); Neutrophil % 68.5 % (47-70); Platelet Count 221 K/mm3 (150-450); RBC Distribution Width SD 45.2 fl (35.1-43.9); Red Blood Count 4.68 M/mm3 (4.2-5.4); White Blood Count 4.5 K/mm3 (4.4-11.0)
[2023-10-12 13:15] LABS: CRP < 2.90 mg/L (0.0-3.0)
== END | disposition home or self-care (01) ==
LOC: MTLAB 11:10
PROVIDERS: PCP Nurse Practitioner Family; Referring Provider Specialist; Visit Provider Specialist
DX: T84.033A Mechanical loosening of internal left knee prosthetic joint, initial encounter (principal)
CPT/HCPCS: 36415; 85025; 85652; 86140

== ENCOUNTER → 2023-11-02 | Outpatient (CLI) | payer MEDICARE, SELFPAY ==
[2023-11-06 16:09] LABS: Albumin 3.5 g/dL (2.9-4.4); Alpha-1-Globulins 0.3 g/dL (0.0-0.4); Alpha-2-Globulins 0.6 g/dL (0.4-1.0); Gamma Globulin 0.5 g/dL (0.4-1.8); Immunoglobulin A 48 mg/dL (64-422); Immunoglobulin G 497 mg/dL (586-1602); Immunoglobulin M 27 mg/dL (26-217); PROEL- TOTAL PROTEIN 5.7 g/dL (6.0-8.5)
== END | disposition home or self-care (01) ==
LOC: MTLAB 11:04
PROVIDERS: PCP Nurse Practitioner Family; Referring Provider Psychiatry & Neurology Neurology; Visit Provider Psychiatry & Neurology Neurology
DX: G62.9 Polyneuropathy, unspecified (principal)
CPT/HCPCS: 36415; 82784; 84165; 86334; 86335

== ENCOUNTER 2024-03-21 10:06 | Emergency (ER) | payer MEDICARE, SELFPAY ==
[2024-03-21 10:08] VITALS: BP 107/65; PULSE 82; RESP 20; TEMP 35.8; O2SAT 98; BMI 33.2
--- NOTE | 2024-03-21 10:31 | EKG12_ITS ---
Test Reason : DIZZY Blood Pressure : / mmHG Vent. Rate : 071 BPM Atrial Rate : 031 BPM P-R Int : 176 ms QRS Dur : 156 ms QT Int : 480 ms P-R-T Axes : 000 115 096 degrees QTc Int : 521 ms AV dual-paced rhythm with occasional ventricular-paced complexes Biventricular pacemaker detected Abnormal ECG Confirmed by MARIA VICTORIA AVILES, MARY ELLEN ([id number]), restaurant expeditor TIANA CARBALLO ([id number]) on 03/24/2024 11:16:01 AM Referred By: Confirmed By:MARY ELLEN IRENE MD
--- NOTE | 2024-03-21 10:32 | EX.ED.DYSGE1 ---
HPI History of Present Illness Chief Complaint: Dizziness Narrative Narrative: Patient is a 78-year-old female with history of long-standing hypotension, chronic pain, atrial fibrillation ( on Coumadin ), prior retinal artery occlusion ( vision loss in left eye), vertigo, congestive heart, failure, scheme, cardiomyopathy, prior CABG/valve replacement , and Pacemaker/ICD presenting via EMS after a near syncopal episode. Patient states that she have been doing water aerobics for years and felt fine this morning. She was in the pool when she started to feel lightheaded and like she was going to pass out. Bystanders got her out of the pool, laid her down and then put her feet up. Patient states that she felt very closing to going out. She denies any associated chest pain, SOB, palpitations or other symptoms. She notes that she does feel dizzy when she moves her head but also has a long standing hx of vertigo. She denies any associated numbness, weakness or acute vision changes. She feels back to baseline. She said she?s been working with [facility] to try to find medicines to bring up her blood pressure. She states normally her blood pressure is 70s 80s systolic. She states she was recently switched from lasix to another medicine that starts with an S and was also started in [place] (oxycodone) a couple weeks ago. She notes that the last time this happened ( about a year ago) her potassium was low. No toehr complaints at this time. [facility] Medical History Wears partial dentures Wears glasses Walker as ambulation aid Gout High cholesterol Migraine headache Injury of head and neck Syncope History of ulceration Gastric reflux Non-smoker Shortness of breath on exertion History of rheumatic fever History of pacemaker History of echocardiogram History of stress test Cardiology follow-up encounter Chest pain Chronic pain syndrome Systolic CHF History of coronary artery disease History of revision of total replacement of right knee joint Skin cancer (melanoma) Secondary pulmonary arterial hypertension Obesity Paroxysmal atrial fibrillation Atherosclerosis of coronary artery of [place] heart without angina pectoris Ischemic cardiomyopathy Essential (primary) hypertension Glaucoma 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 Occlusion and stenosis of unspecified carotid artery Transient cerebral ischemic attack, unspecified Home Medications ?Medication ?Instructions ?Recorded ?Last Taken ?Type oxycodone 5 mg tablet 10 mg PO TID PRN PRN breakthru pain 04/07/19 Unknown History nitroglycerin 0.4 mg sublingual 0.4 mg sublingual Q5M PRN 04/10/19 Unknown Rx tablet Cardiac/Chest Pain ##30 acetaminophen 325 mg capsule 650 mg PO Q4H PRN PRN Pain Score 06/17/19 Unknown History 1-06/12 metoprolol succinate 50 mg 50 mg PO DAILY blood pressure 06/17/19 Unknown History tablet,extended release 24 hr pantoprazole 20 mg tablet,delayed 20 mg PO DAILY reflux 06/17/19 Unknown History release aspirin 81 mg [facility]wable [facility]22 Unknown History sacubitril 49 mg-valsartan 51 mg 0.5 tab PO BID [facility] health 05/26/22 Unknown History tablet (Entresto) tafluprost (PF) 0.0015 % eye drops 1 drp EACH EYE Q eye health 05/26/22 Unknown History in a dropperette (Zioptan (PF)) warfarin 2 mg tablet 4 mg PO QODAY blood thinner 05/26/22 Unknown History potassium chloride 20 mEq 20 meq PO DAILY SUPPLEMENT #30 tabs 04/09/23 Unknown Rx tablet,extended release atorvastatin 20 mg tablet 20 mg PO QHS CHOLESTEROL 05/24/23 Unknown History cholecalciferol (vitamin D3) 125 125 mcg PO DAILY SUPPLEMENT 05/24/23 Unknown History mcg (5,000 unit) capsule multivitamin 1 tab PO DAILY SUPPLEMENT 05/24/23 Unknown History pseudoephedrine-guaifenesin ER 60 1 tab PO Q12H PRN cold symptoms 05/24/23 Unknown History mg-600 mg tablet,extend release 12hr (Mucinex D) vit C 50 mg-E 15 unit-zinc cit 4.5 1 tab PO Q EYE HEALTH 05/24/23 Unknown History mg-lutein 2.5 mg-zeaxan chew tablet ([facility]) amiodarone 200 mg tablet 100 mg PO DAILY HEART 01/16/24 Unknown History morphine 15 mg tablet,extended 15 mg PO BID PAIN 01/16/24 Unknown History release spironolactone 25 mg tablet 25 mg PO DAILY EDEMA 01/16/24 Unknown History warfarin 2 mg tablet 2 mg PO QODAY BLOOD THINNER 01/16/24 Unknown History Allergy/AdvReac Type Severity Reaction Status Date / Time Fish Containing Products Allergy Severe Anaphylaxis Verified 03/21/24 10:14 (seafood) iodine Allergy Severe Anaphylaxis Verified 03/21/24 10:14 Penicillins AdvReac Severe Diarrhea Verified 03/21/24 10:14 Poultry AdvReac Severe Diarrhea Verified 03/21/24 10:14 Sulfa (Sulfonamide AdvReac Severe Diarrhea Verified 03/21/24 10:14 Antibiotics) Family History Father CVA (cerebral vascular accident) Brother CAD (coronary artery disease) CVA (cerebral vascular accident) Diabetes Mother Cancer History of Brain tumor, unclear type. Surgical History Hx of LASIK Hx of right cataract extraction Hx laparoscopic cholecystectomy Hx of lumbar discectomy History of revision of total knee arthroplasty History of mitral valve repair Hx of CABG H/O foot surgery History of hysterectomy History of appendectomy History of parathyroidectomy History of bilateral knee replacement Social History household members: spouse Smoking Status: Never smoker alcohol intake: never substance use type: does not use caffeine: Yes Type: carbonated beverages Number of servings: 3 what type of physical activity do you participate in: walking frequency: daily duration: 60-90 minutes/day seatbelt use: always do you feel safe at home: Yes ROS ROS ED Constitutional Constitutional ED: Reports other Details: lightheaded, near syncope ; Denies chills or fever(s) Eyes Eyes: Denies change in vision ENT ENT ED: Denies rhinorrhea Cardiovascular Cardiovascular: Denies chest pain, palpitations or racing heartbeat Respiratory/Chest Respiratory/Chest: Denies dyspnea or dyspnea on exertion Gastrointestinal Gastrointestinal: Denies abdominal pain, melena, nausea or vomiting Musculoskeletal Musculoskeletal: Denies arthralgias or myalgias Neurologic Neurologic: Denies headache(s), paresthesias or weakness Psychiatric Psychiatric: Denies anxiety Hematologic/Lymphatic Hematologic/Lymphatic: Reports easy bleeding, easy bruising and other Details: on Coumadin EXAM Physical Exam Const Vital Signs: 03/21/24 10:08 03/21/24 12:00 03/21/24 12:00 Temperature 96.4 F L Temperature Source Temporal Pulse Rate 82 74 Pulse Rate [Lying] Pulse Rate [Sitting (for 1 minute prior to obtaining)] Pulse Rate [Standing (for 1 minute prior to obtaining)] Respiratory Rate 20 H 14 Blood Pressure 107/65 107/71 Blood Pressure [Lying] Blood Pressure [Sitting (for 1 minute prior to obtaining)] Blood Pressure [Standing (for 1 minute prior to obtaining)] Blood Pressure Mean 79 83 Blood Pressure Mean [Lying] Blood Pressure Mean [Sitting (for 1 minute prior to obtaining)] Blood Pressure Mean [Standing (for 1 minute prior to obtaining)] Pulse Ox 98 Oxygen Delivery Method Room Air 03/21/24 13:12 03/21/24 14:00 03/21/24 15:55 Temperature 98 F Temperature Source Pulse Rate 71 71 Pulse Rate [Lying] 70 Pulse Rate [Sitting (for 1 minute prior to obtaining)] 69 Pulse Rate [Standing (for 1 minute prior to obtaining)] 70 Respiratory Rate 18 21 H Blood Pressure 112/99 H 103/70 Blood Pressure [Lying] 95/76 Blood Pressure [Sitting (for 1 minute prior to obtaining)] 100/59 L Blood Pressure [Standing (for 1 minute prior to obtaining)] 107/70 Blood Pressure Mean 103 81 Blood Pressure Mean [Lying] 82 Blood Pressure Mean [Sitting (for 1 minute prior to obtaining)] 72 Blood Pressure Mean [Standing (for 1 minute prior to obtaining)] 82 Pulse Ox 98 99 Oxygen Delivery Method Room Air Positive well nourished and well developed General Appearance ED: well developed and NAD HEENT Reports moist mucous membranes, dry mucous membranes and other other Mouth ED: Yes dry mucous membranes Mouth: dry mucous membranes Eyes PERRL and EOMs intact bilaterally Eyes Narrative: diminished vision in left eye- chronic Neck supple and no JVD Chest Wall inspection of chest normal and palpation of chest normal Resp normal respiratory effort and clear to auscultation bilaterally Auscultation: Negative for rhonchi, wheezes or diminished lung sounds Cardio regular rate and regular rhythm GI normal to inspection, nondistended, normoactive bowel sounds and non-tender Extremity normal to inspection General Extremety ED: Negative for edema General Extremity: Negative for edema Neuro oriented x3 Neuro Narrative: No focal neuro deficit. Sensorium / Orientation: alert Motor Exam: Negative for general weakness Psych mental status grossly normal Skin no rashes or lesions noted and no wounds MDM MDM MDM Narrative Medical decision making narrative: Patient is a 78-year-old female presenting after near syncopal episode while water aerobics today. Patient does have a history of ongoing issues with dizziness and lightheadedness. She was recently started on spironolactone and she is also on Entresto. Patient was hypotensive initially however her blood pressures normalized in the emergency room. She states has been dealing with issues of low blood pressure at home. Patient is given 500 cc bolus of fluid. Lab work shows a mild elevation of her creatinine of 1.49. Patient states her kidney levels fluctuates as she was told that one of her kidneys does not work all the way. Patient clinically does not appear fluid overloaded and has no signs of decompensated heart failure. She has no increased oxygen demands. High since he troponin is normal x 2 at 5. I did offer patient admission for her renal insufficiency however patient declined states she would really rather follow-up outpatient. In addition patient is found to have a subtherapeutic INR. I spoke to her nurse practitioner at her primary care office, Roxy Bergman, who will follow-up in the office next week for her kidney function. Will hold her spironolactone because she is she does not have any findings of fluid overload at this time. In addition she states that patient apparently had normal INR at 2.5 today through her home monitor. I had initially ordered a recheck of her INR given the large difference between her home monitor and ours (1.1) but patient states that she actually did not check her INR level today and just reported the same level she had a week ago. Patient also thinks that she maybe was taking 2 mg of her Coumadin a day instead of 4 mg which she is supposed to. I contacted back her nurse practitioner to inform her of this and to get further recommendations for her Coumadin dosing. Patient is instructed to take 6 mg today and then go back to 4 mg daily except for 2 days a week which she takes 3 mg. Will follow-up again outpatient for her INR. Repeat orthostatics are negative. Patient is mildly dizzy with it but states this is her chronic dizziness and she feels back to her baseline. Patient discharged home in stable and improved condition. Is given return precautions. Lab Data Labs: Laboratory Results - last 24 hr 03/21/24 03/21/24 03/21/24 11:20 11:53 14:10 WBC 4.7 RBC 4.36 Hgb 12.8 Hct 39.4 MCV 90.4 MCH 29.4 MCHC 32.5 RDW Std Deviation 53.1 H RDW Coeff of [place] 15.9 H Plt Count 175 MPV 9.0 Immature Gran % (Auto) 0.600 Neut % (Auto) 74.7 H Lymph % (Auto) 16.3 L Stone % (Auto) 4.7 Eos % (Auto) 2.6 Baso % (Auto) 1.1 H Absolute Neuts (auto) 3.5 Absolute Lymphs (auto) 0.76 L Nucleated RBC % 0 PT 14.3 INR 1.1 Sodium 137 Potassium 4.9 Chloride 104 Carbon Dioxide 25.0 Anion Gap 8 BUN 30 H Creatinine 1.49 H Estim Creat Clear Calc 35.23 Est GFR (MDRD) Af Amer 43 L Est GFR (MDRD) Non-Af 36 L BUN/Creatinine Ratio 20.1 H Glucose 99 Calcium 9.2 Magnesium 2.2 Troponin I High Sens 5 5 B-Natriuretic Peptide 86.1 Urine Color Yellow Urine Clarity Clear Urine pH 6.5 Ur Specific [place] 1.010 Urine Protein Negative Urine Glucose (UA) Normal Urine Ketones Negative Urine Occult Blood Negative Urine Nitrite Negative Urine Bilirubin Negative Urine Urobilinogen Normal Ur Leukocyte Esterase 25 H Urine RBC 0 SEEN Urine WBC 0-5 SEEN Ur Squamous Epith Cells 0-5 SEEN Urine Bacteria 0 SEEN Urine Mucus 0 SEEN Radiography Chest X-Ray - ED: 1 View, Read by ED Physician, Read by Radiologist and No Acute Disease Diagnostic Testing: Clinical Impression(s) from Imaging Studies Chest X-Ray 03/21/24 11:08 IMPRESSION: Stable examination. No acute abnormality is seen. Electronically Signed: Julio Rubio MD at 11:48 EDT , Rhythm Strip Rhythm Strip: Paced Rate: 71 Ectopy: PVC(s) EKG Initial EKG: Attestation: I personally reviewed and interpreted this EKG as follows: Interpretation: Paced Comments: AV paced rhythm with PVCs. Discharge Plan Triage Chief Complaint: Dizziness ED Provider: Cheryl Morley Dx/Rx/DC Orders Clinical Impression: Near syncope, Orthostatic hypotension, Acute renal insufficiency, Subtherapeutic international normalized ratio (INR) Instructions: ED Dehydration (Adult), ED Hypotension, Orthostatic Prescriptions: No Action atorvastatin 20 mg tablet 20 mg PO QHS pseudoephedrine-guaifenesin [Mucinex D] 60-600 mg tablet extended release 12 hr 1 tab PO Q12H PRN (Reason: cold symptoms) multivitamin Tablet 1 tab PO DAILY [facility] 50 mg-15 unit- 4.5 mg-2.5 mg tablet,chewable 1 tab PO QHS cholecalciferol (vitamin D3) 125 mcg (5,000 unit) capsule 125 mcg PO DAILY oxycodone 5 MG tablet 10 mg PO TID PRN PRN (Reason: breakthru pain) nitroglycerin 0.4 MG tablet, sublingual 0.4 mg sublingual Q5M PRN (Reason: Cardiac/Chest Pain) Qty: 30 0RF metoprolol succinate 50 MG tablet 50 mg PO DAILY pantoprazole 20 MG tablet 20 mg PO DAILY acetaminophen 325 MG capsule 650 mg PO Q4H PRN PRN (Reason: Pain Score 1-10/10) Entresto 49-51 mg tablet 0.5 tab PO BID aspirin 81 MG tablet,chewable 162 mg PO QHS warfarin 2 mg tablet 4 mg PO QODAY Patient Comments: TAKE 2 TABLETS BY MOUTH ONCE DAILY tafluprost (PF) [Zioptan (PF)] 0.0015 % dropperette 1 drp EACH EYE QHS Patient Comments: 1 drop in both eyes nightly potassium chloride 20 mEq tablet extended release 20 meq PO DAILY Qty: 30 0RF spironolactone 25 mg tablet 25 mg PO DAILY morphine 15 mg tablet extended release 15 mg PO BID warfarin 2 mg tablet 2 mg PO QODAY amiodarone 200 MG tablet 100 mg PO DAILY Primary Care Provider: Roxy Bergman Referrals: Roxy Bergman, [facility] [Primary Care Provider] - Activity Restrictions/Additional Instructions: Please hold your spironolactone until you follow up with Roxy. Take 6mg (3x 2mg pills) of Coumadin tonight. Then resume 4mg 5 days a week and 3 mg 2 days a week. Follow up for repeat labs/inr next week. Please return to the ED if you have worsening symptoms. Continue taking y our other medications. Print Language: [place] Citizen Disposition Disposition: Home, Self Care Discharge Date/Time: 03/21/24 16:08
--- NOTE | 2024-03-21 11:08 | RAD_ITS ---
STUDY: X-RAY CHEST REASON FOR EXAM: Female, 78 years old. Near syncope TECHNIQUE: Single AP portable view of the chest. COMPARISON: Comparison is made with prior study April 09, 2023. FINDINGS: EKG electrodes are seen. Stable calcified granuloma in the right lower lobe. There is no demonstrated pleural abnormality. Sternal cerclage wires are present from a prior sternotomy. The patient is status post mitral valve replacement. A left-sided dual-chamber pacemaker is seen. Normal mediastinum and savage. Normal visualized pulmonary arteries. There is atherosclerotic tortuosity of the aortic arch and descending thoracic aorta. Normal visualized thoracic spine. Normal visualized ribs, clavicles, and shoulders. There is no demonstrated abnormality of the visualized soft tissue structures of the upper abdomen. RAD/Chest 1 View (Portable) IMPRESSION: Stable examination. No acute abnormality is seen. Electronically Signed: Julio Rubio MD at 11:48 EDT ,
[2024-03-21 11:46] LABS: Absolute Lymphocyte Count 0.76 X10^3/uL (0.83-4.51); Absolute Neutrophil Count 3.5 X10^3/uL (2.0-7.7); Basophil# 0.05 X10^3/uL; Basophil% 1.1 % (0-1); Eosinophil# 0.12 X10^3/uL; Eosinophils% 2.6 % (0-5); Hematocrit 39.4 % (37-47); Hemoglobin 12.8 g/dL (12.0-15.0); Lymphocyte # 0.76 X10^3/ul (0.83-4.51); Lymphocyte % 16.3 % (19-41); Mean Corp Hgb Conc 32.5 g/dL (32-36); Mean Corpuscular Hgb 29.4 pg (27.0-32.0); Mean Corpuscular Volume 90.4 fL (81-99); Monocyte# 0.22 X10^3/uL; Monocyte% 4.7 % (0-10); NRBC Flagged by Analyzer 0 % (0-5); Neutrophil # 3.49 X10^3/uL (2.7-7.7); Neutrophil % 74.7 % (47-70); Platelet Count 175 K/mm3 (150-450); RBC Distribution Width CV 15.9 % (11.6-14.6); RBC Distribution Width SD 53.1 fl (35.1-43.9); Red Blood Count 4.36 M/mm3 (4.2-5.4); White Blood Count 4.7 K/mm3 (4.4-11.0)
[2024-03-21 11:57] LABS: Bacteria 0 SEEN /hpf (None Seen); Mucous, Urine 0 SEEN /hpf (<or=2+); Red Blood Cells-Urine 0 SEEN /hpf (0-5)
[2024-03-21 11:57] LABS: International Normalized Ratio 1.1; Prothrombin Time (Protime)PT. 14.3 SECONDS (11.7-14.9)
[2024-03-21 12:00] VITALS: BP 107/71; PULSE 74; RESP 14
[2024-03-21 12:02] LABS: BNP,B-Type NATRIURETIC PEPTIDE 86.1 pg/mL (0-100)
[2024-03-21 12:05] LABS: Color, Urine Yellow (Yellow); Glucose, Dipstick Normal (Normal); Ketone-Dipstick Negative (Negative); Leukocyte Esterase-Dipstick 25 /ul (Negative); Nitrite-Dipstick Negative (Negative); Occult Blood-Urine Negative /ul (Negative); Protein-Dipstick Negative (Negative); Urine Bilirubin Dipstick Negative (Negative); Urine Clarity Clear (Clear); Urine Urobilinogen Normal (Normal); Urine pH 6.5 (5.0 - 8.0)
[2024-03-21 12:07] LABS: Anion Gap 8 (5-15); BUN 30 mg/dL (7-18); BUN/Creat Ratio 20.1 RATIO (10-20); Calcium,Total 9.2 mg/dL (8.5-10.1); Chloride 104 mmol/L (98-107); Creatinine, Serum 1.49 mg/dL (0.55-1.02); EST Glomerular Filtration Rate 36 mL/min (>60); Est Glom Filt Rate - Afr Amer 43 mL/min (>60); Estimated Creatinine Clearance 35.23 ml/min; Glucose 99 mg/dL (74-106); Magnesium 2.2 mg/dL (1.6-2.6); Potassium 4.9 mmol/L (3.5-5.1); Sodium Level 137 mmol/L (136-145); Troponin-I HS (w/2H Reflex) 5 pg/mL (3.0-54.0)
[2024-03-21 12:13] LABS: Squamous Epithelial Cells - UA 0-5 SEEN /hpf (5-10); White Blood Cells 0-5 SEEN /hpf (0-5)
[2024-03-21] MEDS: 0.9% Normal Saline (500mL Bag) 500 ML 999 ML IV (12:47)
[2024-03-21 13:12] VITALS: BP 100/59; BP 107/70; BP 95/76; PULSE 69; PULSE 70
[2024-03-21 13:39] LABS: Reflex Troponin-HS? (from REC) Y
[2024-03-21 14:00] VITALS: BP 112/99; PULSE 71; RESP 18; O2SAT 98
[2024-03-21 14:44] LABS: Troponin-I HS 5 pg/mL (3.0-54.0)
[2024-03-21 15:55] VITALS: BP 103/70; PULSE 71; RESP 21; TEMP 36.6; O2SAT 99
== END 2024-03-21 16:08 | disposition home or self-care (01) ==
PROVIDERS: Emergency Provider Emergency Medicine; PCP Nurse Practitioner Family; Visit Provider Emergency Medicine
DX: I95.1 Orthostatic hypotension (principal); I11.0 Hypertensive heart disease with heart failure; I50.22 Chronic systolic (congestive) heart failure; I48.91 Unspecified atrial fibrillation; E78.00 Pure hypercholesterolemia, unspecified; N28.9 Disorder of kidney and ureter, unspecified; Z79.01 Long term (current) use of anticoagulants; I25.5 Ischemic cardiomyopathy; I25.10 Atherosclerotic heart disease of native coronary artery without angina pectoris; Z90.49 Acquired absence of other specified parts of digestive tract; Z95.1 Presence of aortocoronary bypass graft; Z86.73 Personal history of transient ischemic attack (TIA), and cerebral infarction without residual deficits; Z95.810 Presence of automatic (implantable) cardiac defibrillator
CPT/HCPCS: 36415; 71045; 80048; 81001; 83735; 83880; 84484; 85025; 85610; 93005; 96360; 99284; J7040; A4216

== ENCOUNTER → 2024-03-28 | Outpatient (CLI) | payer MEDICARE, SELFPAY ==
[2024-03-28 15:10] LABS: ALB/GLOB Ratio 1.4 RATIO (0.9-2.4); AST(SGOT) 18 U/L (15-37); Alanine Aminotransfer ALT/SGPT 21 U/L (13-56); Albumin, Serum 3.6 g/dL (3.2-5.0); Alkaline Phosphatase 156 U/L (45-117); Anion Gap 4 (5-15); BUN 29 mg/dL (7-18); BUN/Creat Ratio 19.7 RATIO (10-20); Calcium,Total 9.1 mg/dL (8.5-10.1); Chloride 106 mmol/L (98-107); Creatinine, Serum 1.47 mg/dL (0.55-1.02); EST Glomerular Filtration Rate 36 mL/min (>60); Est Glom Filt Rate - Afr Amer 44 mL/min (>60); Globulin 2.5 g/dL (2.2-4.2); Glucose 93 mg/dL (74-106); Protein, Total 6.1 g/dL (6.4-8.2); Sodium Level 138 mmol/L (136-145)
== END | disposition home or self-care (01) ==
LOC: LABSPEC 14:26
PROVIDERS: PCP Nurse Practitioner Family; Referring Provider Nurse Practitioner Family; Visit Provider Nurse Practitioner Family
DX: N18.30 Chronic kidney disease, stage 3 unspecified (principal)
CPT/HCPCS: 80053

== ENCOUNTER 2024-06-23 01:44 | Emergency (ER) | payer MEDICARE, SELFPAY ==
[2024-06-23] VITALS (8 sets, daily range): BP systolic 78–150; BP diastolic 53–93; PULSE 70–76; RESP 14–21; TEMP 36.1–36.9; O2SAT 93–97; BMI 34.4
--- NOTE | 2024-06-23 01:59 | CT_ITS ---
INDICATION: syncope EXAMINATION: CT BRAIN - CT Head or Brain W/O Contrast Injection TECHNIQUE: Multiple axial images were obtained of the head without intravenous contrast. A radiation dose optimization technique was used for this scan. IV Contrast dosage and agent: None. COMPARISON: April 09, 2023 FINDINGS: BRAIN PARENCHYMA: No intra- or extra-axial hemorrhage. No evidence of acute infarct. No intracranial mass or mass effect. Mild periventricular and subcortical white matter hypodense chronic small vessel white matter ischemic change. There is preservation of the caban/white matter interface. Posterior fossa structures are unremarkable. CSF SPACES: Mild global cerebral volume loss. No hydrocephalus. Basal cisterns are patent. CALVARIUM, SKULL BASE, PARANASAL SINUSES AND MASTOID AIR CELLS: No acute osseous finding. Par[place]al sinuses are clear. Mastoid air cells are clear. ORBITS: Both globes, extraocular muscles, optic nerves and retrobulbar fat appear unremarkable. ASPECTS Score for Acute Strokes: 10 CT/Brain/Head without Contrast IMPRESSION: No CT evidence of acute intracranial hemorrhage or injury. Moderate senescent changes. Electronically Signed: Cong Lind MD at 3:11 EDT Reading Location ID and State: [facility] / [place] Tel , Service support ,
--- NOTE | 2024-06-23 02:03 | CT_ITS ---
INDICATION: abdominal pain EXAMINATION: CT ABDOMEN AND PELVIS WITHOUT CONTRAST - CT Abdomen And Pelvis W/O Contrast Injection TECHNIQUE: Helically acquired images were obtained of the abdomen and pelvis without oral or IV contrast. A radiation dose optimization technique was used for this scan. IV Contrast dosage and agent: None. Oral contrast: None. COMPARISON: MRI abdomen June 14, 2022. FINDINGS: LOWER CHEST: Mild dependent atelectasis. Basilar calcified granulomas.. No cardiomegaly or pericardial effusion. Severe multivessel calcified coronary atherosclerosis. Multi lead AICD. Ascending aortic ectasia to 4.0 cm. LIVER: Homogeneous parenchyma with mild periportal edema.. No focal mass. GALLBLADDER AND BILIARY TREE: Cholecystectomy. No intra- or extrahepatic biliary ductal dilation. PANCREAS: No focal cystic or solid mass. Partial fatty-replaced SPLEEN: Splenic sequela of prior granulomatous disease with large hemorrhage along the greater curvature of the spleen tracking inferiorly along the left lateral extraperitoneal fat.. ADRENAL GLANDS: No nodules. KIDNEYS AND URETERS: Normal renal size and position. No hydronephrosis. Left renal 2 cm cyst, no imaging follow-up required. PERITONEUM: Layering blood density fluid in the dependent pelvis. Intermediate density fluid also seen along the liver. No organized abscess. No free air. . BOWEL: No acute gastric finding. No small bowel distention or focal wall thickening. Appendix is not seen. No right lower quadrant inflammation to suggest appendicitis. Moderate to large colonic stool burden. LYMPH NODES: No enlarged mesenteric or retroperitoneal lymph nodes. VESSELS: Aorta is non-dilated. URINARY BLADDER: Unremarkable. REPRODUCTIVE ORGANS: Absent uterus. No evidence of adnexal mass. ABDOMINAL WALL: No discrete abdominal or pelvic wall hernia. BONES: No lytic or blastic abnormality. CT/Abdomen/Pelvis without Cont IMPRESSION: Splenic sequela of prior granulomatous disease with acute large hemorrhage along the splenic lateral curvature, tracking inferiorly along the left retroperitoneal fat with small amount of blood dependent within the pelvis. Less specific imaging density fluid along the liver. Moderate to large colonic stool. Mild periportal edema. N.B. : The above Results were Read Back by Cong Lind MD to Felisha Harvey DO, and understanding confirmed on 06/23/2024 03:18:04 (ET). Electronically Signed: Cong Lind MD at 3:23 EDT ,
--- NOTE | 2024-06-23 02:03 | EDS_ITS ---
HPI History of Present Illness Chief Complaint: Chest Pain Detail of Chief Complaint: Chest pain and syncope Informant: patient Narrative Narrative: Patient presents with chest pain and syncope that occurred prior arrival in the emergency department. Patient states that she was in bed reading when she developed sudden onset of left-sided rib/chest pain that was sharp and worse with deep breath. She then felt like she might need a nitroglycerin tablets when she tried to get out of bed and felt lightheaded and dizzy and then had a short syncopal episode. Her did not think she passed out but she does not recall falling. He did end up given her nitroglycerin tablet. Patient has history of coronary artery disease with prior CABG. She has history of a pacer defibrillator. She continues to feel lightheaded. She felt fine prior to going to bed and has not been ill. [facility] Medical History (Updated 06/23/24 @ 03:[address] Felisha Harvey, DO) Wears partial dentures Wears glasses Walker as ambulation aid Gout High cholesterol Migraine headache Injury of head and neck Syncope History of ulceration Gastric reflux Non-smoker Shortness of breath on exertion History of rheumatic fever History of pacemaker History of echocardiogram History of stress test Cardiology follow-up encounter Chest pain Chronic pain syndrome Systolic CHF History of coronary artery disease History of revision of total replacement of right knee joint Skin cancer (melanoma) Secondary pulmonary arterial hypertension Obesity Paroxysmal atrial fibrillation Atherosclerosis of coronary artery of [place] without angina pectoris Ischemic cardiomyopathy Essential (primary) hypertension Glaucoma 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 Occlusion and stenosis of unspecified carotid artery Transient cerebral ischemic attack, unspecified Home Medications ?Medication ?Instructions ?Recorded ?Last Taken ?Type oxycodone 5 mg tablet 10 mg PO TID PRN PRN breakthru pain 04/07/19 Unknown History nitroglycerin 0.4 mg sublingual 0.4 mg sublingual Q5M PRN 04/10/19 Unknown Rx tablet Cardiac/Chest Pain ##30 acetaminophen 325 mg capsule 650 mg PO Q4H PRN PRN Pain Score 06/17/19 Unknown History 1-06/12 metoprolol succinate 50 mg 50 mg PO DAILY blood pressure 06/17/19 Unknown H istory tablet,extended release 24 hr pantoprazole 20 mg tablet,delayed 20 mg PO DAILY reflux 06/17/19 Unknown History release aspirin 81 mg chewable tablet 162 mg PO QHS heart health 05/26/22 Unknown History sacubitril 49 mg-valsartan 51 mg 0.5 tab PO BID heart health 05/26/22 Unknown History tablet (Entresto) tafluprost (PF) 0.0015 % eye drops 1 drp EACH EYE Q eye health 05/26/22 Unknown History in a dropperette (Zioptan (PF)) warfarin 2 mg tablet 4 mg PO QODAY blood thinner 05/26/22 Unknown History potassium chloride 20 mEq 20 meq PO DAILY SUPPLEMENT #30 tabs 04/09/23 Unknown Rx tablet,extended release atorvastatin 20 mg tablet 20 mg PO QHS CHOLESTEROL 05/24/23 Unknown History cholecalciferol (vitamin D3) 125 125 mcg PO DAILY SUPPLEMENT 05/24/23 Unknown History mcg (5,000 unit) capsule multivitamin 1 tab PO DAILY SUPPLEMENT 05/24/23 Unknown History pseudoephedrine-guaifenesin ER 60 1 tab PO Q12H PRN cold symptoms 05/24/23 Unknown History mg-600 mg tablet,extend release 12hr (Mucinex D) vit C 50 mg-E 15 unit-zinc cit 4.5 1 tab PO Q EYE HEALTH 05/24/23 Unknown History mg-lutein 2.5 mg-zeaxan chew tablet ([facility]) amiodarone 200 mg tablet 100 mg PO DAILY HEART 01/16/24 Unknown History morphine 15 mg tablet,extended 15 mg PO BID PAIN 01/16/24 Unknown History release spironolactone 25 mg tablet 25 mg PO DAILY EDEMA 01/16/24 Unknown History warfarin 2 mg tablet 2 mg PO QODAY BLOOD THINNER 01/16/24 Unknown History Allergy/AdvReac Type Severity Reaction Status Date / Time Fish Containing Products Allergy Severe Anaphylaxis Verified 06/23/24 01:46 (seafood) iodine Allergy Severe Anaphylaxis Verified 06/23/24 01:46 Penicillins AdvReac Severe Diarrhea Verified 06/23/24 01:46 Poultry AdvReac Severe Diarrhea Verified 06/23/24 01:46 Sulfa (Sulfonamide AdvReac Severe Diarrhea Verified 06/23/24 01:46 Antibiotics) Family History Father CVA (cerebral vascular accident) Brother CAD (coronary artery disease) CVA (cerebral vascular accident) Diabetes Mother Cancer History of Brain tumor, unclear type. Surgical History History of cholecystectomy Hx of LASIK Hx of right cataract extraction Hx laparoscopic cholecystectomy Hx of lumbar discectomy History of revision of total knee arthroplasty History of mitral valve repair Hx of CABG H/O foot surgery History of hysterectomy History of appendectomy History of parathyroidectomy History of bilateral knee replacement Social History household members: spouse Smoking Status: Never smoker alcohol intake: never substance use type: does not use caffeine: Yes Type: carbonated beverages Number of servings: 3 what type of physical activity do you participate in: walking frequency: daily duration: 60-90 minutes/day seatbelt use: always do you feel safe at home: Yes ROS ROS ED ROS Narrative Dizziness, syncope Review of Systems ROS Unobtainable: other Constitutional Constitutional ED: Reports lethargy; Denies chills, fever(s), sweats or weight loss Eyes Eyes: Denies blurry vision, change in vision or diplopia ENT ENT ED: Denies rhinorrhea or sore throat Cardiovascular Cardiovascular: Reports chest pain; Denies orthopnea or racing heartbeat Respiratory/Chest Respiratory/Chest: Denies cough, dyspnea, dyspnea on exertion, orthopnea or sputum Gastrointestinal Gastrointestinal: Denies abdominal pain, diarrhea, nausea or vomiting Genitourinary Genitourinary ED: Denies dysuria, hematuria or urinary frequency Musculoskeletal Musculoskeletal: Denies arthralgias, back pain, myalgias or neck pain Integumentary Denies abscess, Abrasions or rash Neurologic Neurologic: Denies headache(s) or weakness Psychiatric Psychiatric: Denies anxiety, depression or suicidal thoughts Endocrine Endocrinology: Denies polydipsia, polyphagia or polyuria Hematologic/Lymphatic Hematologic/Lymphatic: Denies easy bleeding, easy bruising or lymphadenopathy Allergic/Immunologic Allergic/Immunologic ED: Denies mouth swelling, tongue swelling or urticaria EXAM Physical Exam Const Vital Signs: 06/23/24 01:46 06/23/24 01:51 06/23/24 02:45 Temperature 97.0 F L Temperature Source Temporal Pulse Rate 70 70 Respiratory Rate 15 15 Respiratory Effort Normal Blood Pressure 78/53 L 107/68 Blood Pressure Mean 61 81 Pulse Ox 97 97 Oxygen Delivery Method Room Air Room Air 06/23/24 03:00 Temperature Temperature Source Pulse Rate 70 Respiratory Rate 16 Respiratory Effort Blood Pressure 106/72 Blood Pressure Mean 83 Pulse Ox 96 Oxygen Delivery Method Room Air Positive well nourished and well developed General Appearance ED: well developed and NAD HEENT Reports TM's clear and moist mucous membranes normocephalic and atraumatic; Negative for trauma or tenderness Tympanic Membrane ED: Yes TM's clear Eyes PERRL and EOMs intact bilaterally General Eye ED: Negative for pale conjunctiva or scleral icterus Neck no lymphadenopathy, supple and no JVD General: Negative for tenderness Chest Wall palpation of chest normal; Negative for inspection of chest normal Chest Narrative: Tenderness palpation over the left anterior chest wall into the mid axillary line. No crepitus or subcu emphysema. Chest: Negative for tenderness Resp normal respiratory effort and clear to auscultation bilaterally Effort and Inspection: Negative for respiratory distress or pain with movement Auscultation: Negative for rhonchi, wheezes or diminished lung sounds Cardio regular rate, regular rhythm, S1 normal heart sound, S2 normal heart sound and no murmurs Peripheral Pulses: pulses 2+ throughout GI normal to inspection, nondistended, normoactive bowel sounds, soft to palpation, non-distended and no masses GI Narrative: Patient with diffuse tenderness over the abdomen with some guarding. There is no rebound or rigidity. Back/Spine no CVA tenderness and no thoracic nor lumbar tenderness Extremity normal to inspection General Extremety ED: Negative for edema General Extremity: Negative for edema Neuro oriented x3, CN's II-XII intact bilaterally, no sensory deficits noted and gait normal Sensorium / Orientation: awake, alert, oriented to person, oriented to place and oriented to time Motor Exam: strength 5/5 throughout and strength abnormal Psych mental status grossly normal Skin no rashes or lesions noted and no wounds MDM MDM MDM Narrative Medical decision making narrative: Patient with chest and abdomen pain with syncopal episode initially hypotensive. In the differential would be aortic aneurysm or dissection versus acute GI bleed or cardiac dysrhythmia or acute coronary syndrome. IV line established. She was given a liter Mustain fluid bolus. CBC with differential white count of 8.5 with hemoglobin 9.9 platelet count 243. Patient's had 3 g drop of hemoglobin compared with March of this year. Rectal exam performed showed brown stool that was Hemoccult positive. Chemistries unremarkable. BUN 15 and creatinine 1.06. Troponin normal at 11. Patient had a stat head CT as well as CT chest and abdomen and pelvis without contrast given her history of anaphylaxis to iodine and IV dye. Radiology called and stated that patient had a large hemorrhage from the spleen. Patient INR was 2.7. I did order Kcentra to reverse the patient. Discussed with our general surgeon who recommended transfer to tertiary care center for interventional radiology. Patient initially wanted to go to [facility] however they have no beds available. She was comfortable with going to [facility] is [facility] facility and discussed case with their transfer line she was accepted by their surgeon Dr. Lindsey. I did order 2 units of trauma blood. Patient not tachycardic however she does have a pacemaker which may inhibit her having a tachycardic response. I was asked to give patient hydrocortisone and Benadryl so that they could potentially obtain CTAs upon her arrival to further evaluate splenic hemorrhage. Patient will be sent via helicopter [facility] to expedite transport as patient in critical condition. Lab Data Attestation: I reviewed the patient's lab results. Labs: Laboratory Results - last 24 hr 06/23/24 06/23/24 02:20 02:54 WBC 8.5 RBC 3.20 L Hgb 9.9 L Hct 30.4 L MCV 95.0 MCH 30.9 MCHC 32.6 RDW Std Deviation 46.5 H RDW Coeff of [place] 13.4 Plt Count 243 MPV 9.4 Immature Gran % (Auto) 0.600 Neut % (Auto) 82.4 H Lymph % (Auto) 9.7 L [place] % (Auto) 5.8 Eos % (Auto) 0.9 Baso % (Auto) 0.6 Absolute Neuts (auto) 7.0 Absolute Lymphs (auto) 0.82 L Nucleated RBC % 0 PT 28.1 H INR 2.7 Sodium 141 Potassium 3.6 Chloride 108 H Carbon Dioxide 28.0 Anion Gap 6 BUN 15 Creatinine 1.06 H Estim Creat Clear Calc 50.53 Est GFR (MDRD) Af Amer 64 Est GFR (MDRD) Non-Af 53 L BUN/Creatinine Ratio 14.2 Glucose 148 H Calcium 8.1 L Total Bilirubin 0.60 AST 12 L ALT 15 Alkaline Phosphatase 112 Troponin I High Sens 11 Total Protein 5.1 L Albumin 2.9 L Globulin 2.2 Albumin/Globulin Ratio 1.3 Crossmatch See Detail Radiography Diagnostic Testing: Clinical Impression(s) from Imaging Studies Brain CT 06/23/24 01:59 IMPRESSION: No CT evidence of acute intracranial hemorrhage or injury. Moderate senescent changes. Electronically Signed: Cong Lind MD at 3:11 EDT , Abdomen/Pelvis CT 06/23/24 02:03 IMPRESSION: Splenic sequela of prior granulomatous disease with acute large hemorrhage along the splenic lateral curvature, tracking inferiorly along the left retroperitoneal fat with small amount of blood dependent within the pelvis. Less specific imaging density fluid along the liver. Moderate to large colonic stool. Mild periportal edema. N.B. : The above Results were Read Back by Cong Lind MD to Felisha Harvey DO, and understanding confirmed on 06/23/2024 03:18:04 (ET). Electronically Signed: Cong Lind MD at 3:23 EDT , ADDENDUM: 06/23/24 0330 IMPRESSION: Splenic sequela of prior granulomatous disease with acute large hemorrhage along the splenic lateral curvature, tracking inferiorly along the left retroperitoneal fat with small amount of blood dependent within the pelvis. Less specific imaging density fluid along the liver. Moderate to large colonic stool. Mild periportal edema. N.B. : The above Results were Read Back by Cong Lind MD to Felisha Harvey DO, and understanding confirmed on 06/23/2024 03:18:04 (ET). Electronically Signed: Cong Lind MD at 3:23 EDT , Chest CT 06/23/24 02:04 IMPRESSION: No evidence of acute airspace disease. Sequela of prior granulomatous disease. Perisplenic hemorrhage better assessed on CT abdomen pelvis. Severe multivessel calcified coronary atherosclerosis. Multi lead AICD. Electronically Signed: Cong Lind MD at 3:34 EDT , EKG Initial EKG: Attestation: I personally reviewed and interpreted this EKG as follows: Comments: Paced rhythm with rate of 69 bpm Critical Care Time Critical Care Time: Yes Critical care time (excluding procedures): 30-74 minutes, Including time spent:, Discussing w/Patient &/or Family/Senior Applications Engineer, Discussing w/Consultants, Arranging Admission or Transfer, Performing Direct Patient Care at Bedside and - (34 [address]uis) Discharge Plan Triage Chief Complaint: Chest Pain Other Complaint: Dizziness ED Provider: Felisha Harvey Dx/Rx/DC Orders Clinical Impression: Hemorrhage of spleen, Acute hypotension, Anemia, Syncope Prescriptions: No Action atorvastatin 20 mg tablet 20 mg PO QHS pseudoephedrine-guaifenesin [Mucinex D] 60-600 mg tablet extended release 12 hr 1 tab PO Q12H PRN (Reason: cold symptoms) multivitamin Tablet 1 tab PO DAILY [facility] 50 mg-15 unit- 4.5 mg-2.5 mg tablet,chewable 1 tab PO QHS cholecalciferol (vitamin D3) 125 mcg (5,000 unit) capsule 125 mcg PO DAILY oxycodone 5 MG tablet 10 mg PO TID PRN PRN (Reason: breakthru pain) nitroglycerin 0.4 MG tablet, sublingual 0.4 mg sublingual Q5M PRN (Reason: Cardiac/Chest Pain) Qty: 30 0RF metoprolol succinate 50 MG tablet 50 mg PO DAILY pantoprazole 20 MG tablet 20 mg PO DAILY acetaminophen 325 MG capsule 650 mg PO Q4H PRN PRN (Reason: Pain Score 1-10/10) Entresto 49-51 mg tablet 0.5 tab PO BID aspirin 81 MG tablet,chewable 162 mg PO QHS warfarin 2 mg tablet 4 mg PO QODAY Patient Comments: TAKE 2 TABLETS BY MOUTH ONCE DAILY tafluprost (PF) [Zioptan (PF)] 0.0015 % dropperette 1 drp EACH EYE QHS Patient Comments: 1 drop in both eyes nightly potassium chloride 20 mEq tablet extended release 20 meq PO DAILY Qty: 30 0RF spironolactone 25 mg tablet 25 mg PO DAILY morphine 15 mg tablet extended release 15 mg PO BID warfarin 2 mg tablet 2 mg PO QODAY amiodarone 200 MG tablet 100 mg PO DAILY Primary Care Provider: Roxy Bergman Referrals: Roxy Bergman, [facility] [Primary Care Provider] - Print Language: Macedonian Disposition Disposition: DC/Tx to Another Type of HCF
--- NOTE | 2024-06-23 02:04 | CT_ITS ---
INDICATION: chest pain EXAMINATION: CT CHEST WITHOUT CONTRAST - CT Chest W/O Contrast Injection TECHNIQUE: Helically acquired images were obtained of the chest. A radiation dose optimization technique was used for this scan. IV Contrast dosage and agent: None. COMPARISON: CT abdomen pelvis on same day.. Chest radiograph March 21, 2024. FINDINGS: LUNGS, PLEURA AND LARGE AIRWAYS: Mild dependent atelectasis. No consolidation, effusion, or pneumothorax.. Bilateral basilar calcified granulomas THYROID: No thyroid lesions. HEART AND PERICARDIUM: Heart size is normal. No pericardial effusion. Multilead AICD. Prosthetic mitral valve. Severe multivessel calcified coronary atherosclerosis. VESSELS: Thoracic aorta is not dilated. MEDIASTINUM AND ABELARDO: Mediastinal subcentimeter reactive lymph nodes. No bulky hilar adenopathy. Esophagus is unremarkable. No hiatal hernia. UPPER ABDOMEN: Splenic calcified sequela of prior granulomatous disease. Perisplenic mixed attenuation hemorrhage. Intermediate density perihepatic ascites.. BONES: No suspicious lytic or blastic abnormality. CT/Chest without Contrast IMPRESSION: No evidence of acute airspace disease. Sequela of prior granulomatous disease. Perisplenic hemorrhage better assessed on CT abdomen pelvis. Severe multivessel calcified coronary atherosclerosis. Multi lead AICD. Electronically Signed: Cong Lind MD at 3:34 EDT ,
[2024-06-23] MEDS: 0.9% Normal Saline (1000mL) 1,000 ML 1000 ML IV (02:22)
[2024-06-23 02:28] LABS: Absolute Lymphocyte Count 0.82 X10^3/uL (0.83-4.51); Basophil# 0.05 X10^3/uL; Basophil% 0.6 % (0-1); Eosinophil# 0.08 X10^3/uL; Eosinophils% 0.9 % (0-5); Hematocrit 30.4 % (37-47); Hemoglobin 9.9 g/dL (12.0-15.0); Lymphocyte # 0.82 X10^3/ul (0.83-4.51); Lymphocyte % 9.7 % (19-41); Mean Corp Hgb Conc 32.6 g/dL (32-36); Mean Corpuscular Hgb 30.9 pg (27.0-32.0); Mean Platelet Vol. 9.4 fl (6.2-12.0); Monocyte# 0.49 X10^3/uL; Monocyte% 5.8 % (0-10); NRBC Flagged by Analyzer 0 % (0-5); Neutrophil # 6.98 X10^3/uL (2.7-7.7); Neutrophil % 82.4 % (47-70); Platelet Count 243 K/mm3 (150-450); RBC Distribution Width CV 13.4 % (11.6-14.6); RBC Distribution Width SD 46.5 fl (35.1-43.9); White Blood Count 8.5 K/mm3 (4.4-11.0)
[2024-06-23 02:37] LABS: International Normalized Ratio 2.7; Prothrombin Time (Protime)PT. 28.1 SECONDS (11.7-14.9)
[2024-06-23 02:53] LABS: ALB/GLOB Ratio 1.3 RATIO (0.9-2.4); AST(SGOT) 12 U/L (15-37); Alanine Aminotransfer ALT/SGPT 15 U/L (13-56); Albumin, Serum 2.9 g/dL (3.2-5.0); Alkaline Phosphatase 112 U/L (45-117); Anion Gap 6 (5-15); BUN 15 mg/dL (7-18); BUN/Creat Ratio 14.2 RATIO (10-20); Calcium,Total 8.1 mg/dL (8.5-10.1); Chloride 108 mmol/L (98-107); Creatinine, Serum 1.06 mg/dL (0.55-1.02); EST Glomerular Filtration Rate 53 mL/min (>60); Est Glom Filt Rate - Afr Amer 64 mL/min (>60); Estimated Creatinine Clearance 50.53 ml/min; Globulin 2.2 g/dL (2.2-4.2); Glucose 148 mg/dL (74-106); Potassium 3.6 mmol/L (3.5-5.1); Protein, Total 5.1 g/dL (6.4-8.2); Sodium Level 141 mmol/L (136-145); Troponin-I HS 11 pg/mL (3.0-54.0)
[2024-06-23] MEDS: fentaNYL 100 MCG/2 ML Ampul 50 MCG IV (02:57)
[2024-06-23 03:33] LABS: Bacteria 0 SEEN /hpf (None Seen); Mucous, Urine 0 SEEN /hpf (<or=2+); Red Blood Cells-Urine 0 SEEN /hpf (0-5); Squamous Epithelial Cells - UA 0 SEEN /hpf (5-10); White Blood Cells 0 SEEN /hpf (0-5)
[2024-06-23 03:37] LABS: Color, Urine Yellow (Yellow); Glucose, Dipstick Normal (Normal); Ketone-Dipstick Negative (Negative); Leukocyte Esterase-Dipstick Negative /ul (Negative); Nitrite-Dipstick Negative (Negative); Occult Blood-Urine Negative /ul (Negative); Protein-Dipstick Negative (Negative); Urine Bilirubin Dipstick Negative (Negative); Urine Clarity Clear (Clear); Urine Urobilinogen Normal (Normal)
[2024-06-23] MEDS: Hydrocortisone Sod Succinate 100 MG/2 ML Vial IV (03:57)
[2024-06-23] MEDS: DiphenhydrAMINE 50 MG/ML Syringe IV (03:57)
[2024-06-23] MEDS: Phytonadione (Vit K) 10 MG in 0.9% Normal Saline (50mL Bag) 50 ML 153 MG IV (04:06)
[2024-06-23] MEDS: VIAFLEX IV (04:26)
[2024-06-23] MEDS: HUM PROTHROMBIN CPLX LANS IV (04:26)
== END 2024-06-23 04:38 | disposition other institution (70) ==
PROVIDERS: Emergency Provider Emergency Medicine; PCP Nurse Practitioner Family; Visit Provider Emergency Medicine
DX: D73.5 Infarction of spleen (principal); I11.0 Hypertensive heart disease with heart failure; I50.22 Chronic systolic (congestive) heart failure; I25.10 Atherosclerotic heart disease of native coronary artery without angina pectoris; D64.9 Anemia, unspecified; E78.00 Pure hypercholesterolemia, unspecified; I95.9 Hypotension, unspecified; R55 Syncope and collapse; R07.9 Chest pain, unspecified; Z95.810 Presence of automatic (implantable) cardiac defibrillator; Z95.1 Presence of aortocoronary bypass graft; K21.9 Gastro-esophageal reflux disease without esophagitis
CPT/HCPCS: 70450; 71250; 74176; 80053; 81001; 82274; 84484; 85025; 85610; 86850; 86900; 86901; 86922; 93005; 93288; 93289; 96361; 96374; 96375; 99285; P9016; A4216; C9159; J3490

== ENCOUNTER → 2024-08-12 | Outpatient (CLI) | payer MEDICARE, SELFPAY ==
[2024-08-12 12:56] LABS: Prothrombin Time (Protime)PT. 42.1 SECONDS (11.7-14.9)
[2024-08-12 13:01] LABS: International Normalized Ratio 4.5
== END | disposition home or self-care (01) ==
LOC: LABSPEC 12:10
PROVIDERS: PCP Nurse Practitioner Family; Referring Provider Nurse Practitioner Family; Visit Provider Nurse Practitioner Family
DX: Z79.01 Long term (current) use of anticoagulants (principal)
CPT/HCPCS: 85610

== ENCOUNTER → 2024-08-14 | Outpatient (CLI) | payer MEDICARE, SELFPAY ==
[2024-08-14 10:34] LABS: International Normalized Ratio 3.4
== END | disposition home or self-care (01) ==
PROVIDERS: PCP Nurse Practitioner Family; Referring Provider Nurse Practitioner Family; Visit Provider Nurse Practitioner Family
DX: Z79.01 Long term (current) use of anticoagulants (principal)
CPT/HCPCS: 85610

== ENCOUNTER → 2024-08-22 | Outpatient (CLI) | payer MEDICARE, SELFPAY ==
[2024-08-22 12:21] LABS: Absolute Lymphocyte Count 1.16 X10^3/uL (0.83-4.51); Basophil# 0.08 X10^3/uL; Basophil% 1.4 % (0-1); Eosinophil# 0.12 X10^3/uL; Eosinophils% 2.1 % (0-5); Hematocrit 43.3 % (37-47); Hemoglobin 13.3 g/dL (12.0-15.0); Lymphocyte # 1.16 X10^3/ul (0.83-4.51); Lymphocyte % 20.5 % (19-41); Mean Corp Hgb Conc 30.7 g/dL (32-36); Mean Corpuscular Hgb 27.8 pg (27.0-32.0); Mean Corpuscular Volume 90.4 fL (81-99); Monocyte# 0.24 X10^3/uL; Monocyte% 4.2 % (0-10); NRBC Flagged by Analyzer 0 % (0-5); Neutrophil # 4.02 X10^3/uL (2.7-7.7); Neutrophil % 71.3 % (47-70); Platelet Count 271 K/mm3 (150-450); RBC Distribution Width CV 14.3 % (11.6-14.6); RBC Distribution Width SD 47.4 fl (35.1-43.9); Red Blood Count 4.79 M/mm3 (4.2-5.4); White Blood Count 5.7 K/mm3 (4.4-11.0)
[2024-08-22 12:28] LABS: International Normalized Ratio 2.1; Prothrombin Time (Protime)PT. 23.4 SECONDS (11.7-14.9)
[2024-08-22 12:36] LABS: AST(SGOT) 19 U/L (15-37); Alanine Aminotransfer ALT/SGPT 19 U/L (13-56); Albumin, Serum 3.8 g/dL (3.2-5.0); Alkaline Phosphatase 148 U/L (45-117); Anion Gap 5 (5-15); BUN 20 mg/dL (7-18); BUN/Creat Ratio 19.2 RATIO (10-20); Bilirubin, Direct 0.19 mg/dL (0.00-0.30); Calcium,Total 9.1 mg/dL (8.5-10.1); Chloride 106 mmol/L (98-107); Creatinine, Serum 1.04 mg/dL (0.55-1.02); EST Glomerular Filtration Rate 54 mL/min (>60); Est Glom Filt Rate - Afr Amer 66 mL/min (>60); Globulin 3.1 g/dL (2.2-4.2); Glucose 80 mg/dL (74-106); Potassium 4.2 mmol/L (3.5-5.1); Protein, Total 6.9 g/dL (6.4-8.2); Sodium Level 140 mmol/L (136-145)
== END | disposition home or self-care (01) ==
LOC: LABSPEC 12:07
PROVIDERS: PCP Nurse Practitioner Family; Referring Provider Nurse Practitioner Family; Visit Provider Nurse Practitioner Family
DX: R41.82 Altered mental status, unspecified (principal); I48.91 Unspecified atrial fibrillation; N18.30 Chronic kidney disease, stage 3 unspecified
CPT/HCPCS: 80048; 80076; 85025; 85610

== ENCOUNTER → 2024-09-15 | Outpatient (CLI) | payer MEDICARE, SELFPAY ==
[2024-09-15 12:22] LABS: Absolute Neutrophil Count 4.4 X10^3/uL (2.0-7.7); Basophil# 0.06 X10^3/uL; Basophil% 0.9 % (0-1); Eosinophil# 0.14 X10^3/uL; Eosinophils% 2.1 % (0-5); Hemoglobin 14.2 g/dL (12.0-15.0); Lymphocyte % 24.5 % (19-41); Mean Corp Hgb Conc 30.9 g/dL (32-36); Mean Corpuscular Hgb 27.7 pg (27.0-32.0); Mean Corpuscular Volume 89.8 fL (81-99); Mean Platelet Vol. 9.6 fl (6.2-12.0); Monocyte# 0.32 X10^3/uL; Monocyte% 4.9 % (0-10); NRBC Flagged by Analyzer 0 % (0-5); Neutrophil # 4.37 X10^3/uL (2.7-7.7); Neutrophil % 67.1 % (47-70); Platelet Count 263 K/mm3 (150-450); RBC Distribution Width CV 14.7 % (11.6-14.6); RBC Distribution Width SD 48.7 fl (35.1-43.9); Red Blood Count 5.12 M/mm3 (4.2-5.4); White Blood Count 6.5 K/mm3 (4.4-11.0)
[2024-09-15 12:41] LABS: International Normalized Ratio 4.2; Prothrombin Time (Protime)PT. 41.5 SECONDS (11.7-14.9)
[2024-09-15 12:48] LABS: ALB/GLOB Ratio 1.4 RATIO (0.9-2.4); AST(SGOT) 21 U/L (15-37); Alanine Aminotransfer ALT/SGPT 21 U/L (13-56); Albumin, Serum 3.9 g/dL (3.2-5.0); Alkaline Phosphatase 161 U/L (45-117); Anion Gap 6 (5-15); BUN 20 mg/dL (7-18); BUN/Creat Ratio 17.4 RATIO (10-20); Calcium,Total 9.1 mg/dL (8.5-10.1); Chloride 104 mmol/L (98-107); Creatinine, Serum 1.15 mg/dL (0.55-1.02); EST Glomerular Filtration Rate 48 mL/min (>60); Est Glom Filt Rate - Afr Amer 58 mL/min (>60); Globulin 2.8 g/dL (2.2-4.2); Glucose 89 mg/dL (74-106); Potassium 4.2 mmol/L (3.5-5.1); Protein, Total 6.7 g/dL (6.4-8.2); Sodium Level 140 mmol/L (136-145)
== END | disposition home or self-care (01) ==
LOC: LABSPEC 12:07
PROVIDERS: PCP Nurse Practitioner Family; Referring Provider Nurse Practitioner Family; Visit Provider Nurse Practitioner Family
DX: N18.30 Chronic kidney disease, stage 3 unspecified (principal); Z79.01 Long term (current) use of anticoagulants

== ENCOUNTER → 2024-09-22 | Outpatient (CLI) | payer MEDICARE, SELFPAY ==
[2024-09-22 12:16] LABS: Absolute Lymphocyte Count 1.49 X10^3/uL (0.83-4.51); Absolute Neutrophil Count 3.6 X10^3/uL (2.0-7.7); Basophil# 0.07 X10^3/uL; Basophil% 1.3 % (0-1); Eosinophil# 0.13 X10^3/uL; Eosinophils% 2.3 % (0-5); Hematocrit 44.2 % (37-47); Hemoglobin 14.1 g/dL (12.0-15.0); Lymphocyte # 1.49 X10^3/ul (0.83-4.51); Lymphocyte % 26.8 % (19-41); Mean Corp Hgb Conc 31.9 g/dL (32-36); Mean Corpuscular Hgb 28.7 pg (27.0-32.0); Mean Platelet Vol. 9.4 fl (6.2-12.0); Monocyte# 0.26 X10^3/uL; Monocyte% 4.7 % (0-10); NRBC Flagged by Analyzer 0 % (0-5); Neutrophil # 3.58 X10^3/uL (2.7-7.7); Neutrophil % 64.5 % (47-70); Platelet Count 247 K/mm3 (150-450); RBC Distribution Width SD 49.9 fl (35.1-43.9); Red Blood Count 4.91 M/mm3 (4.2-5.4); White Blood Count 5.6 K/mm3 (4.4-11.0)
[2024-09-22 12:25] LABS: International Normalized Ratio 3.8; Prothrombin Time (Protime)PT. 38.1 SECONDS (11.7-14.9)
== END | disposition home or self-care (01) ==
LOC: LABSPEC 11:52
PROVIDERS: Specialist; PCP Nurse Practitioner Family; Referring Provider Nurse Practitioner Family; Visit Provider Nurse Practitioner Family
DX: R42 Dizziness and giddiness (principal); Z79.01 Long term (current) use of anticoagulants
CPT/HCPCS: 85025; 85610

== ENCOUNTER 2024-09-29 11:53 | Outpatient (RCR) | payer MEDICARE, SELFPAY ==
[2024-09-16 12:18] LABS: Prothrombin Time (Protime)PT. 42.6 SECONDS (11.7-14.9)
[2024-09-16 12:59] LABS: International Normalized Ratio 4.4
[2024-09-17 12:50] LABS: International Normalized Ratio 3.7; Prothrombin Time (Protime)PT. 37.2 SECONDS (11.7-14.9)
[2024-09-19 12:13] LABS: Prothrombin Time (Protime)PT. 31.9 SECONDS (11.7-14.9)
[2024-09-24 12:41] LABS: International Normalized Ratio 3.9; Prothrombin Time (Protime)PT. 38.8 SECONDS (11.7-14.9)
[2024-09-26 12:24] LABS: International Normalized Ratio 2.1; Prothrombin Time (Protime)PT. 23.7 SECONDS (11.7-14.9)
[2024-09-29 12:28] LABS: International Normalized Ratio 1.8; Prothrombin Time (Protime)PT. 20.8 SECONDS (11.7-14.9)
== END 2024-10-03 23:59 ==
LOC: LABSPEC 11:53
PROVIDERS: PCP Nurse Practitioner Family; Referring Provider Nurse Practitioner Family; Visit Provider Nurse Practitioner Family
DX: Z79.01 Long term (current) use of anticoagulants (principal)
CPT/HCPCS: 85610

== ENCOUNTER 2024-10-17 12:07 | Outpatient (RCR) | payer MEDICARE, SELFPAY ==
[2024-10-06 13:14] LABS: International Normalized Ratio 1.9; Prothrombin Time (Protime)PT. 21.8 SECONDS (11.7-14.9)
[2024-10-17 12:59] LABS: Prothrombin Time (Protime)PT. 23.1 SECONDS (11.7-14.9)
== END 2024-10-31 23:59 ==
LOC: LABSPEC 12:07
PROVIDERS: PCP Nurse Practitioner Family; Referring Provider Nurse Practitioner Family; Visit Provider Nurse Practitioner Family
DX: Z79.01 Long term (current) use of anticoagulants (principal); I48.91 Unspecified atrial fibrillation
CPT/HCPCS: 85610

== ENCOUNTER → 2024-11-04 | Outpatient (CLI) | payer MEDICARE, SELFPAY ==
[2024-11-04 15:50] LABS: International Normalized Ratio 2.3; Prothrombin Time (Protime)PT. 25.9 SECONDS (11.7-14.9)
== END | disposition home or self-care (01) ==
LOC: LABSPEC 15:07
PROVIDERS: PCP Nurse Practitioner Family; Referring Provider Nurse Practitioner Family; Visit Provider Nurse Practitioner Family
DX: I48.91 Unspecified atrial fibrillation (principal)
CPT/HCPCS: 85610

== ENCOUNTER → 2025-01-16 | Outpatient (CLI) | payer MEDICARE, SELFPAY ==
[2025-01-16 12:55] LABS: International Normalized Ratio 3.1; Prothrombin Time (Protime)PT. 32.7 SECONDS (11.7-14.9)
== END | disposition home or self-care (01) ==
LOC: LABSPEC 12:19
PROVIDERS: PCP Nurse Practitioner Family; Referring Provider Nurse Practitioner Family; Visit Provider Nurse Practitioner Family
DX: I48.91 Unspecified atrial fibrillation (principal)
CPT/HCPCS: 85610

== ENCOUNTER → 2025-01-19 | Outpatient (CLI) | payer MEDICARE, SELFPAY ==
[2025-01-19 12:46] LABS: Prothrombin Time (Protime)PT. 22.9 SECONDS (11.7-14.9)
== END | disposition home or self-care (01) ==
LOC: LABSPEC 12:10
PROVIDERS: PCP Nurse Practitioner Family; Referring Provider Nurse Practitioner Family; Visit Provider Nurse Practitioner Family
DX: I48.91 Unspecified atrial fibrillation (principal)
CPT/HCPCS: 85610

== ENCOUNTER → 2025-02-02 | Outpatient (CLI) | payer MEDICARE, SELFPAY ==
[2025-02-02 12:37] LABS: International Normalized Ratio 1.6; Prothrombin Time (Protime)PT. 19.7 SECONDS (11.7-14.9)
== END | disposition home or self-care (01) ==
LOC: LABSPEC 11:54
PROVIDERS: PCP Nurse Practitioner Family; Referring Provider Nurse Practitioner Family; Visit Provider Nurse Practitioner Family
DX: I48.91 Unspecified atrial fibrillation (principal)
CPT/HCPCS: 85610

== ENCOUNTER → 2025-02-09 | Outpatient (CLI) | payer MEDICARE, SELFPAY ==
[2025-02-09 14:11] LABS: International Normalized Ratio 2.4; Prothrombin Time (Protime)PT. 26.5 SECONDS (11.7-14.9)
== END | disposition home or self-care (01) ==
LOC: LABSPEC 12:10
PROVIDERS: PCP Nurse Practitioner Family; Referring Provider Nurse Practitioner Family; Visit Provider Nurse Practitioner Family
DX: I48.91 Unspecified atrial fibrillation (principal)
CPT/HCPCS: 85610

== ENCOUNTER → 2025-05-18 | Outpatient (CLI) | payer MEDICARE, SELFPAY ==
[2025-05-18 13:38] LABS: Prothrombin Time (Protime)PT. 20.3 SECONDS (11.7-14.9)
== END | disposition home or self-care (01) ==
LOC: LABSPEC 12:21
PROVIDERS: PCP Nurse Practitioner Family; Referring Provider Nurse Practitioner Family; Visit Provider Nurse Practitioner Family
DX: Z79.01 Long term (current) use of anticoagulants (principal)
CPT/HCPCS: 85610

== ENCOUNTER → 2025-06-09 | Outpatient (CLI) | payer MEDICARE, SELFPAY ==
[2025-06-09 11:13] LABS: Prothrombin Time (Protime)PT. 31.0 SECONDS (11.7-14.9)
== END | disposition home or self-care (01) ==
LOC: LABSPEC 10:53
PROVIDERS: PCP Nurse Practitioner Family; Referring Provider Nurse Practitioner Family; Visit Provider Nurse Practitioner Family
DX: Z79.01 Long term (current) use of anticoagulants (principal)
CPT/HCPCS: 85610

== ENCOUNTER → 2025-06-15 | Outpatient (CLI) | payer MEDICARE, SELFPAY ==
[2025-06-15 12:41] LABS: Prothrombin Time (Protime)PT. 28.0 SECONDS (11.7-14.9)
== END | disposition home or self-care (01) ==
PROVIDERS: PCP Nurse Practitioner Family; Referring Provider Nurse Practitioner Family; Visit Provider Nurse Practitioner Family
DX: Z79.01 Long term (current) use of anticoagulants (principal)
CPT/HCPCS: 36415; 85610

== ENCOUNTER → 2025-06-19 | Outpatient (CLI) | payer MEDICARE, SELFPAY ==
--- NOTE | 2025-06-19 10:20 | RAD_ITS ---
PROCEDURE: CERV SPINE OBL/FLEX/EXT COMP 06/19/2025 REASON FOR EXAM: CERVICAL DDD TECHNIQUE: Procedure Code: [id number] Modality: DX Procedure: CERV SPINE OBL/FLEX/EXT COMP FINDINGS: No evidence acute fracture or dislocation. Severe degenerative changes of the visualized spine. No listhesis vertebral body heights are maintained. RAD/Cerv Spine Obl/Flex/Ext Comp IMPRESSION: Severe spondylosis. Disclaimer: Reading Location: [id number]
--- NOTE | 2025-06-19 10:20 | RAD_ITS ---
PROCEDURE: WRIST MIN 3 VIEWS 06/19/2025 REASON FOR EXAM: PAIN IN WRIST New onset lateral wrist pain. No known injury. TECHNIQUE: Procedure Code: RADWR Modality: DX Procedure: WRIST MIN 3 VIEWS Laterality: Left COMPARISON: None FINDINGS: Bones: Diffuse osteopenia of the osseous structures are noted. There are no fractures or dislocations. Joints: Moderate osteoarthritic changes are seen involving the 1st carpometacarpal joint an ulnar carpal joint. There is increased calcific density identified in the ulnar carpal joint compatible with chondrocalcinosis. Soft tissues: Minimal soft tissue swelling of the wrist is noted. RAD/Wrist min 3 Views IMPRESSION: Diffuse osteopenia osseous structures left wrist. Moderate osteoarthritic changes involving the 1st carpometacarpal joint Moderate osteoarthritic changes involving the ulnar carpal joint. Minimal soft tissue swelling of the wrist. Reading Location: [id number]
== END | disposition home or self-care (01) ==
LOC: MTRAD 10:16
PROVIDERS: PCP Nurse Practitioner Family; Referring Provider Clinical Nurse Specialist Adult Health; Visit Provider Clinical Nurse Specialist Adult Health
DX: M50.30 Other cervical disc degeneration, unspecified cervical region (principal); M25.532 Pain in left wrist
CPT/HCPCS: 72052; 73110

== ENCOUNTER → 2025-06-22 | Outpatient (CLI) | payer MEDICARE, SELFPAY ==
[2025-06-22 12:51] LABS: Prothrombin Time (Protime)PT. 22.8 SECONDS (11.7-14.9)
== END | disposition home or self-care (01) ==
LOC: LABSPEC 12:25
PROVIDERS: PCP Nurse Practitioner Family; Referring Provider Nurse Practitioner Family; Visit Provider Nurse Practitioner Family
DX: Z79.01 Long term (current) use of anticoagulants (principal)
CPT/HCPCS: 85610

== ENCOUNTER 2025-06-29 10:51 | Outpatient (RCR) | payer MEDICARE, SELFPAY ==
[2025-06-29 12:19] LABS: Prothrombin Time (Protime)PT. 31.0 SECONDS (11.7-14.9)
== END 2025-06-29 18:00 | disposition home or self-care (01) ==
LOC: MTLAB 10:51
PROVIDERS: PCP Nurse Practitioner Family; Referring Provider Nurse Practitioner Family; Visit Provider Nurse Practitioner Family
DX: I48.91 Unspecified atrial fibrillation (principal)
CPT/HCPCS: 36415; 85610

== ENCOUNTER → 2025-07-21 | Outpatient (CLI) | payer MEDICARE, SELFPAY ==
[2025-07-21 15:24] LABS: Hematocrit 43.8 % (37-47); Hemoglobin 14.2 g/dL (12.0-15.0); Immature Granulocytes Count 0.030 X10^3/uL (0.0-0.0); Mean Corp Hgb Conc 32.4 g/dL (32-36); Mean Corpuscular Volume 93.0 fL (81-99); Mean Platelet Vol. 9.4 fl (6.2-12.0); NRBC Flagged by Analyzer 0 % (0-5); Platelet Count 240 K/mm3 (150-450); RBC Distribution Width CV 12.9 % (11.6-14.6); RBC Distribution Width SD 44.3 fl (35.1-43.9); Red Blood Count 4.71 M/mm3 (4.2-5.4); White Blood Count 6.7 K/mm3 (4.4-11.0)
[2025-07-21 15:50] LABS: CRP < 3.00 mg/L (0.0-3.0); Uric Acid 4.5 mg/dL (2.6-6.0)
== END | disposition home or self-care (01) ==
LOC: MTLAB 12:37
PROVIDERS: PCP Nurse Practitioner Family
DX: T84.84XD Pain due to internal orthopedic prosthetic devices, implants and grafts, subsequent encounter (principal); Z96.651 Presence of right artificial knee joint
CPT/HCPCS: 36415; 84550; 85025; 85652; 86140